=== PATIENT | female | born 1950 | race Caucasian/White ===

== ENCOUNTER 2019-03-28 19:09 | Inpatient (IN) | payer MEDICAID, OTHER ==
[~2019-03-28] VITALS: Ht 160 cm; Wt 51.0 kg
[2019-03-28 19:10] VITALS: BP 99/58
[2019-03-28] MEDS ORDERED: TRAZODONE HCL100 MG ORAL (19:11)
[2019-03-28] MEDS ORDERED: CLONAZEPAM2 MG PO (19:11)
[2019-03-28] MEDS ORDERED: INVEGA TRI IM (19:11)
--- NOTE | 2019-03-28 19:18 | Emergency Room Report ---
History of Present Illness General Chief Complaint: Multiple Trauma/Fall Source: Patient Present Illness HPI Patient transported by S after a slip and fall in her bathtub. A neighbor called them because she was not acting like her normal self. Patient denies any symptoms at this time. She has a history of schizophrenia. She denies pain. They noted that she is slurring her words. As this was BLS no Accu-Chek or line was started in the field. They also alleged that her MLAPPS test is negative. Patient denies taking any pain medication or other her medication. She denies all pain questions. She denies nausea vomiting diarrhea or dysuria. Allergies: Coded Allergies: No Known Allergies (Unverified , 03/28/19) Patient History Past Medical History: see triage record, psych hx - schizophrenia Past Surgical History: pacemaker Social History: Denies: smoking, alcohol use Social History Narrative lives by herself in her apartment Reviewed Nursing Documentation: PMH: Agreed; PSxH: Agreed Nursing Documentation-PMH Past Medical History: No History, Except For Hx COPD: Yes History Of Psychiatric Problem: Yes - SCHIZOPHRENIA Review of Systems All Other Systems: negative except mentioned in HPI - Patient denying all symptoms Physical Exam Vital Signs Date Time Temp Pulse Resp B/P (MAP) Pulse Ox O2 Delivery O2 Flow Rate FiO2 03/28/19 19:04 98.6 78 18 95/61 (72) 98 Room Air Sp02 EP Interpretation: reviewed, normal General Appearance: no apparent distress, lethargic - Eyes open, tardive movements of her mouth, answering questions with slurred speech, remembers falling, thin Eyes: bilateral eye PERRL, bilateral eye EOMI, bilateral eye Scleral Injection ENT: dry mucus membranes Neck: full range of motion, supple, no bony tend Respiratory: chest non-tender, lungs clear, normal breath sounds, other - Pacemaker left Cardiovascular #1: regular rate, rhythm, no edema Cardiovascular #2: 2+ radial (L) Gastrointestinal: non tender, soft, decreased bowel sounds, scaphoid Genitourinary: no CVA tenderness Musculoskeletal: back normal, normal range of motion, no calf tenderness, pelvis stable Neurologic: alert, motor strength/tone normal, DTRs symmetric, sensory intact, other - Tardive movements of mouth slurred speech and slow to respond, oriented - X2 Psychiatric: no suicidal/homicidal ideation, depressed affect Skin: no rash Medical Decision Making Diagnostic Impression: Primary Impression: Lethargy Additional Impressions: Head trauma Qualified Codes: S09.90XA - Unspecified injury of head, initial encounter Schizophrenia Qualified Codes: F20.9 - Schizophrenia, unspecified Benzodiazepine abuse Pyuria ER Course Patient presents post head trauma with decreased mentation. Differential includes head bleed, head contusion, concussion, electrolyte imbalance, drug ingestion amongst others. Evaluation will be with EKG, chest x-ray, CT the head and labs. The patient will be treated with IV hydration and repeat evaluations. Patient is placed on a quality assurance monitor. EKG with normal sinus rhythm rate 66 left atrial enlargement and nonspecific ST- T wave changes. CT head no bleed. Chest x-ray unremarkable. Labs with minimal increase in white blood cell count. Glucose minimally elevated. Troponin negative. Normal TSH. Minimal pyuria with squamous cells present. Tox screen positive for benzodiazepines. Due to squamous cells in urine antibiotics not started. Some improvement in mentation. Unable to ambulate. Unsteady on feet. Needs observation. She claims she only takes clonazepam 1 mg at night. Because of her inability to ambulate patient needs observation and repeat evaluations. In addition she needs health and social care teacher to evaluate safety at home. Patient admitted observation Dr. Hardy citrix consultant for Dr. Bedoya. Fall risk noted. Laboratory Tests Test 03/28/19 19:25 03/28/19 19:50 White Blood Count 11.0 K/UL (4.8-10.8) H Red Blood Count 4.32 M/UL (4.20-5.40) Hemoglobin 14.5 G/DL (12.0-16.0) Hematocrit 42.3 % (37.0-47.0) Mean Corpuscular Volume 98 FL (80-99) Mean Corpuscular Hemoglobin 33.5 PG (27.0-31.0) H Mean Corpuscular Hemoglobin Concent 34.2 G/DL (32.0-36.0) Red Cell Distribution Width 11.6 % (11.6-14.8) Platelet Count 251 K/UL (150-450) Mean Platelet Volume 6.6 FL (6.5-10.1) Neutrophils (%) (Auto) 75.1 % (45.0-75.0) H Lymphocytes (%) (Auto) 15.6 % (20.0-45.0) L Monocytes (%) (Auto) 7.8 % (1.0-10.0) Eosinophils (%) (Auto) 0.8 % (0.0-3.0) Basophils (%) (Auto) 0.6 % (0.0-2.0) Sodium Level 137 MMOL/L (136-145) Potassium Level 4.0 MMOL/L (3.5-5.1) Chloride Level 103 MMOL/L (98-107) Carbon Dioxide Level 25 MMOL/L (21-32) Anion Gap 9 mmol/L (5-15) Blood Urea Nitrogen 11 mg/dL (7-18) Creatinine 1.0 MG/DL (0.55-1.30) Estimate Glomerular Filtration Rate 55.1 mL/min (>60) Glucose Level 125 MG/DL (74-106) H Calcium Level 9.8 MG/DL (8.5-10.1) Total Bilirubin 0.3 MG/DL (0.2-1.0) Aspartate Amino Transferase (AST) 7 U/L (15-37) L Alanine Aminotransferase (ALT) 13 U/L (12-78) Alkaline Phosphatase 54 U/L (46-116) Total Creatine Kinase 151 U/L (26-308) Troponin I 0.003 ng/mL (0.000-0.056) Total Protein 6.7 G/DL (6.4-8.2) Albumin 3.6 G/DL (3.4-5.0) Globulin 3.1 g/dL Albumin/Globulin Ratio 1.2 (1.0-2.7) Thyroid Stimulating Hormone (TSH) 2.568 uiU/mL (0.358-3.740) Salicylates Level 9.7 ug/mL (2.8-20) Acetaminophen Level < 2 MCG/ML (10-30) L Serum Alcohol < 3 mg/dL Urine Color Pale yellow Urine Appearance Clear Urine pH 6.5 (4.5-8.0) Urine Specific [place] 1.005 (1.005-1.035) Urine Protein Negative (NEGATIVE) Urine Glucose (UA) Negative (NEGATIVE) Urine Ketones 1+ (NEGATIVE) H Urine Blood 2+ (NEGATIVE) H Urine Nitrite Negative (NEGATIVE) Urine Bilirubin Negative (NEGATIVE) Urine Urobilinogen Normal MG/DL (0.0-1.0) Urine Leukocyte Esterase 3+ (NEGATIVE) H Urine RBC 0-2 /HPF (0 - 2) Urine WBC 5-10 /HPF (0 - 2) H Urine Squamous Epithelial Cells Occasional /LPF Urine Bacteria Few /HPF (NONE) Urine Opiates Screen Negative (NEGATIVE) Urine Barbiturates Screen Negative (NEGATIVE) Phencyclidine (PCP) Screen Negative (NEGATIVE) Urine Amphetamines Screen Negative (NEGATIVE) Urine Benzodiazepines Screen Positive (NEGATIVE) H Urine Cocaine Screen Negative (NEGATIVE) Urine Marijuana (THC) Screen Negative (NEGATIVE) EKG Diagnostic Results Rate: normal Rhythm: NSR ST Segments: no acute changes - Left atrial enlargement and nonspecific ST-T wave changes Rhythm Strip Diag. Results EP Interpretation: yes Rhythm: NSR, no PVC's, no ectopy Chest X-Ray Diagnostic Results Chest X-Ray Diagnostic Results : Chest X-Ray Ordered: Yes # of Views/Limited/Complete: 1 View Indication: Other EP Interpretation: Yes Interpretation: no consolidation, no effusion, no pneumothorax, other - pacer L Impression: Other Electronically Signed by: Electronically signed by Francisco Rodriguez MD CT/MRI/US Diagnostic Results CT/MRI/US Diagnostic Results : Imaging Test Ordered: head Impression No bleed or contusions no fracture. Last Vital Signs Date Time Temp Pulse Resp B/P (MAP) Pulse Ox O2 Delivery O2 Flow Rate FiO2 03/29/19 01:58 Room Air 03/29/19 01:05 97.6 59 15 134/72 (92) 94 Status: improved Disposition: PLACE IN OBSERVATION Condition: Serious Francisco Rodriguez MD Mar 28, 2019 19:18
[2019-03-28 19:40] LABS: BASOPHILS % (AUTO) 0.6 % (0.0-2.0); EOSINOPHILS % (AUTO) 0.8 % (0.0-3.0); HEMATOCRIT 42.3 % (37.0-47.0); HEMOGLOBIN 14.5 G/DL (12.0-16.0); LYMPHOCYTES % (AUTO) 15.6 % (20.0-45.0); MEAN CORPUSCULAR VOLUME 98 FL (80-99); MONOCYTES % (AUTO) 7.8 % (1.0-10.0); NEUTROPHILS % (AUTO) 75.1 % (45.0-75.0); PLATELET COUNT 251 K/UL (150-450); RED BLOOD COUNT 4.32 M/UL (4.20-5.40); RED CELL DISTRIBUTION WIDTH 11.6 % (11.6-14.8)
[2019-03-28 19:55] LABS: ANION GAP 9 mmol/L (5-15); BLOOD UREA NITROGEN 11 mg/dL (7-18); CALCIUM 9.8 MG/DL (8.5-10.1); CARBON DIOXIDE 25 MMOL/L (21-32); CHLORIDE 103 MMOL/L (98-107); SODIUM 137 MMOL/L (136-145)
[2019-03-28 20:07] LABS: ALANINE AMINOTRANSFERASE 13 U/L (12-78); ALBUMIN 3.6 G/DL (3.4-5.0); ALBUMIN/GLOBULIN RATIO 1.2 (1.0-2.7); ALKALINE PHOSPHATASE 54 U/L (46-116); ASPARTATE AMINO TRANSFERASE 7 U/L (15-37); BILIRUBIN,TOTAL 0.3 MG/DL (0.2-1.0); CREATINE KINASE 151 U/L (26-308)
[2019-03-28 20:13] LABS: APPEARANCE,URINE CLEAR; BILIRUBIN, URINE NEGATIVE (NEGATIVE); COLOR,URINE PALE YELLOW; GLUCOSE, URINE (UA) NEGATIVE (NEGATIVE); KETONES,URINE 1+ (NEGATIVE); LEUKOCYTE ESTERASE ,URINE 3+ (NEGATIVE); NITRITE,URINE NEGATIVE (NEGATIVE); PH,URINE 6.5 (4.5-8.0); PROTEIN,URINE NEGATIVE (NEGATIVE); UROBILINOGEN,URINE NORMAL MG/DL (0.0-1.0)
[2019-03-28 21:10] VITALS: BP 95/48
[2019-03-28 23:17] VITALS: BP 122/61
[2019-03-29 01:05] VITALS: BP 134/72
[2019-03-29] MEDS: D5 1/2NS 1,000 ML IV SCH ×2 (02:15→17:04)
[2019-03-29 04:00] VITALS: BP 128/67
[2019-03-29 06:04] LABS: BASOPHILS % (AUTO) 1.1 % (0.0-2.0); EOSINOPHILS % (AUTO) 1.3 % (0.0-3.0); HEMATOCRIT 40.2 % (37.0-47.0); HEMOGLOBIN 13.8 G/DL (12.0-16.0); LYMPHOCYTES % (AUTO) 15.5 % (20.0-45.0); MEAN CORPUSCULAR VOLUME 98 FL (80-99); MONOCYTES % (AUTO) 8.3 % (1.0-10.0); NEUTROPHILS % (AUTO) 73.8 % (45.0-75.0); PLATELET COUNT 229 K/UL (150-450); RED CELL DISTRIBUTION WIDTH 11.7 % (11.6-14.8)
[2019-03-29 06:16] LABS: ANION GAP 9 mmol/L (5-15); BLOOD UREA NITROGEN 8 mg/dL (7-18); CALCIUM 9.1 MG/DL (8.5-10.1); CARBON DIOXIDE 24 MMOL/L (21-32); CHLORIDE 108 MMOL/L (98-107); CREATININE 0.8 MG/DL (0.55-1.30); POTASSIUM 3.9 MMOL/L (3.5-5.1); SODIUM 141 MMOL/L (136-145)
[2019-03-29 08:00] VITALS: BP 117/60
--- NOTE | 2019-03-29 11:55 | History and Physical ---
History of Present Illness General Date patient seen: Mar 29, 2019 Time patient seen: 08:45 Reason for Hospitalization: Multiple Trauma/Fall Present Illness HPI 69 year old female with hx of schizophrenia, presenting after a fall in her bathtub. Denies any symptoms prior to fall, just "slipped," and hit her head and right side of body. Afterwards, patient was reportedly acting not like herself, so her neighbors called EMS and was taken here. Reportedly slurring her words as well. She denies any chest pain, lightheadedness, syncope, SOB, fever, chills, recent illness. ROS+ however for diarrhea x 3 days, (about 2-3 times daily), but no abdominal pain, blood in stool. Also + for lack of PO intake in last 2~3 days. When asked why she did not eat, she was unable to provide an answer. Denies any recent use of abx. She lives with a roommate; has no immediate family in the area. (History obtained from medical chart and patient. Patient is a unreliable historian, flat affect) Social history: as above Allergies: Coded Allergies: No Known Allergies (Unverified , 03/28/19) Medication History Scheduled Clonazepam (Clonazepam), 2 MG PO QHS, (Reported) Paliperidone Palmitate (Invega Trinza), 410 MG IM EVERY 3 MONTHS, (Reported) Trazodone Hcl* (Desyrel*), 100 MG ORAL BEDTIME, (Reported) Patient History Limited by: other - flat affect History Provided By: Patient, Medical Record Healthcare decision maker yes Resuscitation status Full Code Advanced Directive on File Past Medical/Surgical History Past Medical/Surgical History: (1) Head trauma (2) Diarrhea (3) Schizophrenia (4) Lethargy (5) Physical deconditioning Family History Family History: Patient reports no known family medical history. Review of Systems Constitutional: Reports: weakness - general weakness ; Denies: no symptoms, see HPI, chills, sweats, fever, malaise, other Eye: Denies: no symptoms, see HPI, eye pain, blurred vision, tearing, double vision, nose pain, nose congestion, acuity changes, discharge, other ENT: Denies: no symptoms, see HPI, ear pain, ear discharge, nose pain, nose congestion, throat pain, throat swelling, mouth pain, hearing loss, nasal discharge, other Respiratory: Denies: no symptoms, see HPI, cough, orthopnea, shortness of breath, stridor, wheezing, [place], sputum, other Cardiovascular: Denies: no symptoms, see HPI, chest pain, edema, palpitations, syncope, PND, other Gastrointestinal: Reports: diarrhea; Denies: no symptoms, see HPI, abdominal pain, constipation, nausea, vomiting, melena, hematemesis, other Genitourinary: Denies: no symptoms, see HPI, discharge, dysuria, frequency, hematuria, pain, retention, incontinence, urgency, vag bleed/dc, other Musculoskeletal: Denies: no symptoms, see HPI, back pain, gout, joint pain, joint swelling, muscle pain, muscle stiffness, other Skin: Denies: no symptoms, see HPI, rash, change in color, change in hair/nails , dryness, lesions, other Psychiatric: Denies: no symptoms, see HPI, prior hx, anxiety, depressed feelings, emotional problems, SI, HI, hallucinations, other Neurological: Denies: no symptoms, see HPI, headache, numbness, paresthesia, seizure, tingling, tremors, focal weakness, syncope, dizziness, other Endocrine: Denies: no symptoms, see HPI, excessive sweating, flushing, intolerance to temperature, increased thirst, increased urine, unexplained weight loss, other Hematologic/Lymphatic: Denies: no symptoms, see HPI, anemia, blood clots, easy bleeding, easy bruising, swollen glands, diathesis, other Physical Exam General Appearance: WD/WN, no apparent distress, cachetic, thin, other - withdrawn, flat affect Lines, tubes and drains: peripheral HEENT: normocephalic, atraumatic, anicteric Neck: supple Respiratory/Chest: lungs clear, normal breath sounds, no respiratory distress Cardiovascular/Chest: normal rate, regular rhythm, regularly irregular, no gallop/murmur Abdomen: normal bowel sounds, non tender, soft, hyperactive bowel sounds Extremities: non-tender Neurologic: alert, other - oriented x2. Thinks it's 1900. Last 24 Hour Vital Signs Date Time Temp Pulse Resp B/P (MAP) Pulse Ox O2 Delivery O2 Flow Rate FiO2 03/29/19 09:00 Room Air 03/29/19 08:00 98.2 78 18 117/60 (79) 93 03/29/19 04:00 98.4 61 18 128/67 (87) 96 03/29/19 01:58 Room Air 03/29/19 01:05 97.6 59 15 134/72 (92) 94 03/29/19 00:59 98.4 63 22 115/67 95 Room Air 03/28/19 23:17 98.7 68 19 122/61 96 Room Air 03/28/19 21:10 98.5 60 22 95/48 95 Room Air 03/28/19 19:10 98.6 66 21 99/58 98 Room Air 03/28/19 19:10 66 21 Room Air 03/28/19 19:04 98.6 78 18 95/61 (72) 98 Room Air Intake and Output 03/28/19 03/29/19 18:59 06:59 Intake Total 2320 ml Balance 2320 ml Intake Oral 120 ml IV Total 2200 ml # Voids 1 # Bowel Movements 1 Laboratory Tests Test 03/28/19 19:25 03/28/19 19:50 03/29/19 05:20 White Blood Count 11.0 K/UL (4.8-10.8) H 9.0 K/UL (4.8-10.8) Red Blood Count 4.32 M/UL (4.20-5.40) 4.10 M/UL (4.20-5.40) L Hemoglobin 14.5 G/DL (12.0-16.0) 13.8 G/DL (12.0-16.0) Hematocrit 42.3 % (37.0-47.0) 40.2 % (37.0-47.0) Mean Corpuscular Volume 98 FL (80-99) 98 FL (80-99) Mean Corpuscular Hemoglobin 33.5 PG (27.0-31.0) H 33.6 PG (27.0-31.0) H Mean Corpuscular Hemoglobin Concent 34.2 G/DL (32.0-36.0) 34.2 G/DL (32.0-36.0) Red Cell Distribution Width 11.6 % (11.6-14.8) 11.7 % (11.6-14.8) Platelet Count 251 K/UL (150-450) 229 K/UL (150-450) Mean Platelet Volume 6.6 FL (6.5-10.1) 6.8 FL (6.5-10.1) Neutrophils (%) (Auto) 75.1 % (45.0-75.0) H 73.8 % (45.0-75.0) Lymphocytes (%) (Auto) 15.6 % (20.0-45.0) L 15.5 % (20.0-45.0) L Monocytes (%) (Auto) 7.8 % (1.0-10.0) 8.3 % (1.0-10.0) Eosinophils (%) (Auto) 0.8 % (0.0-3.0) 1.3 % (0.0-3.0) Basophils (%) (Auto) 0.6 % (0.0-2.0) 1.1 % (0.0-2.0) Sodium Level 137 MMOL/L (136-145) 141 MMOL/L (136-145) Potassium Level 4.0 MMOL/L (3.5-5.1) 3.9 MMOL/L (3.5-5.1) Chloride Level 103 MMOL/L (98-107) 108 MMOL/L (98-107) H Carbon Dioxide Level 25 MMOL/L (21-32) 24 MMOL/L (21-32) Anion Gap 9 mmol/L (5-15) 9 mmol/L (5-15) Blood Urea Nitrogen 11 mg/dL (7-18) 8 mg/dL (7-18) Creatinine 1.0 MG/DL (0.55-1.30) 0.8 MG/DL (0.55-1.30) Estimat Glomerular Filtration Rate 55.1 mL/min (>60) > 60 mL/min (>60) Glucose Level 125 MG/DL (74-106) H 120 MG/DL (74-106) H Calcium Level 9.8 MG/DL (8.5-10.1) 9.1 MG/DL (8.5-10.1) Total Bilirubin 0.3 MG/DL (0.2-1.0) Aspartate Amino Transf (AST/SGOT) 7 U/L (15-37) L Alanine Aminotransferase (ALT/SGPT) 13 U/L (12-78) Alkaline Phosphatase 54 U/L (46-116) Total Creatine Kinase 151 U/L (26-308) Troponin I 0.003 ng/mL (0.000-0.056) Total Protein 6.7 G/DL (6.4-8.2) Albumin 3.6 G/DL (3.4-5.0) Globulin 3.1 g/dL Albumin/Globulin Ratio 1.2 (1.0-2.7) Thyroid Stimulating Hormone (TSH) 2.568 uiU/mL (0.358-3.740) Salicylates Level 9.7 ug/mL (2.8-20) Acetaminophen Level < 2 MCG/ML (10-30) L Serum Alcohol < 3 mg/dL Urine Color Pale yellow Urine Appearance Clear Urine pH 6.5 (4.5-8.0) Urine Specific [place] 1.005 (1.005-1.035) Urine Protein Negative (NEGATIVE) Urine Glucose (UA) Negative (NEGATIVE) Urine Ketones 1+ (NEGATIVE) H Urine Blood 2+ (NEGATIVE) H Urine Nitrite Negative (NEGATIVE) Urine Bilirubin Negative (NEGATIVE) Urine Urobilinogen Normal MG/DL (0.0-1.0) Urine Leukocyte Esterase 3+ (NEGATIVE) H Urine RBC 0-2 /HPF (0 - 2) Urine WBC 5-10 /HPF (0 - 2) H Urine Squamous Epithelial Cells Occasional /LPF Urine Bacteria Few /HPF (NONE) Urine Opiates Screen Negative (NEGATIVE) Urine Barbiturates Screen Negative (NEGATIVE) Phencyclidine (PCP) Screen Negative (NEGATIVE) Urine Amphetamines Screen Negative (NEGATIVE) Urine Benzodiazepines Screen Positive (NEGATIVE) H Urine Cocaine Screen Negative (NEGATIVE) Urine Marijuana (THC) Screen Negative (NEGATIVE) Microbiology Date/Time Source Procedure Growth Status 03/29/19 05:20 Rectum Received Height (Feet): 5 Height (Inches): 3.00 Weight (Pounds): 120 Medications Current Medications Medications (Trade) Dose Ordered Sig/Lindsey Route PRN Reason Start Time Stop Time Status Last Admin Dose Admin Acetaminophen (Tylenol) 650 mg Q6H PRN ORAL Mild Pain/Temp > 100.5 03/29/19 01:45 04/28/19 01:44 Dextrose/Sodium Chloride 1,000 ml @ 75 mls/hr [id number] IV 03/29/19 01:45 03/30/19 01:45 03/29/19 02:15 Ondansetron HCl (Zofran) 4 mg Q6H PRN IVP Nausea & Vomiting 03/29/19 01:45 04/28/19 01:44 Objective Narrative Chest X-Ray Diagnostic Results Chest X-Ray Diagnostic Results : Chest X-Ray Ordered: Yes # of Views/Limited/Complete: 1 View Indication: Other EP Interpretation: Yes Interpretation: no consolidation, no effusion, no pneumothorax, other - pacer L Impression: Other Electronically Signed by: Electronically signed by Francisco Rodriguez MD CT/MRI/US Diagnostic Results CT/MRI/US Diagnostic Results : Imaging Test Ordered: head Impression No bleed or contusions no fracture. Assessment/Plan Problem List: (1) Lethargy ICD Codes: R53.83 - Other fatigue SNOMED: 186576175 (2) Head trauma ICD Codes: S09.90XA - Unspecified injury of head, initial encounter SNOMED: 52125190 Qualifiers: Qualified Codes: S09.90XA - Unspecified injury of head, initial encounter (3) Schizophrenia ICD Codes: F20.9 - Schizophrenia, unspecified SNOMED: 02316146 Qualifiers: Qualified Codes: F20.9 - Schizophrenia, unspecified (4) Physical deconditioning ICD Codes: R53.81 - Other malaise SNOMED: 46098192185600 (5) Diarrhea ICD Codes: R19.7 - Diarrhea, unspecified SNOMED: 37180614 Status: stable Assessment/Plan: Ms. Pedroza is a 69 year old female with schizophrenia presenting after a fall at home. #S/P FALL #HEAD TRAUMA slipped at home bathtub. CT head negative for any acute pathology. Currently denies any headache or pain elsewhere. Lives with roommate. Unclear home safety. -Admitted to med/surg. -Pain medications. -Continue to monitor. #DIARRHEA 3 days of watery stool, 2-3 times daily. Unclear etiology. No recent abx use to suggest C. diff infection. Abdomen exam benign, no other GI symptoms. No leukocytosis or TAYLOR. -IVF. -Immodium prn. -Continue to monitor. #PHYSICAL DECONDITIONING #CACHEXIA Appears cachectic, malnourished. However, albumin 3.6. -PT consult placed. -SW consult placed. #SCHIZOPHRENIA Flat affect. Minimally communicative. -Continue home Clonazepam. -Continue home Trazodone. -Outpatient psych follow up, with SW assistance. #LETHARGY -Likely related to dehydration from diarrhea. Likely also from malnutrition. -IVF. -Encourage PO intake. Dispo: home vs SNF pending PT eval. Time spent on encounter: 70 minutes, >50% of which was spent on counselling and coordination of care. Xander Thomas M.D. Mar 29, 2019 11:55
[2019-03-29 12:00] VITALS: BP_SYST 110; BP_SYST 114; BP_DIAS 56; BP_DIAS 68
[2019-03-29] MEDS ORDERED: LORazepam 0.5mg tab ORAL SCH ×2 (15:45→16:15)
[2019-03-29 16:00] VITALS: BP 110/57
[2019-03-29 20:00] VITALS: BP 114/61
[2019-03-29] MEDS: TraZODone 100mg tab ORAL SCH (22:07)
[2019-03-30] VITALS: BP 102/51
[2019-03-30] MEDS: Loperamide 2mg cap ORAL PRN (00:41)
[2019-03-30 04:00] VITALS: BP 98/48
[2019-03-30 08:00] VITALS: BP 103/46
--- NOTE | 2019-03-30 09:01 | General Progress Note ---
Assessment/Plan Problem List: (1) Acute encephalopathy ICD Codes: G93.40 - Encephalopathy, unspecified SNOMED: 78138415, 763762870 (2) Diarrhea ICD Codes: R19.7 - Diarrhea, unspecified SNOMED: 14785064 (3) Schizophrenia ICD Codes: F20.9 - Schizophrenia, unspecified SNOMED: 01353466 Qualifiers: Qualified Codes: F20.9 - Schizophrenia, unspecified (4) Lethargy ICD Codes: R53.83 - Other fatigue SNOMED: 826267790 (5) Head trauma ICD Codes: S09.90XA - Unspecified injury of head, initial encounter SNOMED: 98398070 Qualifiers: Qualified Codes: S09.90XA - Unspecified injury of head, initial encounter (6) Physical deconditioning ICD Codes: R53.81 - Other malaise SNOMED: 19685638565805 Status: stable, not improved Assessment/Plan: 69 year old female with schizophrenia presenting after a fall at home. 1. S/P FALL and HEAD TRAUMA slipped at home bathtub. CT head negative for any acute pathology. Currently denies any headache or pain elsewhere. Lives with roommate. Unclear home safety. -Admitted to med/surg. -Pain medications. -Continue to monitor. -PT #DIARRHEA 3 days of watery stool on admission and on going , 3 times daily. Unclear etiology. No recent abx use to suggest C. diff infection. Abdomen exam benign, no other GI symptoms. No leukocytosis or TAYLOR. Given persistent nature, if continues will check for stool wbc, oocyte, culture and c diff toxin. -IVF. -Immodium prn. -Continue to monitor. #PHYSICAL DECONDITIONING #CACHEXIA Appears cachectic, malnourished. However, albumin 3.6. -PT consult placed. -SW consult placed. #SCHIZOPHRENIA Flat affect. Minimally communicative. -Continue home Clonazepam. -Continue home Trazodone. -psychiatry consult. Dr. Pradeep Langley prn #LETHARGY -Likely related to dehydration from diarrhea. Likely also from malnutrition. -IVF. -Encourage PO intake. Dispo: home vs SNF pending PT eval. I spent 40 minutes on this encounter. 50% spent on counselling and care coordination. Subjective Date patient seen: Mar 30, 2019 ROS Limited/Unobtainable: No Constitutional: Denies: no symptoms, chills, diaphoresis, fever, malaise, weakness, other Cardiovascular: Denies: no symptoms, chest pain, edema, irregular heart rate, lightheadedness, palpitations, syncope, other Respiratory: Denies: no symptoms, cough, orthopnea, shortness of breath, SOB with excertion, SOB at rest, sputum, stridor, wheezing, other Gastrointestinal/Abdominal: Reports: diarrhea; Denies: no symptoms, abdomen distended, abdominal pain, black stools, tarry stools, blood in stool, constipated, difficulty swallowing, nausea, poor appetite, poor fluid intake, rectal bleeding, vomiting, other Genitourinary: Denies: no symptoms, burning, discharge, frequency, flank pain, hematuria, incontinence, pain, urgency, other Neurologic/Psychiatric: Denies: no symptoms, anxiety, depressed, emotional problems, headache, numbness, paresthesia, pre-existing deficit, seizure, tingling, tremors, weakness, other Endocrine: Denies: no symptoms, excessive sweating, flushing, intolerance to cold, intolerance to heat, increased hunger, increased thirst, increased urine, unexplained weight gain, unexplained weight loss, other Hematologic/Lymphatic: Denies: no symptoms, anemia, easy bleeding, easy bruising, other Allergies: Coded Allergies: No Known Allergies (Unverified , 03/28/19) Subjective seen and examined lying in bed very flat affect continues to have diarrhea 4 times a day, loose denies abdominal pain remember shaving falled in the tub denies pain asking to go home Objective Last 24 Hour Vital Signs Date Time Temp Pulse Resp B/P (MAP) Pulse Ox O2 Delivery O2 Flow Rate FiO2 03/30/19 08:00 98.2 62 18 103/46 (65) 97 03/30/19 04:00 97.9 62 16 98/48 (65) 94 03/30/19 00:00 99.0 61 18 102/51 (68) 94 03/29/19 21:00 Room Air 03/29/19 20:00 99.7 65 17 114/61 (78) 96 03/29/19 16:00 98.2 61 19 110/57 (74) 95 03/29/19 12:00 97.1 69 20 110/68 (82) 98 Intake and Output 03/29/19 03/30/19 19:00 07:00 Intake Total 1470 ml 810 ml Balance 1470 ml 810 ml Intake Oral 720 ml 360 ml IV Total 750 ml 450 ml # Voids 4 # Bowel Movements 2 Height (Feet): 5 Height (Inches): 3.00 Weight (Pounds): 120 Objective General Appearance: no apparent distress, speaks full sentences Eyes: bilateral eye PERRL, bilateral eye EOMI, bilateral eye Scleral Injection HEENT: PERRL , neck supple Respiratory: chest non-tender, lungs clear, normal breath sounds, other - Pacemaker left Cardiovascular: regular rate, rhythm, no m/r/g, no edema Gastrointestinal: non tender, soft, decreased bowel sounds Genitourinary: no CVA tenderness Musculoskeletal: back normal, normal range of motion, no calf tenderness Neurologic: slow to respond, oriented - X2, grossly normal Psychiatric: no suicidal/homicidal ideation, depressed affect Skin: no rash, no ulcers Doug Powell M.D. Mar 30, 2019 09:00
[2019-03-30] MEDS ORDERED: Haloperidol 5mg/ml Inj IM SCH (10:58)
[2019-03-30] MEDS ORDERED: Haloperidol Lactate 5 MG in D5W 55 ML IVPB ONE ×4 (11:00)
--- NOTE | 2019-03-30 11:15 | Cardiology Report ---
APPROVED REPORT EKG Measurement Heart [id number] CT [id number] Normal sinus rhythm Possible Left atrial enlargement Anterior infarct, age undetermined Abnormal ECG
--- NOTE | 2019-03-30 11:35 | Diagnostic Imaging Report ---
Indication: Dyspnea Comparison: None A single view chest radiograph was obtained. Findings: Cardiomediastinal appearance is within normal limits for age. There is a pacemaker on the left. The lungs are clear. Pulmonary vascularity is appropriate. The diaphragmatic contour is smooth and costophrenic angles are sharp. No pleural effusions are identified. The bones are unremarkable. Impression: No acute findings
[2019-03-30 12:00] VITALS: BP 101/50
[2019-03-30 16:00] VITALS: BP 102/53
[2019-03-30 20:00] VITALS: BP 107/61
[2019-03-30] MEDS: TraZODone 100mg tab ORAL SCH (22:08)
[2019-03-31] VITALS: BP 105/57
[2019-03-31 04:00] VITALS: BP 103/60
[2019-03-31 05:36] LABS: HEMATOCRIT 38.4 % (37.0-47.0); HEMOGLOBIN 13.2 G/DL (12.0-16.0); LYMPHOCYTES % (AUTO) 23.9 % (20.0-45.0); MEAN CORPUSCULAR VOLUME 100 FL (80-99); MONOCYTES % (AUTO) 12.7 % (1.0-10.0); NEUTROPHILS % (AUTO) 60.4 % (45.0-75.0); PLATELET COUNT 226 K/UL (150-450); RED BLOOD COUNT 3.86 M/UL (4.20-5.40); RED CELL DISTRIBUTION WIDTH 11.1 % (11.6-14.8); WHITE BLOOD COUNT 5.5 K/UL (4.8-10.8)
[2019-03-31 05:58] LABS: ALANINE AMINOTRANSFERASE 14 U/L (12-78); ALBUMIN/GLOBULIN RATIO 0.9 (1.0-2.7); ALKALINE PHOSPHATASE 48 U/L (46-116); ANION GAP 8 mmol/L (5-15); ASPARTATE AMINO TRANSFERASE 17 U/L (15-37); BILIRUBIN,TOTAL 0.3 MG/DL (0.2-1.0); BLOOD UREA NITROGEN 6 mg/dL (7-18); CALCIUM 9.6 MG/DL (8.5-10.1); CARBON DIOXIDE 26 MMOL/L (21-32); CHLORIDE 106 MMOL/L (98-107); CREATININE 0.9 MG/DL (0.55-1.30); POTASSIUM 4.1 MMOL/L (3.5-5.1); SODIUM 140 MMOL/L (136-145)
[2019-03-31 08:25] VITALS: BP 96/60
--- NOTE | 2019-03-31 09:24 | General Progress Note ---
Assessment/Plan Problem List: (1) Acute encephalopathy ICD Codes: G93.40 - Encephalopathy, unspecified SNOMED: 66376946, 357371504 (2) Diarrhea ICD Codes: R19.7 - Diarrhea, unspecified SNOMED: 37244618 (3) Schizophrenia ICD Codes: F20.9 - Schizophrenia, unspecified SNOMED: 98107968 Qualifiers: Qualified Codes: F20.9 - Schizophrenia, unspecified (4) Lethargy ICD Codes: R53.83 - Other fatigue SNOMED: 389093240 (5) Head trauma ICD Codes: S09.90XA - Unspecified injury of head, initial encounter SNOMED: 55828410 Qualifiers: Qualified Codes: S09.90XA - Unspecified injury of head, initial encounter (6) Physical deconditioning ICD Codes: R53.81 - Other malaise SNOMED: 71978393319320 Status: stable, not improved Assessment/Plan: 69 year old female with schizophrenia presenting after a fall at home. 1. S/P FALL and HEAD TRAUMA slipped at home bathtub. CT head negative for any acute pathology. Currently denies any headache or pain elsewhere. Lives with roommate. Unclear home safety. -Pain medications. -Continue to monitor. -PT #DIARRHEA 3 days of watery stool on admission and on going , 3 times daily. Unclear etiology. No recent abx use to suggest C. diff infection. Abdomen exam benign, no other GI symptoms. No leukocytosis or TAYLOR. Given persistent nature, if continues will check for stool wbc, oocyte, culture and c diff toxin, however diarrhea stopped. -IVF. -Imodium prn. -Continue to monitor. #PHYSICAL DECONDITIONING #CACHEXIA Appears cachectic, malnourished. However, albumin 3.6. -PT consult placed. -SW consult placed. #SCHIZOPHRENIA Flat affect. Minimally communicative. -Continue home Clonazepam. -Continue home Trazodone. -psychiatry consult. Dr. Fernández - still pending -Haldol prn #LETHARGY -Likely related to dehydration from diarrhea. Likely also from malnutrition. -IVF. -Encourage PO intake. Dispo: SNF pending PT eval. I spent 40 minutes on this encounter. 50% spent on counselling and care coordination. Subjective Date patient seen: Mar 31, 2019 ROS Limited/Unobtainable: No Constitutional: Denies: no symptoms, chills, diaphoresis, fever, malaise, weakness, other HEENT: Denies: no symptoms, eye pain, blurred vision, tearing, double vision, ear pain, ear discharge, nose pain, nose congestion, throat pain, throat swelling, mouth pain, mouth swelling, other Cardiovascular: Denies: no symptoms, chest pain, edema, irregular heart rate, lightheadedness, palpitations, syncope, other Respiratory: Denies: no symptoms, cough, orthopnea, shortness of breath, SOB with excertion, SOB at rest, sputum, stridor, wheezing, other Gastrointestinal/Abdominal: Denies: no symptoms, abdomen distended, abdominal pain, black stools, tarry stools, blood in stool, constipated, diarrhea, difficulty swallowing, nausea, poor appetite, poor fluid intake, rectal bleeding , vomiting, other Genitourinary: Denies: no symptoms, burning, discharge, frequency, flank pain, hematuria, incontinence, pain, urgency, other Neurologic/Psychiatric: Denies: no symptoms, anxiety, depressed, emotional problems, headache, numbness, paresthesia, pre-existing deficit, seizure, tingling, tremors, weakness, other Endocrine: Denies: no symptoms, excessive sweating, flushing, intolerance to cold, intolerance to heat, increased hunger, increased thirst, increased urine, unexplained weight gain, unexplained weight loss, other Hematologic/Lymphatic: Denies: no symptoms, anemia, easy bleeding, easy bruising, other Allergies: Coded Allergies: No Known Allergies (Unverified , 03/28/19) Subjective seen and examined, sitting at bedside Affect flat wants to go home RN brought walker and patient is ambulating using the walker diarrhea stopped. Objective Last 24 Hour Vital Signs Date Time Temp Pulse Resp B/P (MAP) Pulse Ox O2 Delivery O2 Flow Rate FiO2 03/31/19 08:27 Room Air 03/31/19 08:25 98.2 66 16 96/60 (72) 95 03/31/19 04:00 98.6 57 16 103/60 (74) 93 62 03/31/19 00:00 98.4 61 17 105/57 (73) 94 03/30/19 21:00 Room Air 03/30/19 20:00 98.6 61 16 107/61 (76) 94 03/30/19 16:00 98.0 64 17 102/53 (69) 98 03/30/19 12:00 98.4 63 18 101/50 (67) 98 Intake and Output 03/30/19 03/31/19 19:00 07:00 Intake Total 900 ml 240 ml Output Total 500 ml Balance 900 ml -260 ml Intake Oral 900 ml 240 ml Output Urine Total 500 ml # Voids 4 1 # Bowel Movements 1 Laboratory Tests 03/31/19 05:10: White Blood Count 5.5, Red Blood Count 3.86L, Hemoglobin 13.2, Hematocrit 38.4, Mean Corpuscular Volume 100H, Mean Corpuscular Hemoglobin 34.1H, Mean Corpuscular Hemoglobin Concent 34.3, Red Cell Distribution Width 11.1L, Platelet Count 226, Mean Platelet Volume 6.6, Neutrophils (%) (Auto) 60.4, Lymphocytes (%) (Auto) 23.9, Monocytes (%) (Auto) 12.7H, Eosinophils (%) (Auto) 2.0, Basophils (%) (Auto) 1.0, Sodium Level 140, Potassium Level 4.1, Chloride Level 106, Carbon Dioxide Level 26, Anion Gap 8, Blood Urea Nitrogen 6L, Creatinine 0.9, Estimat Glomerular Filtration Rate > 60, Glucose Level 100, Calcium Level 9.6, Total Bilirubin 0.3, Aspartate Amino Transf (AST/SGOT) 17, Alanine Aminotransferase (ALT/SGPT) 14, Alkaline Phosphatase 48, Total Protein 6.2L, Albumin 3.0L, Globulin 3.2, Albumin/Globulin Ratio 0.9L Height (Feet): 5 Height (Inches): 3.00 Weight (Pounds): 120 Objective General Appearance: no apparent distress, speaks full sentences Eyes: bilateral eye PERRL, bilateral eye EOMI, bilateral eye Scleral Injection HEENT: PERRL , neck supple Respiratory: chest non-tender, lungs clear, normal breath sounds, other - Pacemaker left Cardiovascular: regular rate, rhythm, no m/r/g, no edema Gastrointestinal: non tender, soft, decreased bowel sounds Genitourinary: no CVA tenderness Musculoskeletal: back normal, normal range of motion, no calf tenderness Neurologic: slow to respond, oriented - X2, grossly normal Psychiatric: no suicidal/homicidal ideation, depressed affect Skin: no rash, no ulcers Doug Powell M.D. 17, 2019 09:24
[2019-03-31 11:39] VITALS: BP 103/53
[2019-03-31] MEDS: LORazepam 1mg tab ORAL PRN (15:19)
[2019-03-31 16:00] VITALS: BP 133/71
--- NOTE | 2019-03-31 16:00 | Consultation ---
DATE OF CONSULTATION: 03/31/2019 CONSULTING PHYSICIAN: Lima Fernández M.D. HISTORY OF PRESENT ILLNESS: This is a 69-year-old female with a history of multiple medical comorbidities who has been admitted to the hospital after she fell in her bathtub. The patient has a history of schizophrenia. Apparently, the patient slipped and hit her head. The patient is presenting with anxiety, agitation, poor insight, poor memory. Not able to be engaged during the evaluation. The patient was more agitated and weak yesterday. Today, she has difficulty remembering past events and unable to answer the questions. She is responding to internal stimuli. PAST PSYCHIATRIC HISTORY: Schizophrenia, several psychiatric hospitalizations. The patient has been treated with trazodone and Klonopin. PAST MEDICAL HISTORY: Significant for ataxia, head trauma, UTIs. ALLERGIES: No known drug allergies. SUBSTANCE ABUSE HISTORY: No known history of illicit drug use or alcohol. MENTAL STATUS EXAMINATION: The patient is alert, oriented times self, place. She knows this is 2019, disoriented to date. Mood is agitated. Affect is flat. Thought process is concrete. Thought content, no suicidal or homicidal ideations. Delusional. Has auditory hallucinations. Insight and judgment is improved. ASSESSMENT: [place] I Schizophrenia. Acute encephalopathy. [place] II Deferred. [place] III As above. [place] IV Low. [place] V 20. PLAN: 1. Discontinue the trazodone. 2. Start the patient on risperidone 2 mg at bedtime. 3. Decrease the Klonopin to 1.5 mg at bedtime. 4. Provide the patient with reality orientation and supportive therapy. Lima Fernández M.D. DR: PURNIMA JOB#: [id number] CC: YORDY
[2019-03-31 20:00] VITALS: BP 121/72
[2019-03-31] MEDS: clonazePAM 0.5mg tab ORAL SCH (20:54)
[2019-04-01] VITALS: BP 109/68
[2019-04-01 04:30] VITALS: BP 99/54
[2019-04-01 08:00] VITALS: BP 100/54
--- NOTE | 2019-04-01 08:39 | General Progress Note ---
Assessment/Plan Problem List: (1) Acute encephalopathy ICD Codes: G93.40 - Encephalopathy, unspecified SNOMED: 11311155, 747327236 (2) Diarrhea ICD Codes: R19.7 - Diarrhea, unspecified SNOMED: 64309916 (3) Schizophrenia ICD Codes: F20.9 - Schizophrenia, unspecified SNOMED: 56218879 Qualifiers: Qualified Codes: F20.9 - Schizophrenia, unspecified (4) Lethargy ICD Codes: R53.83 - Other fatigue SNOMED: 454518070 (5) Head trauma ICD Codes: S09.90XA - Unspecified injury of head, initial encounter SNOMED: 60216541 Qualifiers: Qualified Codes: S09.90XA - Unspecified injury of head, initial encounter (6) Physical deconditioning ICD Codes: R53.81 - Other malaise SNOMED: 06520131587579 Status: stable, progressing, not improved Assessment/Plan: 69 year old female with schizophrenia presenting after a fall at home. 1. S/P FALL and HEAD TRAUMA slipped at home bathtub. CT head negative for any acute pathology. Currently denies any headache or pain elsewhere. Lives with roommate. Unclear home safety. -Pain medications. -Continue to monitor. -PT #DIARRHEA 3 days of watery stool on admission and on going , 3 times daily. Unclear etiology. No recent abx use to suggest C. diff infection. Abdomen exam benign, no other GI symptoms. No leukocytosis or TAYLOR. Given persistent nature, if continues will check for stool wbc, oocyte, culture and c diff toxin, however diarrhea stopped. no more diarrhea -IVF. -Imodium prn. -Continue to monitor. #PHYSICAL DECONDITIONING #CACHEXIA Appears cachectic, malnourished. However, albumin 3.6. -PT consult placed. -SW consult placed. #SCHIZOPHRENIA Flat affect. Minimally communicative. -Continue home Clonazepam. Dose decreased by psychiatrist to 1.5 mg QHS -discontinue home Trazodone. -Start Risperidone 2mg QHS per psychiatry recommendations -psychiatry consult. Dr. Fernández, appreciated -Ativan PRN #LETHARGY- improved -Likely related to dehydration from diarrhea. Likely also from malnutrition. -IVF. -Encourage PO intake. Dispo: SNF I spent 40 minutes on this encounter. 50% spent on counselling and care coordination. Subjective Date patient seen: Apr 01, 2019 ROS Limited/Unobtainable: No Constitutional: Denies: no symptoms, chills, diaphoresis, fever, malaise, weakness, other HEENT: Denies: no symptoms, eye pain, blurred vision, tearing, double vision, ear pain, ear discharge, nose pain, nose congestion, throat pain, throat swelling, mouth pain, mouth swelling, other Cardiovascular: Denies: no symptoms, chest pain, edema, irregular heart rate, lightheadedness, palpitations, syncope, other Respiratory: Denies: no symptoms, cough, orthopnea, shortness of breath, SOB with excertion, SOB at rest, sputum, stridor, wheezing, other Gastrointestinal/Abdominal: Denies: no symptoms, abdomen distended, abdominal pain, black stools, tarry stools, blood in stool, constipated, diarrhea, difficulty swallowing, nausea, poor appetite, poor fluid intake, rectal bleeding , vomiting, other Genitourinary: Denies: no symptoms, burning, discharge, frequency, flank pain, hematuria, incontinence, pain, urgency, other Neurologic/Psychiatric: Denies: no symptoms, anxiety, depressed, emotional problems, headache, numbness, paresthesia, pre-existing deficit, seizure, tingling, tremors, weakness, other Endocrine: Denies: no symptoms, excessive sweating, flushing, intolerance to cold, intolerance to heat, increased hunger, increased thirst, increased urine, unexplained weight gain, unexplained weight loss, other Hematologic/Lymphatic: Denies: no symptoms, anemia, easy bleeding, easy bruising, other Allergies: Coded Allergies: No Known Allergies (Unverified , 03/28/19) Subjective seen and examined, sitting at bedside Affect flat no acute events overnight Objective Last 24 Hour Vital Signs Date Time Temp Pulse Resp B/P (MAP) Pulse Ox O2 Delivery O2 Flow Rate FiO2 04/01/19 04:30 98.0 60 17 99/54 (69) 94 04/01/19 00:00 98.0 64 18 109/68 (82) 93 03/31/19 23:31 Room Air 03/31/19 20:00 97.8 60 18 121/72 (88) 94 61 03/31/19 16:00 98.0 61 18 133/71 (91) 97 03/31/19 11:39 98.1 62 18 103/53 (70 97 Intake and Output 03/31/19 04/01/19 19:00 07:00 Intake Total 720 ml 480 ml Output Total 300 ml Balance 420 ml 480 ml Intake Oral 720 ml 480 ml Output Urine Total 300 ml # Voids 7 6 Height (Feet): 5 Height (Inches): 3.00 Weight (Pounds): 117 Objective General Appearance: no apparent distress, speaks full sentences Eyes: bilateral eye PERRL, bilateral eye EOMI, bilateral eye Scleral Injection HEENT: PERRL , neck supple Respiratory: chest non-tender, lungs clear, normal breath sounds, other - Pacemaker left Cardiovascular: regular rate, rhythm, no m/r/g, no edema Gastrointestinal: non tender, soft, decreased bowel sounds Genitourinary: no CVA tenderness Musculoskeletal: back normal, normal range of motion, no calf tenderness Neurologic: slow to respond, oriented - X2, grossly normal Psychiatric: no suicidal/homicidal ideation, depressed affect Skin: no rash, no ulcers Doug Powell M.D. Apr 01, 2019 08:39
[2019-04-01 12:00] VITALS: BP 98/61
[2019-04-01 16:00] VITALS: BP 95/56
[2019-04-01 20:00] VITALS: BP 103/55
[2019-04-01] MEDS: clonazePAM 0.5mg tab ORAL SCH (20:46)
[2019-04-02 04:00] VITALS: BP 109/65
--- NOTE | 2019-04-02 04:15 | Progress Note ---
DATE: 04/01/2019 SUBJECTIVE: The patient is in bed, no acute distress. Continues to be responding to internal stimuli. Continues to be confused. Less agitated than previous encounter. MENTAL STATUS EXAMINATION: The patient is alert and oriented x2. Mood is anxious. Affect is flat. Thought process is concrete. Thought content, no suicidal or homicidal ideation. Cognition is impaired. Insight and judgment are impaired. ASSESSMENT: 1. Schizophrenia. 2. Anxiety disorder. PLAN: 1. We will continue risperidone 2 mg at bedtime. 2. Decrease the Klonopin to 1 mg at bedtime. 3. We will continue to follow and readjust the medications. Lima Fernández M.D. DR: ERNESTO JOB#: [id number] CC:
[2019-04-02 08:00] VITALS: BP 109/70
--- NOTE | 2019-04-02 09:28 | General Progress Note ---
Assessment/Plan Problem List: (1) Acute encephalopathy ICD Codes: G93.40 - Encephalopathy, unspecified SNOMED: 06378806, 906918882 (2) Diarrhea ICD Codes: R19.7 - Diarrhea, unspecified SNOMED: 78273227 (3) Schizophrenia ICD Codes: F20.9 - Schizophrenia, unspecified SNOMED: 96504706 Qualifiers: Qualified Codes: F20.9 - Schizophrenia, unspecified (4) Lethargy ICD Codes: R53.83 - Other fatigue SNOMED: 298061668 (5) Head trauma ICD Codes: S09.90XA - Unspecified injury of head, initial encounter SNOMED: 42527046 Qualifiers: Qualified Codes: S09.90XA - Unspecified injury of head, initial encounter (6) Physical deconditioning ICD Codes: R53.81 - Other malaise SNOMED: 73320889918225 Status: stable, progressing, not improved Assessment/Plan: 69 year old female with schizophrenia presenting after a fall at home. 1. S/P FALL and HEAD TRAUMA slipped at home bathtub. CT head negative for any acute pathology. Currently denies any headache or pain elsewhere. Lives with roommate. Unclear home safety. -Pain medications. -Continue to monitor. -PT #DIARRHEA 3 days of watery stool on admission and on going , 3 times daily. Unclear etiology. No recent abx use to suggest C. diff infection. Abdomen exam benign, no other GI symptoms. No leukocytosis or TAYLOR. Given persistent nature, if continues will check for stool wbc, oocyte, culture and c diff toxin, however diarrhea stopped. no more diarrhea -IVF. -Imodium prn. -Continue to monitor. #PHYSICAL DECONDITIONING #CACHEXIA Appears cachectic, malnourished. However, albumin 3.6. -PT consult placed. -SW consult placed. #SCHIZOPHRENIA Flat affect. Minimally communicative. -Continue home Clonazepam. Dose decreased by psychiatrist to 1.5 mg QHS -discontinue home Trazodone. -Start Risperidone 2mg QHS per psychiatry recommendations -psychiatry consult. Dr. Fernández, appreciated -Ativan PRN #LETHARGY- improved -Likely related to dehydration from diarrhea. Likely also from malnutrition. -IVF. -Encourage PO intake. Dispo: SNF medically stable for discharge I spent 40 minutes on this encounter. 50% spent on counselling and care coordination. Subjective Date patient seen: Apr 02, 2019 ROS Limited/Unobtainable: No Constitutional: Denies: no symptoms, chills, diaphoresis, fever, malaise, weakness, other HEENT: Denies: no symptoms, eye pain, blurred vision, tearing, double vision, ear pain, ear discharge, nose pain, nose congestion, throat pain, throat swelling, mouth pain, mouth swelling, other Cardiovascular: Denies: no symptoms, chest pain, edema, irregular heart rate, lightheadedness, palpitations, syncope, other Respiratory: Denies: no symptoms, cough, orthopnea, shortness of breath, SOB with excertion, SOB at rest, sputum, stridor, wheezing, other Gastrointestinal/Abdominal: Denies: no symptoms, abdomen distended, abdominal pain, black stools, tarry stools, blood in stool, constipated, diarrhea, difficulty swallowing, nausea, poor appetite, poor fluid intake, rectal bleeding , vomiting, other Genitourinary: Denies: no symptoms, burning, discharge, frequency, flank pain, hematuria, incontinence, pain, urgency, other Neurologic/Psychiatric: Denies: no symptoms, anxiety, depressed, emotional problems, headache, numbness, paresthesia, pre-existing deficit, seizure, tingling, tremors, weakness, other Endocrine: Denies: no symptoms, excessive sweating, flushing, intolerance to cold, intolerance to heat, increased hunger, increased thirst, increased urine, unexplained weight gain, unexplained weight loss, other Hematologic/Lymphatic: Denies: no symptoms, anemia, easy bleeding, easy bruising, other Allergies: Coded Allergies: No Known Allergies (Unverified , 03/28/19) Subjective seen and examined, sitting at bedside Affect flat no acute events overnight Objective Last 24 Hour Vital Signs Date Time Temp Pulse Resp B/P (MAP) Pulse Ox O2 Delivery O2 Flow Rate FiO2 04/02/19 08:00 98.1 60 18 109/70 (83) 96 04/02/19 04:00 98.0 63 18 109/65 (80) 96 04/01/19 21:01 Room Air 04/01/19 20:00 98.4 61 18 103/55 (71) 95 04/01/19 16:00 98.1 57 18 95/56 (69) 97 04/01/19 12:00 98.5 65 18 98/61 (73) 97 Intake and Output 04/01/19 04/02/19 19:00 07:00 Intake Total 360 ml 120 ml Balance 360 ml 120 ml Intake Oral 360 ml 120 ml # Voids 8 3 Height (Feet): 5 Height (Inches): 3.00 Weight (Pounds): 117 Objective General Appearance: no apparent distress, speaks full sentences Eyes: bilateral eye PERRL, bilateral eye EOMI, bilateral eye Scleral Injection HEENT: PERRL , neck supple Respiratory: chest non-tender, lungs clear, normal breath sounds, other - Pacemaker left Cardiovascular: regular rate, rhythm, no m/r/g, no edema Gastrointestinal: non tender, soft, decreased bowel sounds Genitourinary: no CVA tenderness Musculoskeletal: back normal, normal range of motion, no calf tenderness Neurologic: slow to respond, oriented - X2, grossly normal Psychiatric: no suicidal/homicidal ideation, depressed affect Skin: no rash, no ulcers Doug Powell M.D. Apr 02, 2019 09:28
[2019-04-02 12:00] VITALS: BP 111/64
[2019-04-02] MEDS: LORazepam 1mg tab ORAL PRN (13:51)
[2019-04-02 16:00] VITALS: BP 113/76
[2019-04-02 20:00] VITALS: BP 120/66
[2019-04-03 04:00] VITALS: BP 97/56
[2019-04-03 08:00] VITALS: BP 123/77
[2019-04-03 12:00] VITALS: BP 123/83
[2019-04-03] MEDS ORDERED: CLONAZEPAM1 M2 ORAL (14:15)
[2019-04-03] MEDS ORDERED: ACETAMINOPHEN325 M1 ORAL (14:15)
[2019-04-03] MEDS ORDERED: RISPERDAL2 MG ORAL (14:15)
--- NOTE | 2019-04-03 14:19 | General Progress Note ---
Assessment/Plan Problem List: (1) Acute encephalopathy ICD Codes: G93.40 - Encephalopathy, unspecified SNOMED: 38362535, 644353861 (2) Diarrhea ICD Codes: R19.7 - Diarrhea, unspecified SNOMED: 86062457 (3) Schizophrenia ICD Codes: F20.9 - Schizophrenia, unspecified SNOMED: 33515327 Qualifiers: Qualified Codes: F20.9 - Schizophrenia, unspecified (4) Lethargy ICD Codes: R53.83 - Other fatigue SNOMED: 635894411 (5) Head trauma ICD Codes: S09.90XA - Unspecified injury of head, initial encounter SNOMED: 48614713 Qualifiers: Qualified Codes: S09.90XA - Unspecified injury of head, initial encounter (6) Physical deconditioning ICD Codes: R53.81 - Other malaise SNOMED: 96605840200399 Status: stable, progressing, not improved Assessment/Plan: 69 year old female with schizophrenia presenting after a fall at home. 1. S/P FALL and HEAD TRAUMA slipped at home bathtub. CT head negative for any acute pathology. Currently denies any headache or pain elsewhere. -Pain medications. -Continue to monitor. -PT--> SNF #DIARRHEA 3 days of watery stool on admission and on going , 3 times daily. Unclear etiology. No recent abx use to suggest C. diff infection. Abdomen exam benign, no other GI symptoms. No leukocytosis or TAYLOR. Given persistent nature, if continues will check for stool wbc, oocyte, culture and c diff toxin, however diarrhea stopped. no more diarrhea -IVF. -Imodium prn. -Continue to monitor. #PHYSICAL DECONDITIONING #CACHEXIA Appears cachectic, malnourished. However, albumin 3.6. -PT consult placed. -SW consult placed. #[place]IZOP[place] Flat affect. Minimally communicative. -Continue home Clonazepam. Dose decreased by psychiatrist to 1 mg QHS -discontinued home Trazodone. -Start Risperidone 2mg QHS per psychiatry recommendations -psychiatry consult. Dr. Fernández, appreciated -Ativan PRN #LETHARGY- improved -Likely related to dehydration from diarrhea. Likely also from malnutrition. -IVF. -Encourage PO intake. Dispo: SNF [facility] approval medically stable for discharge I spent 40 minutes on this encounter. 50% spent on counselling and care coordination. Subjective Date patient seen: Apr 03, 2019 ROS Limited/Unobtainable: No Constitutional: Denies: no symptoms, chills, diaphoresis, fever, malaise, weakness, other HEENT: Denies: no symptoms, eye pain, blurred vision, tearing, double vision, ear pain, ear discharge, nose pain, nose congestion, throat pain, throat swelling, mouth pain, mouth swelling, other Cardiovascular: Denies: no symptoms, chest pain, edema, irregular heart rate, lightheadedness, palpitations, syncope, other Respiratory: Denies: no symptoms, cough, orthopnea, shortness of breath, SOB with excertion, SOB at rest, sputum, stridor, wheezing, other Gastrointestinal/Abdominal: Denies: no symptoms, abdomen distended, abdominal pain, black stools, tarry stools, blood in stool, constipated, diarrhea, difficulty swallowing, nausea, poor appetite, poor fluid intake, rectal bleeding , vomiting, other Genitourinary: Denies: no symptoms, burning, discharge, frequency, flank pain, hematuria, incontinence, pain, urgency, other Neurologic/Psychiatric: Denies: no symptoms, anxiety, depressed, emotional problems, headache, numbness, paresthesia, pre-existing deficit, seizure, tingling, tremors, weakness, other Endocrine: Denies: no symptoms, excessive sweating, flushing, intolerance to cold, intolerance to heat, increased hunger, increased thirst, increased urine, unexplained weight gain, unexplained weight loss, other Hematologic/Lymphatic: Denies: no symptoms, anemia, easy bleeding, easy bruising, other Allergies: Coded Allergies: No Known Allergies (Unverified , 03/28/19) Subjective seen walking around vides using walker no acute events Objective Last 24 Hour Vital Signs Date Time Temp Pulse Resp B/P (MAP) Pulse Ox O2 Delivery O2 Flow Rate FiO2 04/03/19 12:00 97.7 109 19 123/83 (96) 95 04/03/19 08:00 Room Air 04/03/19 08:00 97.7 102 17 123/77 (92) 95 04/03/19 04:00 97.7 60 18 97/56 (70) 95 04/02/19 21:06 Room Air 04/02/19 20:00 97.6 64 18 120/66 (84) 97 04/02/19 16:00 97.4 88 18 113/76 (88) 97 Intake and Output 04/02/19 04/03/19 19:00 07:00 Intake Total 300 ml 120 ml Balance 300 ml 120 ml Intake Oral 300 ml 120 ml # Voids 3 3 Height (Feet): 5 Height (Inches): 3.00 Weight (Pounds): 117 Objective General Appearance: no apparent distress, speaks full sentences Eyes: bilateral eye PERRL, bilateral eye EOMI, bilateral eye Scleral Injection HEENT: PERRL , neck supple Respiratory: chest non-tender, lungs clear, normal breath sounds, other - Pacemaker left Cardiovascular: regular rate, rhythm, no m/r/g, no edema Gastrointestinal: non tender, soft, decreased bowel sounds Genitourinary: no CVA tenderness Musculoskeletal: back normal, normal range of motion, no calf tenderness Neurologic: slow to respond, oriented - X2, grossly normal Psychiatric: no suicidal/homicidal ideation, depressed affect Skin: no rash, no ulcers Doug Powell M.D. Apr 03, 2019 14:19
[2019-04-03 15:56] VITALS: BP 106/77
[2019-04-03 20:15] VITALS: BP 119/61
--- NOTE | 2019-04-03 22:30 | Progress Note ---
DATE: 04/03/2019 SUBJECTIVE: The patient is in bed, no acute distress. He is calmer, more redirectable. No behavior issues. MENTAL STATUS EXAMINATION: Alert, oriented x2. Mood is neutral to anxious. Affect is flat. Thought process, there is a paucity of thought content. Thought content, no suicidal or homicidal ideation. ASSESSMENT: Schizophrenia. PLAN: 1. Increase the risperidone to 3 mg p.o. at bedtime. 2. Continue the Ativan p.r.n. 3. Provide the patient reality orientation and supportive therapy. Lima Fernández M.D. DR: PURNIMA JOB#: [id number] CC:
[2019-04-04 04:00] VITALS: BP 100/47
[2019-04-04 08:00] VITALS: BP 103/48
[2019-04-04 12:00] VITALS: BP 116/77
[2019-04-04] MEDS ORDERED: Miralax 17gm pkt ORAL PRN (13:15)
[2019-04-04 16:08] VITALS: BP 125/80
[2019-04-04] MEDS: Loperamide 2mg cap ORAL PRN (18:16)
[2019-04-04 20:00] VITALS: BP 109/67
--- NOTE | 2019-04-04 23:42 | General Progress Note ---
Assessment/Plan Problem List: (1) Acute encephalopathy ICD Codes: G93.40 - Encephalopathy, unspecified SNOMED: 67117577, 065812168 (2) Ataxia ICD Codes: R27.0 - Ataxia, unspecified SNOMED: 53365712 (3) Pyuria ICD Codes: N39.0 - Urinary tract infection, site not specified SNOMED: 1563915, 656576107 (4) Lethargy ICD Codes: R53.83 - Other fatigue SNOMED: 304876833 (5) Head trauma ICD Codes: S09.90XA - Unspecified injury of head, initial encounter SNOMED: 77713342 Qualifiers: Qualified Codes: S09.90XA - Unspecified injury of head, initial encounter (6) Benzodiazepine abuse ICD Codes: F13.10 - Sedative, hypnotic or anxiolytic abuse, uncomplicated SNOMED: 112666294, 390640460 (7) Schizophrenia ICD Codes: F20.9 - Schizophrenia, unspecified SNOMED: 50199184 Qualifiers: Qualified Codes: F20.9 - Schizophrenia, unspecified (8) Physical deconditioning ICD Codes: R53.81 - Other malaise SNOMED: 74553232261872 Status: stable, progressing, not improved Assessment/Plan: 69 year old female with schizophrenia presenting after a fall at home. 1. S/P FALL and HEAD TRAUMA slipped at home bathtub. CT head negative for any acute pathology. Currently denies any headache or pain elsewhere. -Pain medications. -Continue to monitor. -PT--> SNF [facility]- [facility]OL[facility] 3 days of watery stool on admission and on going , 3 times daily. Now resolved. -IVF. -Imodium prn. -Continue to monitor. #PHYSICAL DECONDITIONING #CACHEXIA Appears cachectic, malnourished. However, albumin 3.6. -PT consult placed. -SW consult placed. #SCHIZOPHRENIA Flat affect. Minimally communicative. -Continue home Clonazepam. Dose decreased by psychiatrist to 1 mg QHS -discontinued home Trazodone. -Continue Risperidone 3mg QHS per psychiatry recommendations -psychiatry consult. Dr. Fernández, appreciated -Ativan PRN -informed patient to discuss with psych regarding restarting trazadone -offered melatonin but patient refused #LETHARGY- improved -Likely related to dehydration from diarrhea. Likely also from malnutrition. -IVF. -Encourage PO intake. Dispo: SNF ,accepted to [facility]. pending insurance approval medically stable for discharge I spent 27 minutes on this encounter. 50% spent on counselling and care coordination. I spent an additional 37 minutes on review of medical records including prior outside hospital records, consult notes, progress notes, procedures, imaging, labs, hemodynamics, and other clinical documentation. Time of encounter does not correlate with time patient was seen. Subjective Constitutional: Denies: chills, diaphoresis, fever, malaise, weakness, other HEENT: Denies: eye pain, blurred vision, tearing, double vision, ear pain, ear discharge, nose pain, nose congestion, throat pain, throat swelling, mouth pain , mouth swelling, other Cardiovascular: Denies: chest pain, edema, irregular heart rate, lightheadedness, palpitations, syncope, other Respiratory: Denies: cough, orthopnea, shortness of breath, SOB with excertion , SOB at rest, sputum, stridor, wheezing, other Gastrointestinal/Abdominal: Denies: abdomen distended, abdominal pain, black stools, tarry stools, blood in stool, constipated, diarrhea, difficulty swallowing, nausea, poor appetite, poor fluid intake, rectal bleeding, vomiting , other Genitourinary: Denies: burning, discharge, frequency, flank pain, hematuria, incontinence, pain, urgency, other Neurologic/Psychiatric: Reports: no symptoms; Denies: anxiety, depressed, emotional problems, headache, numbness, paresthesia, pre-existing deficit, seizure, tingling, tremors, weakness, other Endocrine: Denies: excessive sweating, flushing, intolerance to cold, intolerance to heat, increased hunger, increased thirst, increased urine, unexplained weight gain, unexplained weight loss, other Hematologic/Lymphatic: Denies: anemia, easy bleeding, easy bruising, other Allergies: Coded Allergies: No Known Allergies (Unverified , 03/28/19) Subjective No acute events overnight. Patient having difficulty sleeping. Difficulty staying asleep. This is very bothersome for her. Used to be on trazadone which helped. Having nightmares with risperidone. Objective Last 24 Hour Vital Signs Date Time Temp Pulse Resp B/P (MAP) Pulse Ox O2 Delivery O2 Flow Rate FiO2 04/04/19 21:00 Room Air 04/04/19 20:00 97.6 75 18 109/67 (81) 97 04/04/19 16:08 98.2 103 16 125/80 (95) 95 04/04/19 12:00 97.6 93 16 116/77 (90) 99 04/04/19 09:00 Room Air 04/04/19 08:00 98.2 60 18 103/48 (66) 98 04/04/19 04:00 97.9 62 16 100/47 (64) 96 Intake and Output 04/03/19 04/04/19 19:00 07:00 Intake Total 1180 ml 100 ml Balance 1180 ml 100 ml Intake Oral 1180 ml 100 ml # Voids 3 2 Height (Feet): 5 Height (Inches): 3.00 Weight (Pounds): 117 General Appearance: WD/WN, no apparent distress, alert EENT: PERRL/EOMI Neck: non-tender, normal alignment, supple Cardiovascular: normal peripheral pulses, normal rate, regular rhythm, no JVD Respiratory/Chest: chest wall non-tender, lungs clear, normal breath sounds, no respiratory distress Abdomen: normal bowel sounds, non tender, soft, no organomegaly Extremities: other - no LE swelling bilaterally 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 Apr 04, 2019 23:42
[2019-04-05] MEDS: Loperamide 2mg cap ORAL PRN ×3 (01:10→17:37)
[2019-04-05 05:22] VITALS: BP 113/66
[2019-04-05 08:00] VITALS: BP 113/60
[2019-04-05 12:00] VITALS: BP 110/72
[2019-04-05 16:00] VITALS: BP 118/76
[2019-04-05 20:00] VITALS: BP 121/78
--- NOTE | 2019-04-05 21:13 | General Progress Note ---
Assessment/Plan Problem List: (1) Acute encephalopathy ICD Codes: G93.40 - Encephalopathy, unspecified SNOMED: 38662643, 139593262 (2) Ataxia ICD Codes: R27.0 - Ataxia, unspecified SNOMED: 45816608 (3) Pyuria ICD Codes: N39.0 - Urinary tract infection, site not specified SNOMED: 7370509, 410550346 (4) Lethargy ICD Codes: R53.83 - Other fatigue SNOMED: 096084279 (5) Head trauma ICD Codes: S09.90XA - Unspecified injury of head, initial encounter SNOMED: 39280979 Qualifiers: Qualified Codes: S09.90XA - Unspecified injury of head, initial encounter (6) Benzodiazepine abuse ICD Codes: F13.10 - Sedative, hypnotic or anxiolytic abuse, uncomplicated SNOMED: 272122274, 270987159 (7) Schizophrenia ICD Codes: F20.9 - Schizophrenia, unspecified SNOMED: 69759258 Qualifiers: Qualified Codes: F20.9 - Schizophrenia, unspecified (8) Physical deconditioning ICD Codes: R53.81 - Other malaise SNOMED: 66782441701956 Status: stable, progressing, not improved Assessment/Plan: 69 year old female with schizophrenia presenting after a fall at home. 1. S/P FALL and HEAD TRAUMA slipped at home bathtub. CT head negative for any acute pathology. Currently denies any headache. Some pain at left hip. Chronic. -Pain medications. -Continue to monitor. -PT--> SNF [facility]- [facility]OL[facility] 3 days of watery stool on admission and on going , 3 times daily. Now resolved. -IVF. -Imodium prn. -Continue to monitor. #PHYSICAL DECONDITIONING #CACHEXIA Appears cachectic, malnourished. However, albumin 3.6. -PT consult placed. -SW consult placed. #SCHIZOPHRENIA Flat affect. Minimally communicative. -Continue home Clonazepam. Dose decreased by psychiatrist to 1 mg QHS -discontinued home Trazodone. INformed patient to discuss with psychiatrist regarding restarting -Continue Risperidone 3mg QHS per psychiatry recommendations -psychiatry consult. Dr. Fernández, appreciated -Ativan PRN -informed patient to discuss with psych regarding restarting trazadone -offered melatonin but patient refused #LETHARGY- improved -Likely related to dehydration from diarrhea. Likely also from malnutrition. -IVF PRN -Encourage PO intake. Dispo: SNF ,accepted to [facility]. pending insurance approval medically stable for discharge I spent 27 minutes on this encounter. 50% spent on counselling and care coordination. Time of encounter does not correlate with time patient was seen. Subjective Date patient seen: Apr 05, 2019 Constitutional: Denies: chills, diaphoresis, fever, malaise, weakness, other HEENT: Denies: eye pain, blurred vision, tearing, double vision, ear pain, ear discharge, nose pain, nose congestion, throat pain, throat swelling, mouth pain , mouth swelling, other Cardiovascular: Denies: chest pain, edema, irregular heart rate, lightheadedness, palpitations, syncope, other Respiratory: Denies: cough, orthopnea, shortness of breath, SOB with excertion , SOB at rest, sputum, stridor, wheezing, other Gastrointestinal/Abdominal: Denies: abdomen distended, abdominal pain, black stools, tarry stools, blood in stool, constipated, diarrhea, difficulty swallowing, nausea, poor appetite, poor fluid intake, rectal bleeding, vomiting , other Genitourinary: Reports: no symptoms; Denies: burning, discharge, frequency, flank pain, hematuria, incontinence, pain, urgency, other Neurologic/Psychiatric: Denies: anxiety, depressed, emotional problems, headache, numbness, paresthesia, pre-existing deficit, seizure, tingling, tremors, weakness, other Endocrine: Denies: excessive sweating, flushing, intolerance to cold, intolerance to heat, increased hunger, increased thirst, increased urine, unexplained weight gain, unexplained weight loss, other Hematologic/Lymphatic: Denies: anemia, easy bleeding, easy bruising, other Allergies: Coded Allergies: No Known Allergies (Unverified , 03/28/19) Subjective No acute events overnight. Patient continues to have nightmares. Would like to take trazadone. Awaiting psychiatry input. No other acute events No other complaints at this time. Continues to complain of left hip pain, controlled with pain meds. Objective Last 24 Hour Vital Signs Date Time Temp Pulse Resp B/P (MAP) Pulse Ox O2 Delivery O2 Flow Rate FiO2 04/05/19 20:00 98.7 71 17 121/78 (92) 96 04/05/19 16:00 98.5 80 18 118/76 (90) 97 04/05/19 12:00 98.4 84 20 110/72 (85) 97 04/05/19 09:00 Room Air 04/05/19 08:00 98.0 71 18 113/60 (77) 93 04/05/19 05:22 98.1 62 17 113/66 (82) 94 Intake and Output 04/04/19 04/05/19 19:00 07:00 Intake Total 840 ml 100 ml Balance 840 ml 100 ml Intake Oral 840 ml 100 ml # Voids 7 2 # Bowel Movements 1 1 Height (Feet): 5 Height (Inches): 3.00 Weight (Pounds): 117 General Appearance: WD/WN, no apparent distress, alert EENT: PERRL/EOMI Neck: non-tender, normal alignment, supple Cardiovascular: normal peripheral pulses, normal rate, regular rhythm, no JVD Respiratory/Chest: chest wall non-tender, lungs clear, normal breath sounds, no respiratory distress, no accessory muscle use Abdomen: normal bowel sounds, non tender, soft, no organomegaly Edema: other - no LE edema 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 Apr 05, 2019 21:13
[2019-04-06 04:00] VITALS: BP 94/52
[2019-04-06 08:00] VITALS: BP 117/72
[2019-04-06 12:00] VITALS: BP 112/77
[2019-04-06 16:00] VITALS: BP 111/77
--- NOTE | 2019-04-06 18:27 | General Progress Note ---
Assessment/Plan Problem List: (1) Acute encephalopathy ICD Codes: G93.40 - Encephalopathy, unspecified SNOMED: 29588299, 791455010 (2) Diarrhea ICD Codes: R19.7 - Diarrhea, unspecified SNOMED: 13445799 (3) Schizophrenia ICD Codes: F20.9 - Schizophrenia, unspecified SNOMED: 73108290 Qualifiers: Qualified Codes: F20.9 - Schizophrenia, unspecified (4) Lethargy ICD Codes: R53.83 - Other fatigue SNOMED: 975394236 (5) Head trauma ICD Codes: S09.90XA - Unspecified injury of head, initial encounter SNOMED: 75835398 Qualifiers: Qualified Codes: S09.90XA - Unspecified injury of head, initial encounter (6) Physical deconditioning ICD Codes: R53.81 - Other malaise SNOMED: 43015339837650 Status: stable, progressing, not improved Assessment/Plan: 69 year old female with schizophrenia presenting after a fall at home. 1. S/P FALL and HEAD TRAUMA slipped at home bathtub. CT head negative for any acute pathology. Currently denies any headache or pain elsewhere. -Pain medications. -Continue to monitor. -PT--> SNF, waiting to hear acceptance from [facility] 3 days of watery stool on admission and on going , 3 times daily. Unclear etiology. No recent abx use to suggest C. diff infection. Abdomen exam benign, no other GI symptoms. No leukocytosis or TAYLOR. Given persistent nature, if continues will check for stool wbc, oocyte, culture and c diff toxin, however diarrhea stopped. no more diarrhea -IVF. -Imodium prn. -Continue to monitor. #PHYSICAL DECONDITIONING #CACHEXIA Appears cachectic, malnourished. However, albumin 3.6. -PT consult placed. -SW consult placed. #SCHIZOPHRENIA Flat affect. Minimally communicative. -Continue home Clonazepam. Dose decreased by psychiatrist to 1 mg QHS -discontinued home Trazodone. -Start Risperidone 2mg QHS per psychiatry recommendations -psychiatry consult. Dr. Fernández, appreciated -Ativan PRN #LETHARGY- improved -Likely related to dehydration from diarrhea. Likely also from malnutrition. -IVF. -Encourage PO intake. Dispo: SNF ,accepted to [facility]. pending insurance approval medically stable for discharge I spent 25 minutes on this encounter. 50% spent on counselling and care coordination. Subjective Date patient seen: Apr 06, 2019 ROS Limited/Unobtainable: No Constitutional: Denies: no symptoms, chills, diaphoresis, fever, malaise, weakness, other HEENT: Denies: no symptoms, eye pain, blurred vision, tearing, double vision, ear pain, ear discharge, nose pain, nose congestion, throat pain, throat swelling, mouth pain, mouth swelling, other Cardiovascular: Denies: no symptoms, chest pain, edema, irregular heart rate, lightheadedness, palpitations, syncope, other Respiratory: Denies: no symptoms, cough, orthopnea, shortness of breath, SOB with excertion, SOB at rest, sputum, stridor, wheezing, other Gastrointestinal/Abdominal: Denies: no symptoms, abdomen distended, abdominal pain, black stools, tarry stools, blood in stool, constipated, diarrhea, difficulty swallowing, nausea, poor appetite, poor fluid intake, rectal bleeding , vomiting, other Genitourinary: Denies: no symptoms, burning, discharge, frequency, flank pain, hematuria, incontinence, pain, urgency, other Neurologic/Psychiatric: Denies: no symptoms, anxiety, depressed, emotional problems, headache, numbness, paresthesia, pre-existing deficit, seizure, tingling, tremors, weakness, other Endocrine: Denies: no symptoms, excessive sweating, flushing, intolerance to cold, intolerance to heat, increased hunger, increased thirst, increased urine, unexplained weight gain, unexplained weight loss, other Hematologic/Lymphatic: Denies: no symptoms, anemia, easy bleeding, easy bruising, other Allergies: Coded Allergies: No Known Allergies (Unverified , 03/28/19) Subjective seen walking around vides using walker no acute events mental status stable, no agitation. remains calm Objective Last 24 Hour Vital Signs Date Time Temp Pulse Resp B/P (MAP) Pulse Ox O2 Delivery O2 Flow Rate FiO2 04/06/19 16:00 98.8 98 21 111/77 (88) 99 04/06/19 12:00 98.6 71 19 112/77 (89) 98 04/06/19 09:00 Room Air 04/06/19 08:00 98.3 79 21 117/72 (87) 97 04/06/19 04:00 98.3 62 17 94/52 (66) 96 04/05/19 21:00 Room Air 04/05/19 20:00 98.7 71 17 121/78 (92) 96 Intake and Output 04/05/19 04/06/19 19:00 07:00 Intake Total 300 ml 100 ml Balance 300 ml 100 ml Intake Oral 300 ml 100 ml # Voids 2 2 # Bowel Movements 1 Height (Feet): 5 Height (Inches): 3.00 Weight (Pounds): 117 Objective General Appearance: no apparent distress, speaks full sentences Eyes: bilateral eye PERRL, bilateral eye EOMI, bilateral eye Scleral Injection HEENT: PERRL , neck supple Respiratory: chest non-tender, lungs clear, normal breath sounds, other - Pacemaker left Cardiovascular: regular rate, rhythm, no m/r/g, no edema Gastrointestinal: non tender, soft, decreased bowel sounds Genitourinary: no CVA tenderness Musculoskeletal: back normal, normal range of motion, no calf tenderness Neurologic: slow to respond, oriented - X2, grossly normal Psychiatric: no suicidal/homicidal ideation, depressed affect Skin: no rash, no ulcers Doug Powell M.D. Apr 06, 2019 18:27
[2019-04-06 20:00] VITALS: BP 105/68
[2019-04-06] MEDS: Loperamide 2mg cap ORAL PRN (21:56)
--- NOTE | 2019-04-07 00:15 | Progress Note ---
DATE: 04/06/2019 SUBJECTIVE: The patient was asleep, arousable, no behavior issues noted, much calmer, still has some episodes of anxiety. MENTAL STATUS EXAMINATION: The patient is alert, oriented times self and place. Mood is neutral. Affect is flat. Thought process, there is a paucity of thought content. Thought content, no suicidal or homicidal ideation. The patient has paranoia. Cognition is impaired. Insight and judgment is impaired. ASSESSMENT: Stable. PLAN: 1. Continue risperidone. 2. Provide the patient with reality orientation and supportive therapy. Lima Fernández M.D. DR: Jocelyn JOB#: [id number] CC:
[2019-04-07 04:00] VITALS: BP 99/63
[2019-04-07 12:00] VITALS: BP 129/85
--- NOTE | 2019-04-07 15:17 | General Progress Note ---
Assessment/Plan Problem List: (1) Acute encephalopathy ICD Codes: G93.40 - Encephalopathy, unspecified SNOMED: 43198267, 671896756 (2) Diarrhea ICD Codes: R19.7 - Diarrhea, unspecified SNOMED: 13441136 (3) Schizophrenia ICD Codes: F20.9 - Schizophrenia, unspecified SNOMED: 62904587 Qualifiers: Qualified Codes: F20.9 - Schizophrenia, unspecified (4) Lethargy ICD Codes: R53.83 - Other fatigue SNOMED: 863164331 (5) Head trauma ICD Codes: S09.90XA - Unspecified injury of head, initial encounter SNOMED: 90633697 Qualifiers: Qualified Codes: S09.90XA - Unspecified injury of head, initial encounter (6) Physical deconditioning ICD Codes: R53.81 - Other malaise SNOMED: 24171750724105 Status: stable, progressing, not improved Assessment/Plan: 69 year old female with schizophrenia presenting after a fall at home. 1. S/P FALL and HEAD TRAUMA slipped at home bathtub. CT head negative for any acute pathology. Currently denies any headache or pain elsewhere. -Pain medications. -Continue to monitor. -PT--> SNF, waiting to hear acceptance from [facility] 3 days of watery stool on admission and on going , 3 times daily. Unclear etiology. No recent abx use to suggest C. diff infection. Abdomen exam benign, no other GI symptoms. No leukocytosis or TAYLOR. Given persistent nature, if continues will check for stool wbc, oocyte, culture and c diff toxin, however diarrhea stopped. no more diarrhea -IVF. -Imodium prn. -Continue to monitor. #PHYSICAL DECONDITIONING #CACHEXIA Appears cachectic, malnourished. However, albumin 3.6. -PT consult placed. -SW consult placed. #SCHIZOPHRENIA Flat affect. Minimally communicative. -Continue home Clonazepam. Dose decreased by psychiatrist to 1 mg QHS -discontinued home Trazodone. -Risperidone 3mg QHS per psychiatry recommendations -psychiatry consult. Dr. Fernández, appreciated -Ativan PRN #LETHARGY- improved -Likely related to dehydration from diarrhea. Likely also from malnutrition. -IVF. -Encourage PO intake. Dispo: SNF ,accepted to [facility]. pending insurance approval medically stable for discharge I spent 25 minutes on this encounter. 50% spent on counselling and care coordination. Subjective Date patient seen: Apr 07, 2019 ROS Limited/Unobtainable: No Constitutional: Denies: no symptoms, chills, diaphoresis, fever, malaise, weakness, other HEENT: Denies: no symptoms, eye pain, blurred vision, tearing, double vision, ear pain, ear discharge, nose pain, nose congestion, throat pain, throat swelling, mouth pain, mouth swelling, other Respiratory: Denies: no symptoms, cough, orthopnea, shortness of breath, SOB with excertion, SOB at rest, sputum, stridor, wheezing, other Gastrointestinal/Abdominal: Denies: no symptoms, abdomen distended, abdominal pain, black stools, tarry stools, blood in stool, constipated, diarrhea, difficulty swallowing, nausea, poor appetite, poor fluid intake, rectal bleeding , vomiting, other Genitourinary: Denies: no symptoms, burning, discharge, frequency, flank pain, hematuria, incontinence, pain, urgency, other Neurologic/Psychiatric: Denies: no symptoms, anxiety, depressed, emotional problems, headache, numbness, paresthesia, pre-existing deficit, seizure, tingling, tremors, weakness, other Endocrine: Denies: no symptoms, excessive sweating, flushing, intolerance to cold, intolerance to heat, increased hunger, increased thirst, increased urine, unexplained weight gain, unexplained weight loss, other Hematologic/Lymphatic: Denies: no symptoms, anemia, easy bleeding, easy bruising, other Allergies: Coded Allergies: No Known Allergies (Unverified , 03/28/19) Subjective seen walking around vides using walker no acute events mental status stable, no agitation. remains calm says she has an ulcer under her foot asking for meds to help her sleep at night Objective Last 24 Hour Vital Signs Date Time Temp Pulse Resp B/P (MAP) Pulse Ox O2 Delivery O2 Flow Rate FiO2 04/07/19 12:00 98.1 104 21 129/85 (100) 97 04/07/19 09:00 Room Air 04/07/19 04:00 98.2 82 18 99/63 (75) 97 04/06/19 21:00 Room Air 04/06/19 20:00 98.4 89 19 105/68 (80) 95 04/06/19 16:00 98.8 98 21 111/77 (88) 99 Intake and Output 04/06/19 04/07/19 18:59 06:59 Intake Total 720 ml 150 ml Balance 720 ml 150 ml Intake Oral 720 ml 150 ml # Voids 6 Height (Feet): 5 Height (Inches): 3.00 Weight (Pounds): 117 Objective General Appearance: no apparent distress, speaks full sentences Eyes: bilateral eye PERRL, bilateral eye EOMI, bilateral eye Scleral Injection HEENT: PERRL , neck supple Respiratory: chest non-tender, lungs clear, normal breath sounds, other - Pacemaker left Cardiovascular: regular rate, rhythm, no m/r/g, no edema Gastrointestinal: non tender, soft, decreased bowel sounds Genitourinary: no CVA tenderness Musculoskeletal: back normal, normal range of motion, no calf tenderness Neurologic: slow to respond, oriented - X2, grossly normal Psychiatric: no suicidal/homicidal ideation, depressed affect Skin: no rash, no ulcers, bilateral feet, callus Doug Powell M.D. Apr 07, 2019 15:16
[2019-04-07 16:00] VITALS: BP 122/79
[2019-04-07 20:00] VITALS: BP 127/73
--- NOTE | 2019-04-07 23:00 | Progress Note ---
DATE: 04/07/2019 SUBJECTIVE: The patient is calmer, more cooperative, and redirectable. More compliant with medication and care. MENTAL STATUS EXAMINATION: The patient is alert, oriented times self and place. Mood is neutral, anxious. Affect is flat. Thought process is concrete. Thought content, no suicidal or homicidal ideations. Insight and judgment is fair. ASSESSMENT: Schizophrenia. PLAN: 1. We will continue current medications. 2. Provide the patient with reality orientation and supportive therapy. Lima Fernández M.D. DR: PURNIMA JOB#: [id number] CC:
[2019-04-08 04:00] VITALS: BP 122/77
[2019-04-08] MEDS: Loperamide 2mg cap ORAL PRN ×3 (07:24→17:52)
[2019-04-08 08:00] VITALS: BP 101/67
--- NOTE | 2019-04-08 11:34 | General Progress Note ---
Assessment/Plan Problem List: (1) Acute encephalopathy ICD Codes: G93.40 - Encephalopathy, unspecified SNOMED: 73561296, 009618082 (2) Diarrhea ICD Codes: R19.7 - Diarrhea, unspecified SNOMED: 37036020 (3) Schizophrenia ICD Codes: F20.9 - Schizophrenia, unspecified SNOMED: 26371074 Qualifiers: Qualified Codes: F20.9 - Schizophrenia, unspecified (4) Lethargy ICD Codes: R53.83 - Other fatigue SNOMED: 639489544 (5) Head trauma ICD Codes: S09.90XA - Unspecified injury of head, initial encounter SNOMED: 82361079 Qualifiers: Qualified Codes: S09.90XA - Unspecified injury of head, initial encounter (6) Physical deconditioning ICD Codes: R53.81 - Other malaise SNOMED: 99630230416904 Status: stable, progressing, not improved Assessment/Plan: 69 year old female with schizophrenia presenting after a fall at home. 1. S/P FALL and HEAD TRAUMA slipped at home bathtub. CT head negative for any acute pathology. Currently denies any headache or pain elsewhere. -Pain medications. -Continue to monitor. -PT--> SNF, waiting to hear acceptance from [facility] #FEVER 102.6 on 04/08 check cbc, bmp, cxr and UA. D/w RN #DIARRHEA 3 days of watery stool on admission and on going , 3 times daily. Unclear etiology. No recent abx use to suggest C. diff infection. Abdomen exam benign, no other GI symptoms. No leukocytosis or TAYLOR. Given persistent nature, if continues will check for stool wbc, oocyte, culture and c diff toxin, however diarrhea stopped. no more diarrhea -IVF. -Imodium prn. -Continue to monitor. #PHYSICAL DECONDITIONING #CACHEXIA Appears cachectic, malnourished. However, albumin 3.6. -PT consult placed. -SW consult placed. #SCHIZOPHRENIA Flat affect. Minimally communicative. -Continue home Clonazepam. Dose decreased by psychiatrist to 1 mg QHS -discontinued home Trazodone. -Risperidone 3mg QHS per psychiatry recommendations -psychiatry consult. Dr. Fernández, appreciated -Ativan PRN #LETHARGY- improved -Likely related to dehydration from diarrhea. Likely also from malnutrition. -IVF. -Encourage PO intake. Dispo: SNF ,accepted to [facility]. pending insurance approval medically stable for discharge I spent 25 minutes on this encounter. 50% spent on counselling and care coordination. Subjective Date patient seen: Apr 08, 2019 ROS Limited/Unobtainable: No Constitutional: Denies: no symptoms, chills, diaphoresis, fever, malaise, weakness, other HEENT: Denies: no symptoms, eye pain, blurred vision, tearing, double vision, ear pain, ear discharge, nose pain, nose congestion, throat pain, throat swelling, mouth pain, mouth swelling, other Cardiovascular: Denies: no symptoms, chest pain, edema, irregular heart rate, lightheadedness, palpitations, syncope, other Respiratory: Denies: no symptoms, cough, orthopnea, shortness of breath, SOB with excertion, SOB at rest, sputum, stridor, wheezing, other Gastrointestinal/Abdominal: Denies: no symptoms, abdomen distended, abdominal pain, black stools, tarry stools, blood in stool, constipated, diarrhea, difficulty swallowing, nausea, poor appetite, poor fluid intake, rectal bleeding , vomiting, other Genitourinary: Denies: no symptoms, burning, discharge, frequency, flank pain, hematuria, incontinence, pain, urgency, other Neurologic/Psychiatric: Denies: no symptoms, anxiety, depressed, emotional problems, headache, numbness, paresthesia, pre-existing deficit, seizure, tingling, tremors, weakness, other Endocrine: Denies: no symptoms, excessive sweating, flushing, intolerance to cold, intolerance to heat, increased hunger, increased thirst, increased urine, unexplained weight gain, unexplained weight loss, other Hematologic/Lymphatic: Denies: no symptoms, anemia, easy bleeding, easy bruising, other Allergies: Coded Allergies: No Known Allergies (Unverified , 03/28/19) Subjective fever 102.6 denies cough or urinary symptoms Objective Last 24 Hour Vital Signs Date Time Temp Pulse Resp B/P (MAP) Pulse Ox O2 Delivery O2 Flow Rate FiO2 04/08/19 08:00 97.5 89 18 101/67 (78) 96 04/08/19 07:24 100.5 04/08/19 07:00 100.5 04/08/19 04:00 102.6 76 18 122/77 (92) 97 04/07/19 21:00 Room Air 04/07/19 20:00 98.8 89 18 127/73 (91) 95 04/07/19 16:00 98.3 115 19 122/79 (93) 98 04/07/19 12:00 98.1 104 21 129/85 (100) 97 Intake and Output 04/07/19 04/08/19 19:00 07:00 Intake Total 900 ml 750 ml Balance 900 ml 750 ml Intake Oral 900 ml 750 ml # Voids 3 3 # Bowel Movements 1 Height (Feet): 5 Height (Inches): 3.00 Weight (Pounds): 116 Objective General Appearance: no apparent distress, speaks full sentences Eyes: bilateral eye PERRL, bilateral eye EOMI, bilateral eye Scleral Injection HEENT: PERRL , neck supple Respiratory: chest non-tender, lungs clear, normal breath sounds, other - Pacemaker left Cardiovascular: regular rate, rhythm, no m/r/g, no edema Gastrointestinal: non tender, soft, decreased bowel sounds Genitourinary: no CVA tenderness Musculoskeletal: back normal, normal range of motion, no calf tenderness Neurologic: slow to respond, oriented - X2, grossly normal Psychiatric: no suicidal/homicidal ideation, depressed affect Skin: no rash, no ulcers, bilateral feet, callus Doug Powell M.D. Apr 08, 2019 11:34
--- NOTE | 2019-04-08 11:57 | Diagnostic Imaging Report ---
Indication: Cough Technique: 2 views of the chest Comparison: none Findings: Lungs are hyperinflated. There is a left chest pacemaker. The lungs and pleural spaces are clear. The heart size is normal. Impression: No acute process Hyperinflation, suggestive of COPD changes
[2019-04-08 12:00] VITALS: BP 110/72
[2019-04-08 12:38] LABS: BASOPHILS % (AUTO) 0.4 % (0.0-2.0); HEMATOCRIT 42.9 % (37.0-47.0); LYMPHOCYTES % (AUTO) 4.9 % (20.0-45.0); MEAN CORPUSCULAR VOLUME 96 FL (80-99); MONOCYTES % (AUTO) 10.7 % (1.0-10.0); NEUTROPHILS % (AUTO) 83.9 % (45.0-75.0); PLATELET COUNT 241 K/UL (150-450); RED BLOOD COUNT 4.46 M/UL (4.20-5.40); RED CELL DISTRIBUTION WIDTH 11.5 % (11.6-14.8); WHITE BLOOD COUNT 15.9 K/UL (4.8-10.8)
[2019-04-08 12:44] LABS: ANION GAP 15 mmol/L (5-15); BLOOD UREA NITROGEN 13 mg/dL (7-18); CALCIUM 10.2 MG/DL (8.5-10.1); CARBON DIOXIDE 19 MMOL/L (21-32); CHLORIDE 95 MMOL/L (98-107); POTASSIUM 3.9 MMOL/L (3.5-5.1); SODIUM 129 MMOL/L (136-145)
[2019-04-08 16:00] VITALS: BP 97/65
[2019-04-08] MEDS ORDERED: Omnipaque-300 100ml vial INJ PRN (17:00)
[2019-04-08 20:00] VITALS: BP 103/55
--- NOTE | 2019-04-08 20:15 | Progress Note ---
DATE: 04/08/2019 SUBJECTIVE: The patient is in bed, ambulating, no behavior issues noted. She is taking her psychotropic medication and tolerating it. She had a temperature this morning. Her psychotic symptoms are manageable and improved. MENTAL STATUS EXAMINATION: Alert and oriented times self and place. Mood is neutral to anxious. Affect is flat. Thought process, there is a paucity of thought content. Thought content, no suicidal or homicidal ideation. ASSESSMENT: Stable. PLAN: We will continue current medications. Provide the patient with reality orientation and supportive therapy. Lima Fernández M.D. DR: Jocelyn JOB#: [id number] CC:
[2019-04-08] MEDS: Miralax 17gm pkt ORAL SCH (21:00)
[2019-04-09] VITALS: BP 109/59
[2019-04-09 04:00] VITALS: BP 95/51
[2019-04-09 06:39] LABS: BASOPHILS % (AUTO) 0.7 % (0.0-2.0); EOSINOPHILS % (AUTO) 0.1 % (0.0-3.0); HEMATOCRIT 38.9 % (37.0-47.0); HEMOGLOBIN 13.2 G/DL (12.0-16.0); LYMPHOCYTES % (AUTO) 8.6 % (20.0-45.0); MEAN CORPUSCULAR VOLUME 98 FL (80-99); MONOCYTES % (AUTO) 9.4 % (1.0-10.0); NEUTROPHILS % (AUTO) 81.1 % (45.0-75.0); PLATELET COUNT 178 K/UL (150-450); RED BLOOD COUNT 3.96 M/UL (4.20-5.40); RED CELL DISTRIBUTION WIDTH 11.6 % (11.6-14.8); WHITE BLOOD COUNT 14.4 K/UL (4.8-10.8)
[2019-04-09 07:19] LABS: ANION GAP 10 mmol/L (5-15); BLOOD UREA NITROGEN 11 mg/dL (7-18); CALCIUM 9.5 MG/DL (8.5-10.1); CARBON DIOXIDE 23 MMOL/L (21-32); CHLORIDE 102 MMOL/L (98-107); CREATININE 0.9 MG/DL (0.55-1.30); POTASSIUM 3.4 MMOL/L (3.5-5.1); SODIUM 134 MMOL/L (136-145)
[2019-04-09 08:00] VITALS: BP 118/58
--- NOTE | 2019-04-09 11:33 | General Progress Note ---
Assessment/Plan Problem List: (1) Sepsis ICD Codes: A41.9 - Sepsis, unspecified organism SNOMED: 84269422 (2) C. difficile colitis ICD Codes: A04.72 - Enterocolitis due to Clostridium difficile, not specified as recurrent SNOMED: 680373315 (3) Schizophrenia ICD Codes: F20.9 - Schizophrenia, unspecified SNOMED: 17156223 Qualifiers: Qualified Codes: F20.9 - Schizophrenia, unspecified (4) Acute encephalopathy ICD Codes: G93.40 - Encephalopathy, unspecified SNOMED: 46815210, 349218127 (5) Diarrhea ICD Codes: R19.7 - Diarrhea, unspecified SNOMED: 50623365 (6) Lethargy ICD Codes: R53.83 - Other fatigue SNOMED: 352972836 (7) Head trauma ICD Codes: S09.90XA - Unspecified injury of head, initial encounter SNOMED: 10007057 Qualifiers: Qualified Codes: S09.90XA - Unspecified injury of head, initial encounter (8) Physical deconditioning ICD Codes: R53.81 - Other malaise SNOMED: 15495343511689 Status: not improved, fever Assessment/Plan: 69 year old female with schizophrenia presenting after a fall at home and diarrhea. CT head negative for any acute pathology. Seen by PT and advised SNF. Her diarrhea resolved shortly after admission. She had no leukocytosis or TAYLOR. Imodium prn helped. Patient remained int hospital waiting for placement. on , she developed fever, leukocytosis, change in mental status, and bloody diarrhea. Stool sent for c diff and POSITIVE. 1. Sepsis secondary to C. Diff colitis. non severe (wbc < 15, serum cr < 1.5) -Start oral vancomycin, IV NS @ 125 ml/hr -ID consult with Dr. Adler -CT abdomen pelvis -GO consult. 2. Schizophrenia Flat affect. Minimally communicative. -Continue home Clonazepam. Dose decreased by psychiatrist to 1 mg QHS -discontinued home Trazodone. -Risperidone 3mg QHS per psychiatry recommendations -psychiatry consult. Dr. Fernández, appreciated -Ativan PRN 3. Physical deconditioning and cachexia. Monitor oral intake 4. Hyponatremia. Resolving with NS 5. Hypokalemia. Replace as needed. Dispo: SNF ,accepted to [facility]. pending insurance approval, but now has developed c diff colitis I spent 40 minutes on this encounter. 50% spent on counselling and care coordination. Subjective Date patient seen: Apr 09, 2019 ROS Limited/Unobtainable: No Constitutional: Reports: no symptoms, chills, diaphoresis, fever, malaise, weakness, other HEENT: Denies: no symptoms, eye pain, blurred vision, tearing, double vision, ear pain, ear discharge, nose pain, nose congestion, throat pain, throat swelling, mouth pain, mouth swelling, other Cardiovascular: Denies: no symptoms, chest pain, edema, irregular heart rate, lightheadedness, palpitations, syncope, other Respiratory: Denies: no symptoms, cough, orthopnea, shortness of breath, SOB with excertion, SOB at rest, sputum, stridor, wheezing, other Gastrointestinal/Abdominal: Reports: no symptoms, abdomen distended, abdominal pain, black stools, tarry stools, blood in stool, constipated, diarrhea, difficulty swallowing, nausea, poor appetite, poor fluid intake, rectal bleeding , vomiting, other Genitourinary: Denies: no symptoms, burning, discharge, frequency, flank pain, hematuria, incontinence, pain, urgency, other Neurologic/Psychiatric: Denies: no symptoms, anxiety, depressed, emotional problems, headache, numbness, paresthesia, pre-existing deficit, seizure, tingling, tremors, weakness, other Hematologic/Lymphatic: Denies: no symptoms, anemia, easy bleeding, easy bruising, other Allergies: Coded Allergies: No Known Allergies (Unverified , 03/28/19) Subjective bloody diarrhea + c diff t max 101 contact isolation Objective Last 24 Hour Vital Signs Date Time Temp Pulse Resp B/P (MAP) Pulse Ox O2 Delivery O2 Flow Rate FiO2 04/09/19 09:00 Room Air 04/09/19 08:00 100.0 76 20 118/58 (78) 98 04/09/19 04:00 98.5 72 17 95/51 (66) 96 04/09/19 00:00 100.8 76 17 109/59 (76) 95 04/08/19 21:48 101.0 04/08/19 21:00 Room Air 04/08/19 20:00 100.2 78 18 103/55 (71) 94 04/08/19 16:00 97.6 107 18 97/65 (76) 100 04/08/19 12:00 97.5 104 20 110/72 (85) 95 Intake and Output 04/08/19 04/09/19 19:00 07:00 Intake Total 1375 ml Balance 1375 ml IV Total 1375 ml # Voids 2 # Bowel Movements 4 1 Laboratory Tests 04/08/19 12:20: White Blood Count 15.9H, Red Blood Count 4.46, Hemoglobin 15.0, Hematocrit 42.9 , Mean Corpuscular Volume 96, Mean Corpuscular Hemoglobin 33.5H, Mean Corpuscular Hemoglobin Concent 34.8, Red Cell Distribution Width 11.5L, Platelet Count 241, Mean Platelet Volume 6.1L, Neutrophils (%) (Auto) 83.9H, Lymphocytes (%) (Auto) 4.9L, Monocytes (%) (Auto) 10.7H, Eosinophils (%) (Auto) 0.0, Basophils (%) (Auto) 0.4, Sodium Level 129L, Potassium Level 3.9, Chloride Level 95L, Carbon Dioxide Level 19L, Anion Gap 15, Blood Urea Nitrogen 13, Creatinine 1.0, Estimat Glomerular Filtration Rate 55.1, Glucose Level 123H, Calcium Level 10.2H 04/09/19 04:50: White Blood Count 14.4H, Red Blood Count 3.96L, Hemoglobin 13.2, Hematocrit 38.9 , Mean Corpuscular Volume 98, Mean Corpuscular Hemoglobin 33.3H, Mean Corpuscular Hemoglobin Concent 33.9, Red Cell Distribution Width 11.6, Platelet Count 178, Mean Platelet Volume 5.8L, Neutrophils (%) (Auto) 81.1H, Lymphocytes (%) (Auto) 8.6L, Monocytes (%) (Auto) 9.4, Eosinophils (%) (Auto) 0.1, Basophils (%) (Auto) 0.7, Sodium Level 134L, Potassium Level 3.4L, Chloride Level 102, Carbon Dioxide Level 23, Anion Gap 10, Blood Urea Nitrogen 11, Creatinine 0.9, Estimat Glomerular Filtration Rate > 60, Glucose Level 90, Calcium Level 9.5 Height (Feet): 5 Height (Inches): 3.00 Weight (Pounds): 116 Objective General Appearance: no apparent distress, speaks full sentences, toxic appearance Eyes: bilateral eye PERRL, bilateral eye EOMI, bilateral eye Scleral Injection HEENT: PERRL , neck supple Respiratory: chest non-tender, lungs clear, normal breath sounds, other - Pacemaker left Cardiovascular: regular rate, rhythm, no m/r/g, no edema Gastrointestinal: diffuse tender, soft, non distended +bs Genitourinary: no CVA tenderness Musculoskeletal: back normal, normal range of motion, no calf tenderness Neurologic: slow to respond, oriented - X2, grossly normal Psychiatric: no suicidal/homicidal ideation, depressed affect Skin: no rash, no ulcers, bilateral feet, callus Doug Powell M.D. Apr 09, 2019 11:33
[2019-04-09 12:00] VITALS: BP 135/60
--- NOTE | 2019-04-09 12:30 | GI Initial Consult Note ---
History of Present Illness General Date patient seen: Apr 09, 2019 Time patient seen: 12:19 Reason for Hospitalization: Multiple Trauma/Fall Referring physician: ALLYSSA CONNER Reason for Consultation: RECTAL BLEED Present Illness HPI Patient transported by BLS after a slip and fall in her bathtub. A neighbor called them because she was not acting like her normal self. Patient denies any symptoms at this time. She has a history of schizophrenia. She denies pain. They noted that she is slurring her words. As this was BLS no Accu-Chek or line was started in the field. They also alleged that her MLAPPS test is negative. GI consulted for reported LGIB. Pt seen, awake alert NAD. ROS limited, patient has history of schizo and not providing any history at this time. Patient had BM this morning, noted there was no recurrent blood noted in her stool. Patient now tested positive for C Diff. Presents today with leukocytosis, no anemia, no transaminitis. Unknown history of endoscopy or colonoscopy. Home Meds Reported Medications Paliperidone Palmitate (Invega Trinza) 410 Mg/1.315 Ml Syringe, 410 MG IM EVERY 3 MONTHS 03/28/19 Clonazepam (CLONAZEPAM) 2 Mg Tablet, 2 MG PO QHS, TAB 03/28/19 Trazodone Hcl* (DESYREL*) 100 Mg Tablet, 100 MG ORAL BEDTIME, TAB 03/28/19 Med list reviewed/reconciled: Yes Allergies: Coded Allergies: No Known Allergies (Unverified , 03/28/19) Patient History Limited by: medical condition History Provided By: Medical Record PMH Narrative Past Medical History: see triage record, psych hx - schizophrenia Past Surgical History: pacemaker Social History: Denies: smoking, alcohol use Social History Narrative lives by herself in her apartment Reviewed Nursing Documentation: PMH: Agreed; PSxH: Agreed Nursing Documentation-PM Past Medical History: No History, Except For Hx COPD: Yes History Of Psychiatric Problem: Yes - SCHIZOPHRENIA Review of Systems All Other Systems: limited Physical Exam Vital Signs Date Time Temp Pulse Resp B/P (MAP) Pulse Ox O2 Delivery O2 Flow Rate FiO2 04/05/19 08:00 98.0 71 18 113/60 (77) 93 04/05/19 09:00 Room Air Sp02 EP Interpretation: reviewed, normal Labs Laboratory Tests Test 04/08/19 12:20 04/09/19 04:50 White Blood Count 15.9 K/UL (4.8-10.8) H 14.4 K/UL (4.8-10.8) H Red Blood Count 4.46 M/UL (4.20-5.40) 3.96 M/UL (4.20-5.40) L Hemoglobin 15.0 G/DL (12.0-16.0) 13.2 G/DL (12.0-16.0) Hematocrit 42.9 % (37.0-47.0) 38.9 % (37.0-47.0) Mean Corpuscular Volume 96 FL (80-99) 98 FL (80-99) Mean Corpuscular Hemoglobin 33.5 PG (27.0-31.0) H 33.3 PG (27.0-31.0) H Mean Corpuscular Hemoglobin Concent 34.8 G/DL (32.0-36.0) 33.9 G/DL (32.0-36.0) Red Cell Distribution Width 11.5 % (11.6-14.8) L 11.6 % (11.6-14.8) Platelet Count 241 K/UL (150-450) 178 K/UL (150-450) Mean Platelet Volume 6.1 FL (6.5-10.1) L 5.8 FL (6.5-10.1) L Neutrophils (%) (Auto) 83.9 % (45.0-75.0) H 81.1 % (45.0-75.0) H Lymphocytes (%) (Auto) 4.9 % (20.0-45.0) L 8.6 % (20.0-45.0) L Monocytes (%) (Auto) 10.7 % (1.0-10.0) H 9.4 % (1.0-10.0) Eosinophils (%) (Auto) 0.0 % (0.0-3.0) 0.1 % (0.0-3.0) Basophils (%) (Auto) 0.4 % (0.0-2.0) 0.7 % (0.0-2.0) Sodium Level 129 MMOL/L (136-145) L 134 MMOL/L (136-145) L Potassium Level 3.9 MMOL/L (3.5-5.1) 3.4 MMOL/L (3.5-5.1) L Chloride Level 95 MMOL/L (98-107) L 102 MMOL/L (98-107) Carbon Dioxide Level 19 MMOL/L (21-32) L 23 MMOL/L (21-32) Anion Gap 15 mmol/L (5-15) 10 mmol/L (5-15) Blood Urea Nitrogen 13 mg/dL (7-18) 11 mg/dL (7-18) Creatinine 1.0 MG/DL (0.55-1.30) 0.9 MG/DL (0.55-1.30) Estimat Glomerular Filtration Rate 55.1 mL/min (>60) > 60 mL/min (>60) Glucose Level 123 MG/DL (74-106) H 90 MG/DL (74-106) Calcium Level 10.2 MG/DL (8.5-10.1) H 9.5 MG/DL (8.5-10.1) General Appearance: well appearing, no apparent distress, alert, thin Head: normocephalic EENT: PERRL/EOMI, normal ENT inspection Neck: supple Respiratory: normal breath sounds, no respiratory distress Cardiovascular: normal rate Gastrointestinal: normal inspection, non tender, soft, normal bowel sounds, non -distended Rectal: deferred Genitourinary: no CVA tenderness Musculoskeletal: normal inspection, back normal Neurologic: alert, responsive Skin: normal inspection, normal color, no rash, warm/dry, palpation normal, well hydrated Lymphatic: normal inspection, no adenopathy Current Medications Current Medications Medications (Trade) Dose Ordered Sig/Lindsey Route PRN Reason Start Time Stop Time Status Last Admin Dose Admin Acetaminophen (Tylenol) 650 mg Q6H PRN ORAL Mild Pain/Temp > 100.5 03/29/19 01:45 04/28/19 01:44 04/08/19 21:18 Barium Sulfate (Readi-Cat 2) 450 ml NOW PRN ORAL Radiology Procedure 04/09/19 09:45 04/11/19 09:35 Clonazepam (KlonoPIN) 1 mg QHS ORAL 04/02/19 21:00 04/09/19 20:59 04/08/19 21:15 Diphenhydramine HCl (Benadryl) 25 mg HSPRN PRN ORAL Insomnia 04/07/19 15:16 05/07/19 15:15 Iohexol (OMNIPAQUE-300 100ml) 100 ml NOW PRN INJ Radiology Procedure 04/08/19 17:00 04/10/19 16:55 Loperamide HCl (Imodium) 2 mg Q4H PRN ORAL Diarrhea 03/29/19 12:00 04/28/19 11:59 04/08/19 17:52 Ondansetron HCl (Zofran) 4 mg Q6H PRN IVP Nausea & Vomiting 03/29/19 01:45 04/28/19 01:44 Polyethylene Glycol (Miralax) 17 gm BEDTIME ORAL 04/08/19 21:00 05/08/19 20:59 Polyethylene Glycol (Miralax) 17 gm DAILYPRN PRN ORAL Constipation 04/04/19 13:15 05/04/19 13:14 Risperidone (RisperDAL) 3 mg BEDTIME ORAL 04/04/19 21:00 05/04/19 20:59 04/08/19 21:16 Sodium Chloride 1,000 ml @ 125 mls/hr Q8H IV 04/08/19 17:30 05/08/19 17:29 04/09/19 09:30 Vancomycin HCl (Firvanq) 125 mg FOUR TIMES A DAY ORAL 04/09/19 13:00 04/16/19 12:59 GI: Plan Problems: (1) LGI bleed (2) Lethargy (3) C. difficile colitis (4) Diarrhea (5) Schizophrenia Plan 69 year old female patient with reported episode of lower GI bleed x1 yesterday most likely due to infectious colitis. At time of evaluation, no reported recurrent LGIB. cdiff positive stable H&H defer colonoscopy at this time, can be done as outpatient start patient on Vanco obtain CT scan r/o diverticulitis advance diet as tolerated zofran prn dc ppi, start H2B follow labs Discussed with Dr. Anderson. Thank you for this patient referral, we will follow. The patient was seen and examined at bedside and all new and available data was reviewed in the patients chart. I agree with the above findings, impression and plan. (Patient seen earlier today. Signature stamp does not reflect patient encounter time.). - MD [facility] Apr 09, 2019 12:30
[2019-04-09] MEDS: Vancomycin oral 125mg/2.5ml ORAL SCH ×3 (14:23→20:52)
[2019-04-09 16:00] VITALS: BP 127/58
--- NOTE | 2019-04-09 16:27 | Diagnostic Imaging Report ---
Indication: Abdominal pain Technique: Continuous helical transaxial imaging of the abdomen and pelvis was obtained from the lung bases to the pubic symphysis. No intravenous contrast was administered. Coronal 2-D reformats were also obtained. Automatic Exposure Control was utilized. Total Dose length Product (DLP): [address] Dose Index Volume (CTDIvol): 26.6 mGy Comparison: none Findings: There is a mild left basilar atelectasis demonstrated. Noncontrast solid organ evaluation shows no obvious abnormalities except for the pancreas with multiple punctate calcifications consistent with chronic calcific pancreatitis. Gallbladder is unremarkable. There is no nephrolithiasis or hydronephrosis. Suggestion of a parapelvic cyst in the central part of the left kidney. Scoliosis. There is narrowing of intervertebral discs and accompanying endplate osteophyte formation. Hypertrophied facet joints also demonstrated.. There is thickening of the wall the rectum as well as multiple loops of colon. This is likely associated with retention of feces which is a moderate to severe. The appendix is not definitely seen. There is a trace amount of free fluid in the pelvis. Atrophic uterus noted. The urinary bladder is noted. Aortoiliac calcifications are present. IMPRESSION: Moderately severe fecal retention in the colon and rectum with evidence of a proctocolitis. Chronic calcific pancreatitis Atherosclerotic vascular disease Degenerative changes of the spine. Mild scoliosis. Mild left posterior basal atelectasis. Limited evaluation due to the nonadministration of intravenous contrast The CT scanner at [facility] is accredited by the [employer] and the scans are performed using dose optimization techniques as appropriate to a performed exam including Automatic Exposure control.
--- NOTE | 2019-04-09 18:47 | Infectious Diseases Prog Note ---
Assessment/Plan Assessment/Plan Full consult dictated: A) 1) c.diff. colitis with diarrhea 2) gram neg uti/? pyelonephritis 3) sepsis, fevers, leukocytosis 4) pmh noted 5) allergies - nkda P) 1) po vancomycin, ceftriaxone 2) f/u on cultures and labs 3) thank you Subjective Allergies: Coded Allergies: No Known Allergies (Unverified , 03/28/19) Objective Vital Signs Last 24 Hour Vital Signs Date Time Temp Pulse Resp B/P (MAP) Pulse Ox O2 Delivery O2 Flow Rate FiO2 04/09/19 16:00 100.2 88 20 127/58 (81) 93 04/09/19 12:00 100.4 93 20 135/60 (85) 92 04/09/19 09:00 Room Air 04/09/19 08:00 100.0 76 20 118/58 (78) 98 04/09/19 04:00 98.5 72 17 95/51 (66) 96 04/09/19 00:00 100.8 76 17 109/59 (76) 95 04/08/19 21:48 101.0 04/08/19 21:00 Room Air 04/08/19 20:00 100.2 78 18 103/55 (71) 94 Height (Feet): 5 Height (Inches): 3.00 Weight (Pounds): 116 Microbiology Date/Time Source Procedure Growth Status 04/09/19 02:00 Stool Clostridium difficile Toxin Assay - Final Complete 04/08/19 11:00 Urine,Clean Catch Urine Culture - Preliminary Gram Negative Олег Resulted Laboratory Tests Test 04/09/19 04:50 White Blood Count 14.4 K/UL (4.8-10.8) H Red Blood Count 3.96 M/UL (4.20-5.40) L Hemoglobin 13.2 G/DL (12.0-16.0) Hematocrit 38.9 % (37.0-47.0) Mean Corpuscular Volume 98 FL (80-99) Mean Corpuscular Hemoglobin 33.3 PG (27.0-31.0) H Mean Corpuscular Hemoglobin Concent 33.9 G/DL (32.0-36.0) Red Cell Distribution Width 11.6 % (11.6-14.8) Platelet Count 178 K/UL (150-450) Mean Platelet Volume 5.8 FL (6.5-10.1) L Neutrophils (%) (Auto) 81.1 % (45.0-75.0) H Lymphocytes (%) (Auto) 8.6 % (20.0-45.0) L Monocytes (%) (Auto) 9.4 % (1.0-10.0) Eosinophils (%) (Auto) 0.1 % (0.0-3.0) Basophils (%) (Auto) 0.7 % (0.0-2.0) Sodium Level 134 MMOL/L (136-145) L Potassium Level 3.4 MMOL/L (3.5-5.1) L Chloride Level 102 MMOL/L (98-107) Carbon Dioxide Level 23 MMOL/L (21-32) Anion Gap 10 mmol/L (5-15) Blood Urea Nitrogen 11 mg/dL (7-18) Creatinine 0.9 MG/DL (0.55-1.30) Estimat Glomerular Filtration Rate > 60 mL/min (>60) Glucose Level 90 MG/DL (74-106) Calcium Level 9.5 MG/DL (8.5-10.1) Current Medications Medications (Trade) Dose Ordered Sig/Lindsey Route PRN Reason Start Time Stop Time Status Last Admin Dose Admin Acetaminophen (Tylenol) 650 mg Q6H PRN ORAL Mild Pain/Temp > 100.5 03/29/19 01:45 04/28/19 01:44 04/08/19 21:18 Barium Sulfate (Readi-Cat 2) 450 ml NOW PRN ORAL Radiology Procedure 04/09/19 09:45 04/11/19 09:35 Clonazepam (KlonoPIN) 1 mg QHS ORAL 04/02/19 21:00 04/09/19 20:59 04/08/19 21:15 Diphenhydramine HCl (Benadryl) 25 mg HSPRN PRN ORAL Insomnia 04/07/19 15:16 05/07/19 15:15 Famotidine (Pepcid) 20 mg DAILY ORAL 04/10/19 09:00 05/10/19 08:59 Iohexol (OMNIPAQUE-300 100ml) 100 ml NOW PRN INJ Radiology Procedure 04/08/19 17:00 04/10/19 16:55 Loperamide HCl (Imodium) 2 mg Q4H PRN ORAL Diarrhea 03/29/19 12:00 04/28/19 11:59 04/08/19 17:52 Ondansetron HCl (Zofran) 4 mg Q6H PRN IVP Nausea & Vomiting 03/29/19 01:45 04/28/19 01:44 Polyethylene Glycol (Miralax) 17 gm BEDTIME ORAL 04/08/19 21:00 05/08/19 20:59 Polyethylene Glycol (Miralax) 17 gm DAILYPRN PRN ORAL Constipation 04/04/19 13:15 05/04/19 13:14 Risperidone (RisperDAL) 3 mg BEDTIME ORAL 04/04/19 21:00 05/04/19 20:59 04/08/19 21:16 Sodium Chloride 1,000 ml @ 125 mls/hr Q8H IV 04/08/19 17:30 05/08/19 17:29 04/09/19 16:38 Vancomycin HCl (Firvanq) 125 mg FOUR TIMES A DAY ORAL 04/09/19 13:00 04/16/19 12:59 04/09/19 17:14 Angel Martinze MD Apr 09, 2019 18:47
[2019-04-09 20:00] VITALS: BP 113/68
[2019-04-09] MEDS: Miralax 17gm pkt ORAL SCH (20:55)
[2019-04-09] MEDS: cefTRIAXone 1 GM in D5W 50 ML IVPB SCH (20:58)
--- NOTE | 2019-04-09 23:45 | Progress Note ---
DATE: 04/09/2019 SUBJECTIVE: The patient now is in 4th floor. She is somewhat disorganized and tangential, much calmer. The patient is less agitated and more redirectable, delusions. MENTAL STATUS EXAMINATION: The patient is alert and oriented times self. She knows she is in the hospital. Poor historian. Mood is neutral. Affect is flat. Thought process is disorganized. Thought content, no suicidal or homicidal ideation. ASSESSMENT: 1. Schizophrenia. 2. Anxiety disorder. PLAN: 1. Increase the risperidone to 4 mg at bedtime. 2. Klonopin 1 mg at bedtime. 3. Continue to readjust the medications. 4. Provide the patient with reality orientation and supportive therapy. Lima Fernández M.D. DR: Jocelyn JOB#: [id number] CC:
[2019-04-10] VITALS: BP 90/49
--- NOTE | 2019-04-10 00:15 | Consultation ---
DATE OF CONSULTATION: 04/09/2019 INFECTIOUS DISEASE CONSULTATION CONSULTING PHYSICIAN: Angel Martinez M.D. ATTENDING PHYSICIAN: Benson Bedoay M.D. REFERRING PHYSICIAN: Doug Powell M.D. REASON FOR CONSULTATION: Sepsis, gram-negative UTI, possible pyelonephritis, C. difficile colitis, fevers, and leukocytosis. CHIEF COMPLAINT: The patient's chief complaint coming to the hospital was ataxia. HISTORY OF PRESENT ILLNESS: This is a 69-year-old female, who comes in to [facility] with a fall. The patient slipped and thus I guess, she has possible ataxia. She had slurring of words per the records. The patient is being worked up. She also has had diarrhea prior to admission, but it is unclear if she had antibiotics prior to admission. She is not a very good historian. The patient now has positive UA and white cells on the urinalysis and positive leukocyte esterase and has a gram-negative urinary tract infection and possible pyelonephritis. She also has possible sepsis with SIRS criteria including fevers as high as 102.6. She also has diarrhea and a C. diff was checked today, which is positive for C. diff. Because of the fevers, leukocytosis, and possible sepsis and UTI and also C. diff, Infectious Disease consultation is requested. The patient had a CT scan, which was reviewed. Urine culture with gram-negative rods. We will continue p.o. vancomycin that the patient is on. Also, start Rocephin for the gram-negative UTI. MAR was noted. Orders were noted. Notes and records were reviewed. REVIEW OF SYSTEMS: CONSTITUTIONAL: The patient has generalized fatigue. No focal weakness. She came in with fall and possible ataxia. She is responsive, but not a very good historian, but is responsive. HEAD AND NECK: No head pain or neck pain. CARDIAC: No chest pain. GASTROINTESTINAL: She has diarrhea. No nausea, vomiting, or abdominal pain. She has diarrhea. GENITOURINARY: No CVA tenderness. No Gutierrez. PULMONARY: No congestion or shortness of breath. SKIN: No rash. EXTREMITY: No extremity pain. NEUROLOGIC: No seizures. PAST MEDICAL HISTORY: The patient's past medical history includes the following. The patient has a past medical history of head trauma. She has history of schizophrenia, lethargy, and physical deconditioning. No history of diabetes or hypertension. ALLERGIES: No known drug allergies. SOCIAL HISTORY: Currently, I believe negative for smoking, alcohol, or drug use. FAMILY HISTORY: Noncontributory. MEDICATIONS: Outside medications were noted and reconciliated. Medications here upon reviewing the MAR, he is on famotidine and p.o. vancomycin. I have added Rocephin. Flagyl discontinued. Cipro was discontinued. She is on barium. She is on risperidone, diphenhydramine, Klonopin, Risperdal, Ativan, and haloperidol. PHYSICAL EXAMINATION: VITAL SIGNS: T-max 102.6, currently temp is 100.2, pulse rate 88, respiratory rate 20, blood pressure 127/58, and saturation 93%. GENERAL: Mostly nonverbal, but is responsive. HEAD AND NECK: Oral exam, no thrush. Eye exam, no icterus. Normocephalic. Neck is supple. No JVD. HEART: Regular. No gallop or murmur. ABDOMEN: Soft. Positive bowel sounds. Nontender. LUNGS: Clear bilaterally. No rhonchi or rales. SKIN: No rash. MUSCULOSKELETAL: No effusion. Legs are without cellulitis. PERIPHERAL VASCULAR: No cyanosis. GENITOURINARY: No Gutierrez. No CVA tenderness. LINE SITES: Without phlebitis. NEUROLOGIC: Intact and nonfocal. LABORATORY AND DIAGNOSTIC DATA: Laboratory data is as follows. UA had 3+ leukocyte esterase and 5 to 10 white blood cells. Creatinine is 0.9. I have ordered lactic acid. White count 14.4 and hemoglobin 13.2. White count yesterday was 15.9. CULTURES: Urine culture is growing greater than 100,000 gram-negative rods. C. difficile toxin is positive. Blood cultures have been ordered. Lactic acid has been ordered. IMAGING: Chest x-ray showed no acute cardiopulmonary disease. CT scan of the abdomen and pelvis showed severe fecal retention with evidence of proctocolitis and chronic pancreatitis also. No abscess seen. ASSESSMENT AND PLAN: 1. The patient has sepsis, fevers, leukocytosis, and has a gram-negative UTI and possible pyelonephritis. The patient has C. difficile colitis with diarrhea. At this time, we will continue treatment for sepsis, C. difficile colitis, and gram-negative UTI and pyelonephritis. Continue p.o. vancomycin for C. diff colitis and continue Rocephin for gram negative UTI and pyelonephritis. Check blood cultures and final urine culture results. The patient has diarrhea. Currently is in isolation for C. diff. Continue Rocephin and p.o. vancomycin for sepsis, UTI, and C diff. Monitor the patient's laboratories. 2. The patient came in with fall. Question ataxia. 3. The patient has sepsis criteria including cirrhosis, fevers, and heart rate as high as 115. Thus has SIRS criteria. 4. The patient has history of schizophrenia. 5. History of head trauma. 6. Lethargy. 7. Physical deconditioning. 8. She also has history of pacemaker. 9. Continue treatment per primary consultants. 10. No known allergies. 11. Social history is negative. 12. Family history is noncontributory. 13. MAR is noted. 14. Case was discussed with RN. 15. Notes and records were noted. Orders were entered. Angel Martienz M.D. DR: ADELAIDA JOB#: [id number] CC:
[2019-04-10 04:00] VITALS: BP_SYST 110; BP_SYST 96; BP_DIAS 49; BP_DIAS 54
[2019-04-10 06:41] LABS: HEMATOCRIT 36.3 % (37.0-47.0); HEMOGLOBIN 12.4 G/DL (12.0-16.0); MEAN CORPUSCULAR VOLUME 96 FL (80-99); PLATELET COUNT 179 K/UL (150-450); RED BLOOD COUNT 3.76 M/UL (4.20-5.40); RED CELL DISTRIBUTION WIDTH 11.6 % (11.6-14.8); WHITE BLOOD COUNT 16.9 K/UL (4.8-10.8)
[2019-04-10 07:26] LABS: ALANINE AMINOTRANSFERASE 26 U/L (12-78); ALBUMIN 2.3 G/DL (3.4-5.0); ALBUMIN/GLOBULIN RATIO 0.8 (1.0-2.7); ALKALINE PHOSPHATASE 67 U/L (46-116); ANION GAP 11 mmol/L (5-15); ASPARTATE AMINO TRANSFERASE 43 U/L (15-37); BILIRUBIN,TOTAL 0.5 MG/DL (0.2-1.0); BLOOD UREA NITROGEN 8 mg/dL (7-18); CALCIUM 8.8 MG/DL (8.5-10.1); CARBON DIOXIDE 20 MMOL/L (21-32); CHLORIDE 101 MMOL/L (98-107); CREATININE 0.8 MG/DL (0.55-1.30); SODIUM 132 MMOL/L (136-145)
[2019-04-10 08:00] VITALS: BP 99/68
[2019-04-10] MEDS ORDERED: Tubing IV Secondary IV ONE (09:20)
[2019-04-10] MEDS: Vancomycin oral 125mg/2.5ml ORAL SCH ×4 (09:37→20:48)
--- NOTE | 2019-04-10 11:01 | GI Progress Note ---
Assessment/Plan Problems: (1) Fecal retention ICD Codes: K59.00 - Constipation, unspecified SNOMED: 06282082 (2) C. difficile colitis ICD Codes: A04.72 - Enterocolitis due to Clostridium difficile, not specified as recurrent SNOMED: 871821261 (3) Diarrhea ICD Codes: R19.7 - Diarrhea, unspecified SNOMED: 32587262 (4) LGI bleed ICD Codes: K92.2 - Gastrointestinal hemorrhage, unspecified SNOMED: 71937332 (5) Schizophrenia ICD Codes: F20.9 - Schizophrenia, unspecified SNOMED: 18045195 Qualifiers: Qualified Codes: F20.9 - Schizophrenia, unspecified Status: unchanged Status Narrative Discussed with Dr. Anderson. Assessment/Plan 69 year old female patient with reported episode of lower GI bleed x1 yesterday most likely due to infectious colitis. At time of evaluation, no reported recurrent LGIB, H&H stable. cdiff positive AP CT reviewed noted with moderately severe fecal retention in the colon and rectum with evidence of a proctocolitis. No plans for colonoscopy at this time, can be done as outpatient. abx advance diet as tolerated monitor H&H or recurrent LGIB, prn transfusions zofran prn H2B follow labs The patient was seen and examined at bedside and all new and available data was reviewed in the patients chart. I agree with the above findings, impression and plan. (Patient seen earlier today. Signature stamp does not reflect patient encounter time.). - Michelet Anderson MD Subjective Subjective limited Objective Last 24 Hour Vital Signs Date Time Temp Pulse Resp B/P (MAP) Pulse Ox O2 Delivery O2 Flow Rate FiO2 04/10/19 08:00 98.3 90 17 99/68 (78) 97 04/10/19 05:06 100.1 04/10/19 04:00 100.9 98 20 110/54 (72) 94 04/10/19 00:00 100.4 90 20 90/49 (63) 94 04/09/19 21:00 Room Air 04/09/19 20:00 101.5 78 20 113/68 (83) 98 04/09/19 16:00 100.2 88 20 127/58 (81) 93 04/09/19 12:00 100.4 93 20 135/60 (85) 92 Intake and Output 04/09/19 04/10/19 18:59 06:59 Intake Total 1975 ml 1515 ml Balance 1975 ml 1515 ml Intake Oral 600 ml IV Total 1375 ml 1515 ml # Voids 3 2 # Bowel Movements 3 2 Laboratory Tests Test 04/09/19 20:27 04/09/19 22:50 04/10/19 05:35 Lactic Acid Level 2.90 mmol/L (0.4-2.0) H 2.90 mmol/L (0.66-2.22) H White Blood Count 16.9 K/UL (4.8-10.8) H Red Blood Count 3.76 M/UL (4.20-5.40) L Hemoglobin 12.4 G/DL (12.0-16.0) Hematocrit 36.3 % (37.0-47.0) L Mean Corpuscular Volume 96 FL (80-99) Mean Corpuscular Hemoglobin 33.1 PG (27.0-31.0) H Mean Corpuscular Hemoglobin Concent 34.3 G/DL (32.0-36.0) Red Cell Distribution Width 11.6 % (11.6-14.8) Platelet Count 179 K/UL (150-450) Mean Platelet Volume 6.2 FL (6.5-10.1) L Neutrophils (%) (Auto) % (45.0-75.0) Lymphocytes (%) (Auto) % (20.0-45.0) Monocytes (%) (Auto) % (1.0-10.0) Eosinophils (%) (Auto) % (0.0-3.0) Basophils (%) (Auto) % (0.0-2.0) Differential Total Cells Counted 100 Neutrophils % (Manual) 88 % (45-75) H Lymphocytes % (Manual) 5 % (20-45) L Monocytes % (Manual) 1 % (1-10) Eosinophils % (Manual) 0 % (0-3) Basophils % (Manual) 0 % (0-2) Band Neutrophils 6 % (0-8) Platelet Estimate Adequate Platelet Morphology Normal Red Blood Cell Morphology Normal Sodium Level 132 MMOL/L (136-145) L Potassium Level 3.0 MMOL/L (3.5-5.1) L Chloride Level 101 MMOL/L (98-107) Carbon Dioxide Level 20 MMOL/L (21-32) L Anion Gap 11 mmol/L (5-15) Blood Urea Nitrogen 8 mg/dL (7-18) Creatinine 0.8 MG/DL (0.55-1.30) Estimat Glomerular Filtration Rate > 60 mL/min (>60) Glucose Level 103 MG/DL (74-106) Calcium Level 8.8 MG/DL (8.5-10.1) Total Bilirubin 0.5 MG/DL (0.2-1.0) Aspartate Amino Transf (AST/SGOT) 43 U/L (15-37) H Alanine Aminotransferase (ALT/SGPT) 26 U/L (12-78) Alkaline Phosphatase 67 U/L (46-116) Total Protein 5.3 G/DL (6.4-8.2) L Albumin 2.3 G/DL (3.4-5.0) L Globulin 3.0 g/dL Albumin/Globulin Ratio 0.8 (1.0-2.7) L Height (Feet): 5 Height (Inches): 3.00 Weight (Pounds): 116 General Appearance: WD/WN, no apparent distress, alert, thin Cardiovascular: normal rate Respiratory/Chest: normal breath sounds, no respiratory distress Abdominal Exam: normal bowel sounds, non tender, soft Extremities: normal range of motion, non-tender Mckay Medina NP Apr 10, 2019 11:01
[2019-04-10 12:00] VITALS: BP 102/58
--- NOTE | 2019-04-10 12:07 | General Progress Note ---
Assessment/Plan Problem List: (1) Sepsis ICD Codes: A41.9 - Sepsis, unspecified organism SNOMED: 89870458 (2) C. difficile colitis ICD Codes: A04.72 - Enterocolitis due to Clostridium difficile, not specified as recurrent SNOMED: 802530921 (3) Schizophrenia ICD Codes: F20.9 - Schizophrenia, unspecified SNOMED: 06237345 Qualifiers: Qualified Codes: F20.9 - Schizophrenia, unspecified (4) Acute encephalopathy ICD Codes: G93.40 - Encephalopathy, unspecified SNOMED: 51882708, 673630146 (5) Diarrhea ICD Codes: R19.7 - Diarrhea, unspecified SNOMED: 19767723 (6) Lethargy ICD Codes: R53.83 - Other fatigue SNOMED: 633346469 (7) Head trauma ICD Codes: S09.90XA - Unspecified injury of head, initial encounter SNOMED: 53523272 Qualifiers: Qualified Codes: S09.90XA - Unspecified injury of head, initial encounter (8) Physical deconditioning ICD Codes: R53.81 - Other malaise SNOMED: 63556075579860 (9) UTI (urinary tract infection) ICD Codes: N39.0 - Urinary tract infection, site not specified SNOMED: 62729671 (10) Ataxia ICD Codes: R27.0 - Ataxia, unspecified SNOMED: 94486103 (11) Pyuria ICD Codes: N39.0 - Urinary tract infection, site not specified SNOMED: 3774192, 624785465 Status: unchanged Assessment/Plan: 69 year old female with schizophrenia presenting after a fall at home and diarrhea. CT head negative for any acute pathology. Seen by PT and advised SNF. Her diarrhea resolved shortly after admission. She had no leukocytosis or TAYLOR. Imodium prn helped. Patient remained int hospital waiting for placement. on , she developed fever, leukocytosis, change in mental status, and bloody diarrhea. Stool sent for c diff and POSITIVE. Urine culture growing E.Coli. 1. Sepsis secondary to C. Diff colitis, and UTI -Start oral vancomycin, IV NS @ 125 ml/hr -IV ceftriaxone and Flagyl for UTI per ID -Follow up cultures. -Follow up white count and serum creatinine -ID consult with Dr. Adler -CT abdomen pelvis: Moderately severe fecal retention in the colon and rectum with evidence of proctocolitis. -GI consult. 2. Hypokalemia. Replace. 3. Schizophrenia Flat affect. Minimally communicative. -Continue home Clonazepam. Dose decreased by psychiatrist to 1 mg QHS -discontinued home Trazodone. -Risperidone 3mg QHS per psychiatry recommendations -psychiatry consult. Dr. Fernández, appreciated -Ativan PRN 4. Physical deconditioning and cachexia. Monitor oral intake 5. Hyponatremia. Resolving with NS Dispo: SNF ,accepted to [facility]. pending insurance approval, but now has developed c diff colitis, sepsis and UTI I spent 40 minutes on this encounter. 50% spent on counselling and care coordination. Subjective Date patient seen: Apr 10, 2019 ROS Limited/Unobtainable: No Constitutional: Reports: no symptoms, chills, diaphoresis, fever, malaise, weakness, other HEENT: Denies: no symptoms, eye pain, blurred vision, tearing, double vision, ear pain, ear discharge, nose pain, nose congestion, throat pain, throat swelling, mouth pain, mouth swelling, other Cardiovascular: Denies: no symptoms, chest pain, edema, irregular heart rate, lightheadedness, palpitations, syncope, other Respiratory: Denies: no symptoms, cough, orthopnea, shortness of breath, SOB with excertion, SOB at rest, sputum, stridor, wheezing, other Gastrointestinal/Abdominal: Reports: no symptoms, abdomen distended, abdominal pain, black stools, tarry stools, blood in stool, constipated, diarrhea, difficulty swallowing, nausea, poor appetite, poor fluid intake, rectal bleeding , vomiting, other Genitourinary: Denies: no symptoms, burning, discharge, frequency, flank pain, hematuria, incontinence, pain, urgency, other Neurologic/Psychiatric: Denies: no symptoms, anxiety, depressed, emotional problems, headache, numbness, paresthesia, pre-existing deficit, seizure, tingling, tremors, weakness, other Endocrine: Denies: no symptoms, excessive sweating, flushing, intolerance to cold, intolerance to heat, increased hunger, increased thirst, increased urine, unexplained weight gain, unexplained weight loss, other Hematologic/Lymphatic: Denies: no symptoms, anemia, easy bleeding, easy bruising, other Allergies: Coded Allergies: No Known Allergies (Unverified , 03/28/19) Subjective bloody diarrhea + c diff febrile Urine cx + contact isolation Objective Last 24 Hour Vital Signs Date Time Temp Pulse Resp B/P (MAP) Pulse Ox O2 Delivery O2 Flow Rate FiO2 04/10/19 09:00 Room Air 04/10/19 08:00 98.3 90 17 99/68 (78) 97 04/10/19 05:06 100.1 04/10/19 04:00 100.9 98 20 110/54 (72) 94 04/10/19 00:00 100.4 90 20 90/49 (63) 94 04/09/19 21:00 Room Air 04/09/19 20:00 101.5 78 20 113/68 (83) 98 04/09/19 16:00 100.2 88 20 127/58 (81) 93 Intake and Output 04/09/19 04/10/19 18:59 06:59 Intake Total 1975 ml 1515 ml Balance 1975 ml 1515 ml Intake Oral 600 ml IV Total 1375 ml 1515 ml # Voids 3 2 # Bowel Movements 3 2 Laboratory Tests 04/09/19 20:27: Lactic Acid Level 2.90H 04/09/19 22:50: Lactic Acid Level 2.90H 04/10/19 05:35: White Blood Count 16.9H, Red Blood Count 3.76L, Hemoglobin 12.4, Hematocrit 36.3L, Mean Corpuscular Volume 96, Mean Corpuscular Hemoglobin 33.1H, Mean Corpuscular Hemoglobin Concent 34.3, Red Cell Distribution Width 11.6, Platelet Count 179, Mean Platelet Volume 6.2L, Neutrophils (%) (Auto) , Lymphocytes (%) ( Auto) , Monocytes (%) (Auto) , Eosinophils (%) (Auto) , Basophils (%) (Auto) , Differential Total Cells Counted 100, Neutrophils % (Manual) 88H, Lymphocytes % (Manual) 5L, Monocytes % (Manual) 1, Eosinophils % (Manual) 0, Basophils % ( Manual) 0, Band Neutrophils 6, Platelet Estimate Adequate, Platelet Morphology Normal, Red Blood Cell Morphology Normal, Sodium Level 132L, Potassium Level 3.0L, Chloride Level 101, Carbon Dioxide Level 20L, Anion Gap 11, Blood Urea Nitrogen 8, Creatinine 0.8, Estimat Glomerular Filtration Rate > 60, Glucose Level 103, Calcium Level 8.8, Total Bilirubin 0.5, Aspartate Amino Transf (AST/ SGOT) 43H, Alanine Aminotransferase (ALT/SGPT) 26, Alkaline Phosphatase 67, Total Protein 5.3L, Albumin 2.3L, Globulin 3.0, Albumin/Globulin Ratio 0.8L Height (Feet): 5 Height (Inches): 3.00 Weight (Pounds): 116 Objective General Appearance: no apparent distress, speaks full sentences, toxic appearance Eyes: bilateral eye PERRL, bilateral eye EOMI, bilateral eye Scleral Injection HEENT: PERRL , neck supple Respiratory: chest non-tender, lungs clear, normal breath sounds, other - Pacemaker left Cardiovascular: regular rate, rhythm, no m/r/g, no edema Gastrointestinal: diffuse tender, soft, non distended +bs Genitourinary: no CVA tenderness Musculoskeletal: back normal, normal range of motion, no calf tenderness Neurologic: slow to respond, oriented - X2, grossly normal, ataxic Psychiatric: no suicidal/homicidal ideation, depressed affect Skin: no rash, no ulcers, bilateral feet, callus Doug Powell M.D. Apr 10, 2019 12:07
[2019-04-10 16:00] VITALS: BP 135/70
[2019-04-10] MEDS: Loperamide 2mg cap ORAL PRN ×2 (16:44→21:32)
[2019-04-10 20:00] VITALS: BP 103/52
[2019-04-10] MEDS: Miralax 17gm pkt ORAL SCH (20:47)
[2019-04-10] MEDS: cefTRIAXone 1 GM in D5W 50 ML IVPB SCH (21:34)
--- NOTE | 2019-04-10 23:45 | Progress Note ---
DATE: 04/10/2019 SUBJECTIVE: The patient is in bed, calm, able to answer the questions. Decrease in agitation, more redirectable. MENTAL STATUS EXAMINATION: Alert and oriented x2. Mood is neutral. Affect is flat. Thought process, there is a paucity of thought content. Thought content, no suicidal or homicidal ideation. Has delusions. Insight and judgment is poor. ASSESSMENT: 1. Schizophrenia. 2. Cognitive impairment. PLAN: 1. We will continue the risperidone. Continue the Klonopin. 2. Provide the patient with reality orientation. 3. Discussed with the staff. Lima Fernández M.D. DR: ALICIA JOB#: [id number] CC: YORDY
[2019-04-11] VITALS: BP 109/55
[2019-04-11 04:00] VITALS: BP 111/59
[2019-04-11 05:59] LABS: HEMATOCRIT 35.4 % (37.0-47.0); HEMOGLOBIN 12.5 G/DL (12.0-16.0); MEAN CORPUSCULAR VOLUME 95 FL (80-99); PLATELET COUNT 185 K/UL (150-450); RED BLOOD COUNT 3.74 M/UL (4.20-5.40); RED CELL DISTRIBUTION WIDTH 11.3 % (11.6-14.8)
[2019-04-11 06:02] LABS: ANION GAP 11 mmol/L (5-15); BLOOD UREA NITROGEN 8 mg/dL (7-18); CALCIUM 8.5 MG/DL (8.5-10.1); CARBON DIOXIDE 22 MMOL/L (21-32); CHLORIDE 100 MMOL/L (98-107); CREATININE 0.7 MG/DL (0.55-1.30); POTASSIUM 3.6 MMOL/L (3.5-5.1); SODIUM 132 MMOL/L (136-145)
[2019-04-11 08:00] VITALS: BP 101/61
[2019-04-11] MEDS: Vancomycin oral 125mg/2.5ml ORAL SCH ×4 (09:37→20:51)
[2019-04-11 12:00] VITALS: BP 112/68
--- NOTE | 2019-04-11 13:34 | General Progress Note ---
Assessment/Plan Status: unchanged Assessment/Plan: (1) Fecal retention ICD Codes: K59.00 - Constipation, unspecified SNOMED: 66916204 (2) C. difficile colitis ICD Codes: A04.72 - Enterocolitis due to Clostridium difficile, not specified as recurrent SNOMED: 319376046 (3) Diarrhea ICD Codes: R19.7 - Diarrhea, unspecified SNOMED: 91500563 (4) LGI bleed ICD Codes: K92.2 - Gastrointestinal hemorrhage, unspecified SNOMED: 54246094 (5) Schizophrenia ICD Codes: F20.9 - Schizophrenia, unspecified SNOMED: 53657042 Qualifiers: Qualified Codes: F20.9 - Schizophrenia, unspecified Status: unchanged Assessment/Plan 69 year old female patient with reported episode of lower GI bleed x1 yesterday most likely due to infectious colitis. At time of evaluation, no reported recurrent LGIB, H&H stable. cdiff positive AP CT reviewed noted with moderately severe fecal retention in the colon and rectum with evidence of a proctocolitis. No plans for colonoscopy at this time, can be done as outpatient. abx advance diet as tolerated monitor H&H or recurrent LGIB, prn transfusions zofran prn H2B follow labs dc imodium and miralax continue po vanco and IV flagyl Subjective ROS Limited/Unobtainable: Yes Allergies: Coded Allergies: No Known Allergies (Unverified , 03/28/19) Objective Last 24 Hour Vital Signs Date Time Temp Pulse Resp B/P (MAP) Pulse Ox O2 Delivery O2 Flow Rate FiO2 04/11/19 12:00 98.5 103 18 112/68 (83) 100 04/11/19 09:00 Room Air 04/11/19 08:00 98.3 62 19 101/61 (74) 99 04/11/19 04:00 98.1 90 18 111/59 (76) 94 04/11/19 00:00 98.1 81 20 109/55 (73) 94 04/10/19 21:00 Room Air 04/10/19 20:00 98.6 74 18 103/52 (69) 94 04/10/19 16:00 98.8 94 17 135/70 (91) 98 Intake and Output 04/10/19 04/11/19 18:59 06:59 Intake Total 2225 ml Balance 2225 ml Intake Oral 1000 ml IV Total 1225 ml # Voids 4 # Bowel Movements 6 4 Laboratory Tests 04/11/19 05:00: White Blood Count 20.0H, Red Blood Count 3.74L, Hemoglobin 12.5, Hematocrit 35.4L, Mean Corpuscular Volume 95, Mean Corpuscular Hemoglobin 33.4H, Mean Corpuscular Hemoglobin Concent 35.2, Red Cell Distribution Width 11.3L, Platelet Count 185, Mean Platelet Volume 5.7L, Neutrophils (%) (Auto) , Lymphocytes (%) (Auto) , Monocytes (%) (Auto) , Eosinophils (%) (Auto) , Basophils (%) (Auto) , Differential Total Cells Counted 100, Neutrophils % ( Manual) 81H, Lymphocytes % (Manual) 3L, Monocytes % (Manual) 12H, Eosinophils % (Manual) 0, Basophils % (Manual) 0, Band Neutrophils 4, Platelet Estimate Adequate, Platelet Morphology Normal, Red Blood Cell Morphology Normal, Sodium Level 132L, Potassium Level 3.6, Chloride Level 100, Carbon Dioxide Level 22, Anion Gap 11, Blood Urea Nitrogen 8, Creatinine 0.7, Estimat Glomerular Filtration Rate > 60, Glucose Level 111H, Calcium Level 8.5 Height (Feet): 5 Height (Inches): 3.00 Weight (Pounds): 116 General Appearance: alert EENT: normal ENT inspection Neck: supple Cardiovascular: normal rate Respiratory/Chest: decreased breath sounds Abdomen: soft, hypoactive bowel sounds, tender Extremities: non-tender Michelet Anderson MD Apr 11, 2019 13:34
[2019-04-11] MEDS ORDERED: D5 1/2NS 1000ml IV ONE (14:45)
[2019-04-11 16:00] VITALS: BP 108/70
--- NOTE | 2019-04-11 16:26 | Infectious Diseases Prog Note ---
Assessment/Plan Assessment/Plan ASSESSMENT AND PLAN: 1. c.diff. colitis, e.coli uti/pyelonephritis, sepsis, leukocytosis, fevers - po vancomycin, iv flagyl, ceftriaxone - monitor wbc/labs - monitor clinically 2. The patient came in with fall. Question ataxia. 3. The patient has sepsis criteria including cirrhosis, fevers, and heart rate as high as 115. Thus has SIRS criteria. 4. The patient has history of schizophrenia. 5. History of head trauma. 6. Lethargy. 7. Physical deconditioning. 8. She also has history of pacemaker. 9. Continue treatment per primary consultants. 10. No known allergies. 11. Social history is negative. 12. Family history is noncontributory. 13. MAR is noted. 14. Case was discussed with RN. 15. Notes and records were noted. Orders were entered. Subjective Constitutional: Denies: fever HEENT: Denies: congestion Respiratory: Denies: shortness of breath Cardiovascular: Denies: chest pain Gastrointestinal/Abdominal: Reports: diarrhea; Denies: nausea, vomiting Genitourinary: Reports: other - no palacios Neurologic: Denies: headache Psychiatric: Denies: depression Skin: Denies: rash Hematologic: Denies: bleeding Musculoskeletal: Denies: pain Allergies: Coded Allergies: No Known Allergies (Unverified , 03/28/19) Objective Vital Signs Last 24 Hour Vital Signs Date Time Temp Pulse Resp B/P (MAP) Pulse Ox O2 Delivery O2 Flow Rate FiO2 04/11/19 16:00 98.4 80 19 108/70 (83) 100 04/11/19 12:00 98.5 103 18 112/68 (83) 100 04/11/19 09:00 Room Air 04/11/19 08:00 98.3 62 19 101/61 (74) 99 04/11/19 04:00 98.1 90 18 111/59 (76) 94 04/11/19 00:00 98.1 81 20 109/55 (73) 94 04/10/19 21:00 Room Air 04/10/19 20:00 98.6 74 18 103/52 (69) 94 Height (Feet): 5 Height (Inches): 3.00 Weight (Pounds): 116 General Appearance: no acute distress HEENT: normocephalic, atraumatic, anicteric, mucous membranes moist Respiratory/Chest: lungs clear, normal breath sounds, no respiratory distress, no accessory muscle use Cardiovascular: normal rate, regular rhythm, no gallop/murmur, no JVD Abdomen: normal bowel sounds, soft, non tender, no organomegaly, non distended Genitourinary: other - no palacios, no cva pain Extremities: no cyanosis Skin: no rash Neurologic/Psychiatric: diamond sawer II-XII 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 Chronic calcific pancreatitis Atherosclerotic vascular disease Degenerative changes of the spine. Mild scoliosis. Mild left posterior basal atelectasis. Limited evaluation due to the nonadministration of intravenous contrast Chest x-ray - nad Microbiology Date/Time Source Procedure Growth Status 03/29/19 05:20 Nasal Nares Left MRSA Culture - Final NO METHICILLIN RESISTANT STAPH AUREUS... Complete 04/09/19 02:00 Stool Clostridium difficile Toxin Assay - Final Complete 04/08/19 11:00 Urine,Clean Catch Urine Culture - Final Escherichia Coli Complete 03/29/19 05:20 Rectum - Final NO CARBAPENEM-RESISTANT ENTEROBACTERI... Complete Microbiology Date/Time Source Procedure Growth Status 04/09/19 02:00 Stool Clostridium difficile Toxin Assay - Final Complete Laboratory Tests Test 04/11/19 05:00 White Blood Count 20.0 K/UL (4.8-10.8) H Red Blood Count 3.74 M/UL (4.20-5.40) L Hemoglobin 12.5 G/DL (12.0-16.0) Hematocrit 35.4 % (37.0-47.0) L Mean Corpuscular Volume 95 FL (80-99) Mean Corpuscular Hemoglobin 33.4 PG (27.0-31.0) H Mean Corpuscular Hemoglobin Concent 35.2 G/DL (32.0-36.0) Red Cell Distribution Width 11.3 % (11.6-14.8) L Platelet Count 185 K/UL (150-450) Mean Platelet Volume 5.7 FL (6.5-10.1) L Neutrophils (%) (Auto) % (45.0-75.0) Lymphocytes (%) (Auto) % (20.0-45.0) Monocytes (%) (Auto) % (1.0-10.0) Eosinophils (%) (Auto) % (0.0-3.0) Basophils (%) (Auto) % (0.0-2.0) Differential Total Cells Counted 100 Neutrophils % (Manual) 81 % (45-75) H Lymphocytes % (Manual) 3 % (20-45) L Monocytes % (Manual) 12 % (1-10) H Eosinophils % (Manual) 0 % (0-3) Basophils % (Manual) 0 % (0-2) Band Neutrophils 4 % (0-8) Platelet Estimate Adequate Platelet Morphology Normal Red Blood Cell Morphology Normal Sodium Level 132 MMOL/L (136-145) L Potassium Level 3.6 MMOL/L (3.5-5.1) Chloride Level 100 MMOL/L (98-107) Carbon Dioxide Level 22 MMOL/L (21-32) Anion Gap 11 mmol/L (5-15) Blood Urea Nitrogen 8 mg/dL (7-18) Creatinine 0.7 MG/DL (0.55-1.30) Estimat Glomerular Filtration Rate > 60 mL/min (>60) Glucose Level 111 MG/DL (74-106) H Calcium Level 8.5 MG/DL (8.5-10.1) Current Medications Medications (Trade) Dose Ordered Sig/Lindsey Route PRN Reason Start Time Stop Time Status Last Admin Dose Admin Acetaminophen (Tylenol) 650 mg Q6H PRN ORAL Mild Pain/Temp > 100.5 03/29/19 01:45 04/28/19 01:44 04/10/19 16:16 Ceftriaxone Sodium 1 gm/ Dextrose 50 ml @ 100 mls/hr Q24H IVPB 04/09/19 21:00 04/16/19 20:59 04/10/19 21:34 Diphenhydramine HCl (Benadryl) 25 mg HSPRN PRN ORAL Insomnia 04/07/19 15:16 05/07/19 15:15 04/10/19 22:51 Famotidine (Pepcid) 20 mg DAILY ORAL 04/10/19 09:00 05/10/19 08:59 04/11/19 09:37 Metronidazole 100 ml @ 100 mls/hr Q8HR IVPB 04/10/19 14:00 04/17/19 13:59 04/11/19 13:50 Ondansetron HCl (Zofran) 4 mg Q6H PRN IVP Nausea & Vomiting 03/29/19 01:45 04/28/19 01:44 Risperidone (RisperDAL) 4 mg BEDTIME ORAL 04/10/19 21:00 05/10/19 20:59 04/10/19 20:46 Sodium Chloride 1,000 ml @ 150 mls/hr Q6H40M IV 04/10/19 13:30 05/08/19 13:29 04/11/19 09:37 Vancomycin HCl (Firvanq) 125 mg FOUR TIMES A DAY ORAL 04/09/19 13:00 04/16/19 12:59 04/11/19 13:50 Angel Martinez MD Apr 11, 2019 16:25
--- NOTE | 2019-04-11 18:04 | General Progress Note ---
Assessment/Plan Status: unchanged Assessment/Plan: 69 year old female with schizophrenia presenting after a fall at home and diarrhea. CT head negative for any acute pathology. Seen by PT and advised SNF. Her diarrhea resolved shortly after admission. She had no leukocytosis or TAYLOR. Imodium prn helped. Patient remained int hospital waiting for placement. on , she developed fever, leukocytosis, change in mental status, and bloody diarrhea. Stool sent for c diff and POSITIVE. Urine culture growing E.Coli. 1. Sepsis secondary to C. Diff colitis, and UTI -Started oral vancomycin, IV flagyl, IV NS @ 150 ml/hr, continue as patient with poor PO intake -IV ceftriaxone for UTI per ID -Follow up cultures. -WBC uptrending although patient remains afebrile and benign abdominal exam, continue to monitor -ID consult with Dr. Adler, recs appreciated -CT abdomen pelvis: Moderately severe fecal retention in the colon and rectum with evidence of proctocolitis. -GI consult, recs appreciated 2. Hypokalemia. Repleted 3. Schizophrenia Flat affect. Minimally communicative. -Continue home Clonazepam. Dose decreased by psychiatrist to 1 mg QHS -discontinued home Trazodone. -Risperidone 4mg QHS per psychiatry recommendations -psychiatry consult. Dr. Fernández, appreciated -Ativan PRN 4. Physical deconditioning and cachexia. Monitor oral intake 5. Hyponatremia. Resolving with NS I spent 35 minutes on this encounter with >50% spent on counselling and care coordination. I spent additional 31 minutes on review of patient's case including customer service consultant notes, prior progress notes, labs, imaging, order review, etc as patient is new to me. Subjective Date patient seen: Apr 11, 2019 Allergies: Coded Allergies: No Known Allergies (Unverified , 03/28/19) Subjective Patient seen and examined. Flat affect, only answering yes/no questions, not very verbal. Per RN, appears to be baseline, has hx schizophrenia. Denies abd pain, nausea, vomiting. +diarrhea, per RN 5 loose bowel movements overnight, none in morning at time of assessment around noon. Objective Last 24 Hour Vital Signs Date Time Temp Pulse Resp B/P (MAP) Pulse Ox O2 Delivery O2 Flow Rate FiO2 04/11/19 16:00 98.4 80 19 108/70 (83) 100 04/11/19 12:00 98.5 103 18 112/68 (83) 100 04/11/19 09:00 Room Air 04/11/19 08:00 98.3 62 19 101/61 (74) 99 04/11/19 04:00 98.1 90 18 111/59 (76) 94 04/11/19 00:00 98.1 81 20 109/55 (73) 94 04/10/19 21:00 Room Air 04/10/19 20:00 98.6 74 18 103/52 (69) 94 Intake and Output 04/10/19 04/11/19 19:00 07:00 Intake Total 2225 ml Balance 2225 ml Intake Oral 1000 ml IV Total 1225 ml # Voids 4 # Bowel Movements 6 4 Laboratory Tests 04/11/19 05:00: White Blood Count 20.0H, Red Blood Count 3.74L, Hemoglobin 12.5, Hematocrit 35.4L, Mean Corpuscular Volume 95, Mean Corpuscular Hemoglobin 33.4H, Mean Corpuscular Hemoglobin Concent 35.2, Red Cell Distribution Width 11.3L, Platelet Count 185, Mean Platelet Volume 5.7L, Neutrophils (%) (Auto) , Lymphocytes (%) (Auto) , Monocytes (%) (Auto) , Eosinophils (%) (Auto) , Basophils (%) (Auto) , Differential Total Cells Counted 100, Neutrophils % ( Manual) 81H, Lymphocytes % (Manual) 3L, Monocytes % (Manual) 12H, Eosinophils % (Manual) 0, Basophils % (Manual) 0, Band Neutrophils 4, Platelet Estimate Adequate, Platelet Morphology Normal, Red Blood Cell Morphology Normal, Sodium Level 132L, Potassium Level 3.6, Chloride Level 100, Carbon Dioxide Level 22, Anion Gap 11, Blood Urea Nitrogen 8, Creatinine 0.7, Estimat Glomerular Filtration Rate > 60, Glucose Level 111H, Calcium Level 8.5 Height (Feet): 5 Height (Inches): 3.00 Weight (Pounds): 116 General Appearance: no apparent distress, alert, other - flat affect, only yes/ no answers Neck: supple Cardiovascular: normal rate, regular rhythm Respiratory/Chest: lungs clear, normal breath sounds, no respiratory distress Abdomen: non tender, soft, hyperactive bowel sounds Extremities: non-tender Edema: no edema noted Arm (L), no edema noted Arm (R), no edema noted Leg (L), no edema noted Leg (R), no edema noted Pedal (L), no edema noted Pedal (R), no edema noted Generalized Neurologic: other - flat affect Latoya Juan M.D. Apr 11, 2019 18:04
[2019-04-11 20:00] VITALS: BP 128/62
[2019-04-11] MEDS: cefTRIAXone 1 GM in D5W 50 ML IVPB SCH (20:52)
[2019-04-12] VITALS: BP 117/60
[2019-04-12 04:00] VITALS: BP 119/73
[2019-04-12 07:11] LABS: HEMATOCRIT 36.9 % (37.0-47.0); HEMOGLOBIN 12.9 G/DL (12.0-16.0); MEAN CORPUSCULAR VOLUME 96 FL (80-99); PLATELET COUNT 223 K/UL (150-450); RED BLOOD COUNT 3.84 M/UL (4.20-5.40); WHITE BLOOD COUNT 19.1 K/UL (4.8-10.8)
[2019-04-12 07:18] LABS: ANION GAP 13 mmol/L (5-15); BLOOD UREA NITROGEN 5 mg/dL (7-18); CALCIUM 8.7 MG/DL (8.5-10.1); CARBON DIOXIDE 20 MMOL/L (21-32); CHLORIDE 100 MMOL/L (98-107); CREATININE 0.6 MG/DL (0.55-1.30); POTASSIUM 3.4 MMOL/L (3.5-5.1); SODIUM 132 MMOL/L (136-145)
--- NOTE | 2019-04-12 07:27 | General Progress Note ---
Assessment/Plan Status: unchanged Assessment/Plan: (1) Fecal retention ICD Codes: K59.00 - Constipation, unspecified SNOMED: 85756284 (2) C. difficile colitis ICD Codes: A04.72 - Enterocolitis due to Clostridium difficile, not specified as recurrent SNOMED: 863745049 (3) Diarrhea ICD Codes: R19.7 - Diarrhea, unspecified SNOMED: 82504649 (4) LGI bleed ICD Codes: K92.2 - Gastrointestinal hemorrhage, unspecified SNOMED: 57599514 (5) Schizophrenia ICD Codes: F20.9 - Schizophrenia, unspecified SNOMED: 70815326 Qualifiers: Qualified Codes: F20.9 - Schizophrenia, unspecified Status: unchanged Assessment/Plan 69 year old female patient with reported episode of lower GI bleed x1 yesterday most likely due to infectious colitis. At time of evaluation, no reported recurrent LGIB, H&H stable. cdiff positive AP CT reviewed noted with moderately severe fecal retention in the colon and rectum with evidence of a proctocolitis. No plans for colonoscopy at this time, can be done as outpatient. abx monitor H&H or recurrent LGIB, prn transfusions zofran prn H2B follow labs off imodium and miralax continue po vanco and IV flagyl Subjective ROS Limited/Unobtainable: Yes Allergies: Coded Allergies: No Known Allergies (Unverified , 03/28/19) Objective Last 24 Hour Vital Signs Date Time Temp Pulse Resp B/P (MAP) Pulse Ox O2 Delivery O2 Flow Rate FiO2 04/12/19 04:00 98.2 86 16 119/73 (88) 94 04/12/19 00:00 98.5 73 20 117/60 (79) 95 04/11/19 21:00 Room Air 04/11/19 20:00 98.1 77 20 128/62 (84) 96 04/11/19 16:00 98.4 80 19 108/70 (83) 100 04/11/19 12:00 98.5 103 18 112/68 (83) 100 04/11/19 09:00 Room Air 04/11/19 08:00 98.3 62 19 101/61 (74) 99 Intake and Output 04/11/19 04/12/19 19:00 07:00 Intake Total 1950 ml 1500 ml Balance 1950 ml 1500 ml Intake Oral 800 ml 400 ml IV Total 1150 ml 1100 ml # Voids 2 5 # Bowel Movements 3 5 Laboratory Tests 04/12/19 06:16: White Blood Count 19.1H, Red Blood Count 3.84L, Hemoglobin 12.9, Hematocrit 36.9L, Mean Corpuscular Volume 96, Mean Corpuscular Hemoglobin 33.7H, Mean Corpuscular Hemoglobin Concent 35.0, Red Cell Distribution Width 12.0, Platelet Count 223, Mean Platelet Volume 6.1L, Neutrophils (%) (Auto) , Lymphocytes (%) ( Auto) , Monocytes (%) (Auto) , Eosinophils (%) (Auto) , Basophils (%) (Auto) , Neutrophils % (Manual) [Pending], Lymphocytes % (Manual) [Pending], Platelet Estimate [Pending], Platelet Morphology [Pending], Sodium Level 132L, Potassium Level 3.4L, Chloride Level 100, Carbon Dioxide Level 20L, Anion Gap 13, Blood Urea Nitrogen 5L, Creatinine 0.6, Estimat Glomerular Filtration Rate > 60, Glucose Level 94, Calcium Level 8.7 Height (Feet): 5 Height (Inches): 3.00 Weight (Pounds): 116 General Appearance: alert EENT: normal ENT inspection Neck: supple Cardiovascular: normal rate Respiratory/Chest: decreased breath sounds Abdomen: normal bowel sounds, non tender, soft Extremities: non-tender Michelet Anderson MD Apr 12, 2019 07:27
[2019-04-12] MEDS: Vancomycin oral 125mg/2.5ml ORAL SCH ×4 (08:04→20:47)
[2019-04-12 09:00] VITALS: BP 149/86
[2019-04-12 12:00] VITALS: BP 124/67
--- NOTE | 2019-04-12 14:30 | General Progress Note ---
Assessment/Plan Status: unchanged Assessment/Plan: 69 year old female with schizophrenia presenting after a fall at home and diarrhea. CT head negative for any acute pathology. Seen by PT and advised SNF. Her diarrhea resolved shortly after admission. She had no leukocytosis or TAYLOR. Imodium prn helped. Patient remained int he hospital waiting for placement. on , she developed fever, leukocytosis, change in mental status, and bloody diarrhea. Stool sent for c diff and POSITIVE. Urine culture growing E.Coli. 1. Sepsis secondary to C. Diff colitis, and UTI -Started oral vancomycin, IV flagyl - Decrease IVF NS to 75cc/hr as patient tolerating PO fluids and now with trace LE ankle edema -IV ceftriaxone for UTI per ID -Repeat BCX negative x48hrs -WBC minimally improved today to 19.1 from 20, continue to monitor -ID consult with Dr. Adler, recs appreciated -CT abdomen pelvis: Moderately severe fecal retention in the colon and rectum with evidence of proctocolitis. -GI consult, recs appreciated 2. Hypokalemia. Repleted 3. Schizophrenia Flat affect. Minimally communicative. -Continue home Clonazepam. Dose decreased by psychiatrist to 1 mg QHS -discontinued home Trazodone. -Risperidone 4mg QHS per psychiatry recommendations -psychiatry consult. Dr. Fernández, appreciated -Ativan PRN 4. Physical deconditioning and cachexia. Monitor oral intake 5. Hyponatremia. Stable for past couple days on IV NS. I spent 30 minutes on this encounter with >50% spent on counselling and care coordination. Subjective Date patient seen: Apr 12, 2019 Constitutional: Reports: no symptoms HEENT: Reports: no symptoms Cardiovascular: Reports: no symptoms Respiratory: Reports: no symptoms Gastrointestinal/Abdominal: Reports: abdominal pain, diarrhea, poor appetite Genitourinary: Reports: urgency Neurologic/Psychiatric: Reports: pre-existing deficit, other - hx schizophrenia Endocrine: Reports: no symptoms Hematologic/Lymphatic: Reports: no symptoms Allergies: Coded Allergies: No Known Allergies (Unverified , 03/28/19) Subjective Patient seen and examined. Flat affect but more verbal today, answers in short sentences. Endorses intermittent mild abdominal pain. Continues with multiple loose BM daily. Denies nausea or vomiting but appetite remains poor. Is tolerating PO fluids but not as much food. Objective Last 24 Hour Vital Signs Date Time Temp Pulse Resp B/P (MAP) Pulse Ox O2 Delivery O2 Flow Rate FiO2 04/12/19 12:00 98.3 74 16 124/67 (86) 93 04/12/19 09:00 Room Air 04/12/19 09:00 98.6 71 18 149/86 (107) 93 04/12/19 04:00 98.2 86 16 119/73 (88) 94 04/12/19 00:00 98.5 73 20 117/60 (79) 95 04/11/19 21:00 Room Air 04/11/19 20:00 98.1 77 20 128/62 (84) 96 04/11/19 16:00 98.4 80 19 108/70 (83) 100 Intake and Output 04/11/19 04/12/19 19:00 07:00 Intake Total 1950 ml 1500 ml Balance 1950 ml 1500 ml Intake Oral 800 ml 400 ml IV Total 1150 ml 1100 ml # Voids 2 5 # Bowel Movements 3 5 Laboratory Tests 04/12/19 06:16: White Blood Count 19.1H, Red Blood Count 3.84L, Hemoglobin 12.9, Hematocrit 36.9L, Mean Corpuscular Volume 96, Mean Corpuscular Hemoglobin 33.7H, Mean Corpuscular Hemoglobin Concent 35.0, Red Cell Distribution Width 12.0, Platelet Count 223, Mean Platelet Volume 6.1L, Neutrophils (%) (Auto) , Lymphocytes (%) ( Auto) , Monocytes (%) (Auto) , Eosinophils (%) (Auto) , Basophils (%) (Auto) , Differential Total Cells Counted 100, Neutrophils % (Manual) 90H, Lymphocytes % (Manual) 2L, Monocytes % (Manual) 6, Eosinophils % (Manual) 0, Basophils % ( Manual) 0, Band Neutrophils 2, Platelet Estimate Adequate, Platelet Morphology Normal, Red Blood Cell Morphology Normal, Sodium Level 132L, Potassium Level 3.4L, Chloride Level 100, Carbon Dioxide Level 20L, Anion Gap 13, Blood Urea Nitrogen 5L, Creatinine 0.6, Estimat Glomerular Filtration Rate > 60, Glucose Level 94, Calcium Level 8.7 Height (Feet): 5 Height (Inches): 3.00 Weight (Pounds): 116 General Appearance: no apparent distress, alert Neck: supple Cardiovascular: normal peripheral pulses, normal rate, regular rhythm Respiratory/Chest: lungs clear, normal breath sounds, no respiratory distress Abdomen: non tender, soft, hyperactive bowel sounds Extremities: non-tender Edema: trace edema Neurologic: alert, responsive, other - flat affect Skin: warm/dry Latoya Juan M.D. Apr 12, 2019 14:30
[2019-04-12] MEDS ORDERED: Tubing IV Secondary IV ONE (15:37)
[2019-04-12 16:00] VITALS: BP 138/70
[2019-04-12 20:00] VITALS: BP 142/76
[2019-04-12] MEDS: cefTRIAXone 1 GM in D5W 50 ML IVPB SCH (20:54)
[2019-04-13] VITALS: BP 121/65
[2019-04-13 04:00] VITALS: BP 144/89
[2019-04-13 07:00] LABS: HEMATOCRIT 37.1 % (37.0-47.0); HEMOGLOBIN 12.8 G/DL (12.0-16.0); MEAN CORPUSCULAR VOLUME 98 FL (80-99); PLATELET COUNT 220 K/UL (150-450); RED CELL DISTRIBUTION WIDTH 12.1 % (11.6-14.8); WHITE BLOOD COUNT 14.8 K/UL (4.8-10.8)
[2019-04-13 07:14] LABS: ANION GAP 12 mmol/L (5-15); BLOOD UREA NITROGEN 3 mg/dL (7-18); CALCIUM 8.6 MG/DL (8.5-10.1); CARBON DIOXIDE 20 MMOL/L (21-32); CHLORIDE 103 MMOL/L (98-107); CREATININE 0.6 MG/DL (0.55-1.30); POTASSIUM 3.6 MMOL/L (3.5-5.1); SODIUM 134 MMOL/L (136-145)
[2019-04-13 08:00] VITALS: BP 106/64
--- NOTE | 2019-04-13 09:55 | General Progress Note ---
Assessment/Plan Problem List: (1) Sepsis ICD Codes: A41.9 - Sepsis, unspecified organism SNOMED: 70734863 (2) C. difficile colitis ICD Codes: A04.72 - Enterocolitis due to Clostridium difficile, not specified as recurrent SNOMED: 702498716 (3) Schizophrenia ICD Codes: F20.9 - Schizophrenia, unspecified SNOMED: 43009181 Qualifiers: Qualified Codes: F20.9 - Schizophrenia, unspecified (4) Acute encephalopathy ICD Codes: G93.40 - Encephalopathy, unspecified SNOMED: 62729435, 076729787 (5) Diarrhea ICD Codes: R19.7 - Diarrhea, unspecified SNOMED: 18968692 (6) Lethargy ICD Codes: R53.83 - Other fatigue SNOMED: 257552031 (7) Head trauma ICD Codes: S09.90XA - Unspecified injury of head, initial encounter SNOMED: 87454846 Qualifiers: Qualified Codes: S09.90XA - Unspecified injury of head, initial encounter (8) Physical deconditioning ICD Codes: R53.81 - Other malaise SNOMED: 25641741854551 (9) UTI (urinary tract infection) ICD Codes: N39.0 - Urinary tract infection, site not specified SNOMED: 15854378 (10) Ataxia ICD Codes: R27.0 - Ataxia, unspecified SNOMED: 35661758 (11) Pyuria ICD Codes: N39.0 - Urinary tract infection, site not specified SNOMED: 6750453, 055376012 Status: unchanged Assessment/Plan: 69 year old female with schizophrenia presenting after a fall at home and diarrhea. CT head negative for any acute pathology. Seen by PT and advised SNF. Her diarrhea resolved shortly after admission. She had no leukocytosis or TAYLOR. Imodium prn helped. Patient remained int hospital waiting for placement. on , she developed fever, leukocytosis, change in mental status, and bloody diarrhea. Stool sent for c diff and POSITIVE. Urine culture growing E.Coli. 1. Sepsis secondary to C. Diff colitis, and UTI -Started oral vancomycin, IV flagyl - Decrease IVF NS to 75cc/hr as patient tolerating PO fluids and now with trace LE ankle edema -IV ceftriaxone for UTI per ID -Repeat BCX negative x48hrs -WBC minimally improved today to 19.1 from 20, continue to monitor -ID consult with Dr. Adler, recs appreciated -CT abdomen pelvis: Moderately severe fecal retention in the colon and rectum with evidence of proctocolitis. -GI consult, recs appreciated 2. Hypokalemia. Repleted 3. Schizophrenia Flat affect. Agitated today -Continue home Clonazepam. Dose decreased by psychiatrist to 1 mg QHS -discontinued home Trazodone. -Risperidone 4mg QHS per psychiatry recommendations -psychiatry consult. Dr. Fernández, appreciated. Reconsult again due change in behavior -Ativan PRN, haldol once 4. Physical deconditioning and cachexia. Monitor oral intake 5. Hyponatremia. Stable for past couple days on IV NS. I spent 35 minutes on this encounter with >50% spent on counselling and care coordination. Subjective Date patient seen: Apr 13, 2019 ROS Limited/Unobtainable: Yes Allergies: Coded Allergies: No Known Allergies (Unverified , 03/28/19) Subjective confused and agitated + c diff febrile Urine cx + contact isolation Objective Last 24 Hour Vital Signs Date Time Temp Pulse Resp B/P (MAP) Pulse Ox O2 Delivery O2 Flow Rate FiO2 04/13/19 09:00 Room Air 04/13/19 08:00 98.5 92 17 106/64 (78) 100 04/13/19 04:00 97.3 91 19 144/89 (107) 96 04/13/19 00:00 97.9 73 19 121/65 (83) 95 04/12/19 23:12 98.0 04/12/19 21:00 Room Air 04/12/19 20:00 98.9 74 18 142/76 (98) 95 04/12/19 16:00 98.0 63 16 138/70 (92) 96 04/12/19 12:00 98.3 74 16 124/67 (86) 93 Intake and Output 04/12/19 04/13/19 19:00 07:00 Intake Total 975 ml 1620 ml Balance 975 ml 1620 ml Intake Oral 1020 ml IV Total 975 ml 600 ml # Voids 2 5 # Bowel Movements 5 1 Laboratory Tests 04/13/19 05:10: White Blood Count 14.8H, Red Blood Count 3.80L, Hemoglobin 12.8, Hematocrit 37.1 , Mean Corpuscular Volume 98, Mean Corpuscular Hemoglobin 33.6H, Mean Corpuscular Hemoglobin Concent 34.4, Red Cell Distribution Width 12.1, Platelet Count 220, Mean Platelet Volume 5.7L, Neutrophils (%) (Auto) , Lymphocytes (%) ( Auto) , Monocytes (%) (Auto) , Eosinophils (%) (Auto) , Basophils (%) (Auto) , Differential Total Cells Counted 100, Neutrophils % (Manual) 93H, Lymphocytes % (Manual) 3L, Monocytes % (Manual) 3, Eosinophils % (Manual) 0, Basophils % ( Manual) 0, Band Neutrophils 1, Platelet Estimate Adequate, Platelet Morphology Normal, Sodium Level 134L, Potassium Level 3.6, Chloride Level 103, Carbon Dioxide Level 20L, Anion Gap 12, Blood Urea Nitrogen 3L, Creatinine 0.6, Estimat Glomerular Filtration Rate > 60, Glucose Level 111H, Calcium Level 8.6, Magnesium Level 1.7 Height (Feet): 5 Height (Inches): 3.00 Weight (Pounds): 116 Objective General Appearance: no apparent distress, alert Neck: supple Cardiovascular: normal peripheral pulses, normal rate, regular rhythm Respiratory/Chest: lungs clear, normal breath sounds, no respiratory distress Abdomen: non tender, soft, hyperactive bowel sounds Extremities: non-tender Edema: trace edema Neurologic: alert, responsive, other - flat affect Skin: warm/dry Psych: agitated Doug Powell M.D. Apr 13, 2019 09:55
[2019-04-13] MEDS: Vancomycin oral 125mg/2.5ml ORAL SCH ×4 (10:20→21:31)
--- NOTE | 2019-04-13 11:53 | GI Progress Note ---
Assessment/Plan Problems: (1) Fecal retention ICD Codes: K59.00 - Constipation, unspecified SNOMED: 72513935 (2) C. difficile colitis ICD Codes: A04.72 - Enterocolitis due to Clostridium difficile, not specified as recurrent SNOMED: 140295413 (3) Diarrhea ICD Codes: R19.7 - Diarrhea, unspecified SNOMED: 78022134 (4) LGI bleed ICD Codes: K92.2 - Gastrointestinal hemorrhage, unspecified SNOMED: 24808396 (5) Schizophrenia ICD Codes: F20.9 - Schizophrenia, unspecified SNOMED: 50883385 Qualifiers: Qualified Codes: F20.9 - Schizophrenia, unspecified Status: unchanged Status Narrative Discussed with Dr. Anderson. Assessment/Plan 69 year old female patient with reported episode of lower GI bleed x1 yesterday most likely due to infectious colitis. At time of evaluation, no reported recurrent LGIB, H&H stable. cdiff positive AP CT reviewed noted with moderately severe fecal retention in the colon and rectum with evidence of a proctocolitis. No plans for colonoscopy at this time, can be done as outpatient. abx monitor H&H or recurrent LGIB, prn transfusions zofran prn H2B follow labs off imodium and miralax continue po vanco and IV flagyl The patient was seen and examined at bedside and all new and available data was reviewed in the patients chart. I agree with the above findings, impression and plan. (Patient seen earlier today. Signature stamp does not reflect patient encounter time.). - Michelet Anderson MD Subjective Subjective limited Objective Last 24 Hour Vital Signs Date Time Temp Pulse Resp B/P (MAP) Pulse Ox O2 Delivery O2 Flow Rate FiO2 04/13/19 09:00 Room Air 04/13/19 08:00 98.5 92 17 106/64 (78) 100 04/13/19 04:00 97.3 91 19 144/89 (107) 96 04/13/19 00:00 97.9 73 19 121/65 (83) 95 04/12/19 23:12 98.0 04/12/19 21:00 Room Air 04/12/19 20:00 98.9 74 18 142/76 (98) 95 04/12/19 16:00 98.0 63 16 138/70 (92) 96 04/12/19 12:00 98.3 74 16 124/67 (86) 93 Intake and Output 04/12/19 04/13/19 19:00 07:00 Intake Total 975 ml 1620 ml Balance 975 ml 1620 ml Intake Oral 1020 ml IV Total 975 ml 600 ml # Voids 2 5 # Bowel Movements 5 1 Laboratory Tests Test 04/13/19 05:10 White Blood Count 14.8 K/UL (4.8-10.8) H Red Blood Count 3.80 M/UL (4.20-5.40) L Hemoglobin 12.8 G/DL (12.0-16.0) Hematocrit 37.1 % (37.0-47.0) Mean Corpuscular Volume 98 FL (80-99) Mean Corpuscular Hemoglobin 33.6 PG (27.0-31.0) H Mean Corpuscular Hemoglobin Concent 34.4 G/DL (32.0-36.0) Red Cell Distribution Width 12.1 % (11.6-14.8) Platelet Count 220 K/UL (150-450) Mean Platelet Volume 5.7 FL (6.5-10.1) L Neutrophils (%) (Auto) % (45.0-75.0) Lymphocytes (%) (Auto) % (20.0-45.0) Monocytes (%) (Auto) % (1.0-10.0) Eosinophils (%) (Auto) % (0.0-3.0) Basophils (%) (Auto) % (0.0-2.0) Differential Total Cells Counted 100 Neutrophils % (Manual) 93 % (45-75) H Lymphocytes % (Manual) 3 % (20-45) L Monocytes % (Manual) 3 % (1-10) Eosinophils % (Manual) 0 % (0-3) Basophils % (Manual) 0 % (0-2) Band Neutrophils 1 % (0-8) Platelet Estimate Adequate Platelet Morphology Normal Sodium Level 134 MMOL/L (136-145) L Potassium Level 3.6 MMOL/L (3.5-5.1) Chloride Level 103 MMOL/L (98-107) Carbon Dioxide Level 20 MMOL/L (21-32) L Anion Gap 12 mmol/L (5-15) Blood Urea Nitrogen 3 mg/dL (7-18) L Creatinine 0.6 MG/DL (0.55-1.30) Estimat Glomerular Filtration Rate > 60 mL/min (>60) Glucose Level 111 MG/DL (74-106) H Calcium Level 8.6 MG/DL (8.5-10.1) Magnesium Level 1.7 MG/DL (1.5-2.4) Height (Feet): 5 Height (Inches): 3.00 Weight (Pounds): 116 Mckay Medina DERRICK BUILDER Apr 13, 2019 11:53
[2019-04-13 12:00] VITALS: BP 138/69
[2019-04-13] MEDS ORDERED: LORazepam Inj 2mg/ml 1ml IV PRN (15:45)
[2019-04-13] MEDS ORDERED: LORazepam 1mg tab ORAL PRN (15:45)
[2019-04-13] MEDS ORDERED: Haloperidol 5mg/ml Inj IM SCH (17:15)
--- NOTE | 2019-04-13 18:17 | Infectious Diseases Prog Note ---
Assessment/Plan Assessment/Plan ASSESSMENT AND PLAN: 1. c.diff. colitis, e.coli uti/pyelonephritis, sepsis, leukocytosis, fevers - po vancomycin, iv flagyl, ceftriaxone - recheck ua/uc - if negative then discontinue ceftriaxone - monitor wbc/labs - monitor clinically, monitor diarrhea 2. The patient came in with fall. Question ataxia. 3. The patient has sepsis criteria including cirrhosis, fevers, and heart rate as high as 115. Thus has SIRS criteria. 4. The patient has history of schizophrenia. 5. History of head trauma. 6. Lethargy. 7. Physical deconditioning. 8. She also has history of pacemaker. 9. Continue treatment per primary consultants. 10. No known allergies. 11. Social history is negative. 12. Family history is noncontributory. 13. MAR is noted. 14. Case was discussed with RN. 15. Notes and records were noted. Orders were entered. Subjective Constitutional: Denies: fever HEENT: Denies: congestion Respiratory: Denies: shortness of breath Cardiovascular: Denies: chest pain Gastrointestinal/Abdominal: Reports: diarrhea; Denies: nausea, vomiting Genitourinary: Reports: other - no palacios; Denies: dysuria, hematuria, frequency Neurologic: Denies: headache Psychiatric: Denies: depression Skin: Denies: rash Hematologic: Denies: bleeding Musculoskeletal: Denies: pain Allergies: Coded Allergies: No Known Allergies (Unverified , 03/28/19) Objective Vital Signs Last 24 Hour Vital Signs Date Time Temp Pulse Resp B/P (MAP) Pulse Ox O2 Delivery O2 Flow Rate FiO2 04/13/19 12:00 98.6 70 17 138/69 (92) 98 04/13/19 09:00 Room Air 04/13/19 08:00 98.5 92 17 106/64 (78) 100 04/13/19 04:00 97.3 91 19 144/89 (107) 96 04/13/19 00:00 97.9 73 19 121/65 (83) 95 04/12/19 23:12 98.0 04/12/19 21:00 Room Air 04/12/19 20:00 98.9 74 18 142/76 (98) 95 Height (Feet): 5 Height (Inches): 3.00 Weight (Pounds): 116 General Appearance: no acute distress HEENT: normocephalic, atraumatic, anicteric, mucous membranes moist Respiratory/Chest: lungs clear, normal breath sounds, no respiratory distress, no accessory muscle use Cardiovascular: normal rate, regular rhythm, no gallop/murmur, no JVD Abdomen: normal bowel sounds, soft, non tender, no organomegaly, non distended Genitourinary: other - no palacios, no cva pain Extremities: no cyanosis Skin: no rash Neurologic/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 Chronic calcific pancreatitis Atherosclerotic vascular disease Degenerative changes of the spine. Mild scoliosis. Mild left posterior basal atelectasis. Limited evaluation due to the nonadministration of intravenous contrast Chest x-ray - nad Microbiology Date/Time Source Procedure Growth Status 04/09/19 20:27 Blood Blood Culture - Preliminary NO GROWTH AFTER 72 HOURS Resulted 03/29/19 05:20 Nasal Nares Left MRSA Culture - Final NO METHICILLIN RESISTANT STAPH AUREUS... Complete 04/09/19 02:00 Stool Clostridium difficile Toxin Assay - Final Complete 04/08/19 11:00 Urine,Clean Catch Urine Culture - Final Escherichia Coli Complete 03/29/19 05:20 Rectum - Final NO CARBAPENEM-RESISTANT ENTEROBACTERI... Complete Laboratory Tests Test 04/13/19 05:10 White Blood Count 14.8 K/UL (4.8-10.8) H Red Blood Count 3.80 M/UL (4.20-5.40) L Hemoglobin 12.8 G/DL (12.0-16.0) Hematocrit 37.1 % (37.0-47.0) Mean Corpuscular Volume 98 FL (80-99) Mean Corpuscular Hemoglobin 33.6 PG (27.0-31.0) H Mean Corpuscular Hemoglobin Concent 34.4 G/DL (32.0-36.0) Red Cell Distribution Width 12.1 % (11.6-14.8) Platelet Count 220 K/UL (150-450) Mean Platelet Volume 5.7 FL (6.5-10.1) L Neutrophils (%) (Auto) % (45.0-75.0) Lymphocytes (%) (Auto) % (20.0-45.0) Monocytes (%) (Auto) % (1.0-10.0) Eosinophils (%) (Auto) % (0.0-3.0) Basophils (%) (Auto) % (0.0-2.0) Differential Total Cells Counted 100 Neutrophils % (Manual) 93 % (45-75) H Lymphocytes % (Manual) 3 % (20-45) L Monocytes % (Manual) 3 % (1-10) Eosinophils % (Manual) 0 % (0-3) Basophils % (Manual) 0 % (0-2) Band Neutrophils 1 % (0-8) Platelet Estimate Adequate Platelet Morphology Normal Sodium Level 134 MMOL/L (136-145) L Potassium Level 3.6 MMOL/L (3.5-5.1) Chloride Level 103 MMOL/L (98-107) Carbon Dioxide Level 20 MMOL/L (21-32) L Anion Gap 12 mmol/L (5-15) Blood Urea Nitrogen 3 mg/dL (7-18) L Creatinine 0.6 MG/DL (0.55-1.30) Estimat Glomerular Filtration Rate > 60 mL/min (>60) Glucose Level 111 MG/DL (74-106) H Calcium Level 8.6 MG/DL (8.5-10.1) Magnesium Level 1.7 MG/DL (1.5-2.4) Current Medications Medications (Trade) Dose Ordered Sig/Lindsey Route PRN Reason Start Time Stop Time Status Last Admin Dose Admin Acetaminophen (Tylenol) 650 mg Q6H PRN ORAL Mild Pain/Temp > 100.5 03/29/19 01:45 04/28/19 01:44 04/12/19 20:34 Ceftriaxone Sodium 1 gm/ Dextrose 50 ml @ 100 mls/hr Q24H IVPB 04/09/19 21:00 04/16/19 20:59 04/12/19 20:54 Diphenhydramine HCl (Benadryl) 25 mg HSPRN PRN ORAL Insomnia 04/07/19 15:16 05/07/19 15:15 04/10/19 22:51 Famotidine (Pepcid) 20 mg DAILY ORAL 04/10/19 09:00 05/10/19 08:59 04/13/19 09:24 Haloperidol Lactate (Haldol) 5 mg ONCE IM 04/13/19 17:15 04/13/19 18:30 04/13/19 17:16 Lorazepam (Ativan) 2 mg Q6H PRN ORAL For Anxiety 04/13/19 16:45 04/20/19 16:44 Metronidazole 100 ml @ 100 mls/hr Q8HR IVPB 04/10/19 14:00 04/17/19 13:59 04/13/19 13:21 Ondansetron HCl (Zofran) 4 mg Q6H PRN IVP Nausea & Vomiting 03/29/19 01:45 04/28/19 01:44 Risperidone (RisperDAL) 4 mg BEDTIME ORAL 04/10/19 21:00 05/10/19 20:59 04/12/19 20:33 Sodium Chloride 1,000 ml @ 75 mls/hr [id number] IV 04/12/19 15:00 05/12/19 14:59 04/13/19 13:26 Vancomycin HCl (Firvanq) 125 mg FOUR TIMES A DAY ORAL 04/09/19 13:00 04/16/19 12:59 04/13/19 17:16 Angel Martinez MD Apr 13, 2019 18:17
[2019-04-13 19:09] LABS: APPEARANCE,URINE CLEAR; BILIRUBIN, URINE NEGATIVE (NEGATIVE); COLOR,URINE PALE YELLOW; GLUCOSE, URINE (UA) NEGATIVE (NEGATIVE); KETONES,URINE 2+ (NEGATIVE); LEUKOCYTE ESTERASE ,URINE 1+ (NEGATIVE); NITRITE,URINE NEGATIVE (NEGATIVE); PH,URINE 7 (4.5-8.0); PROTEIN,URINE NEGATIVE (NEGATIVE); UROBILINOGEN,URINE NORMAL MG/DL (0.0-1.0)
[2019-04-13 19:57] VITALS: BP 130/65
[2019-04-13] MEDS: cefTRIAXone 1 GM in D5W 50 ML IVPB SCH (21:31)
--- NOTE | 2019-04-13 23:45 | Progress Note ---
DATE: 04/13/2019 SUBJECTIVE: The patient is now on fourth floor, more agitated, walking around the room defecating in the room, not following the direction, more confused and was not able to answer any questions. MENTAL STATUS EXAMINATION: The patient is alert, confused. Mood is agitated. Affect is flat. Thought process, disorganized. Thought content, delusional. No suicidal or homicidal ideation. Cognition is impaired. ASSESSMENT: 1. Acute toxic encephalopathy due to UTI. 2. Schizophrenia. PLAN: 1. We will continue risperidone 4 mg at bedtime. 2. Change Ativan to 2 mg q.6 h. p.r.n. Lima Fernández M.D. DR: ALICIA JOB#: [id number] CC:
[2019-04-14] VITALS: BP 123/56
[2019-04-14 04:00] VITALS: BP 137/66
[2019-04-14 06:31] LABS: HEMATOCRIT 31.8 % (37.0-47.0); HEMOGLOBIN 11.1 G/DL (12.0-16.0); MEAN CORPUSCULAR VOLUME 96 FL (80-99); PLATELET COUNT 290 K/UL (150-450); RED BLOOD COUNT 3.32 M/UL (4.20-5.40); RED CELL DISTRIBUTION WIDTH 12.2 % (11.6-14.8); WHITE BLOOD COUNT 12.8 K/UL (4.8-10.8)
[2019-04-14 06:56] LABS: ANION GAP 8 mmol/L (5-15); BLOOD UREA NITROGEN 3 mg/dL (7-18); CALCIUM 8.1 MG/DL (8.5-10.1); CARBON DIOXIDE 25 MMOL/L (21-32); CHLORIDE 106 MMOL/L (98-107); CREATININE 0.7 MG/DL (0.55-1.30); POTASSIUM 3.2 MMOL/L (3.5-5.1); SODIUM 139 MMOL/L (136-145)
--- NOTE | 2019-04-14 07:26 | General Progress Note ---
Assessment/Plan Status: unchanged Assessment/Plan: (1) Fecal retention ICD Codes: K59.00 - Constipation, unspecified SNOMED: 89697232 (2) C. difficile colitis ICD Codes: A04.72 - Enterocolitis due to Clostridium difficile, not specified as recurrent SNOMED: 456527260 (3) Diarrhea ICD Codes: R19.7 - Diarrhea, unspecified SNOMED: 96333378 (4) LGI bleed ICD Codes: K92.2 - Gastrointestinal hemorrhage, unspecified SNOMED: 74450560 (5) Schizophrenia ICD Codes: F20.9 - Schizophrenia, unspecified SNOMED: 50400917 Assessment/Plan 69 year old female patient with reported episode of lower GI bleed x1 yesterday most likely due to infectious colitis. At time of evaluation, no reported recurrent LGIB, H&H stable. cdiff positive AP CT reviewed noted with moderately severe fecal retention in the colon and rectum with evidence of a proctocolitis. No plans for colonoscopy at this time, can be done as outpatient. abx monitor H&H or recurrent LGIB, prn transfusions zofran prn H2B follow labs off imodium and miralax continue po vanco and IV flagyl Subjective ROS Limited/Unobtainable: Yes Allergies: Coded Allergies: No Known Allergies (Unverified , 03/28/19) Objective Last 24 Hour Vital Signs Date Time Temp Pulse Resp B/P (MAP) Pulse Ox O2 Delivery O2 Flow Rate FiO2 04/14/19 04:00 98.3 75 18 137/66 (89) 96 04/14/19 00:00 98.7 67 18 123/56 (78) 96 04/13/19 20:18 Room Air 04/13/19 19:57 98.2 82 18 130/65 (86) 96 04/13/19 12:00 98.6 70 17 138/69 (92) 98 04/13/19 09:00 Room Air 04/13/19 08:00 98.5 92 17 106/64 (78) 100 Intake and Output 04/13/19 04/14/19 18:59 06:59 Intake Total 600 ml 150 ml Balance 600 ml 150 ml Intake Oral 600 ml IV Total 150 ml # Voids 3 1 # Bowel Movements 4 Laboratory Tests 04/13/19 18:50: Urine Color Pale yellow, Urine Appearance Clear, Urine pH 7, Urine Specific [place] 1.005, Urine Protein Negative, Urine Glucose (UA) Negative, Urine Ketones 2+H, Urine Blood 1+H, Urine Nitrite Negative, Urine Bilirubin Negative, Urine Urobilinogen Normal, Urine Leukocyte Esterase 1+H, Urine RBC 2-4H, Urine WBC 0-2, Urine Squamous Epithelial Cells Few, Urine Bacteria Few 04/14/19 05:45: White Blood Count 12.8H, Red Blood Count 3.32L, Hemoglobin 11.1L, Hematocrit 31.8L, Mean Corpuscular Volume 96, Mean Corpuscular Hemoglobin 33.5H, Mean Corpuscular Hemoglobin Concent 35.0, Red Cell Distribution Width 12.2, Platelet Count 290, Mean Platelet Volume 5.8L, Neutrophils (%) (Auto) , Lymphocytes (%) ( Auto) , Monocytes (%) (Auto) , Eosinophils (%) (Auto) , Basophils (%) (Auto) , Sodium Level 139, Potassium Level 3.2L, Chloride Level 106, Carbon Dioxide Level 25, Anion Gap 8, Blood Urea Nitrogen 3L, Creatinine 0.7, Estimat Glomerular Filtration Rate > 60, Glucose Level 94, Calcium Level 8.1L Height (Feet): 5 Height (Inches): 3.00 Weight (Pounds): 116 General Appearance: alert EENT: PERRL/EOMI Neck: supple Cardiovascular: normal rate Respiratory/Chest: decreased breath sounds Abdomen: normal bowel sounds, non tender, soft Extremities: non-tender Michelet Anderson MD Apr 14, 2019 07:26
[2019-04-14 08:00] VITALS: BP 122/57
[2019-04-14] MEDS: Vancomycin oral 125mg/2.5ml ORAL SCH ×4 (09:05→20:39)
[2019-04-14 12:00] VITALS: BP 125/63
[2019-04-14 16:00] VITALS: BP 120/69
--- NOTE | 2019-04-14 16:45 | Progress Note ---
DATE: 04/14/2019 SUBJECTIVE: The patient is in bed. No behavior issues. Calmer today. In bilateral soft restraints. Watching TV. Continues to have some episodes of agitation. MENTAL STATUS EXAMINATION: The patient is alert and disoriented. Mood is neutral. Affect is flat. Thought process, there is a paucity of thought content. Thought content, no suicidal or homicidal ideations. Cognition is impaired. Insight and judgment is impaired. ASSESSMENT: 1. Schizophrenia. 2. Acute toxic encephalopathy. PLAN: 1. We will continue the risperidone. 2. Continue bilateral restrains. 3. Continue Ativan p.r.n. Lima Fernández M.D. DR: ANTONI JOB#: [id number] CC:
[2019-04-14 20:00] VITALS: BP 135/66
[2019-04-14] MEDS: cefTRIAXone 1 GM in D5W 50 ML IVPB SCH (20:39)
--- NOTE | 2019-04-14 22:42 | General Progress Note ---
Assessment/Plan Problem List: (1) Acute encephalopathy ICD Codes: G93.40 - Encephalopathy, unspecified SNOMED: 93656827, 910687010 (2) Ataxia ICD Codes: R27.0 - Ataxia, unspecified SNOMED: 44181010 (3) Pyuria ICD Codes: N39.0 - Urinary tract infection, site not specified SNOMED: 0843408, 007478166 (4) Lethargy ICD Codes: R53.83 - Other fatigue SNOMED: 880747998 (5) Head trauma ICD Codes: S09.90XA - Unspecified injury of head, initial encounter SNOMED: 70522751 Qualifiers: Qualified Codes: S09.90XA - Unspecified injury of head, initial encounter (6) Benzodiazepine abuse ICD Codes: F13.10 - Sedative, hypnotic or anxiolytic abuse, uncomplicated SNOMED: 909128071, 482372507 (7) Schizophrenia ICD Codes: F20.9 - Schizophrenia, unspecified SNOMED: 07686597 Qualifiers: Qualified Codes: F20.9 - Schizophrenia, unspecified (8) Physical deconditioning ICD Codes: R53.81 - Other malaise SNOMED: 33766875623470 Status: unchanged Assessment/Plan: 69 year old female with schizophrenia presenting after a fall at home and diarrhea. CT head negative for any acute pathology. Seen by PT and advised SNF. Her diarrhea resolved shortly after admission. She had no leukocytosis or TAYLOR. Imodium prn helped. Patient remained int hospital waiting for placement. on , she developed fever, leukocytosis, change in mental status, and bloody diarrhea. Stool sent for c diff and POSITIVE. Urine culture growing E.Coli. 1. Sepsis secondary to C. Diff colitis, and UTI - Resolving -Continue oral vancomycin, IV flagyl -IV ceftriaxone for UTI per ID -Repeat BCX negative - WBC improving -ID consult with israel Etienne appreciated -CT abdomen pelvis: Moderately severe fecal retention in the colon and rectum with evidence of proctocolitis. -GI consult, recs appreciated- Continue PO Vanc and IV flagyl, outpatient colonoscopy 2. Hypokalemia. Repleted 3. Schizophrenia Flat affect. Agitated today -Continue home Clonazepam. Dose decreased by psychiatrist to 1 mg QHS -discontinued home Trazodone. -Risperidone 4mg QHS per psychiatry recommendations -psychiatry consult. Dr. Fernández, appreciated. Reconsult again due change in behavior -Ativan 2mg Q6h PRN 4. Physical deconditioning and cachexia. Monitor oral intake 5. Hyponatremia. Stable for past couple days on IV NS. I spent 28 minutes on this encounter with >50% spent on counselling and care coordination. Discussed with patient and RN Subjective Date patient seen: Apr 14, 2019 Constitutional: Denies: chills, diaphoresis, fever, malaise, weakness, other HEENT: Denies: eye pain, blurred vision, tearing, double vision, ear pain, ear discharge, nose pain, nose congestion, throat pain, throat swelling, mouth pain , mouth swelling, other Cardiovascular: Denies: chest pain, edema, irregular heart rate, lightheadedness, palpitations, syncope, other Respiratory: Denies: cough, orthopnea, shortness of breath, SOB with excertion , SOB at rest, sputum, stridor, wheezing, other Gastrointestinal/Abdominal: Reports: no symptoms; Denies: abdomen distended, abdominal pain, black stools, tarry stools, blood in stool, constipated, diarrhea, difficulty swallowing, nausea, poor appetite, poor fluid intake, rectal bleeding, vomiting, other Genitourinary: Denies: burning, discharge, frequency, flank pain, hematuria, incontinence, pain, urgency, other Neurologic/Psychiatric: Denies: anxiety, depressed, emotional problems, headache, numbness, paresthesia, pre-existing deficit, seizure, tingling, tremors, weakness, other Endocrine: Denies: excessive sweating, flushing, intolerance to cold, intolerance to heat, increased hunger, increased thirst, increased urine, unexplained weight gain, unexplained weight loss, other Hematologic/Lymphatic: Denies: anemia, easy bleeding, easy bruising, other Allergies: Coded Allergies: No Known Allergies (Unverified , 03/28/19) Subjective No acute events overnight. Agitation: walking around, agitated last night. Could not be redirected. No violence. Patient does not remeber. Was placed temporarily in restraints. Psychiatry aware. Denies SI/HI. Cdiff colitis: 4Bm in past 24 hours. Improving. No abdominal pain nausea or vomiting. Tolerating meds. No hematochezia, fevers or chills. Objective Last 24 Hour Vital Signs Date Time Temp Pulse Resp B/P (MAP) Pulse Ox O2 Delivery O2 Flow Rate FiO2 04/14/19 20:28 Room Air 04/14/19 20:00 98.1 67 20 135/66 (89) 94 04/14/19 16:00 97.9 89 19 120/69 (86) 97 04/14/19 12:00 98.9 75 20 125/63 (83) 98 04/14/19 10:31 Room Air 04/14/19 08:00 98.8 71 20 122/57 (78) 97 04/14/19 04:00 98.3 75 18 137/66 (89) 96 04/14/19 00:00 98.7 67 18 123/56 (78) 96 Intake and Output 04/13/19 04/14/19 19:00 07:00 Intake Total 600 ml 150 ml Balance 600 ml 150 ml Intake Oral 600 ml IV Total 150 ml # Voids 3 1 # Bowel Movements 4 Laboratory Tests 04/14/19 05:45: White Blood Count 12.8H, Red Blood Count 3.32L, Hemoglobin 11.1L, Hematocrit 31.8L, Mean Corpuscular Volume 96, Mean Corpuscular Hemoglobin 33.5H, Mean Corpuscular Hemoglobin Concent 35.0, Red Cell Distribution Width 12.2, Platelet Count 290, Mean Platelet Volume 5.8L, Neutrophils (%) (Auto) , Lymphocytes (%) ( Auto) , Monocytes (%) (Auto) , Eosinophils (%) (Auto) , Basophils (%) (Auto) , Sodium Level 139, Potassium Level 3.2L, Chloride Level 106, Carbon Dioxide Level 25, Anion Gap 8, Blood Urea Nitrogen 3L, Creatinine 0.7, Estimat Glomerular Filtration Rate > 60, Glucose Level 94, Calcium Level 8.1L Height (Feet): 5 Height (Inches): 3.00 Weight (Pounds): 116 General Appearance: WD/WN, no apparent distress, alert EENT: PERRL/EOMI Neck: non-tender, normal alignment, supple Cardiovascular: normal peripheral pulses, normal rate, regular rhythm, no JVD Respiratory/Chest: chest wall non-tender, lungs clear, normal breath sounds Abdomen: normal bowel sounds, non tender, soft - no guarding or rebound Extremities: other - no LE edema bilaterally 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 Apr 14, 2019 22:42
[2019-04-15] VITALS: BP 131/61
[2019-04-15 04:00] VITALS: BP 141/71
[2019-04-15 06:32] LABS: BASOPHILS % (AUTO) 1.3 % (0.0-2.0); HEMATOCRIT 32.6 % (37.0-47.0); HEMOGLOBIN 11.4 G/DL (12.0-16.0); LYMPHOCYTES % (AUTO) 6.2 % (20.0-45.0); MEAN CORPUSCULAR VOLUME 97 FL (80-99); NEUTROPHILS % (AUTO) 83.4 % (45.0-75.0); PLATELET COUNT 328 K/UL (150-450); RED BLOOD COUNT 3.37 M/UL (4.20-5.40)
[2019-04-15 06:43] LABS: ANION GAP 9 mmol/L (5-15); BLOOD UREA NITROGEN 1 mg/dL (7-18); CALCIUM 8.7 MG/DL (8.5-10.1); CARBON DIOXIDE 26 MMOL/L (21-32); CHLORIDE 106 MMOL/L (98-107); CREATININE 0.6 MG/DL (0.55-1.30); POTASSIUM 3.1 MMOL/L (3.5-5.1); SODIUM 140 MMOL/L (136-145)
[2019-04-15 08:00] VITALS: BP 137/68
[2019-04-15] MEDS: Vancomycin oral 125mg/2.5ml ORAL SCH ×4 (09:47→21:12)
--- NOTE | 2019-04-15 09:56 | General Progress Note ---
Assessment/Plan Status: unchanged Assessment/Plan: (1) Fecal retention ICD Codes: K59.00 - Constipation, unspecified SNOMED: 93684499 (2) C. difficile colitis ICD Codes: A04.72 - Enterocolitis due to Clostridium difficile, not specified as recurrent SNOMED: 950825200 (3) Diarrhea ICD Codes: R19.7 - Diarrhea, unspecified SNOMED: 09081487 (4) LGI bleed ICD Codes: K92.2 - Gastrointestinal hemorrhage, unspecified SNOMED: 67748984 (5) Schizophrenia ICD Codes: F20.9 - Schizophrenia, unspecified SNOMED: 09712283 Assessment/Plan 69 year old female patient with reported episode of lower GI bleed x1 yesterday most likely due to infectious colitis. At time of evaluation, no reported recurrent LGIB, H&H stable. cdiff positive AP CT reviewed noted with moderately severe fecal retention in the colon and rectum with evidence of a proctocolitis. No plans for colonoscopy at this time, can be done as outpatient. abx monitor H&H or recurrent LGIB, prn transfusions zofran prn H2B follow labs off imodium and miralax continue po vanco and IV flagyl Subjective ROS Limited/Unobtainable: No Allergies: Coded Allergies: No Known Allergies (Unverified , 03/28/19) Objective Last 24 Hour Vital Signs Date Time Temp Pulse Resp B/P (MAP) Pulse Ox O2 Delivery O2 Flow Rate FiO2 04/15/19 04:00 98.1 100 20 141/71 (94) 94 04/15/19 00:00 98.0 70 20 131/61 (84) 95 04/14/19 20:28 Room Air 04/14/19 20:00 98.1 67 20 135/66 (89) 94 04/14/19 16:00 97.9 89 19 120/69 (86) 97 04/14/19 12:00 98.9 75 20 125/63 (83) 98 04/14/19 10:31 Room Air Intake and Output 04/14/19 04/15/19 18:59 06:59 Intake Total 1600 ml 250 ml Balance 1600 ml 250 ml Intake Oral 1600 ml IV Total 250 ml # Voids 6 4 # Bowel Movements 4 4 Laboratory Tests 04/15/19 05:50: White Blood Count 11.0H, Red Blood Count 3.37L, Hemoglobin 11.4L, Hematocrit 32.6L, Mean Corpuscular Volume 97, Mean Corpuscular Hemoglobin 33.7H, Mean Corpuscular Hemoglobin Concent 34.9, Red Cell Distribution Width 12.0, Platelet Count 328, Mean Platelet Volume 5.3L, Neutrophils (%) (Auto) 83.4H, Lymphocytes (%) (Auto) 6.2L, Monocytes (%) (Auto) 8.0, Eosinophils (%) (Auto) 1.0, Basophils (%) (Auto) 1.3, Sodium Level 140, Potassium Level 3.1L, Chloride Level 106, Carbon Dioxide Level 26, Anion Gap 9, Blood Urea Nitrogen 1L, Creatinine 0.6, Estimat Glomerular Filtration Rate > 60, Glucose Level 100, Calcium Level 8.7, Phosphorus Level 2.0L, Magnesium Level 1.8 Height (Feet): 5 Height (Inches): 3.00 Weight (Pounds): 128 General Appearance: no apparent distress EENT: normal ENT inspection Neck: supple Cardiovascular: normal rate Respiratory/Chest: decreased breath sounds Abdomen: normal bowel sounds, non tender, soft Extremities: non-tender Michelet Anderson MD Apr 15, 2019 09:56
[2019-04-15 12:00] VITALS: BP 146/76
[2019-04-15] MEDS ORDERED: Sodium Phosphate 30 MM in NS 275 ML IVPB ONE (12:00)
[2019-04-15 16:00] VITALS: BP 140/80
--- NOTE | 2019-04-15 16:45 | General Progress Note ---
Assessment/Plan Problem List: (1) Acute encephalopathy ICD Codes: G93.40 - Encephalopathy, unspecified SNOMED: 91433990, 317977426 (2) Ataxia ICD Codes: R27.0 - Ataxia, unspecified SNOMED: 81897855 (3) Pyuria ICD Codes: N39.0 - Urinary tract infection, site not specified SNOMED: 9026254, 942147457 (4) Lethargy ICD Codes: R53.83 - Other fatigue SNOMED: 264284851 (5) Head trauma ICD Codes: S09.90XA - Unspecified injury of head, initial encounter SNOMED: 85494848 Qualifiers: Qualified Codes: S09.90XA - Unspecified injury of head, initial encounter (6) Benzodiazepine abuse ICD Codes: F13.10 - Sedative, hypnotic or anxiolytic abuse, uncomplicated SNOMED: 735559241, 669502893 (7) Schizophrenia ICD Codes: F20.9 - Schizophrenia, unspecified SNOMED: 32225070 Qualifiers: Qualified Codes: F20.9 - Schizophrenia, unspecified (8) Physical deconditioning ICD Codes: R53.81 - Other malaise SNOMED: 07300974550773 Status: unchanged Assessment/Plan: 69 year old female with schizophrenia presenting after a fall at home and diarrhea. CT head negative for any acute pathology. Seen by PT and advised SNF. Her diarrhea resolved shortly after admission. She had no leukocytosis or TAYLOR. Imodium prn helped. Patient remained int hospital waiting for placement. on , she developed fever, leukocytosis, change in mental status, and bloody diarrhea. Stool sent for c diff and POSITIVE. Urine culture growing E.Coli. 1. Sepsis secondary to C. Diff colitis, and UTI - Resolving -Continue oral vancomycin, IV flagyl -IV ceftriaxone for UTI per ID -Repeat BCX negative - WBC improving -ID consult with israel Etienne appreciated -CT abdomen pelvis: Moderately severe fecal retention in the colon and rectum with evidence of proctocolitis. -GI consult, recs appreciated- Continue PO Vanc and IV flagyl, outpatient colonoscopy 2. Hypokalemia. Repleted 3. Schizophrenia Flat affect. Agitated today -Continue home Clonazepam. Dose decreased by psychiatrist to 1 mg QHS -discontinued home Trazodone. -Risperidone 4mg QHS per psychiatry recommendations -psychiatry consult. Dr. Fernández, appreciated. Reconsult again due change in behavior -Ativan 2mg Q6h PRN 4. Physical deconditioning and cachexia. Monitor oral intake 5. Hyponatremia. Stable for past couple days on IV NS. 6. Hypokalemia- 2/2 diarrhea. repleted today. Continue to monitor I spent 27 minutes on this encounter with >50% spent on counselling and care coordination. Discussed with patient and RN Subjective Date patient seen: Apr 15, 2019 Constitutional: Denies: no symptoms, chills, diaphoresis, fever, malaise, weakness, other HEENT: Denies: no symptoms, eye pain, blurred vision, tearing, double vision, ear pain, ear discharge, nose pain, nose congestion, throat pain, throat swelling, mouth pain, mouth swelling, other Cardiovascular: Denies: no symptoms, chest pain, edema, irregular heart rate, lightheadedness, palpitations, syncope, other Respiratory: Denies: no symptoms, cough, orthopnea, shortness of breath, SOB with excertion, SOB at rest, sputum, stridor, wheezing, other Gastrointestinal/Abdominal: Denies: no symptoms, abdomen distended, abdominal pain, black stools, tarry stools, blood in stool, constipated, diarrhea, difficulty swallowing, nausea, poor appetite, poor fluid intake, rectal bleeding , vomiting, other Genitourinary: Denies: no symptoms, burning, discharge, frequency, flank pain, hematuria, incontinence, pain, urgency, other Neurologic/Psychiatric: Denies: no symptoms, anxiety, depressed, emotional problems, headache, numbness, paresthesia, pre-existing deficit, seizure, tingling, tremors, weakness, other Endocrine: Denies: no symptoms, excessive sweating, flushing, intolerance to cold, intolerance to heat, increased hunger, increased thirst, increased urine, unexplained weight gain, unexplained weight loss, other Hematologic/Lymphatic: Denies: no symptoms, anemia, easy bleeding, easy bruising, other Allergies: Coded Allergies: No Known Allergies (Unverified , 03/28/19) Subjective No acute events overnight. Agitation: improved. not on restraints. cooperative. easily redirected. Denies SI/HI. Cdiff colitis: improved today. 8BM yesterday. No abdominal pain nausea or vomiting. Tolerating meds. No hematochezia, fevers or chills. Objective Last 24 Hour Vital Signs Date Time Temp Pulse Resp B/P (MAP) Pulse Ox O2 Delivery O2 Flow Rate FiO2 04/15/19 12:00 97.7 64 20 146/76 (99) 96 04/15/19 09:00 Room Air 04/15/19 08:00 97.9 84 20 137/68 (91) 95 04/15/19 04:00 98.1 100 20 141/71 (94) 94 04/15/19 00:00 98.0 70 20 131/61 (84) 95 04/14/19 20:28 Room Air 04/14/19 20:00 98.1 67 20 135/66 (89) 94 Intake and Output 04/14/19 04/15/19 19:00 07:00 Intake Total 1600 ml 250 ml Balance 1600 ml 250 ml Intake Oral 1600 ml IV Total 250 ml # Voids 6 4 # Bowel Movements 4 4 Laboratory Tests 04/15/19 05:50: White Blood Count 11.0H, Red Blood Count 3.37L, Hemoglobin 11.4L, Hematocrit 32.6L, Mean Corpuscular Volume 97, Mean Corpuscular Hemoglobin 33.7H, Mean Corpuscular Hemoglobin Concent 34.9, Red Cell Distribution Width 12.0, Platelet Count 328, Mean Platelet Volume 5.3L, Neutrophils (%) (Auto) 83.4H, Lymphocytes (%) (Auto) 6.2L, Monocytes (%) (Auto) 8.0, Eosinophils (%) (Auto) 1.0, Basophils (%) (Auto) 1.3, Sodium Level 140, Potassium Level 3.1L, Chloride Level 106, Carbon Dioxide Level 26, Anion Gap 9, Blood Urea Nitrogen 1L, Creatinine 0.6, Estimat Glomerular Filtration Rate > 60, Glucose Level 100, Calcium Level 8.7, Phosphorus Level 2.0L, Magnesium Level 1.8 Height (Feet): 5 Height (Inches): 3.00 Weight (Pounds): 128 General Appearance: WD/WN, no apparent distress, alert EENT: PERRL/EOMI Neck: non-tender, normal alignment Cardiovascular: normal peripheral pulses, normal rate, regular rhythm Respiratory/Chest: chest wall non-tender, lungs clear, normal breath sounds Abdomen: normal bowel sounds, non tender, soft Extremities: other - no LE edema bilaterally 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 Apr 15, 2019 16:45
--- NOTE | 2019-04-15 19:38 | Infectious Diseases Prog Note ---
Assessment/Plan Assessment/Plan ASSESSMENT AND PLAN: 1. c.diff. colitis, e.coli uti/pyelonephritis, sepsis, leukocytosis, fevers - po vancomycin - day # 6, discontinue concomitant antibiotics - ua better, urine culture with yeast which is likely colonizer - discontinue ceftriaxone - monitor wbc/labs - monitor clinically, monitor diarrhea - still with some diarrhea 2. The patient came in with fall. Question ataxia. 3. The patient has sepsis criteria including cirrhosis, fevers, and heart rate as high as 115. Thus has SIRS criteria. 4. The patient has history of schizophrenia. 5. History of head trauma. 6. Lethargy. 7. Physical deconditioning. 8. She also has history of pacemaker. 9. Continue treatment per primary consultants. 10. No known allergies. 11. Social history is negative. 12. Family history is noncontributory. 13. MAR is noted. 14. Case was discussed with RN. 15. Notes and records were noted. Orders were entered. Subjective Constitutional: Reports: fatigue; Denies: fever HEENT: Denies: congestion Respiratory: Denies: shortness of breath Cardiovascular: Denies: chest pain Gastrointestinal/Abdominal: Reports: diarrhea; Denies: nausea, vomiting Neurologic: Denies: headache Psychiatric: Denies: depression Skin: Denies: rash Hematologic: Denies: bleeding Musculoskeletal: Denies: pain Allergies: Coded Allergies: No Known Allergies (Unverified , 03/28/19) Objective Vital Signs Last 24 Hour Vital Signs Date Time Temp Pulse Resp B/P (MAP) Pulse Ox O2 Delivery O2 Flow Rate FiO2 04/15/19 16:00 96.7 97 18 140/80 (100) 97 04/15/19 12:00 97.7 64 20 146/76 (99) 96 04/15/19 09:00 Room Air 04/15/19 08:00 97.9 84 20 137/68 (91) 95 04/15/19 04:00 98.1 100 20 141/71 (94) 94 04/15/19 00:00 98.0 70 20 131/61 (84) 95 04/14/19 20:28 Room Air 04/14/19 20:00 98.1 67 20 135/66 (89) 94 Height (Feet): 5 Height (Inches): 3.00 Weight (Pounds): 128 General Appearance: no acute distress HEENT: normocephalic, atraumatic, anicteric, mucous membranes moist Respiratory/Chest: lungs clear, normal breath sounds, no respiratory distress, no accessory muscle use Cardiovascular: normal rate, regular rhythm, no gallop/murmur, no JVD Abdomen: normal bowel sounds, soft, non tender, no organomegaly Genitourinary: other - + palacios Extremities: no cyanosis Skin: no rash 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 Chronic calcific pancreatitis Atherosclerotic vascular disease Degenerative changes of the spine. Mild scoliosis. Mild left posterior basal atelectasis. Limited evaluation due to the nonadministration of intravenous contrast Chest x-ray - nad Microbiology Date/Time Source Procedure Growth Status 04/09/19 20:27 Blood Blood Culture - Final NO GROWTH AFTER 5 DAYS Complete 03/29/19 05:20 Nasal Nares Left MRSA Culture - Final NO METHICILLIN RESISTANT STAPH AUREUS... Complete 04/09/19 02:00 Stool Clostridium difficile Toxin Assay - Final Complete 04/13/19 18:50 Urine,Clean Catch Urine Culture - Preliminary Yeast Species Resulted 03/29/19 05:20 Rectum - Final NO CARBAPENEM-RESISTANT ENTEROBACTERI... Complete Microbiology Date/Time Source Procedure Growth Status 04/13/19 18:50 Urine,Clean Catch Urine Culture - Preliminary Yeast Species Resulted Laboratory Tests Test 04/15/19 05:50 White Blood Count 11.0 K/UL (4.8-10.8) H Red Blood Count 3.37 M/UL (4.20-5.40) L Hemoglobin 11.4 G/DL (12.0-16.0) L Hematocrit 32.6 % (37.0-47.0) L Mean Corpuscular Volume 97 FL (80-99) Mean Corpuscular Hemoglobin 33.7 PG (27.0-31.0) H Mean Corpuscular Hemoglobin Concent 34.9 G/DL (32.0-36.0) Red Cell Distribution Width 12.0 % (11.6-14.8) Platelet Count 328 K/UL (150-450) Mean Platelet Volume 5.3 FL (6.5-10.1) L Neutrophils (%) (Auto) 83.4 % (45.0-75.0) H Lymphocytes (%) (Auto) 6.2 % (20.0-45.0) L Monocytes (%) (Auto) 8.0 % (1.0-10.0) Eosinophils (%) (Auto) 1.0 % (0.0-3.0) Basophils (%) (Auto) 1.3 % (0.0-2.0) Sodium Level 140 MMOL/L (136-145) Potassium Level 3.1 MMOL/L (3.5-5.1) L Chloride Level 106 MMOL/L (98-107) Carbon Dioxide Level 26 MMOL/L (21-32) Anion Gap 9 mmol/L (5-15) Blood Urea Nitrogen 1 mg/dL (7-18) L Creatinine 0.6 MG/DL (0.55-1.30) Estimat Glomerular Filtration Rate > 60 mL/min (>60) Glucose Level 100 MG/DL (74-106) Calcium Level 8.7 MG/DL (8.5-10.1) Phosphorus Level 2.0 MG/DL (2.5-4.9) L Magnesium Level 1.8 MG/DL (1.8-2.4) Current Medications Medications (Trade) Dose Ordered Sig/Lindsey Route PRN Reason Start Time Stop Time Status Last Admin Dose Admin Acetaminophen (Tylenol) 650 mg Q6H PRN ORAL Mild Pain/Temp > 100.5 03/29/19 01:45 04/28/19 01:44 04/14/19 20:41 Diphenhydramine HCl (Benadryl) 25 mg HSPRN PRN ORAL Insomnia 04/07/19 15:16 05/07/19 15:15 04/10/19 22:51 Famotidine (Pepcid) 20 mg DAILY ORAL 04/10/19 09:00 05/10/19 08:59 04/15/19 09:48 Lactobacillus Acidophilus (Culturelle) 1 tab TWICE A DAY ORAL 04/16/19 09:00 05/16/19 08:59 UNV Lorazepam (Ativan) 2 mg Q6H PRN ORAL For Anxiety 04/13/19 16:45 10/7/19 16:44 Ondansetron HCl (Zofran) 4 mg Q6H PRN IVP Nausea & Vomiting 03/29/19 01:45 04/28/19 01:44 Risperidone (RisperDAL) 4 mg BEDTIME ORAL 04/10/19 21:00 05/10/19 20:59 04/14/19 20:39 Vancomycin HCl (Firvanq) 125 mg FOUR TIMES A DAY ORAL 04/15/19 21:00 04/22/19 20:59 Angel Riojas MD Apr 15, 2019 19:38
[2019-04-15 20:00] VITALS: BP 142/73
[2019-04-16] VITALS: BP_SYST 125; BP_SYST 150; BP_DIAS 62; BP_DIAS 78
--- NOTE | 2019-04-16 03:45 | Progress Note ---
DATE: 04/15/2019 SUBJECTIVE: The patient in bed. Calmer, more manageable. Agitation is improved. MENTAL STATUS EXAMINATION: The patient is alert, oriented times self and place. Disoriented to date and situation. Mood is anxious. Affect is flat. Thought process is disorganized. Thought content, no suicidal or homicidal ideations. ASSESSMENT: 1. Schizophrenia. 2. Acute toxic encephalopathy, improved. PLAN: 1. We will continue risperidone. 2. Continue Ativan p.r.n. 3. Provide the patient with reality orientation. Lima Fernández M.D. DR: CRIS JOB#: [id number] CC:
[2019-04-16 04:00] VITALS: BP 135/68
[2019-04-16 06:08] LABS: BASOPHILS % (AUTO) 0.7 % (0.0-2.0); EOSINOPHILS % (AUTO) 1.3 % (0.0-3.0); HEMATOCRIT 33.4 % (37.0-47.0); HEMOGLOBIN 11.5 G/DL (12.0-16.0); LYMPHOCYTES % (AUTO) 7.1 % (20.0-45.0); MEAN CORPUSCULAR VOLUME 96 FL (80-99); MONOCYTES % (AUTO) 9.3 % (1.0-10.0); NEUTROPHILS % (AUTO) 81.5 % (45.0-75.0); PLATELET COUNT 391 K/UL (150-450); RED BLOOD COUNT 3.47 M/UL (4.20-5.40); RED CELL DISTRIBUTION WIDTH 12.1 % (11.6-14.8); WHITE BLOOD COUNT 10.6 K/UL (4.8-10.8)
[2019-04-16 06:26] LABS: ANION GAP 11 mmol/L (5-15); BLOOD UREA NITROGEN 2 mg/dL (7-18); CALCIUM 8.4 MG/DL (8.5-10.1); CARBON DIOXIDE 24 MMOL/L (21-32); CHLORIDE 105 MMOL/L (98-107); CREATININE 0.6 MG/DL (0.55-1.30); POTASSIUM 3.7 MMOL/L (3.5-5.1); SODIUM 140 MMOL/L (136-145)
[2019-04-16 08:00] VITALS: BP 127/77
[2019-04-16] MEDS: Vancomycin oral 125mg/2.5ml ORAL SCH ×4 (08:46→20:24)
[2019-04-16] MEDS: Lactobacillus-GG tablet ORAL SCH ×2 (08:46→17:07)
[2019-04-16 12:00] VITALS: BP 127/72
[2019-04-16 16:11] VITALS: BP 140/66
--- NOTE | 2019-04-16 16:50 | General Progress Note ---
Assessment/Plan Problem List: (1) Acute encephalopathy ICD Codes: G93.40 - Encephalopathy, unspecified SNOMED: 09511832, 854745615 (2) Ataxia ICD Codes: R27.0 - Ataxia, unspecified SNOMED: 32662502 (3) Pyuria ICD Codes: N39.0 - Urinary tract infection, site not specified SNOMED: 6194439, 633145115 (4) Lethargy ICD Codes: R53.83 - Other fatigue SNOMED: 797812513 (5) Head trauma ICD Codes: S09.90XA - Unspecified injury of head, initial encounter SNOMED: 67612368 Qualifiers: Qualified Codes: S09.90XA - Unspecified injury of head, initial encounter (6) Benzodiazepine abuse ICD Codes: F13.10 - Sedative, hypnotic or anxiolytic abuse, uncomplicated SNOMED: 862784246, 860968722 (7) Schizophrenia ICD Codes: F20.9 - Schizophrenia, unspecified SNOMED: 36023847 Qualifiers: Qualified Codes: F20.9 - Schizophrenia, unspecified (8) Physical deconditioning ICD Codes: R53.81 - Other malaise SNOMED: 89801604635907 Status: unchanged Assessment/Plan: 69 year old female with schizophrenia presenting after a fall at home and diarrhea. CT head negative for any acute pathology. Seen by PT and advised SNF. Her diarrhea resolved shortly after admission. She had no leukocytosis or TAYLOR. Imodium prn helped. Patient remained int hospital waiting for placement. on , she developed fever, leukocytosis, change in mental status, and bloody diarrhea. Stool sent for c diff and POSITIVE. Urine culture growing E.Coli. 1. Sepsis secondary to C. Diff colitis, and UTI - REsolving -Continue oral vancomycin, IV flagyl -discontinue IV ceftriaxone for UTI per ID -Repeat BCX negative - WBC improving -ID consult with israel Etienne appreciated -CT abdomen pelvis: Moderately severe fecal retention in the colon and rectum with evidence of proctocolitis. -GI consult, recs appreciated- Continue PO Vanc and IV flagyl, outpatient colonoscopy 2. Hypokalemia. Repleted 3. Schizophrenia Flat affect. Agitated today -Continue home Clonazepam. Dose decreased by psychiatrist to 1 mg QHS -discontinued home Trazodone. -Risperidone 4mg QHS per psychiatry recommendations -psychiatry consult. Dr. Fernández, appreciated. Reconsult again due change in behavior -Ativan 2mg Q6h PRN 4. Physical deconditioning and cachexia. Monitor oral intake 5. Hyponatremia. Stable for past couple days on IV NS. 6. Hypokalemia- 2/2 diarrhea. repleted today. Continue to monitor Dispo: pending placement at [facility] spent 27 minutes on this encounter with >50% spent on counselling and care coordination. Discussed with patient and RN Time of note may not reflect time patient was seen. Subjective Date patient seen: Apr 16, 2019 Constitutional: Denies: chills, diaphoresis, fever, malaise, weakness, other HEENT: Denies: eye pain, blurred vision, tearing, double vision, ear pain, ear discharge, nose pain, nose congestion, throat pain, throat swelling, mouth pain , mouth swelling, other Cardiovascular: Denies: chest pain, edema, irregular heart rate, lightheadedness, palpitations, syncope, other Respiratory: Denies: cough, orthopnea, shortness of breath, SOB with excertion , SOB at rest, sputum, stridor, wheezing, other Gastrointestinal/Abdominal: Denies: abdomen distended, abdominal pain, black stools, tarry stools, blood in stool, constipated, diarrhea, difficulty swallowing, nausea, poor appetite, poor fluid intake, rectal bleeding, vomiting , other Genitourinary: Denies: burning, discharge, frequency, flank pain, hematuria, incontinence, pain, urgency, other Neurologic/Psychiatric: Denies: anxiety, depressed, emotional problems, headache, numbness, paresthesia, pre-existing deficit, seizure, tingling, tremors, weakness, other Endocrine: Denies: excessive sweating, flushing, intolerance to cold, intolerance to heat, increased hunger, increased thirst, increased urine, unexplained weight gain, unexplained weight loss, other Hematologic/Lymphatic: Denies: anemia, easy bleeding, easy bruising, other Allergies: Coded Allergies: No Known Allergies (Unverified , 03/28/19) Subjective No acute events overnight per nursing. Diarrhea has much improved. Agitation: improved. not on restraints. cooperative. easily redirected. Denies SI/HI. Cdiff colitis: improved today. 4BM yesterday. No abdominal pain nausea or vomiting. Tolerating meds. No hematochezia, fevers or chills. Objective Last 24 Hour Vital Signs Date Time Temp Pulse Resp B/P (MAP) Pulse Ox O2 Delivery O2 Flow Rate FiO2 04/16/19 16:11 98.2 69 19 140/66 (90) 97 04/16/19 12:00 98.6 66 19 127/72 (90) 97 04/16/19 08:10 Room Air 04/16/19 08:00 97.9 89 19 127/77 (94) 98 04/16/19 04:00 97.9 68 19 135/68 (90) 98 04/16/19 00:00 98.5 72 19 125/62 (83) 95 04/15/19 21:00 Room Air 04/15/19 20:00 98.0 61 18 142/73 (96) 95 Intake and Output 04/15/19 04/16/19 19:00 07:00 Intake Total 120 ml 240 ml Output Total 300 ml Balance 120 ml -60 ml Intake Oral 120 ml 240 ml Output Urine Total 300 ml # Voids 6 # Bowel Movements 4 Laboratory Tests 04/16/19 05:04: White Blood Count 10.6, Red Blood Count 3.47L, Hemoglobin 11.5L, Hematocrit 33.4L, Mean Corpuscular Volume 96, Mean Corpuscular Hemoglobin 33.1H, Mean Corpuscular Hemoglobin Concent 34.3, Red Cell Distribution Width 12.1, Platelet Count 391, Mean Platelet Volume 4.6L, Neutrophils (%) (Auto) 81.5H, Lymphocytes (%) (Auto) 7.1L, Monocytes (%) (Auto) 9.3, Eosinophils (%) (Auto) 1.3, Basophils (%) (Auto) 0.7, Sodium Level 140, Potassium Level 3.7, Chloride Level 105, Carbon Dioxide Level 24, Anion Gap 11, Blood Urea Nitrogen 2L, Creatinine 0.6, Estimat Glomerular Filtration Rate > 60, Glucose Level 95, Calcium Level 8.4L Height (Feet): 5 Height (Inches): 3.00 Weight (Pounds): 128 General Appearance: WD/WN, no apparent distress, alert EENT: PERRL/EOMI, normal ENT inspection Neck: non-tender, normal alignment, supple Cardiovascular: normal peripheral pulses, normal rate, regular rhythm, no JVD Respiratory/Chest: chest wall non-tender, lungs clear, normal breath sounds Abdomen: normal bowel sounds, non tender, soft Extremities: normal range of motion, non-tender, normal inspection 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 Apr 16, 2019 16:50
[2019-04-16 20:00] VITALS: BP 155/77
[2019-04-17] VITALS: BP 145/76
[2019-04-17 04:00] VITALS: BP 137/73
[2019-04-17 06:59] LABS: ANION GAP 6 mmol/L (5-15); BLOOD UREA NITROGEN 2 mg/dL (7-18); CALCIUM 8.9 MG/DL (8.5-10.1); CARBON DIOXIDE 29 MMOL/L (21-32); CHLORIDE 105 MMOL/L (98-107); CREATININE 0.6 MG/DL (0.55-1.30); EOSINOPHILS % (AUTO) 1.1 % (0.0-3.0); HEMATOCRIT 34.1 % (37.0-47.0); HEMOGLOBIN 11.9 G/DL (12.0-16.0); LYMPHOCYTES % (AUTO) 9.7 % (20.0-45.0); MEAN CORPUSCULAR VOLUME 96 FL (80-99); MONOCYTES % (AUTO) 9.3 % (1.0-10.0); NEUTROPHILS % (AUTO) 78.9 % (45.0-75.0); PLATELET COUNT 464 K/UL (150-450); POTASSIUM 3.8 MMOL/L (3.5-5.1); RED BLOOD COUNT 3.55 M/UL (4.20-5.40); RED CELL DISTRIBUTION WIDTH 12.3 % (11.6-14.8); SODIUM 140 MMOL/L (136-145); WHITE BLOOD COUNT 11.1 K/UL (4.8-10.8)
[2019-04-17 08:00] VITALS: BP 135/79
[2019-04-17] MEDS: Vancomycin oral 125mg/2.5ml ORAL SCH ×4 (09:19→21:17)
[2019-04-17] MEDS: LORazepam 1mg tab ORAL PRN (09:20)
[2019-04-17] MEDS: Lactobacillus-GG tablet ORAL SCH ×2 (09:20→17:31)
[2019-04-17 12:00] VITALS: BP 140/74
--- NOTE | 2019-04-17 13:01 | GI Progress Note ---
Assessment/Plan Problems: (1) Fecal retention ICD Codes: K59.00 - Constipation, unspecified SNOMED: 01199826 (2) C. difficile colitis ICD Codes: A04.72 - Enterocolitis due to Clostridium difficile, not specified as recurrent SNOMED: 931901317 (3) Diarrhea ICD Codes: R19.7 - Diarrhea, unspecified SNOMED: 37367705 (4) LGI bleed ICD Codes: K92.2 - Gastrointestinal hemorrhage, unspecified SNOMED: 36338225 (5) Schizophrenia ICD Codes: F20.9 - Schizophrenia, unspecified SNOMED: 67907982 Qualifiers: Qualified Codes: F20.9 - Schizophrenia, unspecified Status: unchanged Status Narrative Discussed with Dr. Anderson. Assessment/Plan 69 year old female patient with reported episode of lower GI bleed x1 yesterday most likely due to infectious colitis. At time of evaluation, no reported recurrent LGIB, H&H stable. cdiff positive AP CT reviewed noted with moderately severe fecal retention in the colon and rectum with evidence of a proctocolitis. No plans for colonoscopy at this time, can be done as outpatient. abx monitor H&H or recurrent LGIB, prn transfusions zofran prn H2B follow labs off imodium and miralax continue po vanco and IV flagyl The patient was seen and examined at bedside and all new and available data was reviewed in the patients chart. I agree with the above findings, impression and plan. (Patient seen earlier today. Signature stamp does not reflect patient encounter time.). - Michelet Anderson MD Subjective Subjective limited Objective Last 24 Hour Vital Signs Date Time Temp Pulse Resp B/P (MAP) Pulse Ox O2 Delivery O2 Flow Rate FiO2 04/17/19 12:00 98.2 60 16 140/74 (96) 98 04/17/19 09:00 Room Air 04/17/19 08:00 99.0 70 15 135/79 (97) 100 04/17/19 04:00 98.4 55 16 137/73 (94) 96 04/17/19 00:00 98.2 60 16 145/76 (99) 95 04/16/19 23:02 98.2 04/16/19 21:00 Room Air 04/16/19 20:00 98.2 95 16 155/77 (103) 95 04/16/19 16:11 98.2 69 19 140/66 (90) 97 Intake and Output 04/16/19 04/17/19 18:59 06:59 Intake Total 960 ml 720 ml Balance 960 ml 720 ml Intake Oral 960 ml 720 ml # Voids 6 4 # Bowel Movements 3 2 Laboratory Tests Test 04/17/19 05:14 White Blood Count 11.1 K/UL (4.8-10.8) H Red Blood Count 3.55 M/UL (4.20-5.40) L Hemoglobin 11.9 G/DL (12.0-16.0) L Hematocrit 34.1 % (37.0-47.0) L Mean Corpuscular Volume 96 FL (80-99) Mean Corpuscular Hemoglobin 33.4 PG (27.0-31.0) H Mean Corpuscular Hemoglobin Concent 34.8 G/DL (32.0-36.0) Red Cell Distribution Width 12.3 % (11.6-14.8) Platelet Count 464 K/UL (150-450) H Mean Platelet Volume 4.5 FL (6.5-10.1) L Neutrophils (%) (Auto) 78.9 % (45.0-75.0) H Lymphocytes (%) (Auto) 9.7 % (20.0-45.0) L Monocytes (%) (Auto) 9.3 % (1.0-10.0) Eosinophils (%) (Auto) 1.1 % (0.0-3.0) Basophils (%) (Auto) 1.0 % (0.0-2.0) Sodium Level 140 MMOL/L (136-145) Potassium Level 3.8 MMOL/L (3.5-5.1) Chloride Level 105 MMOL/L (98-107) Carbon Dioxide Level 29 MMOL/L (21-32) Anion Gap 6 mmol/L (5-15) Blood Urea Nitrogen 2 mg/dL (7-18) L Creatinine 0.6 MG/DL (0.55-1.30) Estimat Glomerular Filtration Rate > 60 mL/min (>60) Glucose Level 101 MG/DL (74-106) Calcium Level 8.9 MG/DL (8.5-10.1) Height (Feet): 5 Height (Inches): 3.00 Weight (Pounds): 128 General Appearance: WD/WN, no apparent distress, alert Cardiovascular: normal rate Respiratory/Chest: normal breath sounds, no respiratory distress Abdominal Exam: normal bowel sounds, non tender, soft Extremities: non-tender Mckay Medina NP Apr 17, 2019 13:01
[2019-04-17 16:00] VITALS: BP 127/69
--- NOTE | 2019-04-17 17:58 | General Progress Note ---
Assessment/Plan Problem List: (1) Acute encephalopathy ICD Codes: G93.40 - Encephalopathy, unspecified SNOMED: 69851873, 985227987 (2) Ataxia ICD Codes: R27.0 - Ataxia, unspecified SNOMED: 12772015 (3) Pyuria ICD Codes: N39.0 - Urinary tract infection, site not specified SNOMED: 7251027, 511281520 (4) Lethargy ICD Codes: R53.83 - Other fatigue SNOMED: 535051857 (5) Head trauma ICD Codes: S09.90XA - Unspecified injury of head, initial encounter SNOMED: 41535946 Qualifiers: Qualified Codes: S09.90XA - Unspecified injury of head, initial encounter (6) Benzodiazepine abuse ICD Codes: F13.10 - Sedative, hypnotic or anxiolytic abuse, uncomplicated SNOMED: 168500573, 379114781 (7) Schizophrenia ICD Codes: F20.9 - Schizophrenia, unspecified SNOMED: 79649984 Qualifiers: Qualified Codes: F20.9 - Schizophrenia, unspecified (8) Physical deconditioning ICD Codes: R53.81 - Other malaise SNOMED: 05050060462971 Status: unchanged Assessment/Plan: 69 year old female with schizophrenia presenting after a fall at home and diarrhea. CT head negative for any acute pathology. Seen by PT and advised SNF. Her diarrhea resolved shortly after admission. She had no leukocytosis or TAYLOR. Imodium prn helped. Patient remained int hospital waiting for placement. on , she developed fever, leukocytosis, change in mental status, and bloody diarrhea. Stool sent for c diff and POSITIVE. Urine culture growing E.Coli. 1. Sepsis secondary to C. Diff colitis, and UTI - REsolving -Continue oral vancomycin, IV flagyl. - s/p IV ceftriaxone for UTI per ID -Repeat BCX negative - WBC improving -ID consult with [place] Etienne appreciated -CT abdomen pelvis: Moderately severe fecal retention in the colon and rectum with evidence of proctocolitis. -GI consult, recs appreciated- Continue PO Vanc and IV flagyl, outpatient colonoscopy 2. Hypokalemia. Repleted 3. Schizophrenia Flat affect. Agitated today -Continue home Clonazepam. Dose decreased by psychiatrist to 1 mg QHS -discontinued home Trazodone. -Risperidone 4mg QHS per psychiatry recommendations -psychiatry consult. Dr. Fernández, appreciated. Reconsult again due change in behavior -Ativan 2mg Q6h PRN 4. Physical deconditioning and cachexia. Monitor oral intake 5. Hyponatremia. Stable for past couple days on IV NS. 6. Hypokalemia- 2/2 diarrhea. repleted today. Continue to monitor Dispo: pending placement at [facility] spent 27 minutes on this encounter with >50% spent on counselling and care coordination. Discussed with patient and RN Time of note may not reflect time patient was seen. Subjective Date patient seen: Apr 17, 2019 Constitutional: Denies: chills, diaphoresis, fever, malaise, weakness, other HEENT: Denies: eye pain, blurred vision, tearing, double vision, ear pain, ear discharge, nose pain, nose congestion, throat pain, throat swelling, mouth pain , mouth swelling, other Cardiovascular: Denies: chest pain, edema, irregular heart rate, lightheadedness, palpitations, syncope, other Respiratory: Denies: cough, orthopnea, shortness of breath, SOB with excertion , SOB at rest, sputum, stridor, wheezing, other Gastrointestinal/Abdominal: Denies: abdomen distended, abdominal pain, black stools, tarry stools, blood in stool, constipated, diarrhea, difficulty swallowing, nausea, poor appetite, poor fluid intake, rectal bleeding, vomiting , other Genitourinary: Denies: burning, discharge, frequency, flank pain, hematuria, incontinence, pain, urgency, other Neurologic/Psychiatric: Denies: anxiety, depressed, emotional problems, headache, numbness, paresthesia, pre-existing deficit, seizure, tingling, tremors, weakness, other Endocrine: Denies: excessive sweating, flushing, intolerance to cold, intolerance to heat, increased hunger, increased thirst, increased urine, unexplained weight gain, unexplained weight loss, other Hematologic/Lymphatic: Denies: anemia, easy bleeding, easy bruising, other Allergies: Coded Allergies: No Known Allergies (Unverified , 03/28/19) Subjective No acute events overnight per nursing. Diarrhea has much improved. Patient feels well to be discharged Agitation: improved. not on restraints. cooperative. easily redirected. Denies SI/HI. Cdiff colitis: Continues to improve. 5 BM overnight. No abdominal pain nausea or vomiting. Tolerating meds. No hematochezia, fevers or chills. Objective Last 24 Hour Vital Signs Date Time Temp Pulse Resp B/P (MAP) Pulse Ox O2 Delivery O2 Flow Rate FiO2 04/17/19 16:00 98.9 92 16 127/69 (88) 95 04/17/19 12:00 98.2 60 16 140/74 (96) 98 04/17/19 09:00 Room Air 04/17/19 08:00 99.0 70 15 135/79 (97) 100 04/17/19 04:00 98.4 55 16 137/73 (94) 96 04/17/19 00:00 98.2 60 16 145/76 (99) 95 04/16/19 23:02 98.2 04/16/19 21:00 Room Air 04/16/19 20:00 98.2 95 16 155/77 (103) 95 Intake and Output 04/16/19 04/17/19 18:59 06:59 Intake Total 960 ml 720 ml Balance 960 ml 720 ml Intake Oral 960 ml 720 ml # Voids 6 4 # Bowel Movements 3 2 Laboratory Tests 04/17/19 05:14: White Blood Count 11.1H, Red Blood Count 3.55L, Hemoglobin 11.9L, Hematocrit 34.1L, Mean Corpuscular Volume 96, Mean Corpuscular Hemoglobin 33.4H, Mean Corpuscular Hemoglobin Concent 34.8, Red Cell Distribution Width 12.3, Platelet Count 464H, Mean Platelet Volume 4.5L, Neutrophils (%) (Auto) 78.9H, Lymphocytes (%) (Auto) 9.7L, Monocytes (%) (Auto) 9.3, Eosinophils (%) (Auto) 1.1, Basophils (%) (Auto) 1.0, Sodium Level 140, Potassium Level 3.8, Chloride Level 105, Carbon Dioxide Level 29, Anion Gap 6, Blood Urea Nitrogen 2L, Creatinine 0.6, Estimat Glomerular Filtration Rate > 60, Glucose Level 101, Calcium Level 8.9 Height (Feet): 5 Height (Inches): 3.00 Weight (Pounds): 128 General Appearance: WD/WN, no apparent distress, alert EENT: PERRL/EOMI, normal ENT inspection Neck: non-tender, normal alignment, supple Cardiovascular: normal peripheral pulses, normal rate, regular rhythm, no JVD Respiratory/Chest: chest wall non-tender, lungs clear, normal breath sounds Abdomen: normal bowel sounds, non tender, soft Extremities: normal range of motion, non-tender Skin: normal pigmentation, warm/dry Jonny Colon D.O. Apr 17, 2019 17:58
[2019-04-17 20:00] VITALS: BP 121/64
--- NOTE | 2019-04-17 20:10 | Infectious Diseases Prog Note ---
Assessment/Plan Assessment/Plan ASSESSMENT AND PLAN: 1. c.diff. colitis, e.coli uti/pyelonephritis, sepsis, leukocytosis, fevers - po vancomycin x 7 days for 14 day tx course - ua better, urine culture with yeast which is likely colonizer - discontinue ceftriaxone - monitor wbc/labs - monitor clinically, monitor diarrhea - still with some diarrhea 2. The patient came in with fall. Question ataxia. 3. The patient has sepsis criteria including cirrhosis, fevers, and heart rate as high as 115. Thus has SIRS criteria. 4. The patient has history of schizophrenia. 5. History of head trauma. 6. Lethargy. 7. Physical deconditioning. 8. She also has history of pacemaker. 9. Continue treatment per primary consultants. 10. No known allergies. 11. Social history is negative. 12. Family history is noncontributory. 13. MAR is noted. 14. Case was discussed with RN. 15. Notes and records were noted. Orders were entered. Subjective Constitutional: Denies: fever HEENT: Denies: congestion Respiratory: Denies: shortness of breath Cardiovascular: Denies: chest pain Gastrointestinal/Abdominal: Reports: diarrhea - less, stool more formed ; Denies: nausea, vomiting Neurologic: Denies: headache Psychiatric: Denies: depression Skin: Denies: rash Hematologic: Denies: bleeding Musculoskeletal: Denies: pain Allergies: Coded Allergies: No Known Allergies (Unverified , 03/28/19) Objective Vital Signs Last 24 Hour Vital Signs Date Time Temp Pulse Resp B/P (MAP) Pulse Ox O2 Delivery O2 Flow Rate FiO2 04/17/19 16:00 98.9 92 16 127/69 (88) 95 04/17/19 12:00 98.2 60 16 140/74 (96) 98 04/17/19 09:00 Room Air 04/17/19 08:00 99.0 70 15 135/79 (97) 100 04/17/19 04:00 98.4 55 16 137/73 (94) 96 04/17/19 00:00 98.2 60 16 145/76 (99) 95 04/16/19 23:02 98.2 04/16/19 21:00 Room Air Height (Feet): 5 Height (Inches): 3.00 Weight (Pounds): 128 General Appearance: no acute distress HEENT: normocephalic, atraumatic, anicteric, mucous membranes moist Respiratory/Chest: lungs clear, normal breath sounds, no respiratory distress, no accessory muscle use Cardiovascular: normal rate, regular rhythm, no gallop/murmur, no JVD Abdomen: normal bowel sounds, soft, non tender, no organomegaly, non distended Genitourinary: other - no palacios Extremities: no cyanosis Skin: no rash 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 Chronic calcific pancreatitis Atherosclerotic vascular disease Degenerative changes of the spine. Mild scoliosis. Mild left posterior basal atelectasis. Limited evaluation due to the nonadministration of intravenous contrast Chest x-ray - nad Microbiology Date/Time Source Procedure Growth Status 04/09/19 20:27 Blood Blood Culture - Final NO GROWTH AFTER 5 DAYS Complete 03/29/19 05:20 Nasal Nares Left MRSA Culture - Final NO METHICILLIN RESISTANT STAPH AUREUS... Complete 04/09/19 02:00 Stool Clostridium difficile Toxin Assay - Final Complete 04/13/19 18:50 Urine,Clean Catch Urine Culture - Final Sunita Albicans Complete 03/29/19 05:20 Rectum - Final NO CARBAPENEM-RESISTANT ENTEROBACTERI... Complete Laboratory Tests Test 04/17/19 05:14 White Blood Count 11.1 K/UL (4.8-10.8) H Red Blood Count 3.55 M/UL (4.20-5.40) L Hemoglobin 11.9 G/DL (12.0-16.0) L Hematocrit 34.1 % (37.0-47.0) L Mean Corpuscular Volume 96 FL (80-99) Mean Corpuscular Hemoglobin 33.4 PG (27.0-31.0) H Mean Corpuscular Hemoglobin Concent 34.8 G/DL (32.0-36.0) Red Cell Distribution Width 12.3 % (11.6-14.8) Platelet Count 464 K/UL (150-450) H Mean Platelet Volume 4.5 FL (6.5-10.1) L Neutrophils (%) (Auto) 78.9 % (45.0-75.0) H Lymphocytes (%) (Auto) 9.7 % (20.0-45.0) L Monocytes (%) (Auto) 9.3 % (1.0-10.0) Eosinophils (%) (Auto) 1.1 % (0.0-3.0) Basophils (%) (Auto) 1.0 % (0.0-2.0) Sodium Level 140 MMOL/L (136-145) Potassium Level 3.8 MMOL/L (3.5-5.1) Chloride Level 105 MMOL/L (98-107) Carbon Dioxide Level 29 MMOL/L (21-32) Anion Gap 6 mmol/L (5-15) Blood Urea Nitrogen 2 mg/dL (7-18) L Creatinine 0.6 MG/DL (0.55-1.30) Estimat Glomerular Filtration Rate > 60 mL/min (>60) Glucose Level 101 MG/DL (74-106) Calcium Level 8.9 MG/DL (8.5-10.1) Current Medications Medications (Trade) Dose Ordered Sig/Lindsey Route PRN Reason Start Time Stop Time Status Last Admin Dose Admin Acetaminophen (Tylenol) 650 mg Q6H PRN ORAL Mild Pain/Temp > 100.5 03/29/19 01:45 04/28/19 01:44 04/16/19 22:32 Diphenhydramine HCl (Benadryl) 25 mg HSPRN PRN ORAL Insomnia 04/07/19 15:16 05/07/19 15:15 04/15/19 21:19 Famotidine (Pepcid) 20 mg DAILY ORAL 04/10/19 09:00 05/10/19 08:59 04/17/19 09:20 Lactobacillus Acidophilus (Culturelle) 1 tab TWICE A DAY ORAL 04/16/19 09:00 05/16/19 08:59 04/17/19 17:31 Lorazepam (Ativan) 2 mg Q6H PRN ORAL For Anxiety 04/13/19 16:45 04/20/19 16:44 04/17/19 09:20 Ondansetron HCl (Zofran) 4 mg Q6H PRN IVP Nausea & Vomiting 03/29/19 01:45 04/28/19 01:44 Risperidone (RisperDAL) 4 mg BEDTIME ORAL 04/10/19 21:00 05/10/19 20:59 04/16/19 20:28 Vancomycin HCl (Firvanq) 125 mg FOUR TIMES A DAY ORAL 04/15/19 21:00 04/22/19 20:59 04/17/19 17:31 Angel Martinez MD Apr 17, 2019 20:10
[2019-04-18] VITALS: BP 126/67
[2019-04-18 04:00] VITALS: BP 122/64
[2019-04-18 07:42] LABS: BASOPHILS % (AUTO) 0.9 % (0.0-2.0); HEMATOCRIT 36.3 % (37.0-47.0); HEMOGLOBIN 12.4 G/DL (12.0-16.0); LYMPHOCYTES % (AUTO) 9.3 % (20.0-45.0); MEAN CORPUSCULAR VOLUME 96 FL (80-99); MONOCYTES % (AUTO) 9.1 % (1.0-10.0); NEUTROPHILS % (AUTO) 79.7 % (45.0-75.0); PLATELET COUNT 452 K/UL (150-450); RED BLOOD COUNT 3.76 M/UL (4.20-5.40); RED CELL DISTRIBUTION WIDTH 12.3 % (11.6-14.8); WHITE BLOOD COUNT 11.8 K/UL (4.8-10.8)
[2019-04-18 07:52] LABS: ANION GAP 5 mmol/L (5-15); BLOOD UREA NITROGEN 3 mg/dL (7-18); CALCIUM 9.1 MG/DL (8.5-10.1); CARBON DIOXIDE 29 MMOL/L (21-32); CHLORIDE 105 MMOL/L (98-107); CREATININE 0.7 MG/DL (0.55-1.30); PHOSPHORUS 3.4 MG/DL (2.5-4.9); POTASSIUM 4.1 MMOL/L (3.5-5.1); SODIUM 139 MMOL/L (136-145)
[2019-04-18 08:00] VITALS: BP 134/73
[2019-04-18] MEDS: Lactobacillus-GG tablet ORAL SCH ×2 (08:17→17:25)
[2019-04-18] MEDS: Vancomycin oral 125mg/2.5ml ORAL SCH ×4 (08:17→20:58)
[2019-04-18 12:00] VITALS: BP 127/68
--- NOTE | 2019-04-18 13:48 | General Progress Note ---
Assessment/Plan Problem List: (1) Acute encephalopathy ICD Codes: G93.40 - Encephalopathy, unspecified SNOMED: 19466940, 705617793 (2) Ataxia ICD Codes: R27.0 - Ataxia, unspecified SNOMED: 85714161 (3) Pyuria ICD Codes: N39.0 - Urinary tract infection, site not specified SNOMED: 0809707, 798488722 (4) Lethargy ICD Codes: R53.83 - Other fatigue SNOMED: 531544486 (5) Head trauma ICD Codes: S09.90XA - Unspecified injury of head, initial encounter SNOMED: 13622039 Qualifiers: Qualified Codes: S09.90XA - Unspecified injury of head, initial encounter (6) Benzodiazepine abuse ICD Codes: F13.10 - Sedative, hypnotic or anxiolytic abuse, uncomplicated SNOMED: 983264695, 131579736 (7) Schizophrenia ICD Codes: F20.9 - Schizophrenia, unspecified SNOMED: 98133668 Qualifiers: Qualified Codes: F20.9 - Schizophrenia, unspecified (8) Physical deconditioning ICD Codes: R53.81 - Other malaise SNOMED: 96756924554714 Status: unchanged Assessment/Plan: 69 year old female with schizophrenia presenting after a fall at home and diarrhea. CT head negative for any acute pathology. Seen by PT and advised SNF. Her diarrhea resolved shortly after admission. She had no leukocytosis or TAYLOR. Imodium prn helped. Patient remained int hospital waiting for placement. on , she developed fever, leukocytosis, change in mental status, and bloody diarrhea. Stool sent for c diff and POSITIVE. Urine culture growing E.Coli. 1. Sepsis secondary to C. Diff colitis, and UTI - REsolving -Continue oral vancomycin, IV flagyl. Will need 14 days total of PO vancomycin - s/p IV ceftriaxone for UTI per ID -Repeat BCX negative - WBC improving -ID consult with israel Etienne appreciated -CT abdomen pelvis: Moderately severe fecal retention in the colon and rectum with evidence of proctocolitis. -GI consult, recs appreciated- Continue PO Vanc and IV flagyl, outpatient colonoscopy - SNF not accepting until patient no longer has diarrhea. Patient continues to have diarrhea 2. Hypokalemia. Repleted 3. Schizophrenia Flat affect. Agitated today -Continue home Clonazepam. Dose decreased by psychiatrist to 1 mg QHS -discontinued home Trazodone. -Risperidone 4mg QHS per psychiatry recommendations -psychiatry consult. Dr. Fernández, appreciated. Reconsult again due change in behavior -Ativan 2mg Q6h PRN 4. Physical deconditioning and cachexia. Monitor oral intake 5. Hyponatremia. Stable for past couple days on IV NS. 6. Hypokalemia- 2/2 diarrhea. repleted today. Continue to monitor 7. Suspect cold sore- topical acycloivir Dispo: pending placement at [facility] once diarrhea resolves I spent 26 minutes on this encounter with >50% spent on counselling and care coordination. Discussed with patient and RN Time of note may not reflect time patient was seen. Subjective Date patient seen: Apr 18, 2019 Constitutional: Denies: chills, diaphoresis, fever, malaise, weakness, other HEENT: Denies: eye pain, blurred vision, tearing, double vision, ear pain, ear discharge, nose pain, nose congestion, throat pain, throat swelling, mouth pain , mouth swelling, other Cardiovascular: Denies: chest pain, edema, irregular heart rate, lightheadedness, palpitations, syncope, other Respiratory: Denies: cough, orthopnea, shortness of breath, SOB with excertion , SOB at rest, sputum, stridor, wheezing, other Gastrointestinal/Abdominal: Denies: abdomen distended, abdominal pain, black stools, tarry stools, blood in stool, constipated, diarrhea, difficulty swallowing, nausea, poor appetite, poor fluid intake, rectal bleeding, vomiting , other Genitourinary: Denies: burning, discharge, frequency, flank pain, hematuria, incontinence, pain, urgency, other Neurologic/Psychiatric: Denies: anxiety, depressed, emotional problems, headache, numbness, paresthesia, pre-existing deficit, seizure, tingling, tremors, weakness, other Endocrine: Denies: excessive sweating, flushing, intolerance to cold, intolerance to heat, increased hunger, increased thirst, increased urine, unexplained weight gain, unexplained weight loss, other Hematologic/Lymphatic: Denies: anemia, easy bleeding, easy bruising, other Allergies: Coded Allergies: No Known Allergies (Unverified , 03/28/19) Subjective No acute events overnight per nursing. Diarrhea still there but has improved. Patient feels well to be discharged Agitation: improved. not on restraints. cooperative. easily redirected. Denies SI/HI. Cdiff colitis: No abdominal pain nausea or vomiting. Tolerating meds. No hematochezia, fevers or chills. Inferior lip lesion: x 2 days. Painful. Has h/o cold sore. No drainage or fever Objective Last 24 Hour Vital Signs Date Time Temp Pulse Resp B/P (MAP) Pulse Ox O2 Delivery O2 Flow Rate FiO2 04/18/19 12:00 98.0 87 21 127/68 (87) 96 04/18/19 08:00 98.3 92 20 134/73 (93) 96 04/18/19 04:00 98.0 69 16 122/64 (83) 96 04/18/19 00:00 98.0 74 16 126/67 (86) 94 04/17/19 21:00 Room Air 04/17/19 20:00 97.9 71 16 121/64 (83) 94 04/17/19 16:00 98.9 92 16 127/69 (88) 95 Intake and Output 04/17/19 04/18/19 19:00 07:00 Intake Total 900 ml Balance 900 ml Intake Oral 900 ml # Voids 5 # Bowel Movements 5 1 Laboratory Tests 04/18/19 07:05: White Blood Count 11.8H, Red Blood Count 3.76L, Hemoglobin 12.4, Hematocrit 36.3L, Mean Corpuscular Volume 96, Mean Corpuscular Hemoglobin 33.1H, Mean Corpuscular Hemoglobin Concent 34.3, Red Cell Distribution Width 12.3, Platelet Count 452H, Mean Platelet Volume 4.3L, Neutrophils (%) (Auto) 79.7H, Lymphocytes (%) (Auto) 9.3L, Monocytes (%) (Auto) 9.1, Eosinophils (%) (Auto) 1.0, Basophils (%) (Auto) 0.9, Sodium Level 139, Potassium Level 4.1, Chloride Level 105, Carbon Dioxide Level 29, Anion Gap 5, Blood Urea Nitrogen 3L, Creatinine 0.7, Estimat Glomerular Filtration Rate > 60, Glucose Level 115H, Calcium Level 9.1, Phosphorus Level 3.4, Magnesium Level 2.0 Height (Feet): 5 Height (Inches): 3.00 Weight (Pounds): 128 General Appearance: WD/WN, no apparent distress, alert EENT: PERRL/EOMI, normal ENT inspection, other - 1cm raised, nonbleeding lesion on lower lip Neck: non-tender, normal alignment Cardiovascular: normal peripheral pulses, normal rate, regular rhythm Respiratory/Chest: chest wall non-tender, lungs clear, normal breath sounds Abdomen: normal bowel sounds, non tender, soft Extremities: normal range of motion, non-tender, normal inspection 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 Apr 18, 2019 13:48
[2019-04-18 16:00] VITALS: BP 123/75
[2019-04-18] MEDS: LORazepam 1mg tab ORAL PRN (17:28)
[2019-04-18 20:00] VITALS: BP 115/62
[2019-04-19] VITALS: BP 113/59
[2019-04-19 04:00] VITALS: BP 130/67
[2019-04-19 07:24] LABS: ANION GAP 5 mmol/L (5-15); BLOOD UREA NITROGEN 4 mg/dL (7-18); CALCIUM 9.4 MG/DL (8.5-10.1); CARBON DIOXIDE 28 MMOL/L (21-32); CHLORIDE 103 MMOL/L (98-107); CREATININE 0.7 MG/DL (0.55-1.30); POTASSIUM 4.3 MMOL/L (3.5-5.1); SODIUM 136 MMOL/L (136-145)
[2019-04-19 07:33] LABS: BASOPHILS % (AUTO) 0.7 % (0.0-2.0); EOSINOPHILS % (AUTO) 1.2 % (0.0-3.0); HEMATOCRIT 37.2 % (37.0-47.0); HEMOGLOBIN 12.9 G/DL (12.0-16.0); LYMPHOCYTES % (AUTO) 10.5 % (20.0-45.0); MEAN CORPUSCULAR VOLUME 96 FL (80-99); MONOCYTES % (AUTO) 8.5 % (1.0-10.0); NEUTROPHILS % (AUTO) 79.2 % (45.0-75.0); PLATELET COUNT 489 K/UL (150-450); RED BLOOD COUNT 3.89 M/UL (4.20-5.40); RED CELL DISTRIBUTION WIDTH 12.4 % (11.6-14.8); WHITE BLOOD COUNT 12.5 K/UL (4.8-10.8)
[2019-04-19 08:00] VITALS: BP 115/68
[2019-04-19] MEDS: Vancomycin oral 125mg/2.5ml ORAL SCH ×4 (08:51→20:08)
[2019-04-19] MEDS: Lactobacillus-GG tablet ORAL SCH ×2 (08:51→17:10)
[2019-04-19] MEDS ORDERED: LORazepam 1mg tab ORAL PRN (10:45)
[2019-04-19 12:00] VITALS: BP 122/66
--- NOTE | 2019-04-19 12:14 | General Progress Note ---
Assessment/Plan Problem List: (1) Acute encephalopathy ICD Codes: G93.40 - Encephalopathy, unspecified SNOMED: 56564768, 355613190 (2) Ataxia ICD Codes: R27.0 - Ataxia, unspecified SNOMED: 46736984 (3) Pyuria ICD Codes: N39.0 - Urinary tract infection, site not specified SNOMED: 6151307, 805744922 (4) Lethargy ICD Codes: R53.83 - Other fatigue SNOMED: 601672426 (5) Head trauma ICD Codes: S09.90XA - Unspecified injury of head, initial encounter SNOMED: 54990414 Qualifiers: Qualified Codes: S09.90XA - Unspecified injury of head, initial encounter (6) Benzodiazepine abuse ICD Codes: F13.10 - Sedative, hypnotic or anxiolytic abuse, uncomplicated SNOMED: 889213962, 272203772 (7) Schizophrenia ICD Codes: F20.9 - Schizophrenia, unspecified SNOMED: 80758535 Qualifiers: Qualified Codes: F20.9 - Schizophrenia, unspecified (8) Physical deconditioning ICD Codes: R53.81 - Other malaise SNOMED: 21102196678341 Status: unchanged Assessment/Plan: 69 year old female with schizophrenia presenting after a fall at home and diarrhea. CT head negative for any acute pathology. Seen by PT and advised SNF. Her diarrhea resolved shortly after admission. She had no leukocytosis or TAYLOR. Imodium prn helped. Patient remained int hospital waiting for placement. on , she developed fever, leukocytosis, change in mental status, and bloody diarrhea. Stool sent for c diff and POSITIVE. Urine culture growing E.Coli. 1. Sepsis secondary to C. Diff colitis, and UTI - REsolving -Continue oral vancomycin, IV flagyl. Will need 14 days total of PO vancomycin ( until 04/29/19) - s/p IV ceftriaxone for UTI per ID -Repeat BCX negative -ID consult with israel Etienne appreciated -CT abdomen pelvis: Moderately severe fecal retention in the colon and rectum with evidence of proctocolitis. -GI consult, recs appreciated- Continue PO Vanc and IV flagyl, outpatient colonoscopy - SNF not accepting until patient no longer has diarrhea. Patient continues to have diarrhea. improving 2. Hypokalemia. Repleted 3. Schizophrenia Flat affect. Agitated today -Continue home Clonazepam. Dose decreased by psychiatrist to 1 mg QHS -discontinued home Trazodone. -Risperidone 4mg QHS per psychiatry recommendations -psychiatry consult. Dr. Fernández, appreciated. Reconsult again due change in behavior -Ativan 2mg Q6h PRN 4. Physical deconditioning and cachexia. Monitor oral intake 5. Hyponatremia. Stable for past couple days on IV NS. 6. Hypokalemia- 2/2 diarrhea. repleted today. Continue to monitor 7. Suspect cold sore- topical acycloivir Dispo: pending placement at [facility] once diarrhea resolves I spent 26 minutes on this encounter with >50% spent on counselling and care coordination. Discussed with patient and RN Time of note may not reflect time patient was seen. Subjective Date patient seen: Apr 19, 2019 Constitutional: Denies: chills, diaphoresis, fever, malaise, weakness, other HEENT: Denies: eye pain, blurred vision, tearing, double vision, ear pain, ear discharge, nose pain, nose congestion, throat pain, throat swelling, mouth pain , mouth swelling, other Cardiovascular: Denies: chest pain, edema, irregular heart rate, lightheadedness, palpitations, syncope, other Respiratory: Denies: cough, orthopnea, shortness of breath, SOB with excertion , SOB at rest, sputum, stridor, wheezing, other Gastrointestinal/Abdominal: Denies: abdomen distended, abdominal pain, black stools, tarry stools, blood in stool, constipated, diarrhea, difficulty swallowing, nausea, poor appetite, poor fluid intake, rectal bleeding, vomiting , other Genitourinary: Denies: burning, discharge, frequency, flank pain, hematuria, incontinence, pain, urgency, other Neurologic/Psychiatric: Denies: anxiety, depressed, emotional problems, headache, numbness, paresthesia, pre-existing deficit, seizure, tingling, tremors, weakness, other Endocrine: Denies: excessive sweating, flushing, intolerance to cold, intolerance to heat, increased hunger, increased thirst, increased urine, unexplained weight gain, unexplained weight loss, other Hematologic/Lymphatic: Denies: anemia, easy bleeding, easy bruising, other Allergies: Coded Allergies: No Known Allergies (Unverified , 03/28/19) Subjective No acute events overnight per nursing. Diarrhea is resolving. More formed stools. Patient feels well to be discharged Agitation: improved. not on restraints. cooperative. easily redirected. Denies SI/HI. Cdiff colitis: No abdominal pain nausea or vomiting. Tolerating meds. No hematochezia, fevers or chills. Inferior lip lesion: improving Objective Last 24 Hour Vital Signs Date Time Temp Pulse Resp B/P (MAP) Pulse Ox O2 Delivery O2 Flow Rate FiO2 04/19/19 12:00 98.1 68 20 122/66 (84) 96 04/19/19 09:00 Room Air 04/19/19 08:00 98.1 96 20 115/68 (84) 94 04/19/19 04:00 98.6 73 20 130/67 (88) 94 04/19/19 00:00 98.1 75 20 113/59 (77) 96 04/18/19 21:00 Room Air 04/18/19 20:00 98.4 76 20 115/62 (79) 94 04/18/19 16:00 98.4 95 20 123/75 (91) 96 Intake and Output 04/18/19 04/19/19 19:00 07:00 Intake Total 900 ml 240 ml Balance 900 ml 240 ml Intake Oral 900 ml 240 ml # Voids 3 # Bowel Movements 3 2 Laboratory Tests 04/19/19 06:21: White Blood Count 12.5H, Red Blood Count 3.89L, Hemoglobin 12.9, Hematocrit 37.2 , Mean Corpuscular Volume 96, Mean Corpuscular Hemoglobin 33.0H, Mean Corpuscular Hemoglobin Concent 34.5, Red Cell Distribution Width 12.4, Platelet Count 489H, Mean Platelet Volume 4.9L, Neutrophils (%) (Auto) 79.2H, Lymphocytes (%) (Auto) 10.5L, Monocytes (%) (Auto) 8.5, Eosinophils (%) (Auto) 1.2, Basophils (%) (Auto) 0.7, Sodium Level 136, Potassium Level 4.3, Chloride Level 103, Carbon Dioxide Level 28, Anion Gap 5, Blood Urea Nitrogen 4L, Creatinine 0.7, Estimat Glomerular Filtration Rate > 60, Glucose Level 102, Calcium Level 9.4 Height (Feet): 5 Height (Inches): 3.00 Weight (Pounds): 128 General Appearance: WD/WN, no apparent distress, alert EENT: PERRL/EOMI, normal ENT inspection, other - lower lip raised lesion, stable from yesterday. 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 Apr 19, 2019 12:14
[2019-04-19 16:00] VITALS: BP 122/76
--- NOTE | 2019-04-19 16:40 | Infectious Diseases Prog Note ---
Assessment/Plan Assessment/Plan ASSESSMENT AND PLAN: 1. c.diff. colitis, e.coli uti/pyelonephritis, sepsis, leukocytosis, fevers - po vancomycin x 5 days for 14 day tx course, if patient still has loose stools may go for additional week of oral vancomycin - ua better, urine culture with yeast which is likely colonizer - discontinue ceftriaxone - monitor wbc/labs - monitor clinically, monitor diarrhea - still with some diarrhea 2. The patient came in with fall. Question ataxia. 3. The patient has sepsis criteria including cirrhosis, fevers, and heart rate as high as 115. Thus has SIRS criteria. 4. The patient has history of schizophrenia. 5. History of head trauma. 6. Lethargy. 7. Physical deconditioning. 8. She also has history of pacemaker. 9. Continue treatment per primary consultants. 10. No known allergies. 11. Social history is negative. 12. Family history is noncontributory. 13. MAR is noted. 14. Case was discussed with RN. 15. Notes and records were noted. Orders were entered. Subjective Constitutional: Denies: fever HEENT: Denies: congestion Respiratory: Denies: shortness of breath Cardiovascular: Denies: chest pain Gastrointestinal/Abdominal: Reports: diarrhea - stool more formed, loose but not diarrhea, d/w RN and patient ; Denies: nausea, vomiting Neurologic: Denies: headache Psychiatric: Denies: depression Skin: Denies: rash Hematologic: Denies: bleeding Musculoskeletal: Denies: pain Allergies: Coded Allergies: No Known Allergies (Unverified , 03/28/19) Objective Vital Signs Last 24 Hour Vital Signs Date Time Temp Pulse Resp B/P (MAP) Pulse Ox O2 Delivery O2 Flow Rate FiO2 04/19/19 16:00 97.5 91 20 122/76 (91) 95 04/19/19 12:00 98.1 68 20 122/66 (84) 96 04/19/19 09:00 Room Air 04/19/19 08:00 98.1 96 20 115/68 (84) 94 04/19/19 04:00 98.6 73 20 130/67 (88) 94 04/19/19 00:00 98.1 75 20 113/59 (77) 96 04/18/19 21:00 Room Air 04/18/19 20:00 98.4 76 20 115/62 (79) 94 Height (Feet): 5 Height (Inches): 3.00 Weight (Pounds): 128 General Appearance: no acute distress HEENT: normocephalic, atraumatic, anicteric, mucous membranes moist Respiratory/Chest: lungs clear, normal breath sounds, no respiratory distress, no accessory muscle use Cardiovascular: normal rate, regular rhythm, regularly irregular, no gallop/ murmur, no JVD Abdomen: normal bowel sounds, soft, non tender, no organomegaly Genitourinary: other - no palacios Extremities: no cyanosis Skin: no rash Neurologic/Psychiatric: environmental consultant II-XII grossly normal, alert, oriented x 3, responsive Lymphatic: no neck adenopathy Musculoskeletal: no effusion Objective CT abdomen and pelvis: IMPRESSION: Moderately severe fecal retention in the colon and rectum with evidence of a proctocolitis. Chronic calcific pancreatitis Atherosclerotic vascular disease Degenerative changes of the spine. Mild scoliosis. Mild left posterior basal atelectasis. Limited evaluation due to the nonadministration of intravenous contrast Chest x-ray - nad Microbiology Date/Time Source Procedure Growth Status 04/09/19 20:27 Blood Blood Culture - Final NO GROWTH AFTER 5 DAYS Complete 03/29/19 05:20 Nasal Nares Left MRSA Culture - Final NO METHICILLIN RESISTANT STAPH AUREUS... Complete 04/09/19 02:00 Stool Clostridium difficile Toxin Assay - Final Complete 04/13/19 18:50 Urine,Clean Catch Urine Culture - Final Sunita Albicans Complete 03/29/19 05:20 Rectum - Final NO CARBAPENEM-RESISTANT ENTEROBACTERI... Complete Laboratory Tests Test 04/19/19 06:21 White Blood Count 12.5 K/UL (4.8-10.8) H Red Blood Count 3.89 M/UL (4.20-5.40) L Hemoglobin 12.9 G/DL (12.0-16.0) Hematocrit 37.2 % (37.0-47.0) Mean Corpuscular Volume 96 FL (80-99) Mean Corpuscular Hemoglobin 33.0 PG (27.0-31.0) H Mean Corpuscular Hemoglobin Concent 34.5 G/DL (32.0-36.0) Red Cell Distribution Width 12.4 % (11.6-14.8) Platelet Count 489 K/UL (150-450) H Mean Platelet Volume 4.9 FL (6.5-10.1) L Neutrophils (%) (Auto) 79.2 % (45.0-75.0) H Lymphocytes (%) (Auto) 10.5 % (20.0-45.0) L Monocytes (%) (Auto) 8.5 % (1.0-10.0) Eosinophils (%) (Auto) 1.2 % (0.0-3.0) Basophils (%) (Auto) 0.7 % (0.0-2.0) Sodium Level 136 MMOL/L (136-145) Potassium Level 4.3 MMOL/L (3.5-5.1) Chloride Level 103 MMOL/L (98-107) Carbon Dioxide Level 28 MMOL/L (21-32) Anion Gap 5 mmol/L (5-15) Blood Urea Nitrogen 4 mg/dL (7-18) L Creatinine 0.7 MG/DL (0.55-1.30) Estimat Glomerular Filtration Rate > 60 mL/min (>60) Glucose Level 102 MG/DL (74-106) Calcium Level 9.4 MG/DL (8.5-10.1) Current Medications Medications (Trade) Dose Ordered Sig/Lindsey Route PRN Reason Start Time Stop Time Status Last Admin Dose Admin Acetaminophen (Tylenol) 650 mg Q6H PRN ORAL Mild Pain/Temp > 100.5 03/29/19 01:45 04/28/19 01:44 04/19/19 15:21 Diphenhydramine HCl (Benadryl) 25 mg HSPRN PRN ORAL Insomnia 04/07/19 15:16 05/07/19 15:15 04/15/19 21:19 Famotidine (Pepcid) 20 mg DAILY ORAL 04/10/19 09:00 05/10/19 08:59 04/19/19 08:51 Lactobacillus Acidophilus (Culturelle) 1 tab TWICE A DAY ORAL 04/16/19 09:00 05/16/19 08:59 04/19/19 08:51 Lorazepam (Ativan) 2 mg Q6H PRN ORAL For Anxiety 04/19/19 10:45 04/26/19 10:44 Ondansetron HCl (Zofran) 4 mg Q6H PRN IVP Nausea & Vomiting 03/29/19 01:45 04/28/19 01:44 Risperidone (RisperDAL) 4 mg BEDTIME ORAL 04/10/19 21:00 05/10/19 20:59 04/16/19 20:28 Vancomycin HCl (Firvanq) 125 mg FOUR TIMES A DAY ORAL 04/15/19 21:00 04/22/19 20:59 04/19/19 12:29 Angel Martinez MD Apr 19, 2019 16:40
[2019-04-19 20:00] VITALS: BP 136/71
[2019-04-20] VITALS: BP 135/63
[2019-04-20 04:00] VITALS: BP 130/62
[2019-04-20 07:13] LABS: BASOPHILS % (AUTO) 0.5 % (0.0-2.0); EOSINOPHILS % (AUTO) 1.9 % (0.0-3.0); HEMATOCRIT 39.2 % (37.0-47.0); HEMOGLOBIN 13.4 G/DL (12.0-16.0); LYMPHOCYTES % (AUTO) 10.8 % (20.0-45.0); MEAN CORPUSCULAR VOLUME 96 FL (80-99); MONOCYTES % (AUTO) 8.2 % (1.0-10.0); NEUTROPHILS % (AUTO) 78.7 % (45.0-75.0); PLATELET COUNT 481 K/UL (150-450); RED CELL DISTRIBUTION WIDTH 12.7 % (11.6-14.8); WHITE BLOOD COUNT 8.9 K/UL (4.8-10.8)
[2019-04-20 07:34] LABS: ANION GAP 7 mmol/L (5-15); BLOOD UREA NITROGEN 5 mg/dL (7-18); CALCIUM 9.8 MG/DL (8.5-10.1); CARBON DIOXIDE 28 MMOL/L (21-32); CHLORIDE 104 MMOL/L (98-107); CREATININE 0.8 MG/DL (0.55-1.30); PHOSPHORUS 3.6 MG/DL (2.5-4.9); POTASSIUM 4.4 MMOL/L (3.5-5.1); SODIUM 139 MMOL/L (136-145)
[2019-04-20 07:39] VITALS: BP 125/89
[2019-04-20] MEDS: Vancomycin oral 125mg/2.5ml ORAL SCH ×6 (08:18→20:48)
[2019-04-20] MEDS: Lactobacillus-GG tablet ORAL SCH ×2 (08:18→17:23)
--- NOTE | 2019-04-20 11:20 | GI Progress Note ---
Assessment/Plan Problems: (1) Fecal retention ICD Codes: K59.00 - Constipation, unspecified SNOMED: 32181124 (2) C. difficile colitis ICD Codes: A04.72 - Enterocolitis due to Clostridium difficile, not specified as recurrent SNOMED: 083313054 (3) Diarrhea ICD Codes: R19.7 - Diarrhea, unspecified SNOMED: 24135402 (4) LGI bleed ICD Codes: K92.2 - Gastrointestinal hemorrhage, unspecified SNOMED: 43537105 (5) Schizophrenia ICD Codes: F20.9 - Schizophrenia, unspecified SNOMED: 29513709 Qualifiers: Qualified Codes: F20.9 - Schizophrenia, unspecified Status: unchanged Status Narrative Discussed with Dr. Anderson. Assessment/Plan 69 year old female patient with reported episode of lower GI bleed x1 yesterday most likely due to infectious colitis. At time of evaluation, no reported recurrent LGIB, H&H stable. cdiff positive AP CT reviewed noted with moderately severe fecal retention in the colon and rectum with evidence of a proctocolitis. patient still with continuous diarrhea No plans for colonoscopy at this time, recommend as outpatient. abx monitor H&H or recurrent LGIB, prn transfusions zofran prn dc any PPI, H2B follow labs probiotics do not give anti-diarrheal continue po vanco and IV flagyl The patient was seen and examined at bedside and all new and available data was reviewed in the patients chart. I agree with the above findings, impression and plan. (Patient seen earlier today. Signature stamp does not reflect patient encounter time.). - Michelet Anderson MD Subjective Gastrointestinal/Abdominal: Reports: no symptoms Subjective limited Objective Last 24 Hour Vital Signs Date Time Temp Pulse Resp B/P (MAP) Pulse Ox O2 Delivery O2 Flow Rate FiO2 04/20/19 08:41 Room Air 04/20/19 07:39 98.1 73 20 125/89 (101) 95 04/20/19 04:00 96.9 74 19 130/62 (84) 97 04/20/19 00:00 98.5 70 19 135/63 (87) 95 04/19/19 21:00 Room Air 04/19/19 20:00 98.2 60 19 136/71 (92) 96 04/19/19 16:00 97.5 91 20 122/76 (91) 95 04/19/19 12:00 98.1 68 20 122/66 (84) 96 Intake and Output 04/19/19 04/20/19 18:59 06:59 Intake Total 1440 ml 480 ml Balance 1440 ml 480 ml Intake Oral 1440 ml 480 ml # Voids 5 # Bowel Movements 8 3 Laboratory Tests Test 04/20/19 06:50 White Blood Count 8.9 K/UL (4.8-10.8) Red Blood Count 4.10 M/UL (4.20-5.40) L Hemoglobin 13.4 G/DL (12.0-16.0) Hematocrit 39.2 % (37.0-47.0) Mean Corpuscular Volume 96 FL (80-99) Mean Corpuscular Hemoglobin 32.7 PG (27.0-31.0) H Mean Corpuscular Hemoglobin Concent 34.1 G/DL (32.0-36.0) Red Cell Distribution Width 12.7 % (11.6-14.8) Platelet Count 481 K/UL (150-450) H Mean Platelet Volume 4.4 FL (6.5-10.1) L Neutrophils (%) (Auto) 78.7 % (45.0-75.0) H Lymphocytes (%) (Auto) 10.8 % (20.0-45.0) L Monocytes (%) (Auto) 8.2 % (1.0-10.0) Eosinophils (%) (Auto) 1.9 % (0.0-3.0) Basophils (%) (Auto) 0.5 % (0.0-2.0) Sodium Level 139 MMOL/L (136-145) Potassium Level 4.4 MMOL/L (3.5-5.1) Chloride Level 104 MMOL/L (98-107) Carbon Dioxide Level 28 MMOL/L (21-32) Anion Gap 7 mmol/L (5-15) Blood Urea Nitrogen 5 mg/dL (7-18) L Creatinine 0.8 MG/DL (0.55-1.30) Estimat Glomerular Filtration Rate > 60 mL/min (>60) Glucose Level 116 MG/DL (74-106) H Calcium Level 9.8 MG/DL (8.5-10.1) Phosphorus Level 3.6 MG/DL (2.5-4.9) Magnesium Level 2.2 MG/DL (1.8-2.4) Height (Feet): 5 Height (Inches): 3.00 Weight (Pounds): 128 General Appearance: WD/WN, no apparent distress, alert Cardiovascular: normal rate Respiratory/Chest: normal breath sounds, no respiratory distress Abdominal Exam: normal bowel sounds, non tender, soft Extremities: normal range of motion, non-tender Mckay Medina NP Apr 20, 2019 11:20
[2019-04-20 11:47] VITALS: BP 118/62
[2019-04-20 16:00] VITALS: BP 125/70
--- NOTE | 2019-04-20 19:27 | General Progress Note ---
Assessment/Plan Problem List: (1) Acute encephalopathy ICD Codes: G93.40 - Encephalopathy, unspecified SNOMED: 86848320, 216143585 (2) Ataxia ICD Codes: R27.0 - Ataxia, unspecified SNOMED: 94884315 (3) Pyuria ICD Codes: N39.0 - Urinary tract infection, site not specified SNOMED: 7095487, 828814231 (4) Lethargy ICD Codes: R53.83 - Other fatigue SNOMED: 108769721 (5) Head trauma ICD Codes: S09.90XA - Unspecified injury of head, initial encounter SNOMED: 95589313 Qualifiers: Qualified Codes: S09.90XA - Unspecified injury of head, initial encounter (6) Benzodiazepine abuse ICD Codes: F13.10 - Sedative, hypnotic or anxiolytic abuse, uncomplicated SNOMED: 792580135, 252934702 (7) Schizophrenia ICD Codes: F20.9 - Schizophrenia, unspecified SNOMED: 49681125 Qualifiers: Qualified Codes: F20.9 - Schizophrenia, unspecified (8) Physical deconditioning ICD Codes: R53.81 - Other malaise SNOMED: 25061348501326 Status: unchanged Assessment/Plan: 69 year old female with schizophrenia presenting after a fall at home and diarrhea. CT head negative for any acute pathology. Seen by PT and advised SNF. Her diarrhea resolved shortly after admission. She had no leukocytosis or TAYLOR. Imodium prn helped. Patient remained int hospital waiting for placement. on , she developed fever, leukocytosis, change in mental status, and bloody diarrhea. Stool sent for c diff and POSITIVE. Urine culture growing E.Coli. 1. Sepsis secondary to C. Diff colitis, and UTI - Resolved -Continue oral vancomycin, IV flagyl. Will need 14 days total of PO vancomycin ( until 04/29/19) - May extend to 21 days per ID if continues to have diarrhea - s/p IV ceftriaxone for UTI per ID -Repeat BCX negative -ID consult with Dr. Adler, recs appreciated -GI consult: Appreciate recs from Dr. Anderson and ASSISTANT OPERATOR Carol -CT abdomen pelvis: Moderately severe fecal retention in the colon and rectum with evidence of proctocolitis. -GI consult, recs appreciated- Continue PO Vanc and IV flagyl, outpatient colonoscopy - SNF not accepting until patient no longer has diarrhea. Patient continues to have diarrhea. 2. Hypokalemia. Repleted 3. Schizophrenia Flat affect. Agitated today -Continue home Clonazepam. Dose decreased by psychiatrist to 1 mg QHS -discontinued home Trazodone. -Risperidone 4mg QHS per psychiatry recommendations -psychiatry consult. Dr. Fernández, appreciated. Reconsult again due change in behavior -Ativan 2mg Q6h PRN 4. Physical deconditioning and cachexia. Monitor oral intake 5. Hyponatremia. Stable for past couple days on IV NS. 6. Hypokalemia- 2/2 diarrhea. repleted today. Continue to monitor 7. Suspect cold sore- topical acycloivir Dispo: pending placement at [facility] once diarrhea resolves I spent 27 minutes on this encounter with >50% spent on counselling and care coordination. Discussed with patient and RN Time of note may not reflect time patient was seen. Subjective Date patient seen: Apr 20, 2019 Constitutional: Denies: chills, diaphoresis, fever, malaise, weakness, other HEENT: Denies: eye pain, blurred vision, tearing, double vision, ear pain, ear discharge, nose pain, nose congestion, throat pain, throat swelling, mouth pain , mouth swelling, other Cardiovascular: Denies: chest pain, edema, irregular heart rate, lightheadedness, palpitations, syncope, other Respiratory: Denies: cough, orthopnea, shortness of breath, SOB with excertion , SOB at rest, sputum, stridor, wheezing, other Gastrointestinal/Abdominal: Denies: abdomen distended, abdominal pain, black stools, tarry stools, blood in stool, constipated, diarrhea, difficulty swallowing, nausea, poor appetite, poor fluid intake, rectal bleeding, vomiting , other Genitourinary: Denies: burning, discharge, frequency, flank pain, hematuria, incontinence, pain, urgency, other Neurologic/Psychiatric: Denies: anxiety, depressed, emotional problems, headache, numbness, paresthesia, pre-existing deficit, seizure, tingling, tremors, weakness, other Endocrine: Denies: excessive sweating, flushing, intolerance to cold, intolerance to heat, increased hunger, increased thirst, increased urine, unexplained weight gain, unexplained weight loss, other Hematologic/Lymphatic: Denies: anemia, easy bleeding, easy bruising, other Allergies: Coded Allergies: No Known Allergies (Unverified , 03/28/19) Subjective No acute events overnight per nursing. Diarrhea is resolving. More formed stools. Patient feels well to be discharged Agitation: improved. not on restraints. cooperative. easily redirected. Denies SI/HI. Cdiff colitis: No abdominal pain nausea or vomiting. Tolerating meds. No hematochezia, fevers or chills. Continues to have loose stools. Inferior lip lesion: improving Objective Last 24 Hour Vital Signs Date Time Temp Pulse Resp B/P (MAP) Pulse Ox O2 Delivery O2 Flow Rate FiO2 04/20/19 16:00 98.1 62 18 125/70 (88) 98 04/20/19 11:47 97.7 63 18 118/62 (80) 96 04/20/19 08:41 Room Air 04/20/19 07:39 98.1 73 20 125/89 (101) 95 04/20/19 04:00 96.9 74 19 130/62 (84) 97 04/20/19 00:00 98.5 70 19 135/63 (87) 95 04/19/19 21:00 Room Air 04/19/19 20:00 98.2 60 19 136/71 (92) 96 Intake and Output 04/19/19 04/20/19 19:00 07:00 Intake Total 1440 ml 480 ml Balance 1440 ml 480 ml Intake Oral 1440 ml 480 ml # Voids 5 # Bowel Movements 8 3 Laboratory Tests 04/20/19 06:50: White Blood Count 8.9, Red Blood Count 4.10L, Hemoglobin 13.4, Hematocrit 39.2, Mean Corpuscular Volume 96, Mean Corpuscular Hemoglobin 32.7H, Mean Corpuscular Hemoglobin Concent 34.1, Red Cell Distribution Width 12.7, Platelet Count 481H, Mean Platelet Volume 4.4L, Neutrophils (%) (Auto) 78.7H, Lymphocytes (%) (Auto) 10.8L, Monocytes (%) (Auto) 8.2, Eosinophils (%) (Auto) 1.9, Basophils (%) (Auto ) 0.5, Sodium Level 139, Potassium Level 4.4, Chloride Level 104, Carbon Dioxide Level 28, Anion Gap 7, Blood Urea Nitrogen 5L, Creatinine 0.8, Estimat Glomerular Filtration Rate > 60, Glucose Level 116H, Calcium Level 9.8, Phosphorus Level 3.6, Magnesium Level 2.2 Height (Feet): 5 Height (Inches): 3.00 Weight (Pounds): 128 General Appearance: WD/WN, no apparent distress, alert EENT: PERRL/EOMI, normal ENT inspection Neck: non-tender, normal alignment, supple Cardiovascular: normal peripheral pulses, normal rate, regular rhythm Respiratory/Chest: chest wall non-tender, lungs clear, normal breath sounds Abdomen: normal bowel sounds, non tender, soft Extremities: normal range of motion, non-tender Skin: normal pigmentation, warm/dry Jonny Colon D.O. Apr 20, 2019 19:27
[2019-04-20 20:00] VITALS: BP 121/69
[2019-04-21] VITALS: BP 123/70
[2019-04-21 04:00] VITALS: BP 110/72
[2019-04-21 06:13] LABS: BASOPHILS % (AUTO) 0.7 % (0.0-2.0); EOSINOPHILS % (AUTO) 2.1 % (0.0-3.0); HEMATOCRIT 37.9 % (37.0-47.0); HEMOGLOBIN 12.7 G/DL (12.0-16.0); LYMPHOCYTES % (AUTO) 12.9 % (20.0-45.0); MEAN CORPUSCULAR VOLUME 96 FL (80-99); MONOCYTES % (AUTO) 9.7 % (1.0-10.0); NEUTROPHILS % (AUTO) 74.6 % (45.0-75.0); PLATELET COUNT 457 K/UL (150-450); RED BLOOD COUNT 3.94 M/UL (4.20-5.40); RED CELL DISTRIBUTION WIDTH 12.9 % (11.6-14.8); WHITE BLOOD COUNT 7.8 K/UL (4.8-10.8)
[2019-04-21 06:31] LABS: ANION GAP 9 mmol/L (5-15); BLOOD UREA NITROGEN 6 mg/dL (7-18); CALCIUM 9.8 MG/DL (8.5-10.1); CARBON DIOXIDE 25 MMOL/L (21-32); CHLORIDE 100 MMOL/L (98-107); CREATININE 0.7 MG/DL (0.55-1.30); POTASSIUM 4.3 MMOL/L (3.5-5.1); SODIUM 134 MMOL/L (136-145)
--- NOTE | 2019-04-21 06:37 | General Progress Note ---
Assessment/Plan Status: unchanged Assessment/Plan: (1) Fecal retention ICD Codes: K59.00 - Constipation, unspecified SNOMED: 20998455 (2) C. difficile colitis ICD Codes: A04.72 - Enterocolitis due to Clostridium difficile, not specified as recurrent SNOMED: 772893688 (3) Diarrhea ICD Codes: R19.7 - Diarrhea, unspecified SNOMED: 43796794 (4) LGI bleed ICD Codes: K92.2 - Gastrointestinal hemorrhage, unspecified SNOMED: 75699708 (5) Schizophrenia ICD Codes: F20.9 - Schizophrenia, unspecified SNOMED: 85805151 Assessment/Plan 69 year old female patient with reported episode of lower GI bleed x1 yesterday most likely due to infectious colitis. At time of evaluation, no reported recurrent LGIB, H&H stable. cdiff positive AP CT reviewed noted with moderately severe fecal retention in the colon and rectum with evidence of a proctocolitis. No plans for colonoscopy at this time, can be done as outpatient. abx monitor H&H or recurrent LGIB, prn transfusions zofran prn H2B follow labs on another week of vanco po per ID Subjective ROS Limited/Unobtainable: Yes Allergies: Coded Allergies: No Known Allergies (Unverified , 03/28/19) Objective Last 24 Hour Vital Signs Date Time Temp Pulse Resp B/P (MAP) Pulse Ox O2 Delivery O2 Flow Rate FiO2 04/21/19 04:00 97.8 73 18 110/72 (85) 97 04/21/19 00:00 97.8 70 16 123/70 (87) 97 04/20/19 21:56 Room Air 04/20/19 20:00 97.3 70 18 121/69 (86) 97 04/20/19 16:00 98.1 62 18 125/70 (88) 98 04/20/19 11:47 97.7 63 18 118/62 (80) 96 04/20/19 08:41 Room Air 04/20/19 07:39 98.1 73 20 125/89 (101) 95 Intake and Output 04/20/19 04/21/19 19:00 07:00 Intake Total 840 ml Balance 840 ml Intake Oral 840 ml # Voids 1 2 # Bowel Movements 1 Laboratory Tests 04/20/19 06:50: White Blood Count 8.9, Red Blood Count 4.10L, Hemoglobin 13.4, Hematocrit 39.2, Mean Corpuscular Volume 96, Mean Corpuscular Hemoglobin 32.7H, Mean Corpuscular Hemoglobin Concent 34.1, Red Cell Distribution Width 12.7, Platelet Count 481H, Mean Platelet Volume 4.4L, Neutrophils (%) (Auto) 78.7H, Lymphocytes (%) (Auto) 10.8L, Monocytes (%) (Auto) 8.2, Eosinophils (%) (Auto) 1.9, Basophils (%) (Auto ) 0.5, Sodium Level 139, Potassium Level 4.4, Chloride Level 104, Carbon Dioxide Level 28, Anion Gap 7, Blood Urea Nitrogen 5L, Creatinine 0.8, Estimat Glomerular Filtration Rate > 60, Glucose Level 116H, Calcium Level 9.8, Phosphorus Level 3.6, Magnesium Level 2.2 04/21/19 05:20: White Blood Count [Pending], Red Blood Count [Pending], Hemoglobin [Pending], Hematocrit [Pending], Mean Corpuscular Volume [Pending], Mean Corpuscular Hemoglobin [Pending], Mean Corpuscular Hemoglobin Concent [Pending], Red Cell Distribution Width [Pending], Platelet Count [Pending], Mean Platelet Volume [ Pending], Neutrophils (%) (Auto) [Pending], Lymphocytes (%) (Auto) [Pending], Monocytes (%) (Auto) [Pending], Eosinophils (%) (Auto) [Pending], Basophils (%) (Auto) [Pending], Sodium Level 134L, Potassium Level 4.3, Chloride Level 100, Carbon Dioxide Level 25, Anion Gap 9, Blood Urea Nitrogen 6L, Creatinine 0.7, Estimat Glomerular Filtration Rate > 60, Glucose Level 113H, Calcium Level 9.8, Phosphorus Level 3.0, Magnesium Level 2.1 Height (Feet): 5 Height (Inches): 3.00 Weight (Pounds): 128 General Appearance: alert EENT: normal ENT inspection Neck: supple Cardiovascular: normal rate Respiratory/Chest: lungs clear Abdomen: normal bowel sounds, soft Extremities: non-tender Michelet Anderson MD Apr 21, 2019 06:37
[2019-04-21 08:00] VITALS: BP 109/75
[2019-04-21] MEDS: Lactobacillus-GG tablet ORAL SCH ×2 (09:01→17:31)
[2019-04-21] MEDS: Vancomycin oral 125mg/2.5ml ORAL SCH ×4 (09:02→22:00)
[2019-04-21 12:00] VITALS: BP 106/65
--- NOTE | 2019-04-21 12:00 | Progress Note ---
DATE: 04/21/2019 SUBJECTIVE: The patient is in bed watching TV. No acute distress. Calm. No behavior issues. Manageable. MENTAL STATUS EXAMINATION: The patient is alert and oriented times self and place. Affect is flat. Thought process, unclear. Thought content, no suicidal or homicidal ideations. ASSESSMENT: Stable. PLAN: 1. 2. Provide the patient with reality orientation. Lima Fernández M.D. DR: ERNESTO JOB#: [id number] CC: YORDY
--- NOTE | 2019-04-21 14:03 | General Progress Note ---
Assessment/Plan Problem List: (1) Acute encephalopathy ICD Codes: G93.40 - Encephalopathy, unspecified SNOMED: 21129095, 396140655 (2) Ataxia ICD Codes: R27.0 - Ataxia, unspecified SNOMED: 60375976 (3) Pyuria ICD Codes: N39.0 - Urinary tract infection, site not specified SNOMED: 2438311, 472418271 (4) Lethargy ICD Codes: R53.83 - Other fatigue SNOMED: 117654612 (5) Head trauma ICD Codes: S09.90XA - Unspecified injury of head, initial encounter SNOMED: 70825844 Qualifiers: Qualified Codes: S09.90XA - Unspecified injury of head, initial encounter (6) Benzodiazepine abuse ICD Codes: F13.10 - Sedative, hypnotic or anxiolytic abuse, uncomplicated SNOMED: 778403196, 525684162 (7) Schizophrenia ICD Codes: F20.9 - Schizophrenia, unspecified SNOMED: 16408432 Qualifiers: Qualified Codes: F20.9 - Schizophrenia, unspecified (8) Physical deconditioning ICD Codes: R53.81 - Other malaise SNOMED: 16473107563962 Status: unchanged Assessment/Plan: 69 year old female with schizophrenia presenting after a fall at home and diarrhea. CT head negative for any acute pathology. Seen by PT and advised SNF. Her diarrhea resolved shortly after admission. She had no leukocytosis or TAYLOR. Imodium prn helped. Patient remained int hospital waiting for placement. on , she developed fever, leukocytosis, change in mental status, and bloody diarrhea. Stool sent for c diff and POSITIVE. Urine culture growing E.Coli. 1. Sepsis secondary to C. Diff colitis, and UTI - Resolved C diff colitis- Improving -Continue oral vancomycin, IV flagyl. Will need 14 days total of PO vancomycin ( until 04/29/19) - May extend to 21 days per ID if continues to have diarrhea - s/p IV ceftriaxone for UTI per ID -Repeat BCX negative -ID consult with Dr. Adler, recs appreciated -GI consult: Appreciate recs from Dr. Anderson and STRUCTURAL METAL WORKER Carol. may add cholestyramine for continued diarrhea -CT abdomen pelvis: Moderately severe fecal retention in the colon and rectum with evidence of proctocolitis. -GI consult, recs appreciated- Continue PO Vanc and IV flagyl, outpatient colonoscopy - SNF not accepting until patient no longer has diarrhea. Patient continues to have diarrhea. 2. Hypokalemia. Repleted 3. Schizophrenia Flat affect. Agitated today -Continue home Clonazepam. Dose decreased by psychiatrist to 1 mg QHS -discontinued home Trazodone. -Risperidone 4mg QHS per psychiatry recommendations -psychiatry consult. Dr. Fernández, appreciated. Reconsult again due change in behavior -Ativan 2mg Q6h PRN 4. Physical deconditioning and cachexia. Monitor oral intake 5. Hyponatremia. Stable for past couple days on IV NS. 6. Hypokalemia- 2/2 diarrhea. repleted today. Continue to monitor 7. Suspect cold sore- topical acycloivir Dispo: pending placement at [facility] once diarrhea resolves I spent 28 minutes on this encounter with >50% spent on counselling and care coordination. Discussed with patient and RN Time of note may not reflect time patient was seen. Subjective Date patient seen: Apr 21, 2019 Constitutional: Denies: chills, diaphoresis, fever, malaise, weakness, other HEENT: Denies: eye pain, blurred vision, tearing, double vision, ear pain, ear discharge, nose pain, nose congestion, throat pain, throat swelling, mouth pain , mouth swelling, other Cardiovascular: Denies: chest pain, edema, irregular heart rate, lightheadedness, palpitations, syncope, other Respiratory: Denies: cough, orthopnea, shortness of breath, SOB with excertion , SOB at rest, sputum, stridor, wheezing, other Gastrointestinal/Abdominal: Reports: diarrhea; Denies: abdomen distended, abdominal pain, black stools, tarry stools, blood in stool, constipated, difficulty swallowing, nausea, poor appetite, poor fluid intake, rectal bleeding , vomiting, other Genitourinary: Denies: burning, discharge, frequency, flank pain, hematuria, incontinence, pain, urgency, other Neurologic/Psychiatric: Denies: anxiety, depressed, emotional problems, headache, numbness, paresthesia, pre-existing deficit, seizure, tingling, tremors, weakness, other Endocrine: Denies: excessive sweating, flushing, intolerance to cold, intolerance to heat, increased hunger, increased thirst, increased urine, unexplained weight gain, unexplained weight loss, other Hematologic/Lymphatic: Denies: anemia, easy bleeding, easy bruising, other Allergies: Coded Allergies: No Known Allergies (Unverified , 03/28/19) Subjective No acute events overnight per nursing. The patient continues to have diarrhea. She had a total of 5 loose stools overnight. Her energy level continues to improve. She denies any dizziness lightheadedness or generalized weakness. Agitation: improved. not on restraints. cooperative. easily redirected. Denies SI/HI. Objective Last 24 Hour Vital Signs Date Time Temp Pulse Resp B/P (MAP) Pulse Ox O2 Delivery O2 Flow Rate FiO2 04/21/19 12:00 97.7 60 19 106/65 (79) 100 04/21/19 09:00 Room Air 04/21/19 08:00 98.0 97 18 109/75 (86) 96 04/21/19 04:00 97.8 73 18 110/72 (85) 97 04/21/19 00:00 97.8 70 16 123/70 (87) 97 04/20/19 21:56 Room Air 04/20/19 20:00 97.3 70 18 121/69 (86) 97 04/20/19 16:00 98.1 62 18 125/70 (88) 98 Intake and Output 04/20/19 04/21/19 19:00 07:00 Intake Total 840 ml Balance 840 ml Intake Oral 840 ml # Voids 1 2 # Bowel Movements 1 Laboratory Tests 04/21/19 05:20: White Blood Count 7.8, Red Blood Count 3.94L, Hemoglobin 12.7, Hematocrit 37.9, Mean Corpuscular Volume 96, Mean Corpuscular Hemoglobin 32.3H, Mean Corpuscular Hemoglobin Concent 33.5, Red Cell Distribution Width 12.9, Platelet Count 457H, Mean Platelet Volume 4.7L, Neutrophils (%) (Auto) 74.6, Lymphocytes (%) (Auto) 12.9L, Monocytes (%) (Auto) 9.7, Eosinophils (%) (Auto) 2.1, Basophils (%) (Auto ) 0.7, Sodium Level 134L, Potassium Level 4.3, Chloride Level 100, Carbon Dioxide Level 25, Anion Gap 9, Blood Urea Nitrogen 6L, Creatinine 0.7, Estimat Glomerular Filtration Rate > 60, Glucose Level 113H, Calcium Level 9.8, Phosphorus Level 3.0, Magnesium Level 2.1 Height (Feet): 5 Height (Inches): 3.00 Weight (Pounds): 128 General Appearance: WD/WN, no apparent distress, alert EENT: PERRL/EOMI, normal ENT inspection Neck: non-tender, normal alignment, supple, normal inspection Cardiovascular: normal peripheral pulses, normal rate, regular rhythm, no JVD Respiratory/Chest: chest wall non-tender, lungs clear, normal breath sounds Abdomen: normal bowel sounds, non tender, soft Extremities: normal range of motion, non-tender, normal inspection - 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 Apr 21, 2019 14:03
[2019-04-21 16:00] VITALS: BP 25/60
--- NOTE | 2019-04-21 16:51 | Infectious Diseases Prog Note ---
Assessment/Plan Assessment/Plan ASSESSMENT AND PLAN: 1. c.diff. colitis, e.coli uti/pyelonephritis, sepsis, leukocytosis, fevers - po vancomycin - day # 11, plan on at least 14 days treatment and possible longer depending on clinical response - s/p ceftriaxone for e.coli uti, f/u urine culture with yeast which is likely colonizer - still with diarrhea, fevers and leukocytosis resolved - monitor labs and clinically - d/w Dr. Colon 2. The patient came in with fall. Question ataxia. 3. The patient has sepsis criteria including cirrhosis, fevers, and heart rate as high as 115. Thus has SIRS criteria. 4. The patient has history of schizophrenia. 5. History of head trauma. 6. Lethargy. 7. Physical deconditioning. 8. She also has history of pacemaker. 9. Continue treatment per primary consultants. 10. No known allergies. 11. Social history is negative. 12. Family history is noncontributory. 13. MAR is noted. 14. Case was discussed with RN. 15. Notes and records were noted. Orders were entered. Subjective Constitutional: Denies: fever HEENT: Denies: congestion Respiratory: Denies: shortness of breath Cardiovascular: Denies: chest pain Gastrointestinal/Abdominal: Reports: diarrhea; Denies: nausea, vomiting Neurologic: Denies: headache Psychiatric: Denies: anxiety Skin: Denies: rash Hematologic: Denies: bleeding Musculoskeletal: Denies: pain Allergies: Coded Allergies: No Known Allergies (Unverified , 03/28/19) Objective Vital Signs Last 24 Hour Vital Signs Date Time Temp Pulse Resp B/P (MAP) Pulse Ox O2 Delivery O2 Flow Rate FiO2 04/21/19 16:00 97.0 60 18 25/60 (48) 100 04/21/19 12:00 97.7 60 19 106/65 (79) 100 04/21/19 09:00 Room Air 04/21/19 08:00 98.0 97 18 109/75 (86) 96 04/21/19 04:00 97.8 73 18 110/72 (85) 97 04/21/19 00:00 97.8 70 16 123/70 (87) 97 04/20/19 21:56 Room Air 04/20/19 20:00 97.3 70 18 121/69 (86) 97 Height (Feet): 5 Height (Inches): 3.00 Weight (Pounds): 128 General Appearance: no acute distress HEENT: normocephalic, atraumatic, anicteric, mucous membranes moist Respiratory/Chest: lungs clear, normal breath sounds, no respiratory distress, no accessory muscle use Cardiovascular: normal rate, regular rhythm, regularly irregular, no JVD Abdomen: normal bowel sounds, soft, non tender, no organomegaly, non distended Genitourinary: other - no foey Extremities: no cyanosis Skin: no rash Neurologic/Psychiatric: director medical economics II-XII grossly normal, alert, oriented x 3, responsive Lymphatic: no neck adenopathy Musculoskeletal: no effusion Objective CT abdomen and pelvis: IMPRESSION: Moderately severe fecal retention in the colon and rectum with evidence of a proctocolitis. Chronic calcific pancreatitis Atherosclerotic vascular disease Degenerative changes of the spine. Mild scoliosis. Mild left posterior basal atelectasis. Limited evaluation due to the nonadministration of intravenous contrast Chest x-ray - nad Microbiology Date/Time Source Procedure Growth Status 04/09/19 20:27 Blood Blood Culture - Final NO GROWTH AFTER 5 DAYS Complete 03/29/19 05:20 Nasal Nares Left MRSA Culture - Final NO METHICILLIN RESISTANT STAPH AUREUS... Complete 04/09/19 02:00 Stool Clostridium difficile Toxin Assay - Final Complete 04/13/19 18:50 Urine,Clean Catch Urine Culture - Final Sunita Albicans Complete 03/29/19 05:20 Rectum - Final NO CARBAPENEM-RESISTANT ENTEROBACTERI... Complete Laboratory Tests Test 04/21/19 05:20 White Blood Count 7.8 K/UL (4.8-10.8) Red Blood Count 3.94 M/UL (4.20-5.40) L Hemoglobin 12.7 G/DL (12.0-16.0) Hematocrit 37.9 % (37.0-47.0) Mean Corpuscular Volume 96 FL (80-99) Mean Corpuscular Hemoglobin 32.3 PG (27.0-31.0) H Mean Corpuscular Hemoglobin Concent 33.5 G/DL (32.0-36.0) Red Cell Distribution Width 12.9 % (11.6-14.8) Platelet Count 457 K/UL (150-450) H Mean Platelet Volume 4.7 FL (6.5-10.1) L Neutrophils (%) (Auto) 74.6 % (45.0-75.0) Lymphocytes (%) (Auto) 12.9 % (20.0-45.0) L Monocytes (%) (Auto) 9.7 % (1.0-10.0) Eosinophils (%) (Auto) 2.1 % (0.0-3.0) Basophils (%) (Auto) 0.7 % (0.0-2.0) Sodium Level 134 MMOL/L (136-145) L Potassium Level 4.3 MMOL/L (3.5-5.1) Chloride Level 100 MMOL/L (98-107) Carbon Dioxide Level 25 MMOL/L (21-32) Anion Gap 9 mmol/L (5-15) Blood Urea Nitrogen 6 mg/dL (7-18) L Creatinine 0.7 MG/DL (0.55-1.30) Estimat Glomerular Filtration Rate > 60 mL/min (>60) Glucose Level 113 MG/DL (74-106) H Calcium Level 9.8 MG/DL (8.5-10.1) Phosphorus Level 3.0 MG/DL (2.5-4.9) Magnesium Level 2.1 MG/DL (1.8-2.4) Current Medications Medications (Trade) Dose Ordered Sig/Lindsey Route PRN Reason Start Time Stop Time Status Last Admin Dose Admin Acetaminophen (Tylenol) 650 mg Q6H PRN ORAL Mild Pain/Temp > 100.5 03/29/19 01:45 04/28/19 01:44 04/19/19 15:21 Cholestyramine Resin (Questran) 4 gm BID ORAL 04/21/19 18:00 05/21/19 17:59 Diphenhydramine HCl (Benadryl) 25 mg HSPRN PRN ORAL Insomnia 04/07/19 15:16 05/07/19 15:15 04/15/19 21:19 Famotidine (Pepcid) 20 mg DAILY ORAL 04/10/19 09:00 05/10/19 08:59 04/21/19 09:02 Lactobacillus Acidophilus (Culturelle) 1 tab TWICE A DAY ORAL 04/16/19 09:00 05/16/19 08:59 04/21/19 09:01 Lorazepam (Ativan) 2 mg Q6H PRN ORAL For Anxiety 04/19/19 10:45 04/26/19 10:44 Ondansetron HCl (Zofran) 4 mg Q6H PRN IVP Nausea & Vomiting 03/29/19 01:45 04/28/19 01:44 Risperidone (RisperDAL) 4 mg BEDTIME ORAL 04/10/19 21:00 05/10/19 20:59 04/20/19 20:14 Vancomycin HCl (Firvanq) 125 mg FOUR TIMES A DAY ORAL 04/15/19 21:00 04/29/19 22:00 04/21/19 13:05 Angel Martinez MD Apr 21, 2019 16:51
[2019-04-21] MEDS: Cholestyramine 4gm Pkt ORAL SCH (18:29)
[2019-04-21 20:00] VITALS: BP 106/59
[2019-04-22] VITALS: BP 107/58
[2019-04-22 04:00] VITALS: BP 131/69
[2019-04-22 05:52] LABS: BASOPHILS % (AUTO) 0.9 % (0.0-2.0); EOSINOPHILS % (AUTO) 1.7 % (0.0-3.0); HEMATOCRIT 36.4 % (37.0-47.0); HEMOGLOBIN 12.5 G/DL (12.0-16.0); LYMPHOCYTES % (AUTO) 11.8 % (20.0-45.0); MEAN CORPUSCULAR VOLUME 97 FL (80-99); MONOCYTES % (AUTO) 9.3 % (1.0-10.0); NEUTROPHILS % (AUTO) 76.3 % (45.0-75.0); PLATELET COUNT 432 K/UL (150-450); RED BLOOD COUNT 3.76 M/UL (4.20-5.40); RED CELL DISTRIBUTION WIDTH 12.7 % (11.6-14.8); WHITE BLOOD COUNT 8.6 K/UL (4.8-10.8)
[2019-04-22 05:53] LABS: ANION GAP 5 mmol/L (5-15); BLOOD UREA NITROGEN 6 mg/dL (7-18); CALCIUM 9.4 MG/DL (8.5-10.1); CARBON DIOXIDE 27 MMOL/L (21-32); CHLORIDE 98 MMOL/L (98-107); CREATININE 0.7 MG/DL (0.55-1.30); PHOSPHORUS 3.2 MG/DL (2.5-4.9); POTASSIUM 4.1 MMOL/L (3.5-5.1); SODIUM 130 MMOL/L (136-145)
[2019-04-22 08:00] VITALS: BP 137/82
[2019-04-22] MEDS: Vancomycin oral 125mg/2.5ml ORAL SCH ×4 (09:00→20:47)
[2019-04-22] MEDS: Cholestyramine 4gm Pkt ORAL SCH ×2 (09:15→17:15)
[2019-04-22] MEDS: Lactobacillus-GG tablet ORAL SCH ×2 (09:15→17:15)
[2019-04-22 12:00] VITALS: BP 115/66
--- NOTE | 2019-04-22 12:36 | GI Progress Note ---
Assessment/Plan Problems: (1) Fecal retention ICD Codes: K59.00 - Constipation, unspecified SNOMED: 09664019 (2) C. difficile colitis ICD Codes: A04.72 - Enterocolitis due to Clostridium difficile, not specified as recurrent SNOMED: 737681228 (3) Diarrhea ICD Codes: R19.7 - Diarrhea, unspecified SNOMED: 33039834 (4) LGI bleed ICD Codes: K92.2 - Gastrointestinal hemorrhage, unspecified SNOMED: 05314849 (5) Schizophrenia ICD Codes: F20.9 - Schizophrenia, unspecified SNOMED: 10874787 Qualifiers: Qualified Codes: F20.9 - Schizophrenia, unspecified Status: unchanged Status Narrative Discussed with Dr. Anderson. Assessment/Plan 69 year old female patient with reported episode of lower GI bleed x1 yesterday most likely due to infectious colitis. At time of evaluation, no reported recurrent LGIB, H&H stable. cdiff positive AP CT reviewed noted with moderately severe fecal retention in the colon and rectum with evidence of a proctocolitis. patient still with continuous diarrhea, but has improved No plans for colonoscopy at this time, recommend as outpatient. abx monitor H&H or recurrent LGIB, prn transfusions zofran prn dc any PPI, H2B follow labs probiotics do not give anti-diarrheal continue po vanco and IV flagyl The patient was seen and examined at bedside and all new and available data was reviewed in the patients chart. I agree with the above findings, impression and plan. (Patient seen earlier today. Signature stamp does not reflect patient encounter time.). - Michelet Anderson MD Subjective Subjective still has severe diarrhea Objective Last 24 Hour Vital Signs Date Time Temp Pulse Resp B/P (MAP) Pulse Ox O2 Delivery O2 Flow Rate FiO2 04/22/19 09:00 Room Air 04/22/19 08:00 97.7 67 18 137/82 (100) 96 04/22/19 04:00 98.2 67 16 131/69 (89) 100 04/22/19 00:00 97.9 65 18 107/58 (74) 98 04/21/19 21:00 Room Air 04/21/19 20:00 97.5 60 18 106/59 (75) 99 04/21/19 16:00 97.0 60 18 25/60 (48) 100 Intake and Output 04/21/19 04/22/19 19:00 07:00 Intake Total 300 ml 360 ml Balance 300 ml 360 ml Intake Oral 300 ml 360 ml # Voids 3 2 # Bowel Movements 3 Laboratory Tests Test 04/22/19 05:25 White Blood Count 8.6 K/UL (4.8-10.8) Red Blood Count 3.76 M/UL (4.20-5.40) L Hemoglobin 12.5 G/DL (12.0-16.0) Hematocrit 36.4 % (37.0-47.0) L Mean Corpuscular Volume 97 FL (80-99) Mean Corpuscular Hemoglobin 33.2 PG (27.0-31.0) H Mean Corpuscular Hemoglobin Concent 34.3 G/DL (32.0-36.0) Red Cell Distribution Width 12.7 % (11.6-14.8) Platelet Count 432 K/UL (150-450) Mean Platelet Volume 4.8 FL (6.5-10.1) L Neutrophils (%) (Auto) 76.3 % (45.0-75.0) H Lymphocytes (%) (Auto) 11.8 % (20.0-45.0) L Monocytes (%) (Auto) 9.3 % (1.0-10.0) Eosinophils (%) (Auto) 1.7 % (0.0-3.0) Basophils (%) (Auto) 0.9 % (0.0-2.0) Sodium Level 130 MMOL/L (136-145) L Potassium Level 4.1 MMOL/L (3.5-5.1) Chloride Level 98 MMOL/L (98-107) Carbon Dioxide Level 27 MMOL/L (21-32) Anion Gap 5 mmol/L (5-15) Blood Urea Nitrogen 6 mg/dL (7-18) L Creatinine 0.7 MG/DL (0.55-1.30) Estimat Glomerular Filtration Rate > 60 mL/min (>60) Glucose Level 109 MG/DL (74-106) H Calcium Level 9.4 MG/DL (8.5-10.1) Phosphorus Level 3.2 MG/DL (2.5-4.9) Magnesium Level 2.0 MG/DL (1.8-2.4) Height (Feet): 5 Height (Inches): 3.00 Weight (Pounds): 106 General Appearance: WD/WN, no apparent distress, alert Cardiovascular: normal rate Respiratory/Chest: normal breath sounds, no respiratory distress Abdominal Exam: normal bowel sounds, non tender, soft Extremities: non-tender Mckay Medina NP Apr 22, 2019 12:36
--- NOTE | 2019-04-22 14:11 | General Progress Note ---
Assessment/Plan Problem List: (1) Acute encephalopathy ICD Codes: G93.40 - Encephalopathy, unspecified SNOMED: 21866086, 422760957 (2) Ataxia ICD Codes: R27.0 - Ataxia, unspecified SNOMED: 91233582 (3) Pyuria ICD Codes: N39.0 - Urinary tract infection, site not specified SNOMED: 2575668, 014192717 (4) Lethargy ICD Codes: R53.83 - Other fatigue SNOMED: 024685009 (5) Head trauma ICD Codes: S09.90XA - Unspecified injury of head, initial encounter SNOMED: 74672389 Qualifiers: Qualified Codes: S09.90XA - Unspecified injury of head, initial encounter (6) Benzodiazepine abuse ICD Codes: F13.10 - Sedative, hypnotic or anxiolytic abuse, uncomplicated SNOMED: 006600563, 147097263 (7) Schizophrenia ICD Codes: F20.9 - Schizophrenia, unspecified SNOMED: 27587644 Qualifiers: Qualified Codes: F20.9 - Schizophrenia, unspecified (8) Physical deconditioning ICD Codes: R53.81 - Other malaise SNOMED: 37449464041888 Status: unchanged Assessment/Plan: 69 year old female with schizophrenia presenting after a fall at home and diarrhea. CT head negative for any acute pathology. Seen by PT and advised SNF. Her diarrhea resolved shortly after admission. She had no leukocytosis or TAYLOR. Imodium prn helped. Patient remained int hospital waiting for placement. on , she developed fever, leukocytosis, change in mental status, and bloody diarrhea. Stool sent for c diff and POSITIVE. Urine culture growing E.Coli. 1. Sepsis secondary to C. Diff colitis, and UTI - Resolved C diff colitis- Improving -Continue oral vancomycin, IV flagyl. Will need 14 days total of PO vancomycin ( until 04/29/19) - May extend to 21 days per ID if continues to have diarrhea - s/p IV ceftriaxone for UTI per ID -Repeat BCX negative -ID consult with Dr. Adler, recs appreciated -GI consult: Appreciate recs from Dr. Anderson and HEALTH ASSESSMENT AND TREATMENT TEACHER Carol. may add cholestyramine for continued diarrhea -CT abdomen pelvis: Moderately severe fecal retention in the colon and rectum with evidence of proctocolitis. -GI consult, recs appreciated- Continue PO Vanc and IV flagyl, outpatient colonoscopy - SNF not accepting until patient no longer has diarrhea. Patient continues to have diarrhea. - continue cholestyramine 2. Hypokalemia. Repleted 3. Schizophrenia Flat affect. Agitated today -Continue home Clonazepam. Dose decreased by psychiatrist to 1 mg QHS -discontinued home Trazodone. -Risperidone 4mg QHS per psychiatry recommendations -psychiatry consult. Dr. Fernández, appreciated. -Ativan 2mg Q6h PRN 4. Physical deconditioning and cachexia. Monitor oral intake 5. Hyponatremia. Downtrending. Encourage PO intake. Will give 500 cc fluids today 6. Hypokalemia- 2/2 diarrhea. replete PRN. Continue to monitor 7. Lower lip lesion- improving. continue ointment Dispo: pending placement at [facility] once diarrhea resolves I spent 27 minutes on this encounter with >50% spent on counselling and care coordination. Discussed with patient and RN Time of note may not reflect time patient was seen. Subjective Date patient seen: Apr 22, 2019 Constitutional: Denies: chills, diaphoresis, fever, malaise, weakness, other HEENT: Denies: eye pain, blurred vision, tearing, double vision, ear pain, ear discharge, nose pain, nose congestion, throat pain, throat swelling, mouth pain , mouth swelling, other Cardiovascular: Denies: chest pain, edema, irregular heart rate, lightheadedness, palpitations, syncope, other Respiratory: Denies: cough, orthopnea, shortness of breath, SOB with excertion , SOB at rest, sputum, stridor, wheezing, other Gastrointestinal/Abdominal: Denies: abdomen distended, abdominal pain, black stools, tarry stools, blood in stool, constipated, diarrhea, difficulty swallowing, nausea, poor appetite, poor fluid intake, rectal bleeding, vomiting , other Genitourinary: Denies: burning, discharge, frequency, flank pain, hematuria, incontinence, pain, urgency, other Neurologic/Psychiatric: Denies: anxiety, depressed, emotional problems, headache, numbness, paresthesia, pre-existing deficit, seizure, tingling, tremors, weakness, other Endocrine: Denies: excessive sweating, flushing, intolerance to cold, intolerance to heat, increased hunger, increased thirst, increased urine, unexplained weight gain, unexplained weight loss, other Hematologic/Lymphatic: Denies: anemia, easy bleeding, easy bruising, other Allergies: Coded Allergies: No Known Allergies (Unverified , 03/28/19) Subjective No acute events overnight per nursing. The patient continues to have diarrhea however it is improved. Only 3 loose BM in past 24 hours. Had 5 prior to this. She continues to intermittently refuse her risperidone because of nightmares. Has some difficulty sleeping as well althought her Her energy level continues to improve. No issues with agitation. She denies any dizziness lightheadedness or generalized weakness. Agitation: improved. not on restraints. cooperative. easily redirected. Denies SI/HI. Objective Last 24 Hour Vital Signs Date Time Temp Pulse Resp B/P (MAP) Pulse Ox O2 Delivery O2 Flow Rate FiO2 04/22/19 12:00 98.1 60 18 115/66 (82) 96 04/22/19 09:00 Room Air 04/22/19 08:00 97.7 67 18 137/82 (100) 96 04/22/19 04:00 98.2 67 16 131/69 (89) 100 04/22/19 00:00 97.9 65 18 107/58 (74) 98 04/21/19 21:00 Room Air 04/21/19 20:00 97.5 60 18 106/59 (75) 99 04/21/19 16:00 97.0 60 18 25/60 (48) 100 Intake and Output 04/21/19 04/22/19 19:00 07:00 Intake Total 300 ml 360 ml Balance 300 ml 360 ml Intake Oral 300 ml 360 ml # Voids 3 2 # Bowel Movements 3 Laboratory Tests 04/22/19 05:25: White Blood Count 8.6, Red Blood Count 3.76L, Hemoglobin 12.5, Hematocrit 36.4L , Mean Corpuscular Volume 97, Mean Corpuscular Hemoglobin 33.2H, Mean Corpuscular Hemoglobin Concent 34.3, Red Cell Distribution Width 12.7, Platelet Count 432, Mean Platelet Volume 4.8L, Neutrophils (%) (Auto) 76.3H, Lymphocytes (%) (Auto) 11.8L, Monocytes (%) (Auto) 9.3, Eosinophils (%) (Auto) 1.7, Basophils (%) (Auto) 0.9, Sodium Level 130L, Potassium Level 4.1, Chloride Level 98, Carbon Dioxide Level 27, Anion Gap 5, Blood Urea Nitrogen 6L, Creatinine 0.7, Estimat Glomerular Filtration Rate > 60, Glucose Level 109H, Calcium Level 9.4, Phosphorus Level 3.2, Magnesium Level 2.0 Height (Feet): 5 Height (Inches): 3.00 Weight (Pounds): 106 General Appearance: WD/WN, no apparent distress, alert EENT: PERRL/EOMI, normal ENT inspection Neck: non-tender, normal alignment, supple Cardiovascular: normal peripheral pulses, normal rate, regular rhythm, no JVD Respiratory/Chest: chest wall non-tender, lungs clear, normal breath sounds Abdomen: normal bowel sounds, non tender, soft, no organomegaly, no mass Extremities: normal range of motion, non-tender, normal inspection 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 Apr 22, 2019 14:11
[2019-04-22 16:00] VITALS: BP 134/81
--- NOTE | 2019-04-22 19:44 | Infectious Diseases Prog Note ---
Assessment/Plan Assessment/Plan ASSESSMENT AND PLAN: 1. c.diff. colitis, e.coli uti/pyelonephritis, sepsis, leukocytosis, fevers - po vancomycin - day # 12, plan on at least 14 days treatment and possible longer depending on clinical response - s/p ceftriaxone for e.coli uti, f/u urine culture with yeast which is likely colonizer - diarrhea somewhat better, leukocytosis and fevers resolved - monitor labs and clinically - d/w Dr. Colon 2. The patient came in with fall. Question ataxia. 3. The patient has sepsis criteria including cirrhosis, fevers, and heart rate as high as 115. Thus has SIRS criteria. 4. The patient has history of schizophrenia. 5. History of head trauma. 6. Lethargy. 7. Physical deconditioning. 8. She also has history of pacemaker. 9. Continue treatment per primary consultants. 10. No known allergies. 11. Social history is negative. 12. Family history is noncontributory. 13. MAR is noted. 14. Case was discussed with RN. 15. Notes and records were noted. Orders were entered. Subjective Constitutional: Denies: fever HEENT: Denies: congestion Respiratory: Denies: shortness of breath Cardiovascular: Denies: chest pain Gastrointestinal/Abdominal: Reports: diarrhea - less per RN; Denies: nausea, vomiting Neurologic: Denies: headache Psychiatric: Denies: depression Skin: Denies: rash Hematologic: Denies: bleeding Musculoskeletal: Denies: pain Allergies: Coded Allergies: No Known Allergies (Unverified , 03/28/19) Objective Vital Signs Last 24 Hour Vital Signs Date Time Temp Pulse Resp B/P (MAP) Pulse Ox O2 Delivery O2 Flow Rate FiO2 04/22/19 16:00 98.2 65 18 134/81 (98) 94 04/22/19 12:00 98.1 60 18 115/66 (82) 96 04/22/19 09:00 Room Air 04/22/19 08:00 97.7 67 18 137/82 (100) 96 04/22/19 04:00 98.2 67 16 131/69 (89) 100 04/22/19 00:00 97.9 65 18 107/58 (74) 98 04/21/19 21:00 Room Air 04/21/19 20:00 97.5 60 18 106/59 (75) 99 Height (Feet): 5 Height (Inches): 3.00 Weight (Pounds): 106 General Appearance: no acute distress HEENT: normocephalic, atraumatic Respiratory/Chest: lungs clear, normal breath sounds, no respiratory distress, no accessory muscle use Cardiovascular: normal rate, regular rhythm, no gallop/murmur, no JVD Abdomen: normal bowel sounds, soft, non tender, no organomegaly, non distended Genitourinary: other - no palacios Extremities: no cyanosis Skin: no rash Neurologic/Psychiatric: contracts paralegal II-XII grossly normal, alert, oriented x 3, responsive Lymphatic: no neck adenopathy Musculoskeletal: no effusion Objective CT abdomen and pelvis: IMPRESSION: Moderately severe fecal retention in the colon and rectum with evidence of a proctocolitis. Chronic calcific pancreatitis Atherosclerotic vascular disease Degenerative changes of the spine. Mild scoliosis. Mild left posterior basal atelectasis. Limited evaluation due to the nonadministration of intravenous contrast Chest x-ray - nad Microbiology Date/Time Source Procedure Growth Status 04/09/19 20:27 Blood Blood Culture - Final NO GROWTH AFTER 5 DAYS Complete 03/29/19 05:20 Nasal Nares Left MRSA Culture - Final NO METHICILLIN RESISTANT STAPH AUREUS... Complete 04/09/19 02:00 Stool Clostridium difficile Toxin Assay - Final Complete 04/13/19 18:50 Urine,Clean Catch Urine Culture - Final Sunita Albicans Complete 03/29/19 05:20 Rectum - Final NO CARBAPENEM-RESISTANT ENTEROBACTERI... Complete Laboratory Tests Test 04/22/19 05:25 White Blood Count 8.6 K/UL (4.8-10.8) Red Blood Count 3.76 M/UL (4.20-5.40) L Hemoglobin 12.5 G/DL (12.0-16.0) Hematocrit 36.4 % (37.0-47.0) L Mean Corpuscular Volume 97 FL (80-99) Mean Corpuscular Hemoglobin 33.2 PG (27.0-31.0) H Mean Corpuscular Hemoglobin Concent 34.3 G/DL (32.0-36.0) Red Cell Distribution Width 12.7 % (11.6-14.8) Platelet Count 432 K/UL (150-450) Mean Platelet Volume 4.8 FL (6.5-10.1) L Neutrophils (%) (Auto) 76.3 % (45.0-75.0) H Lymphocytes (%) (Auto) 11.8 % (20.0-45.0) L Monocytes (%) (Auto) 9.3 % (1.0-10.0) Eosinophils (%) (Auto) 1.7 % (0.0-3.0) Basophils (%) (Auto) 0.9 % (0.0-2.0) Sodium Level 130 MMOL/L (136-145) L Potassium Level 4.1 MMOL/L (3.5-5.1) Chloride Level 98 MMOL/L (98-107) Carbon Dioxide Level 27 MMOL/L (21-32) Anion Gap 5 mmol/L (5-15) Blood Urea Nitrogen 6 mg/dL (7-18) L Creatinine 0.7 MG/DL (0.55-1.30) Estimat Glomerular Filtration Rate > 60 mL/min (>60) Glucose Level 109 MG/DL (74-106) H Calcium Level 9.4 MG/DL (8.5-10.1) Phosphorus Level 3.2 MG/DL (2.5-4.9) Magnesium Level 2.0 MG/DL (1.8-2.4) Current Medications Medications (Trade) Dose Ordered Sig/Lindsey Route PRN Reason Start Time Stop Time Status Last Admin Dose Admin Acetaminophen (Tylenol) 650 mg Q6H PRN ORAL Mild Pain/Temp > 100.5 03/29/19 01:45 04/28/19 01:44 04/19/19 15:21 Cholestyramine Resin (Questran) 4 gm BID ORAL 04/21/19 18:00 05/21/19 17:59 04/22/19 17:15 Diphenhydramine HCl (Benadryl) 25 mg HSPRN PRN ORAL Insomnia 04/07/19 15:16 05/07/19 15:15 04/15/19 21:19 Famotidine (Pepcid) 20 mg DAILY ORAL 04/10/19 09:00 05/10/19 08:59 04/22/19 09:15 Lactobacillus Acidophilus (Culturelle) 1 tab TWICE A DAY ORAL 04/16/19 09:00 05/16/19 08:59 04/22/19 17:15 Lorazepam (Ativan) 2 mg Q6H PRN ORAL For Anxiety 04/19/19 10:45 04/26/19 10:44 Ondansetron HCl (Zofran) 4 mg Q6H PRN IVP Nausea & Vomiting 03/29/19 01:45 04/28/19 01:44 Risperidone (RisperDAL) 4 mg BEDTIME ORAL 04/10/19 21:00 05/10/19 20:59 04/20/19 20:14 Vancomycin HCl (Firvanq) 125 mg FOUR TIMES A DAY ORAL 04/15/19 21:00 04/29/19 22:00 04/22/19 17:15 Angel Martinez MD Apr 22, 2019 19:44
--- NOTE | 2019-04-22 19:45 | Progress Note ---
DATE: 04/22/2019 SUBJECTIVE: The patient is in bed, restrained, mental condition unchanged since previous encounter, confused disoriented, poor insight. MENTAL STATUS EXAMINATION: The patient is alert and oriented x2. Mood is neutral. Affect is flat. Thought process, there is a paucity of thought content. Thought content, no suicidal or homicidal ideation. ASSESSMENT: 1. Cognitive impairment. 2. Schizophrenia. PLAN: 1. We will continue current medications. 2. Provide the patient with reality orientation and supportive therapy. Lima Fernández M.D. DR: Jocelyn JOB#: [id number] CC:
[2019-04-22 20:00] VITALS: BP 117/70
[2019-04-23] VITALS: BP 123/74
[2019-04-23 04:00] VITALS: BP 123/64
[2019-04-23 07:16] LABS: BASOPHILS % (AUTO) 0.9 % (0.0-2.0); EOSINOPHILS % (AUTO) 2.1 % (0.0-3.0); HEMATOCRIT 38.2 % (37.0-47.0); HEMOGLOBIN 13.1 G/DL (12.0-16.0); LYMPHOCYTES % (AUTO) 14.4 % (20.0-45.0); MEAN CORPUSCULAR VOLUME 96 FL (80-99); MONOCYTES % (AUTO) 9.1 % (1.0-10.0); NEUTROPHILS % (AUTO) 73.5 % (45.0-75.0); PLATELET COUNT 485 K/UL (150-450); RED BLOOD COUNT 3.96 M/UL (4.20-5.40); WHITE BLOOD COUNT 7.7 K/UL (4.8-10.8)
[2019-04-23 07:25] LABS: ANION GAP 5 mmol/L (5-15); BLOOD UREA NITROGEN 6 mg/dL (7-18); CALCIUM 9.9 MG/DL (8.5-10.1); CARBON DIOXIDE 26 MMOL/L (21-32); CHLORIDE 97 MMOL/L (98-107); CREATININE 0.7 MG/DL (0.55-1.30); PHOSPHORUS 3.1 MG/DL (2.5-4.9); POTASSIUM 4.4 MMOL/L (3.5-5.1); SODIUM 128 MMOL/L (136-145)
[2019-04-23 08:00] VITALS: BP 130/66
[2019-04-23] MEDS: Vancomycin oral 125mg/2.5ml ORAL SCH ×4 (08:40→21:18)
[2019-04-23] MEDS: Lactobacillus-GG tablet ORAL SCH ×2 (08:40→18:17)
[2019-04-23] MEDS: Cholestyramine 4gm Pkt ORAL SCH ×2 (08:40→18:18)
--- NOTE | 2019-04-23 11:09 | GI Progress Note ---
Assessment/Plan Problems: (1) Fecal retention ICD Codes: K59.00 - Constipation, unspecified SNOMED: 66964154 (2) C. difficile colitis ICD Codes: A04.72 - Enterocolitis due to Clostridium difficile, not specified as recurrent SNOMED: 583174216 (3) Diarrhea ICD Codes: R19.7 - Diarrhea, unspecified SNOMED: 96040226 (4) LGI bleed ICD Codes: K92.2 - Gastrointestinal hemorrhage, unspecified SNOMED: 03621744 (5) Schizophrenia ICD Codes: F20.9 - Schizophrenia, unspecified SNOMED: 62427710 Qualifiers: Qualified Codes: F20.9 - Schizophrenia, unspecified Status: unchanged Status Narrative Discussed with Dr. Anderson. Assessment/Plan 69 year old female patient with reported episode of lower GI bleed x1 yesterday most likely due to infectious colitis. At time of evaluation, no reported recurrent LGIB, H&H stable. cdiff positive AP CT reviewed noted with moderately severe fecal retention in the colon and rectum with evidence of a proctocolitis. patient still with continuous diarrhea No plans for colonoscopy at this time, recommend as outpatient. abx monitor H&H or recurrent LGIB, prn transfusions zofran prn dc any PPI, H2B follow labs probiotics do not give anti-diarrheal continue po vanco and IV flagyl The patient was seen and examined at bedside and all new and available data was reviewed in the patients chart. I agree with the above findings, impression and plan. (Patient seen earlier today. Signature stamp does not reflect patient encounter time.). - Michelet Anderson MD Subjective Subjective still has severe diarrhea Objective Last 24 Hour Vital Signs Date Time Temp Pulse Resp B/P (MAP) Pulse Ox O2 Delivery O2 Flow Rate FiO2 04/23/19 09:00 Room Air 04/23/19 08:00 97.0 83 19 130/66 (87) 98 04/23/19 04:00 97.6 66 16 123/64 (83) 98 04/23/19 00:00 98.0 70 16 123/74 (90) 98 04/22/19 21:00 Room Air 04/22/19 20:00 97.7 62 16 117/70 (86) 97 04/22/19 16:00 98.2 65 18 134/81 (98) 94 04/22/19 12:00 98.1 60 18 115/66 (82) 96 Intake and Output 04/22/19 04/23/19 19:00 07:00 Intake Total 600 ml Balance 600 ml Intake Oral 600 ml # Voids 4 1 # Bowel Movements 3 2 Laboratory Tests Test 04/23/19 06:15 04/23/19 09:30 White Blood Count 7.7 K/UL (4.8-10.8) Red Blood Count 3.96 M/UL (4.20-5.40) L Hemoglobin 13.1 G/DL (12.0-16.0) Hematocrit 38.2 % (37.0-47.0) Mean Corpuscular Volume 96 FL (80-99) Mean Corpuscular Hemoglobin 33.1 PG (27.0-31.0) H Mean Corpuscular Hemoglobin Concent 34.3 G/DL (32.0-36.0) Red Cell Distribution Width 13.0 % (11.6-14.8) Platelet Count 485 K/UL (150-450) H Mean Platelet Volume 4.8 FL (6.5-10.1) L Neutrophils (%) (Auto) 73.5 % (45.0-75.0) Lymphocytes (%) (Auto) 14.4 % (20.0-45.0) L Monocytes (%) (Auto) 9.1 % (1.0-10.0) Eosinophils (%) (Auto) 2.1 % (0.0-3.0) Basophils (%) (Auto) 0.9 % (0.0-2.0) Sodium Level 128 MMOL/L (136-145) L Potassium Level 4.4 MMOL/L (3.5-5.1) Chloride Level 97 MMOL/L (98-107) L Carbon Dioxide Level 26 MMOL/L (21-32) Anion Gap 5 mmol/L (5-15) Blood Urea Nitrogen 6 mg/dL (7-18) L Creatinine 0.7 MG/DL (0.55-1.30) Estimat Glomerular Filtration Rate > 60 mL/min (>60) Glucose Level 111 MG/DL (74-106) H Calcium Level 9.9 MG/DL (8.5-10.1) Phosphorus Level 3.1 MG/DL (2.5-4.9) Magnesium Level 2.1 MG/DL (1.8-2.4) Urine Osmolality 215 mOsm/kg (429-449) L Urine Random Sodium < 20 mmol/L (20-110) L Urine Creatinine 46.9 MG/DL (30.0-125.0) Height (Feet): 5 Height (Inches): 3.00 Weight (Pounds): 106 General Appearance: no apparent distress Cardiovascular: normal rate Respiratory/Chest: normal breath sounds, no respiratory distress Abdominal Exam: normal bowel sounds, non tender, soft Extremities: normal range of motion, non-tender Mckay Medina NP Apr 23, 2019 11:09
[2019-04-23 12:00] VITALS: BP 131/73
--- NOTE | 2019-04-23 15:31 | General Progress Note ---
Assessment/Plan Problem List: (1) Acute encephalopathy ICD Codes: G93.40 - Encephalopathy, unspecified SNOMED: 20869412, 857082815 (2) Ataxia ICD Codes: R27.0 - Ataxia, unspecified SNOMED: 69014715 (3) Pyuria ICD Codes: N39.0 - Urinary tract infection, site not specified SNOMED: 2286154, 842929997 (4) Lethargy ICD Codes: R53.83 - Other fatigue SNOMED: 328062983 (5) Head trauma ICD Codes: S09.90XA - Unspecified injury of head, initial encounter SNOMED: 18038868 Qualifiers: Qualified Codes: S09.90XA - Unspecified injury of head, initial encounter (6) Benzodiazepine abuse ICD Codes: F13.10 - Sedative, hypnotic or anxiolytic abuse, uncomplicated SNOMED: 969087544, 278967196 (7) Schizophrenia ICD Codes: F20.9 - Schizophrenia, unspecified SNOMED: 52771206 Qualifiers: Qualified Codes: F20.9 - Schizophrenia, unspecified (8) Physical deconditioning ICD Codes: R53.81 - Other malaise SNOMED: 71275562183285 Status: unchanged Assessment/Plan: 69 year old female with schizophrenia presenting after a fall at home and diarrhea. CT head negative for any acute pathology. Seen by PT and advised SNF. Her diarrhea resolved shortly after admission. She had no leukocytosis or TAYLOR. Imodium prn helped. Patient remained int hospital waiting for placement. on , she developed fever, leukocytosis, change in mental status, and bloody diarrhea. Stool sent for c diff and POSITIVE. Urine culture growing E.Coli. 1. Sepsis secondary to C. Diff colitis, and UTI - Resolved C diff colitis- Improving -Continue oral vancomycin, IV flagyl. Will need 14 days total of PO vancomycin ( until 04/29/19) - May extend to 21 days per ID if continues to have diarrhea - s/p IV ceftriaxone for UTI per ID -Repeat BCX negative -ID consult with Dr. Adler, recs appreciated -GI consult: Appreciate recs from Dr. Anderson and [employer] Carol. may add cholestyramine for continued diarrhea -CT abdomen pelvis: Moderately severe fecal retention in the colon and rectum with evidence of proctocolitis. -GI consult, recs appreciated- Continue PO Vanc and IV flagyl, outpatient colonoscopy - SNF not accepting until patient no longer has diarrhea. Patient continues to have diarrhea. - Will re-check C Diff toxin - continue cholestyramine 2. Hypokalemia. Repleted 3. Schizophrenia Flat affect. Agitated today -Continue home Clonazepam. Dose decreased by psychiatrist to 1 mg QHS -discontinued home Trazodone. -Risperidone 4mg QHS per psychiatry recommendations -psychiatry consult. Dr. Fernández, appreciated. -Ativan 2mg Q6h PRN 4. Physical deconditioning and cachexia. Monitor oral intake 5. Hyponatremia. Downtrending. Encourage PO intake. - appears patient Is euvolemic. Will confirm with checking orthostatic blood pressure. -Obtain urine OSM, urine sodium, urine creatinine, -Suspect polydipsia as etiology. Will limit free water intake to 1.5L 6. Hypokalemia- 2/2 diarrhea. replete PRN. Continue to monitor 7. Lower lip lesion- improving. continue ointment Dispo: pending placement at [facility] once diarrhea resolves I spent 27 minutes on this encounter with >50% spent on counselling and care coordination. Discussed with patient and RN Time of note may not reflect time patient was seen. Subjective Date patient seen: Apr 23, 2019 Constitutional: Denies: chills, diaphoresis, fever, malaise, weakness, other HEENT: Denies: eye pain, blurred vision, tearing, double vision, ear pain, ear discharge, nose pain, nose congestion, throat pain, throat swelling, mouth pain , mouth swelling, other Cardiovascular: Denies: chest pain, edema, irregular heart rate, lightheadedness, palpitations, syncope, other Respiratory: Denies: cough, orthopnea, shortness of breath, SOB with excertion , SOB at rest, sputum, stridor, wheezing, other Gastrointestinal/Abdominal: Reports: diarrhea; Denies: abdomen distended, abdominal pain, black stools, tarry stools, blood in stool, constipated, difficulty swallowing, nausea, poor appetite, poor fluid intake, rectal bleeding , vomiting, other Genitourinary: Denies: burning, discharge, frequency, flank pain, hematuria, incontinence, pain, urgency, other Neurologic/Psychiatric: Denies: anxiety, depressed, emotional problems, headache, numbness, paresthesia, pre-existing deficit, seizure, tingling, tremors, weakness, other Endocrine: Denies: excessive sweating, flushing, intolerance to cold, intolerance to heat, increased hunger, increased thirst, increased urine, unexplained weight gain, unexplained weight loss, other Hematologic/Lymphatic: Denies: anemia, easy bleeding, easy bruising, other Allergies: Coded Allergies: No Known Allergies (Unverified , 03/28/19) Subjective No acute events overnight per nursing. Diarrhea: continues to have diarrhea but it has decreased The patient states that is becoming more formed. Hyponatremia: The patient endorses drinking a lot of free water lately despite not being thirsty. She denies any dizziness lightheadedness or signs of orthostatic hypotension. Her diet has been fair. She has been limiting her solute intake because of the diarrhea. Objective Last 24 Hour Vital Signs Date Time Temp Pulse Resp B/P (MAP) Pulse Ox O2 Delivery O2 Flow Rate FiO2 04/23/19 12:00 97.3 78 18 131/73 (92) 96 04/23/19 09:00 Room Air 04/23/19 08:00 97.0 83 19 130/66 (87) 98 04/23/19 04:00 97.6 66 16 123/64 (83) 98 04/23/19 00:00 98.0 70 16 123/74 (90) 98 04/22/19 21:00 Room Air 04/22/19 20:00 97.7 62 16 117/70 (86) 97 04/22/19 16:00 98.2 65 18 134/81 (98) 94 Intake and Output 04/22/19 04/23/19 19:00 07:00 Intake Total 600 ml Balance 600 ml Intake Oral 600 ml # Voids 4 1 # Bowel Movements 3 2 Laboratory Tests 04/23/19 06:15: White Blood Count 7.7, Red Blood Count 3.96L, Hemoglobin 13.1, Hematocrit 38.2, Mean Corpuscular Volume 96, Mean Corpuscular Hemoglobin 33.1H, Mean Corpuscular Hemoglobin Concent 34.3, Red Cell Distribution Width 13.0, Platelet Count 485H, Mean Platelet Volume 4.8L, Neutrophils (%) (Auto) 73.5, Lymphocytes (%) (Auto) 14.4L, Monocytes (%) (Auto) 9.1, Eosinophils (%) (Auto) 2.1, Basophils (%) (Auto ) 0.9, Sodium Level 128L, Potassium Level 4.4, Chloride Level 97L, Carbon Dioxide Level 26, Anion Gap 5, Blood Urea Nitrogen 6L, Creatinine 0.7, Estimat Glomerular Filtration Rate > 60, Glucose Level 111H, Calcium Level 9.9, Phosphorus Level 3.1, Magnesium Level 2.1 04/23/19 09:30: Urine Osmolality 215L, Urine Random Sodium < 20L, Urine Creatinine 46.9 Height (Feet): 5 Height (Inches): 3.00 Weight (Pounds): 106 General Appearance: WD/WN, no apparent distress, alert EENT: PERRL/EOMI, normal ENT inspection Neck: non-tender, normal alignment, supple Cardiovascular: normal peripheral pulses, normal rate, regular rhythm, no JVD Respiratory/Chest: chest wall non-tender, lungs clear, normal breath sounds, no respiratory distress Abdomen: normal bowel sounds, non tender, soft 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 Apr 23, 2019 15:31
[2019-04-23 16:00] VITALS: BP 124/69
[2019-04-23 20:00] VITALS: BP 116/60
[2019-04-23 21:23] LABS: ANION GAP 4 mmol/L (5-15); BLOOD UREA NITROGEN 9 mg/dL (7-18); CALCIUM 9.7 MG/DL (8.5-10.1); CARBON DIOXIDE 29 MMOL/L (21-32); CHLORIDE 101 MMOL/L (98-107); CREATININE 0.7 MG/DL (0.55-1.30); POTASSIUM 4.4 MMOL/L (3.5-5.1); SODIUM 134 MMOL/L (136-145)
[2019-04-24] VITALS: BP 114/62
[2019-04-24 04:33] VITALS: BP 124/70
[2019-04-24 07:23] LABS: BASOPHILS % (AUTO) 1.3 % (0.0-2.0); EOSINOPHILS % (AUTO) 1.8 % (0.0-3.0); HEMATOCRIT 35.4 % (37.0-47.0); HEMOGLOBIN 12.1 G/DL (12.0-16.0); LYMPHOCYTES % (AUTO) 15.5 % (20.0-45.0); MEAN CORPUSCULAR VOLUME 97 FL (80-99); MONOCYTES % (AUTO) 11.1 % (1.0-10.0); NEUTROPHILS % (AUTO) 70.3 % (45.0-75.0); PLATELET COUNT 409 K/UL (150-450); RED BLOOD COUNT 3.65 M/UL (4.20-5.40); RED CELL DISTRIBUTION WIDTH 13.3 % (11.6-14.8)
[2019-04-24 07:38] LABS: ANION GAP 5 mmol/L (5-15); BLOOD UREA NITROGEN 8 mg/dL (7-18); CALCIUM 9.5 MG/DL (8.5-10.1); CARBON DIOXIDE 27 MMOL/L (21-32); CHLORIDE 102 MMOL/L (98-107); CREATININE 0.8 MG/DL (0.55-1.30); PHOSPHORUS 3.1 MG/DL (2.5-4.9); POTASSIUM 4.4 MMOL/L (3.5-5.1); SODIUM 134 MMOL/L (136-145)
[2019-04-24 08:00] VITALS: BP 130/72
[2019-04-24] MEDS: Vancomycin oral 125mg/2.5ml ORAL SCH ×4 (10:24→21:11)
[2019-04-24] MEDS: Lactobacillus-GG tablet ORAL SCH ×2 (10:24→18:41)
[2019-04-24] MEDS: Cholestyramine 4gm Pkt ORAL SCH ×2 (10:31→18:41)
[2019-04-24 12:00] VITALS: BP 142/72
--- NOTE | 2019-04-24 12:41 | GI Progress Note ---
Assessment/Plan Problems: (1) C. difficile colitis ICD Codes: A04.72 - Enterocolitis due to Clostridium difficile, not specified as recurrent SNOMED: 602797100 (2) Diarrhea ICD Codes: R19.7 - Diarrhea, unspecified SNOMED: 77914562 (3) LGI bleed ICD Codes: K92.2 - Gastrointestinal hemorrhage, unspecified SNOMED: 62571359 (4) Schizophrenia ICD Codes: F20.9 - Schizophrenia, unspecified SNOMED: 92341979 Qualifiers: Qualified Codes: F20.9 - Schizophrenia, unspecified Status: not improved, unchanged Status Narrative Discussed with Dr. Anderson. Assessment/Plan 69 year old female patient with reported episode of lower GI bleed x1 yesterday most likely due to infectious colitis. At time of evaluation, no reported recurrent LGIB, H&H stable. cdiff positive AP CT reviewed noted with moderately severe fecal retention in the colon and rectum with evidence of a proctocolitis. patient still with continuous diarrhea No plans for colonoscopy at this time, recommend as outpatient. abx monitor H&H or recurrent LGIB, prn transfusions zofran prn dc any PPI, H2B follow labs probiotics do not give anti-diarrheal continue po vanco and IV flagyl IV hydration + electrolyte correction The patient was seen and examined at bedside and all new and available data was reviewed in the patients chart. I agree with the above findings, impression and plan. (Patient seen earlier today. Signature stamp does not reflect patient encounter time.). - Michelet Anderson MD Subjective Subjective patient still c/o of diarrhea has c/o of vaginal pain Objective Last 24 Hour Vital Signs Date Time Temp Pulse Resp B/P (MAP) Pulse Ox O2 Delivery O2 Flow Rate FiO2 04/24/19 04:33 97.8 76 20 124/70 (88) 98 04/24/19 00:00 97.4 62 19 114/62 (79) 97 04/23/19 21:00 Room Air 04/23/19 20:00 98.7 61 116/60 (78) 04/23/19 16:00 62 67 85 04/23/19 16:00 97.3 62 18 124/69 (87) 96 Intake and Output 04/23/19 04/24/19 18:59 06:59 Intake Total 900 ml Balance 900 ml Intake Oral 900 ml # Voids 10 # Bowel Movements 11 1 Laboratory Tests Test 04/23/19 20:45 04/24/19 06:30 Sodium Level 134 MMOL/L (136-145) L 134 MMOL/L (136-145) L Potassium Level 4.4 MMOL/L (3.5-5.1) 4.4 MMOL/L (3.5-5.1) Chloride Level 101 MMOL/L (98-107) 102 MMOL/L (98-107) Carbon Dioxide Level 29 MMOL/L (21-32) 27 MMOL/L (21-32) Anion Gap 4 mmol/L (5-15) L 5 mmol/L (5-15) Blood Urea Nitrogen 9 mg/dL (7-18) 8 mg/dL (7-18) Creatinine 0.7 MG/DL (0.55-1.30) 0.8 MG/DL (0.55-1.30) Estimat Glomerular Filtration Rate > 60 mL/min (>60) > 60 mL/min (>60) Glucose Level 135 MG/DL (74-106) H 97 MG/DL (74-106) Calcium Level 9.7 MG/DL (8.5-10.1) 9.5 MG/DL (8.5-10.1) White Blood Count 7.0 K/UL (4.8-10.8) Red Blood Count 3.65 M/UL (4.20-5.40) L Hemoglobin 12.1 G/DL (12.0-16.0) Hematocrit 35.4 % (37.0-47.0) L Mean Corpuscular Volume 97 FL (80-99) Mean Corpuscular Hemoglobin 33.1 PG (27.0-31.0) H Mean Corpuscular Hemoglobin Concent 34.1 G/DL (32.0-36.0) Red Cell Distribution Width 13.3 % (11.6-14.8) Platelet Count 409 K/UL (150-450) Mean Platelet Volume 4.9 FL (6.5-10.1) L Neutrophils (%) (Auto) 70.3 % (45.0-75.0) Lymphocytes (%) (Auto) 15.5 % (20.0-45.0) L Monocytes (%) (Auto) 11.1 % (1.0-10.0) H Eosinophils (%) (Auto) 1.8 % (0.0-3.0) Basophils (%) (Auto) 1.3 % (0.0-2.0) Phosphorus Level 3.1 MG/DL (2.5-4.9) Magnesium Level 2.1 MG/DL (1.8-2.4) Height (Feet): 5 Height (Inches): 3.00 Weight (Pounds): 106 General Appearance: WD/WN, no apparent distress, alert Cardiovascular: normal rate Respiratory/Chest: normal breath sounds, no respiratory distress Abdominal Exam: normal bowel sounds, non tender, soft Extremities: normal range of motion, non-tender Mckay Medina NP Apr 24, 2019 12:41
--- NOTE | 2019-04-24 14:16 | General Progress Note ---
Assessment/Plan Problem List: (1) Acute encephalopathy ICD Codes: G93.40 - Encephalopathy, unspecified SNOMED: 91262313, 896141082 (2) Ataxia ICD Codes: R27.0 - Ataxia, unspecified SNOMED: 76614256 (3) Pyuria ICD Codes: N39.0 - Urinary tract infection, site not specified SNOMED: 8461361, 915833764 (4) Lethargy ICD Codes: R53.83 - Other fatigue SNOMED: 968449696 (5) Head trauma ICD Codes: S09.90XA - Unspecified injury of head, initial encounter SNOMED: 59529373 Qualifiers: Qualified Codes: S09.90XA - Unspecified injury of head, initial encounter (6) Benzodiazepine abuse ICD Codes: F13.10 - Sedative, hypnotic or anxiolytic abuse, uncomplicated SNOMED: 634646741, 722679597 (7) Schizophrenia ICD Codes: F20.9 - Schizophrenia, unspecified SNOMED: 68045467 Qualifiers: Qualified Codes: F20.9 - Schizophrenia, unspecified (8) Physical deconditioning ICD Codes: R53.81 - Other malaise SNOMED: 27467931139108 (9) Hyponatremia ICD Codes: E87.1 - Hypo-osmolality and hyponatremia SNOMED: 91836605 (10) Hypovolemia due to dehydration ICD Codes: E86.0 - Dehydration SNOMED: 14470912 (11) Tinea cruris ICD Codes: B35.6 - Tinea cruris SNOMED: 361367573 Status: not improved, unchanged Assessment/Plan: 69 year old female with schizophrenia presenting after a fall at home and diarrhea. CT head negative for any acute pathology. Seen by PT and advised SNF. Her diarrhea resolved shortly after admission. She had no leukocytosis or TAYLOR. Imodium prn helped. Patient remained int hospital waiting for placement. on , she developed fever, leukocytosis, change in mental status, and bloody diarrhea. Stool sent for c diff and POSITIVE. Urine culture growing E.Coli. 1. Sepsis secondary to C. Diff colitis, and UTI - Resolved #C diff colitis- Improving -Continue oral vancomycin, IV flagyl. Will need 14 days total of PO vancomycin ( until 04/29/19) - May extend to 21 days per ID if continues to have diarrhea - s/p IV ceftriaxone for UTI per ID -Repeat BCX negative -ID consult with Dr. Adler, recs appreciated -GI consult: Appreciate recs from Dr. Anderson and [employer] Carol. may add cholestyramine for continued diarrhea -CT abdomen pelvis: Moderately severe fecal retention in the colon and rectum with evidence of proctocolitis. -GI consult, recs appreciated- Continue PO Vanc and IV flagyl, outpatient colonoscopy - SNF not accepting until patient no longer has diarrhea. Patient continues to have diarrhea. - Will re-check C Diff toxin - pending - continue cholestyramine 2. Hypokalemia. Repleted 3. Schizophrenia Flat affect -Continue home Clonazepam. Dose decreased by psychiatrist to 1 mg QHS -discontinued home Trazodone. -Risperidone 4mg QHS per psychiatry recommendations -psychiatry consult. Dr. Fernández, appreciated. -Ativan 2mg Q6h PRN 4. Physical deconditioning and cachexia. Monitor oral intake 5. Hypovolemic hyponatremia. -Improving with IV fluids > Urine osmolality 215, urine sodium less than 20, urine creatinine 46.9. FENA calculated at 0.2% -Continue to encourage p.o. intake and fluids -Continue to monitor sodium daily 6. Hypokalemia- 2/2 diarrhea. replete PRN. Continue to monitor 7. Lower lip lesion- improving. continue ointment 8. Tinea cruris - Start clotrimazole BID x 2 weeks Dispo: pending placement at [facility] once diarrhea resolves I spent 37 minutes on this encounter with >50% spent on counselling and care coordination. Discussed with patient and RN Time of note may not reflect time patient was seen. Subjective Date patient seen: Apr 24, 2019 Constitutional: Denies: chills, diaphoresis, fever, malaise, weakness, other HEENT: Denies: eye pain, blurred vision, tearing, double vision, ear pain, ear discharge, nose pain, nose congestion, throat pain, throat swelling, mouth swelling, other Cardiovascular: Denies: chest pain, edema, irregular heart rate, lightheadedness, palpitations, syncope, other Respiratory: Denies: cough, orthopnea, shortness of breath, SOB with excertion , SOB at rest, sputum, stridor, wheezing, other Gastrointestinal/Abdominal: Reports: diarrhea; Denies: abdomen distended, abdominal pain, black stools, tarry stools, blood in stool, constipated, difficulty swallowing, nausea, poor appetite, poor fluid intake, rectal bleeding , vomiting, other Genitourinary: Reports: other - pruritic rash in groin area; Denies: burning, discharge, frequency, flank pain, hematuria, incontinence, pain, urgency Neurologic/Psychiatric: Denies: anxiety, depressed, emotional problems, headache, numbness, paresthesia, pre-existing deficit, seizure, tingling, tremors, weakness, other Endocrine: Denies: excessive sweating, flushing, intolerance to cold, intolerance to heat, increased hunger, increased thirst, increased urine, unexplained weight gain, unexplained weight loss, other Hematologic/Lymphatic: Denies: anemia, easy bleeding, easy bruising, other Allergies: Coded Allergies: No Known Allergies (Unverified , 03/28/19) Subjective No acute events overnight per nursing. Diarrhea: Continues to have diarrhea. It is a bristol stage type 6. Denies any abdominal pain nausea or vomiting Groin rash: has had for the past few days It is itchy nonbleeding. No rashes anywhere else. It is constant 5 out of 10 in intensity Objective Last 24 Hour Vital Signs Date Time Temp Pulse Resp B/P (MAP) Pulse Ox O2 Delivery O2 Flow Rate FiO2 04/24/19 04:33 97.8 76 20 124/70 (88) 98 04/24/19 00:00 97.4 62 19 114/62 (79) 97 04/23/19 21:00 Room Air 04/23/19 20:00 98.7 61 116/60 (78) 04/23/19 16:00 62 67 85 04/23/19 16:00 97.3 62 18 124/69 (87) 96 Intake and Output 04/23/19 04/24/19 19:00 07:00 Intake Total 900 ml Balance 900 ml Intake Oral 900 ml # Voids 10 # Bowel Movements 11 1 Laboratory Tests 04/23/19 20:45: Sodium Level 134L, Potassium Level 4.4, Chloride Level 101, Carbon Dioxide Level 29, Anion Gap 4L, Blood Urea Nitrogen 9, Creatinine 0.7, Estimat Glomerular Filtration Rate > 60, Glucose Level 135H, Calcium Level 9.7 04/24/19 06:30: Sodium Level 134L, Potassium Level 4.4, Chloride Level 102, Carbon Dioxide Level 27, Anion Gap 5, Blood Urea Nitrogen 8, Creatinine 0.8, Estimat Glomerular Filtration Rate > 60, Glucose Level 97, Calcium Level 9.5, White Blood Count 7.0, Red Blood Count 3.65L, Hemoglobin 12.1, Hematocrit 35.4L, Mean Corpuscular Volume 97, Mean Corpuscular Hemoglobin 33.1H, Mean Corpuscular Hemoglobin Concent 34.1, Red Cell Distribution Width 13.3, Platelet Count 409, Mean Platelet Volume 4.9L, Neutrophils (%) (Auto) 70.3, Lymphocytes (%) (Auto) 15.5L, Monocytes (%) (Auto) 11.1H, Eosinophils (%) (Auto) 1.8, Basophils (%) ( Auto) 1.3, Phosphorus Level 3.1, Magnesium Level 2.1 Height (Feet): 5 Height (Inches): 3.00 Weight (Pounds): 106 General Appearance: WD/WN, no apparent distress, alert EENT: PERRL/EOMI, normal ENT inspection Neck: non-tender, normal alignment, supple Cardiovascular: normal peripheral pulses, normal rate, regular rhythm, no JVD Respiratory/Chest: chest wall non-tender, lungs clear, normal breath sounds, no respiratory distress Abdomen: normal bowel sounds, non tender, soft Genitourinary/Rectal: other - Examined at bedside with nurse present. 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 Apr 24, 2019 14:16
--- NOTE | 2019-04-24 15:49 | Infectious Diseases Prog Note ---
Assessment/Plan Assessment/Plan ASSESSMENT AND PLAN: 1. c.diff. colitis, e.coli uti/pyelonephritis, sepsis, leukocytosis, fevers - po vancomycin - day # 14, f/u c.diff. ordered - s/p ceftriaxone for e.coli uti, f/u urine culture with yeast which is likely colonizer - stool more formed per d/w RN - monitor labs and clinically - leukocytosis and fevers resolved 2. The patient came in with fall. Question ataxia. 3. The patient has sepsis criteria including cirrhosis, fevers, and heart rate as high as 115. Thus has SIRS criteria. 4. The patient has history of schizophrenia. 5. History of head trauma. 6. Lethargy. 7. Physical deconditioning. 8. She also has history of pacemaker. 9. Continue treatment per primary consultants. 10. No known allergies. 11. Social history is negative. 12. Family history is noncontributory. 13. MAR is noted. 14. Case was discussed with RN. 15. Notes and records were noted. Orders were entered. Subjective Constitutional: Reports: fatigue; Denies: fever HEENT: Denies: congestion Respiratory: Denies: shortness of breath Cardiovascular: Denies: chest pain Gastrointestinal/Abdominal: Denies: nausea, vomiting, diarrhea Genitourinary: Reports: other - no palacios Neurologic: Denies: headache Psychiatric: Denies: depression Skin: Denies: rash Hematologic: Denies: bleeding Musculoskeletal: Denies: pain Allergies: Coded Allergies: No Known Allergies (Unverified , 03/28/19) Objective Vital Signs Last 24 Hour Vital Signs Date Time Temp Pulse Resp B/P (MAP) Pulse Ox O2 Delivery O2 Flow Rate FiO2 04/24/19 04:33 97.8 76 20 124/70 (88) 98 04/24/19 00:00 97.4 62 19 114/62 (79) 97 04/23/19 21:00 Room Air 04/23/19 20:00 98.7 61 116/60 (78) 04/23/19 16:00 62 67 85 04/23/19 16:00 97.3 62 18 124/69 (87) 96 Height (Feet): 5 Height (Inches): 3.00 Weight (Pounds): 106 General Appearance: no acute distress HEENT: normocephalic, atraumatic, anicteric, mucous membranes moist Respiratory/Chest: lungs clear, normal breath sounds Cardiovascular: normal rate, regular rhythm, no gallop/murmur, no JVD Abdomen: normal bowel sounds, soft, non tender, no organomegaly, non distended Genitourinary: other Extremities: no cyanosis Skin: no rash 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 Chronic calcific pancreatitis Atherosclerotic vascular disease Degenerative changes of the spine. Mild scoliosis. Mild left posterior basal atelectasis. Limited evaluation due to the nonadministration of intravenous contrast Chest x-ray - nad Laboratory Tests Test 04/23/19 20:45 04/24/19 06:30 Sodium Level 134 MMOL/L (136-145) L 134 MMOL/L (136-145) L Potassium Level 4.4 MMOL/L (3.5-5.1) 4.4 MMOL/L (3.5-5.1) Chloride Level 101 MMOL/L (98-107) 102 MMOL/L (98-107) Carbon Dioxide Level 29 MMOL/L (21-32) 27 MMOL/L (21-32) Anion Gap 4 mmol/L (5-15) L 5 mmol/L (5-15) Blood Urea Nitrogen 9 mg/dL (7-18) 8 mg/dL (7-18) Creatinine 0.7 MG/DL (0.55-1.30) 0.8 MG/DL (0.55-1.30) Estimat Glomerular Filtration Rate > 60 mL/min (>60) > 60 mL/min (>60) Glucose Level 135 MG/DL (74-106) H 97 MG/DL (74-106) Calcium Level 9.7 MG/DL (8.5-10.1) 9.5 MG/DL (8.5-10.1) White Blood Count 7.0 K/UL (4.8-10.8) Red Blood Count 3.65 M/UL (4.20-5.40) L Hemoglobin 12.1 G/DL (12.0-16.0) Hematocrit 35.4 % (37.0-47.0) L Mean Corpuscular Volume 97 FL (80-99) Mean Corpuscular Hemoglobin 33.1 PG (27.0-31.0) H Mean Corpuscular Hemoglobin Concent 34.1 G/DL (32.0-36.0) Red Cell Distribution Width 13.3 % (11.6-14.8) Platelet Count 409 K/UL (150-450) Mean Platelet Volume 4.9 FL (6.5-10.1) L Neutrophils (%) (Auto) 70.3 % (45.0-75.0) Lymphocytes (%) (Auto) 15.5 % (20.0-45.0) L Monocytes (%) (Auto) 11.1 % (1.0-10.0) H Eosinophils (%) (Auto) 1.8 % (0.0-3.0) Basophils (%) (Auto) 1.3 % (0.0-2.0) Phosphorus Level 3.1 MG/DL (2.5-4.9) Magnesium Level 2.1 MG/DL (1.8-2.4) Current Medications Medications (Trade) Dose Ordered Sig/Lindsey Route PRN Reason Start Time Stop Time Status Last Admin Dose Admin Acetaminophen (Tylenol) 650 mg Q6H PRN ORAL Mild Pain/Temp > 100.5 03/29/19 01:45 04/28/19 01:44 04/23/19 22:46 Cholestyramine Resin (Questran) 4 gm BID ORAL 04/21/19 18:00 05/21/19 17:59 04/24/19 10:31 Clotrimazole (Lotrimin) 1 applic BID TOPIC 04/24/19 14:00 05/08/19 13:59 04/24/19 15:28 Diphenhydramine HCl (Benadryl) 25 mg HSPRN PRN ORAL Insomnia 04/07/19 15:16 05/07/19 15:15 04/15/19 21:19 Famotidine (Pepcid) 20 mg DAILY ORAL 04/10/19 09:00 05/10/19 08:59 04/24/19 10:25 Lactobacillus Acidophilus (Culturelle) 1 tab TWICE A DAY ORAL 04/16/19 09:00 05/16/19 08:59 04/24/19 10:24 Lorazepam (Ativan) 2 mg Q6H PRN ORAL For Anxiety 04/19/19 10:45 04/26/19 10:44 Ondansetron HCl (Zofran) 4 mg Q6H PRN IVP Nausea & Vomiting 03/29/19 01:45 04/28/19 01:44 Risperidone (RisperDAL) 4 mg BEDTIME ORAL 04/10/19 21:00 05/10/19 20:59 04/20/19 20:14 Vancomycin HCl (Firvanq) 125 mg FOUR TIMES A DAY ORAL 04/15/19 21:00 04/29/19 22:00 04/24/19 14:20 Angel Martinez MD Apr 24, 2019 15:49
[2019-04-24 16:00] VITALS: BP 136/72
[2019-04-24 20:00] VITALS: BP 137/71
[2019-04-24 23:48] LABS: APPEARANCE,URINE CLEAR; BILIRUBIN, URINE NEGATIVE (NEGATIVE); COLOR,URINE PALE YELLOW; GLUCOSE, URINE (UA) NEGATIVE (NEGATIVE); KETONES,URINE NEGATIVE (NEGATIVE); LEUKOCYTE ESTERASE ,URINE 1+ (NEGATIVE); NITRITE,URINE NEGATIVE (NEGATIVE); PH,URINE 7 (4.5-8.0); PROTEIN,URINE NEGATIVE (NEGATIVE); UROBILINOGEN,URINE NORMAL MG/DL (0.0-1.0)
[2019-04-25] VITALS: BP 146/79
[2019-04-25 04:00] VITALS: BP 123/53
--- NOTE | 2019-04-25 06:20 | General Progress Note ---
Assessment/Plan Status: not improved, unchanged Assessment/Plan: Assessment/Plan 69 year old female patient with reported episode of lower GI bleed x1 yesterday most likely due to infectious colitis. At time of evaluation, no reported recurrent LGIB, H&H stable. cdiff positive AP CT reviewed noted with moderately severe fecal retention in the colon and rectum with evidence of a proctocolitis. No plans for colonoscopy at this time, can be done as outpatient. abx monitor H&H or recurrent LGIB, prn transfusions zofran prn H2B follow labs add prn imodium given neg C.diff now Subjective ROS Limited/Unobtainable: Yes Allergies: Coded Allergies: No Known Allergies (Unverified , 03/28/19) Objective Last 24 Hour Vital Signs Date Time Temp Pulse Resp B/P (MAP) Pulse Ox O2 Delivery O2 Flow Rate FiO2 04/25/19 04:00 98.0 60 19 123/53 (76) 95 04/25/19 00:00 98.1 78 19 146/79 (101) 96 04/24/19 21:00 Room Air 04/24/19 20:00 98.2 60 19 137/71 (93) 97 04/24/19 16:00 97.7 61 18 136/72 (93) 96 04/24/19 12:00 98.1 62 18 142/72 (95) 97 04/24/19 10:00 61 60 65 04/24/19 09:00 Room Air 04/24/19 08:00 97.9 69 18 130/72 (91) 98 Intake and Output 04/24/19 04/25/19 19:00 07:00 Intake Total 600 ml Balance 600 ml Intake Oral 600 ml # Voids 3 # Bowel Movements 1 Laboratory Tests 04/24/19 06:30: White Blood Count 7.0, Red Blood Count 3.65L, Hemoglobin 12.1, Hematocrit 35.4L , Mean Corpuscular Volume 97, Mean Corpuscular Hemoglobin 33.1H, Mean Corpuscular Hemoglobin Concent 34.1, Red Cell Distribution Width 13.3, Platelet Count 409, Mean Platelet Volume 4.9L, Neutrophils (%) (Auto) 70.3, Lymphocytes ( %) (Auto) 15.5L, Monocytes (%) (Auto) 11.1H, Eosinophils (%) (Auto) 1.8, Basophils (%) (Auto) 1.3, Sodium Level 134L, Potassium Level 4.4, Chloride Level 102, Carbon Dioxide Level 27, Anion Gap 5, Blood Urea Nitrogen 8, Creatinine 0.8, Estimat Glomerular Filtration Rate > 60, Glucose Level 97, Calcium Level 9.5, Phosphorus Level 3.1, Magnesium Level 2.1 04/24/19 22:52: Urine Color Pale yellow, Urine Appearance Clear, Urine pH 7, Urine Specific [place] 1.005, Urine Protein Negative, Urine Glucose (UA) Negative, Urine Ketones Negative, Urine Blood Negative, Urine Nitrite Negative, Urine Bilirubin Negative, Urine Urobilinogen Normal, Urine Leukocyte Esterase 1+H, Urine RBC 0-2 , Urine WBC 0-2, Urine Squamous Epithelial Cells Occasional, Urine Bacteria Occasional Height (Feet): 5 Height (Inches): 3.00 Weight (Pounds): 106 General Appearance: alert EENT: normal ENT inspection Neck: supple Cardiovascular: normal rate Respiratory/Chest: lungs clear Abdomen: normal bowel sounds, non tender, soft Extremities: non-tender Michelet Anderson MD Apr 25, 2019 06:20
[2019-04-25] MEDS ORDERED: Loperamide 2mg cap ORAL PRN (06:30)
[2019-04-25 07:50] LABS: BASOPHILS % (AUTO) 1.3 % (0.0-2.0); EOSINOPHILS % (AUTO) 2.3 % (0.0-3.0); HEMATOCRIT 35.2 % (37.0-47.0); LYMPHOCYTES % (AUTO) 14.4 % (20.0-45.0); MEAN CORPUSCULAR VOLUME 96 FL (80-99); MONOCYTES % (AUTO) 11.6 % (1.0-10.0); NEUTROPHILS % (AUTO) 70.5 % (45.0-75.0); PLATELET COUNT 409 K/UL (150-450); RED BLOOD COUNT 3.67 M/UL (4.20-5.40); RED CELL DISTRIBUTION WIDTH 12.9 % (11.6-14.8); WHITE BLOOD COUNT 6.4 K/UL (4.8-10.8)
[2019-04-25 08:00] VITALS: BP 104/66
[2019-04-25 08:49] LABS: ANION GAP 7 mmol/L (5-15); BLOOD UREA NITROGEN 8 mg/dL (7-18); CALCIUM 9.2 MG/DL (8.5-10.1); CARBON DIOXIDE 25 MMOL/L (21-32); CHLORIDE 101 MMOL/L (98-107); CREATININE 0.7 MG/DL (0.55-1.30); POTASSIUM 4.3 MMOL/L (3.5-5.1); SODIUM 133 MMOL/L (136-145)
[2019-04-25] MEDS: Cholestyramine 4gm Pkt ORAL SCH ×2 (08:56→18:08)
[2019-04-25] MEDS: Vancomycin oral 125mg/2.5ml ORAL SCH ×4 (08:56→21:09)
[2019-04-25] MEDS: Lactobacillus-GG tablet ORAL SCH ×2 (08:56→18:08)
[2019-04-25 12:00] VITALS: BP 111/66
--- NOTE | 2019-04-25 12:07 | General Progress Note ---
Assessment/Plan Status: unchanged Assessment/Plan: 69 year old female with schizophrenia presenting after a fall at home and diarrhea. CT head negative for any acute pathology. Seen by PT and advised SNF. Her diarrhea resolved shortly after admission. She had no leukocytosis or TAYLOR. Imodium prn helped. Patient remained int hospital waiting for placement. on , she developed fever, leukocytosis, change in mental status, and bloody diarrhea. Stool sent for c diff and POSITIVE. Urine culture growing E.Coli. 1. Sepsis secondary to C. Diff colitis, and UTI - Resolved #C diff colitis- Improving - Continue oral vancomycin, s/p IV flagyl. Will need 14 days total of PO vancomycin (until 04/29/19) - May extend to 21 days per ID if continues to have diarrhea - s/p IV ceftriaxone for UTI per ID - Repeat BCX negative -ID consult with Dr. Adler, recs appreciated -GI consult: Appreciate recs from Dr. Anderson and BRIDGE ENGINEER Carol. may add cholestyramine for continued diarrhea -CT abdomen pelvis: Moderately severe fecal retention in the colon and rectum with evidence of proctocolitis. - SNF not accepting until patient no longer has diarrhea. Patient continues to have diarrhea. - continue cholestyramine - Repeat Cdiff negative - Started on imodium PRN by GI given negative repeat Cdiff - Can stop trending CBC, leukocytosis since resolved and hgb has been stable 2. Hypokalemia -resolved. Repleted. Monitor BMP 3. Schizophrenia Flat affect -Continue home Clonazepam. Dose decreased by psychiatrist to 1 mg QHS -discontinued home Trazodone. -Risperidone 4mg QHS per psychiatry recommendations -psychiatry consult. Dr. Fernández, appreciated. -Ativan 2mg Q6h PRN 4. Physical deconditioning and cachexia. Monitor oral intake 5. Hypovolemic hyponatremia. -Improving with IV fluids > Urine osmolality 215, urine sodium less than 20, urine creatinine 46.9. FENA calculated at 0.2% -Continue to encourage p.o. intake and fluids -Continue to monitor sodium daily -Na stable 6. Hypokalemia- 2/2 diarrhea. replete PRN. Continue to monitor 7. Lower lip lesion- improving. continue ointment 8. Tinea cruris - Started clotrimazole BID x 2 weeks Dispo: pending placement at [facility] once diarrhea resolves, have SW f/u on Saturday to see if facility will accept now repeat Cdiff negative I spent 37 minutes on this encounter with >50% spent on counselling and care coordination. Discussed with patient and RN. Time of note may not reflect time patient was seen. Subjective Date patient seen: Apr 25, 2019 Constitutional: Reports: no symptoms HEENT: Reports: no symptoms Cardiovascular: Reports: no symptoms Respiratory: Reports: no symptoms Gastrointestinal/Abdominal: Reports: diarrhea Genitourinary: Reports: other - groin burning improving Neurologic/Psychiatric: Reports: no symptoms Endocrine: Reports: no symptoms Hematologic/Lymphatic: Reports: no symptoms Allergies: Coded Allergies: No Known Allergies (Unverified , 03/28/19) Subjective Patient seen and examined. Continues to have diarrhea frequently. States mild abdominal discomfort. States has some burning sensation in groin region from fungal infection but improved from before. Denies nausea or vomiting Objective Last 24 Hour Vital Signs Date Time Temp Pulse Resp B/P (MAP) Pulse Ox O2 Delivery O2 Flow Rate FiO2 04/25/19 04:00 98.0 60 19 123/53 (76) 95 04/25/19 00:00 98.1 78 19 146/79 (101) 96 04/24/19 21:00 Room Air 04/24/19 20:00 98.2 60 19 137/71 (93) 97 04/24/19 16:00 97.7 61 18 136/72 (93) 96 Intake and Output 04/24/19 04/25/19 18:59 06:59 Intake Total 600 ml 1040 ml Balance 600 ml 1040 ml Intake Oral 600 ml 1040 ml # Voids 3 4 # Bowel Movements 1 4 Laboratory Tests 04/24/19 22:52: Urine Color Pale yellow, Urine Appearance Clear, Urine pH 7, Urine Specific [place] 1.005, Urine Protein Negative, Urine Glucose (UA) Negative, Urine Ketones Negative, Urine Blood Negative, Urine Nitrite Negative, Urine Bilirubin Negative, Urine Urobilinogen Normal, Urine Leukocyte Esterase 1+H, Urine RBC 0-2 , Urine WBC 0-2, Urine Squamous Epithelial Cells Occasional, Urine Bacteria Occasional 04/25/19 06:50: White Blood Count 6.4, Red Blood Count 3.67L, Hemoglobin 12.0, Hematocrit 35.2L , Mean Corpuscular Volume 96, Mean Corpuscular Hemoglobin 32.8H, Mean Corpuscular Hemoglobin Concent 34.2, Red Cell Distribution Width 12.9, Platelet Count 409, Mean Platelet Volume 5.2L, Neutrophils (%) (Auto) 70.5, Lymphocytes ( %) (Auto) 14.4L, Monocytes (%) (Auto) 11.6H, Eosinophils (%) (Auto) 2.3, Basophils (%) (Auto) 1.3, Sodium Level 133L, Potassium Level 4.3, Chloride Level 101, Carbon Dioxide Level 25, Anion Gap 7, Blood Urea Nitrogen 8, Creatinine 0.7, Estimat Glomerular Filtration Rate > 60, Glucose Level 98, Calcium Level 9.2 Height (Feet): 5 Height (Inches): 3.00 Weight (Pounds): 106 General Appearance: no apparent distress, alert EENT: PERRL/EOMI Neck: supple Cardiovascular: normal peripheral pulses, normal rate, regular rhythm Respiratory/Chest: lungs clear, normal breath sounds, no respiratory distress Abdomen: normal bowel sounds, non tender, soft Genitourinary/Rectal: other - Vulvar/groin region with erythematous fungal rash Extremities: non-tender, no calf tenderness Edema: no edema noted Arm (L), no edema noted Arm (R), no edema noted Leg (L), no edema noted Leg (R), no edema noted Pedal (L), no edema noted Pedal (R), no edema noted Generalized Neurologic: alert, responsive, other - flat affect but answers questions when prompted Latoya Juan M.D. Apr 25, 2019 12:07
[2019-04-25 16:00] VITALS: BP 116/68
[2019-04-25 20:00] VITALS: BP 115/61
[2019-04-26] VITALS: BP 125/65
[2019-04-26 04:00] VITALS: BP 115/62
--- NOTE | 2019-04-26 06:23 | General Progress Note ---
Assessment/Plan Status: unchanged Assessment/Plan: Assessment/Plan 69 year old female patient with reported episode of lower GI bleed x1 yesterday most likely due to infectious colitis. At time of evaluation, no reported recurrent LGIB, H&H stable. cdiff positive AP CT reviewed noted with moderately severe fecal retention in the colon and rectum with evidence of a proctocolitis. No plans for colonoscopy at this time, can be done as outpatient. abx monitor H&H or recurrent LGIB, prn transfusions zofran prn H2B follow labs add prn imodium given neg C.diff now Subjective ROS Limited/Unobtainable: No Allergies: Coded Allergies: No Known Allergies (Unverified , 03/28/19) Objective Last 24 Hour Vital Signs Date Time Temp Pulse Resp B/P (MAP) Pulse Ox O2 Delivery O2 Flow Rate FiO2 04/26/19 04:00 96.9 62 19 115/62 (79) 95 04/26/19 00:00 98.0 68 18 125/65 (85) 95 04/25/19 21:00 Room Air 04/25/19 20:00 98.1 61 18 115/61 (79) 95 04/25/19 16:00 98.9 100 22 116/68 (84) 98 04/25/19 12:00 99.1 103 26 111/66 (81) 97 04/25/19 10:00 60 67 71 04/25/19 09:00 Room Air 04/25/19 08:00 98.1 93 20 104/66 (79) 96 Intake and Output 04/25/19 04/26/19 19:00 07:00 Intake Total 600 ml 500 ml Balance 600 ml 500 ml Intake Oral 600 ml 500 ml # Bowel Movements 1 2 Laboratory Tests 04/25/19 06:50: White Blood Count 6.4, Red Blood Count 3.67L, Hemoglobin 12.0, Hematocrit 35.2L , Mean Corpuscular Volume 96, Mean Corpuscular Hemoglobin 32.8H, Mean Corpuscular Hemoglobin Concent 34.2, Red Cell Distribution Width 12.9, Platelet Count 409, Mean Platelet Volume 5.2L, Neutrophils (%) (Auto) 70.5, Lymphocytes ( %) (Auto) 14.4L, Monocytes (%) (Auto) 11.6H, Eosinophils (%) (Auto) 2.3, Basophils (%) (Auto) 1.3, Sodium Level 133L, Potassium Level 4.3, Chloride Level 101, Carbon Dioxide Level 25, Anion Gap 7, Blood Urea Nitrogen 8, Creatinine 0.7, Estimat Glomerular Filtration Rate > 60, Glucose Level 98, Calcium Level 9.2 Height (Feet): 5 Height (Inches): 3.00 Weight (Pounds): 106 General Appearance: alert EENT: normal ENT inspection Neck: supple Cardiovascular: normal rate Respiratory/Chest: decreased breath sounds Abdomen: normal bowel sounds, soft Extremities: non-tender Michelet Anderson MD Apr 26, 2019 06:23
[2019-04-26 08:00] VITALS: BP 111/63
[2019-04-26] MEDS: Lactobacillus-GG tablet ORAL SCH ×2 (08:38→18:09)
[2019-04-26] MEDS: Cholestyramine 4gm Pkt ORAL SCH ×2 (08:38→18:09)
[2019-04-26] MEDS: Vancomycin oral 125mg/2.5ml ORAL SCH ×4 (08:38→20:40)
[2019-04-26 10:03] LABS: ANION GAP 6 mmol/L (5-15); BLOOD UREA NITROGEN 11 mg/dL (7-18); CALCIUM 9.4 MG/DL (8.5-10.1); CARBON DIOXIDE 27 MMOL/L (21-32); CHLORIDE 100 MMOL/L (98-107); CREATININE 0.7 MG/DL (0.55-1.30); POTASSIUM 4.4 MMOL/L (3.5-5.1); SODIUM 133 MMOL/L (136-145)
[2019-04-26 12:00] VITALS: BP 108/58
--- NOTE | 2019-04-26 15:29 | Infectious Diseases Prog Note ---
Assessment/Plan Assessment/Plan ASSESSMENT AND PLAN: 1. c.diff. colitis, e.coli uti/pyelonephritis, sepsis, leukocytosis, fevers - po vancomycin x 5 days more, f/u c.diff. negative - s/p ceftriaxone for e.coli uti, f/u urine culture with yeast which is likely colonizer - stool more formed per d/w RN - monitor labs and clinically, stool more formed - leukocytosis and fevers resolved 2. The patient came in with fall. Question ataxia. 3. The patient has sepsis criteria including cirrhosis, fevers, and heart rate as high as 115. Thus has SIRS criteria. 4. The patient has history of schizophrenia. 5. History of head trauma. 6. Lethargy. 7. Physical deconditioning. 8. She also has history of pacemaker. 9. Continue treatment per primary consultants. 10. No known allergies. 11. Social history is negative. 12. Family history is noncontributory. 13. MAR is noted. 14. Case was discussed with RN. 15. Notes and records were noted. Orders were entered. Subjective Constitutional: Denies: fever Respiratory: Denies: shortness of breath Cardiovascular: Denies: chest pain, palpitations Gastrointestinal/Abdominal: Reports: diarrhea; Denies: nausea, vomiting Neurologic: Denies: headache Psychiatric: Denies: depression Skin: Denies: rash Hematologic: Denies: bleeding Musculoskeletal: Denies: pain Allergies: Coded Allergies: No Known Allergies (Unverified , 03/28/19) Objective Vital Signs Last 24 Hour Vital Signs Date Time Temp Pulse Resp B/P (MAP) Pulse Ox O2 Delivery O2 Flow Rate FiO2 04/26/19 12:00 99.3 77 16 108/58 (75) 98 04/26/19 10:00 71 77 102 04/26/19 09:00 Room Air 04/26/19 08:00 98.0 71 20 111/63 (79) 97 04/26/19 04:00 96.9 62 19 115/62 (79) 95 04/26/19 00:00 98.0 68 18 125/65 (85) 95 04/25/19 21:00 Room Air 04/25/19 20:00 98.1 61 18 115/61 (79) 95 04/25/19 16:00 98.9 100 22 116/68 (84) 98 Height (Feet): 5 Height (Inches): 3.00 Weight (Pounds): 106 General Appearance: no acute distress HEENT: normocephalic, atraumatic, anicteric, mucous membranes moist Respiratory/Chest: lungs clear, normal breath sounds, no respiratory distress, no accessory muscle use Cardiovascular: normal rate, regular rhythm, no gallop/murmur, no JVD Abdomen: normal bowel sounds, soft, non tender, no organomegaly, non distended Genitourinary: other - no palacios Extremities: no cyanosis Skin: no rash Neurologic/Psychiatric: chemical test engineer II-XII grossly normal, alert, oriented x 3, responsive Lymphatic: no neck adenopathy Musculoskeletal: no effusion Objective CT abdomen and pelvis: IMPRESSION: Moderately severe fecal retention in the colon and rectum with evidence of a proctocolitis. Chronic calcific pancreatitis Atherosclerotic vascular disease Degenerative changes of the spine. Mild scoliosis. Mild left posterior basal atelectasis. Limited evaluation due to the nonadministration of intravenous contrast Chest x-ray - nad Microbiology Date/Time Source Procedure Growth Status 04/09/19 20:27 Blood Blood Culture - Final NO GROWTH AFTER 5 DAYS Complete 03/29/19 05:20 Nasal Nares Left MRSA Culture - Final NO METHICILLIN RESISTANT STAPH AUREUS... Complete 04/24/19 12:07 Stool Clostridium difficile Toxin Assay - Final Complete 04/13/19 18:50 Urine,Clean Catch Urine Culture - Final Sunita Albicans Complete 03/29/19 05:20 Rectum - Final NO CARBAPENEM-RESISTANT ENTEROBACTERI... Complete Microbiology Date/Time Source Procedure Growth Status 04/24/19 12:07 Stool Clostridium difficile Toxin Assay - Final Complete Labs Test 04/23/19 20:45 04/24/19 06:30 04/24/19 22:52 04/25/19 06:50 Sodium Level 134 MMOL/L (136-145) 134 MMOL/L (136-145) 133 MMOL/L (136-145) Potassium Level 4.4 MMOL/L (3.5-5.1) 4.4 MMOL/L (3.5-5.1) 4.3 MMOL/L (3.5-5.1) Chloride Level 101 MMOL/L (98-107) 102 MMOL/L (98-107) 101 MMOL/L (98-107) Carbon Dioxide Level 29 MMOL/L (21-32) 27 MMOL/L (21-32) 25 MMOL/L (21-32) Anion Gap 4 mmol/L (5-15) 5 mmol/L (5-15) 7 mmol/L (5-15) Blood Urea Nitrogen 9 mg/dL (7-18) 8 mg/dL (7-18) 8 mg/dL (7-18) Creatinine 0.7 MG/DL (0.55-1.30) 0.8 MG/DL (0.55-1.30) 0.7 MG/DL (0.55-1.30) Estimat Glomerular Filtration Rate > 60 mL/min (>60) > 60 mL/min (>60) > 60 mL/min (>60) Glucose Level 135 MG/DL (74-106) 97 MG/DL (74-106) 98 MG/DL (74-106) Calcium Level 9.7 MG/DL (8.5-10.1) 9.5 MG/DL (8.5-10.1) 9.2 MG/DL (8.5-10.1) White Blood Count 7.0 K/UL (4.8-10.8) 6.4 K/UL (4.8-10.8) Red Blood Count 3.65 M/UL (4.20-5.40) 3.67 M/UL (4.20-5.40) Hemoglobin 12.1 G/DL (12.0-16.0) 12.0 G/DL (12.0-16.0) Hematocrit 35.4 % (37.0-47.0) 35.2 % (37.0-47.0) Mean Corpuscular Volume 97 FL (80-99) 96 FL (80-99) Mean Corpuscular Hemoglobin 33.1 PG (27.0-31.0) 32.8 PG (27.0-31.0) Mean Corpuscular Hemoglobin Concent 34.1 G/DL (32.0-36.0) 34.2 G/DL (32.0-36.0) Red Cell Distribution Width 13.3 % (11.6-14.8) 12.9 % (11.6-14.8) Platelet Count 409 K/UL (150-450) 409 K/UL (150-450) Mean Platelet Volume 4.9 FL (6.5-10.1) 5.2 FL (6.5-10.1) Neutrophils (%) (Auto) 70.3 % (45.0-75.0) 70.5 % (45.0-75.0) Lymphocytes (%) (Auto) 15.5 % (20.0-45.0) 14.4 % (20.0-45.0) Monocytes (%) (Auto) 11.1 % (1.0-10.0) 11.6 % (1.0-10.0) Eosinophils (%) (Auto) 1.8 % (0.0-3.0) 2.3 % (0.0-3.0) Basophils (%) (Auto) 1.3 % (0.0-2.0) 1.3 % (0.0-2.0) Phosphorus Level 3.1 MG/DL (2.5-4.9) Magnesium Level 2.1 MG/DL (1.8-2.4) Urine Color Pale yellow Urine Appearance Clear Urine pH 7 (4.5-8.0) Urine Specific [place] 1.005 (1.005-1.035) Urine Protein Negative (NEGATIVE) Urine Glucose (UA) Negative (NEGATIVE) Urine Ketones Negative (NEGATIVE) Urine Blood Negative (NEGATIVE) Urine Nitrite Negative (NEGATIVE) Urine Bilirubin Negative (NEGATIVE) Urine Urobilinogen Normal MG/DL (0.0-1.0) Urine Leukocyte Esterase 1+ (NEGATIVE) Urine RBC 0-2 /HPF (0 - 2) Urine WBC 0-2 /HPF (0 - 2) Urine Squamous Epithelial Cells Occasional /LPF Urine Bacteria Occasional /HPF (NONE) Test 04/26/19 09:20 Sodium Level 133 MMOL/L (136-145) Potassium Level 4.4 MMOL/L (3.5-5.1) Chloride Level 100 MMOL/L (98-107) Carbon Dioxide Level 27 MMOL/L (21-32) Anion Gap 6 mmol/L (5-15) Blood Urea Nitrogen 11 mg/dL (7-18) Creatinine 0.7 MG/DL (0.55-1.30) Estimat Glomerular Filtration Rate > 60 mL/min (>60) Glucose Level 157 MG/DL (74-106) Calcium Level 9.4 MG/DL (8.5-10.1) Magnesium Level 1.9 MG/DL (1.8-2.4) Laboratory Tests Test 04/26/19 09:20 Sodium Le Level 4.4 MMOL/L (3.5-5.1) Chloride Level 100 MMOL/L (98-107) Carbon Dioxide Level 27 MMOL/L (21-32) Anion Gap 6 mmol/L (5-15) Blood Urea Nitrogen 11 mg/dL (7-18) Creatinine 0.7 MG/DL (0.55-1.30) Estimat Glomerular Filtration Rate > 60 mL/min (>60) Glucose Level 157 MG/DL (74-106) H Calcium Level 9.4 MG/DL (8.5-10.1) Magnesium Level 1.9 MG/DL (1.8-2.4) Current Medications Medications (Trade) Dose Ordered Sig/Lindsey Route PRN Reason Start Time Stop Time Status Last Admin Dose Admin Acetaminophen (Tylenol) 650 mg Q6H PRN ORAL Mild Pain/Temp > 100.5 03/29/19 01:45 04/28/19 01:44 04/23/19 22:46 Cholestyramine Resin (Questran) 4 gm BID ORAL 04/21/19 18:00 05/21/19 17:59 04/26/19 08:38 Clotrimazole (Lotrimin) 1 applic BID TOPIC 04/24/19 14:00 05/08/19 13:59 04/26/19 08:38 Diphenhydramine HCl (Benadryl) 25 mg HSPRN PRN ORAL Insomnia 04/07/19 15:16 05/07/19 15:15 04/15/19 21:19 Famotidine (Pepcid) 20 mg DAILY ORAL 04/10/19 09:00 05/10/19 08:59 04/26/19 08:38 Lactobacillus Acidophilus (Culturelle) 1 tab TWICE A DAY ORAL 04/16/19 09:00 05/16/19 08:59 04/26/19 08:38 Loperamide HCl (Imodium) 2 mg Q4H PRN ORAL Diarrhea 04/25/19 06:30 05/25/19 06:29 Ondansetron HCl (Zofran) 4 mg Q6H PRN IVP Nausea & Vomiting 03/29/19 01:45 04/28/19 01:44 Risperidone (RisperDAL) 4 mg BEDTIME ORAL 04/10/19 21:00 05/10/19 20:59 04/25/19 21:09 Vancomycin HCl (Firvanq) 125 mg FOUR TIMES A DAY ORAL 04/15/19 21:00 04/29/19 22:00 04/26/19 13:21 Angel Martinez MD Apr 26, 2019 15:29
[2019-04-26 16:00] VITALS: BP 112/64
--- NOTE | 2019-04-26 19:06 | General Progress Note ---
Assessment/Plan Status: progressing Assessment/Plan: 69 year old female with schizophrenia presenting after a fall at home and diarrhea. CT head negative for any acute pathology. Seen by PT and advised SNF. Her diarrhea resolved shortly after admission. She had no leukocytosis or TAYLOR. Imodium prn helped. Patient remained int hospital waiting for placement. on , she developed fever, leukocytosis, change in mental status, and bloody diarrhea. Stool sent for c diff and POSITIVE. Urine culture growing E.Coli. 1. Sepsis secondary to C. Diff colitis, and UTI - Resolved #C diff colitis- Improving - Continue oral vancomycin, s/p IV flagyl. Per ID, continue PO vancomycin for 5 more days from 04/26/19 - s/p IV ceftriaxone for UTI per ID - Repeat BCX negative -ID consult with Dr. Adler, recs appreciated -GI consult: Appreciate recs from Dr. Anderson and CLINICAL ALLERGIST Carol. may add cholestyramine for continued diarrhea -CT abdomen pelvis: Moderately severe fecal retention in the colon and rectum with evidence of proctocolitis. - SNF not accepting until patient no longer has diarrhea. Patient continues to have diarrhea. - continue cholestyramine - Repeat Cdiff negative - Started on imodium PRN by GI given negative repeat Cdiff - Can stop trending CBC, leukocytosis since resolved and hgb has been stable 2. Hypokalemia -resolved. Repleted. Monitor BMP 3. Schizophrenia Flat affect -Continue home Clonazepam. Dose decreased by psychiatrist to 1 mg QHS -discontinued home Trazodone. -Risperidone 4mg QHS per psychiatry recommendations -psychiatry consult. Dr. Fernández, appreciated. -Ativan 2mg Q6h PRN 4. Physical deconditioning and cachexia. Monitor oral intake 5. Hypovolemic hyponatremia. -Improving with IV fluids > Urine osmolality 215, urine sodium less than 20, urine creatinine 46.9. FENA calculated at 0.2% -Continue to encourage p.o. intake and fluids -Continue to monitor sodium daily -Na stable 6. Hypokalemia- 2/2 diarrhea. replete PRN. Continue to monitor 7. Lower lip lesion- improving. continue ointment 8. Tinea cruris - Started clotrimazole BID x 2 weeks Dispo: pending placement at [facility] once diarrhea resolves, have SW f/u on Saturday to see if facility will accept now repeat Cdiff negative I spent 36 minutes on this encounter with >50% spent on counselling and care coordination. Discussed with patient and RN. Time of note may not reflect time patient was seen. Subjective Date patient seen: Apr 26, 2019 Allergies: Coded Allergies: No Known Allergies (Unverified , 03/28/19) All Systems: reviewed and negative except above Subjective Patient seen and examined. Continues to have diarrhea but improving. States mild abdominal discomfort. States has some burning sensation in groin region from fungal infection but improved from before. Denies nausea or vomiting, tolerating PO. Objective Last 24 Hour Vital Signs Date Time Temp Pulse Resp B/P (MAP) Pulse Ox O2 Delivery O2 Flow Rate FiO2 04/26/19 16:00 98.2 63 19 112/64 (80) 98 04/26/19 12:00 99.3 77 16 108/58 (75) 98 04/26/19 10:00 71 77 102 04/26/19 09:00 Room Air 04/26/19 08:00 98.0 71 20 111/63 (79) 97 04/26/19 04:00 96.9 62 19 115/62 (79) 95 04/26/19 00:00 98.0 68 18 125/65 (85) 95 04/25/19 21:00 Room Air 04/25/19 20:00 98.1 61 18 115/61 (79) 95 Intake and Output 04/25/19 04/26/19 18:59 06:59 Intake Total 600 ml 500 ml Balance 600 ml 500 ml Intake Oral 600 ml 500 ml # Bowel Movements 1 2 Laboratory Tests 04/26/19 09:20: Sodium Level 133L, Potassium Level 4.4, Chloride Level 100, Carbon Dioxide Level 27, Anion Gap 6, Blood Urea Nitrogen 11, Creatinine 0.7, Estimat Glomerular Filtration Rate > 60, Glucose Level 157H, Calcium Level 9.4, Magnesium Level 1.9 Height (Feet): 5 Height (Inches): 3.00 Weight (Pounds): 106 General Appearance: no apparent distress, alert Neck: supple Cardiovascular: normal peripheral pulses, normal rate, regular rhythm Respiratory/Chest: lungs clear, normal breath sounds, no respiratory distress Abdomen: normal bowel sounds, non tender, soft Extremities: non-tender Edema: no edema noted Arm (L), no edema noted Arm (R), no edema noted Leg (L), no edema noted Leg (R), no edema noted Pedal (L), no edema noted Pedal (R), no edema noted Generalized Neurologic: alert, responsive Skin: other - Groin/vulvular rash stable Latoya Juan M.D. Apr 26, 2019 19:06
[2019-04-26 20:00] VITALS: BP 136/73
[2019-04-27] VITALS: BP 119/64
[2019-04-27 04:00] VITALS: BP 124/75
[2019-04-27 06:52] LABS: ANION GAP 7 mmol/L (5-15); BLOOD UREA NITROGEN 9 mg/dL (7-18); CALCIUM 9.4 MG/DL (8.5-10.1); CARBON DIOXIDE 27 MMOL/L (21-32); CHLORIDE 101 MMOL/L (98-107); CREATININE 0.7 MG/DL (0.55-1.30); POTASSIUM 4.2 MMOL/L (3.5-5.1); SODIUM 134 MMOL/L (136-145)
[2019-04-27 07:04] LABS: BASOPHILS % (AUTO) 0.7 % (0.0-2.0); EOSINOPHILS % (AUTO) 1.7 % (0.0-3.0); HEMATOCRIT 32.9 % (37.0-47.0); HEMOGLOBIN 11.3 G/DL (12.0-16.0); LYMPHOCYTES % (AUTO) 18.3 % (20.0-45.0); MEAN CORPUSCULAR VOLUME 96 FL (80-99); MONOCYTES % (AUTO) 12.8 % (1.0-10.0); NEUTROPHILS % (AUTO) 66.5 % (45.0-75.0); PLATELET COUNT 345 K/UL (150-450); RED BLOOD COUNT 3.43 M/UL (4.20-5.40); RED CELL DISTRIBUTION WIDTH 13.2 % (11.6-14.8); WHITE BLOOD COUNT 6.6 K/UL (4.8-10.8)
[2019-04-27 08:00] VITALS: BP 126/80
[2019-04-27] MEDS: Lactobacillus-GG tablet ORAL SCH ×2 (10:05→16:46)
[2019-04-27] MEDS: Vancomycin oral 125mg/2.5ml ORAL SCH ×4 (10:05→20:36)
[2019-04-27] MEDS: Cholestyramine 4gm Pkt ORAL SCH ×2 (10:05→16:45)
--- NOTE | 2019-04-27 11:00 | GI Progress Note ---
Assessment/Plan Problems: (1) C. difficile colitis ICD Codes: A04.72 - Enterocolitis due to Clostridium difficile, not specified as recurrent SNOMED: 503018098 (2) Diarrhea ICD Codes: R19.7 - Diarrhea, unspecified SNOMED: 51788489 (3) LGI bleed ICD Codes: K92.2 - Gastrointestinal hemorrhage, unspecified SNOMED: 88414486 (4) Schizophrenia ICD Codes: F20.9 - Schizophrenia, unspecified SNOMED: 65193318 Qualifiers: Qualified Codes: F20.9 - Schizophrenia, unspecified Status: stable Status Narrative Discussed with Dr. Anderson Assessment/Plan 69 year old female patient with reported episode of lower GI bleed x1 yesterday most likely due to infectious colitis. At time of evaluation, no reported recurrent LGIB, H&H stable. cdiff positive AP CT reviewed noted with moderately severe fecal retention in the colon and rectum with evidence of a proctocolitis. No plans for colonoscopy at this time, can be done as outpatient. abx monitor H&H or recurrent LGIB, prn transfusions zofran prn H2B follow labs add prn imodium given neg C.diff now okay for DC per GI standpoint The patient was seen and examined at bedside and all new and available data was reviewed in the patients chart. I agree with the above findings, impression and plan. (Patient seen earlier today. Signature stamp does not reflect patient encounter time.). - Michelet Anderson MD Subjective Subjective Denies any diarrhea Denies any abdominal pain States that she has a urinary tract infection Objective Last 24 Hour Vital Signs Date Time Temp Pulse Resp B/P (MAP) Pulse Ox O2 Delivery O2 Flow Rate FiO2 04/27/19 09:00 Room Air 04/27/19 08:00 97.7 69 21 126/80 (95) 98 04/27/19 04:00 96.9 60 19 124/75 (91) 96 04/27/19 00:00 97.0 64 19 119/64 (82) 95 04/26/19 21:00 Room Air 04/26/19 20:00 97.0 61 19 136/73 (94) 97 04/26/19 16:00 98.2 63 19 112/64 (80) 98 04/26/19 12:00 99.3 77 16 108/58 (75) 98 Intake and Output 04/26/19 04/27/19 19:00 07:00 Intake Total 1200 ml 600 ml Balance 1200 ml 600 ml Intake Oral 1200 ml 600 ml # Voids 8 # Bowel Movements 1 1 Laboratory Tests Test 04/27/19 05:40 White Blood Count 6.6 K/UL (4.8-10.8) Red Blood Count 3.43 M/UL (4.20-5.40) L Hemoglobin 11.3 G/DL (12.0-16.0) L Hematocrit 32.9 % (37.0-47.0) L Mean Corpuscular Volume 96 FL (80-99) Mean Corpuscular Hemoglobin 33.1 PG (27.0-31.0) H Mean Corpuscular Hemoglobin Concent 34.5 G/DL (32.0-36.0) Red Cell Distribution Width 13.2 % (11.6-14.8) Platelet Count 345 K/UL (150-450) Mean Platelet Volume 4.9 FL (6.5-10.1) L Neutrophils (%) (Auto) 66.5 % (45.0-75.0) Lymphocytes (%) (Auto) 18.3 % (20.0-45.0) L Monocytes (%) (Auto) 12.8 % (1.0-10.0) H Eosinophils (%) (Auto) 1.7 % (0.0-3.0) Basophils (%) (Auto) 0.7 % (0.0-2.0) Sodium Level 134 MMOL/L (136-145) L Potassium Level 4.2 MMOL/L (3.5-5.1) Chloride Level 101 MMOL/L (98-107) Carbon Dioxide Level 27 MMOL/L (21-32) Anion Gap 7 mmol/L (5-15) Blood Urea Nitrogen 9 mg/dL (7-18) Creatinine 0.7 MG/DL (0.55-1.30) Estimat Glomerular Filtration Rate > 60 mL/min (>60) Glucose Level 89 MG/DL (74-106) Calcium Level 9.4 MG/DL (8.5-10.1) Magnesium Level 2.0 MG/DL (1.8-2.4) Height (Feet): 5 Height (Inches): 3.00 Weight (Pounds): 106 General Appearance: WD/WN, no apparent distress, alert Cardiovascular: normal rate Respiratory/Chest: normal breath sounds, no respiratory distress Abdominal Exam: normal bowel sounds, non tender, soft Extremities: normal range of motion, non-tender Mckay Medina NP Apr 27, 2019 11:00
[2019-04-27 12:00] VITALS: BP 131/77
[2019-04-27 16:00] VITALS: BP 117/68
[2019-04-27 20:00] VITALS: BP 135/66
--- NOTE | 2019-04-27 22:19 | General Progress Note ---
Assessment/Plan Problem List: (1) Acute encephalopathy ICD Codes: G93.40 - Encephalopathy, unspecified SNOMED: 56237567, 215199524 (2) Ataxia ICD Codes: R27.0 - Ataxia, unspecified SNOMED: 21136518 (3) Pyuria ICD Codes: N39.0 - Urinary tract infection, site not specified SNOMED: 6767890, 880935657 (4) Lethargy ICD Codes: R53.83 - Other fatigue SNOMED: 486648249 (5) Head trauma ICD Codes: S09.90XA - Unspecified injury of head, initial encounter SNOMED: 70130569 Qualifiers: Qualified Codes: S09.90XA - Unspecified injury of head, initial encounter (6) Benzodiazepine abuse ICD Codes: F13.10 - Sedative, hypnotic or anxiolytic abuse, uncomplicated SNOMED: 596066110, 982643654 (7) Schizophrenia ICD Codes: F20.9 - Schizophrenia, unspecified SNOMED: 69239632 Qualifiers: Qualified Codes: F20.9 - Schizophrenia, unspecified (8) Physical deconditioning ICD Codes: R53.81 - Other malaise SNOMED: 93248518308433 (9) Hyponatremia ICD Codes: E87.1 - Hypo-osmolality and hyponatremia SNOMED: 82742379 (10) Hypovolemia due to dehydration ICD Codes: E86.0 - Dehydration SNOMED: 72556458 (11) Tinea cruris ICD Codes: B35.6 - Tinea cruris SNOMED: 599552809 Status: stable Assessment/Plan: 69 year old female with schizophrenia presenting after a fall at home and diarrhea. CT head negative for any acute pathology. Seen by PT and advised SNF. Her diarrhea resolved shortly after admission. She had no leukocytosis or TAYLOR. Imodium prn helped. Patient remained int hospital waiting for placement. on , she developed fever, leukocytosis, change in mental status, and bloody diarrhea. Stool sent for c diff and POSITIVE. Urine culture growing E.Coli. 1. Sepsis secondary to C. Diff colitis, and UTI - Resolved #C diff colitis- Improving. Repeat C. difficile negative -Continue oral vancomycin, IV flagyl. Will need 14 days total of PO vancomycin ( until 04/29/19) - May extend to 21 days per ID if continues to have diarrhea - s/p IV ceftriaxone for UTI per ID -Repeat BCX negative -ID consult with Dr. Adler, recs appreciated -do not treat most current UA -GI consult: Appreciate recs from Dr. Anderson and TELETYPE CLERK Carol. may add cholestyramine for continued diarrhea -GI consult, recs appreciated- Continue PO Vanc and IV flagyl, outpatient colonoscopy - SNF not accepting until patient no longer has diarrhea. Patient continues to have diarrhea. - continue cholestyramine 2. Hypokalemia. Repleted 3. Schizophrenia Flat affect -Continue home Clonazepam. Dose decreased by psychiatrist to 1 mg QHS -discontinued home Trazodone. -Risperidone 4mg QHS per psychiatry recommendations -psychiatry consult. Dr. Fernández, appreciated. -Ativan 2mg Q6h PRN 4. Physical deconditioning and cachexia. Monitor oral intake 5. Hypovolemic hyponatremia. -Improving with IV fluids > Urine osmolality 215, urine sodium less than 20, urine creatinine 46.9. FENA calculated at 0.2% -Continue to encourage p.o. intake and fluids -Continue to monitor sodium daily 6. Hypokalemia- 2/2 diarrhea. replete PRN. Continue to monitor 7. Lower lip lesion- improving. continue ointment 8. Tinea cruris - Start clotrimazole BID x 2 weeks 9. Suspect Urinary retention -Bladder scans every 6 hours with postvoid residual. If greater than 250 straight cath. Dispo: pending placement at [facility] once diarrhea resolves I spent 28 minutes on this encounter with >50% spent on counselling and care coordination. Discussed with patient and RN Time of note may not reflect time patient was seen. Subjective Date patient seen: Apr 27, 2019 Constitutional: Denies: chills, diaphoresis, fever, malaise, weakness, other HEENT: Denies: eye pain, blurred vision, tearing, double vision, ear pain, ear discharge, nose pain, nose congestion, throat pain, throat swelling, mouth pain , mouth swelling, other Cardiovascular: Denies: chest pain, edema, irregular heart rate, lightheadedness, palpitations, syncope, other Respiratory: Denies: cough, orthopnea, shortness of breath, SOB with excertion , SOB at rest, sputum, stridor, wheezing, other Gastrointestinal/Abdominal: Denies: abdomen distended, abdominal pain, black stools, tarry stools, blood in stool, constipated, diarrhea, difficulty swallowing, nausea, poor appetite, poor fluid intake, rectal bleeding, vomiting , other Genitourinary: Reports: other - Difficulty emptying her bladder. Denies any dysuria; Denies: burning, discharge, frequency, flank pain, hematuria, incontinence, pain, urgency Neurologic/Psychiatric: Denies: anxiety, depressed, emotional problems, headache, numbness, paresthesia, pre-existing deficit, seizure, tingling, tremors, weakness, other Endocrine: Denies: excessive sweating, flushing, intolerance to cold, intolerance to heat, increased hunger, increased thirst, increased urine, unexplained weight gain, unexplained weight loss, other Hematologic/Lymphatic: Denies: anemia, easy bleeding, easy bruising, other Allergies: Coded Allergies: No Known Allergies (Unverified , 03/28/19) Subjective No acute events overnight per nursing. Diarrhea: Continues to have diarrhea. It is a bristol stage type 6. Denies any abdominal pain nausea or vomiting Groin rash: has had for the past few days It is itchy nonbleeding. No rashes anywhere else. It is constant 5 out of 10 in intensity Objective Last 24 Hour Vital Signs Date Time Temp Pulse Resp B/P (MAP) Pulse Ox O2 Delivery O2 Flow Rate FiO2 04/27/19 20:00 98.4 63 18 135/66 (89) 94 04/27/19 16:00 61 69 92 04/27/19 16:00 97.8 60 18 117/68 (84) 98 04/27/19 12:00 98.0 73 20 131/77 (95) 98 04/27/19 09:00 Room Air 04/27/19 08:00 97.7 69 21 126/80 (95) 98 04/27/19 04:00 96.9 60 19 124/75 (91) 96 04/27/19 00:00 97.0 64 19 119/64 (82) 95 Intake and Output 04/26/19 04/27/19 18:59 06:59 Intake Total 1200 ml 600 ml Balance 1200 ml 600 ml Intake Oral 1200 ml 600 ml # Voids 8 # Bowel Movements 1 1 Laboratory Tests 04/27/19 05:40: White Blood Count 6.6, Red Blood Count 3.43L, Hemoglobin 11.3L, Hematocrit 32.9L , Mean Corpuscular Volume 96, Mean Corpuscular Hemoglobin 33.1H, Mean Corpuscular Hemoglobin Concent 34.5, Red Cell Distribution Width 13.2, Platelet Count 345, Mean Platelet Volume 4.9L, Neutrophils (%) (Auto) 66.5, Lymphocytes ( %) (Auto) 18.3L, Monocytes (%) (Auto) 12.8H, Eosinophils (%) (Auto) 1.7, Basophils (%) (Auto) 0.7, Sodium Level 134L, Potassium Level 4.2, Chloride Level 101, Carbon Dioxide Level 27, Anion Gap 7, Blood Urea Nitrogen 9, Creatinine 0.7, Estimat Glomerular Filtration Rate > 60, Glucose Level 89, Calcium Level 9.4, Magnesium Level 2.0 Height (Feet): 5 Height (Inches): 3.00 Weight (Pounds): 106 General Appearance: WD/WN, no apparent distress, alert EENT: PERRL/EOMI, normal ENT inspection Neck: non-tender, normal alignment, supple Cardiovascular: normal peripheral pulses, normal rate, regular rhythm, no JVD Respiratory/Chest: chest wall non-tender, lungs clear, normal breath sounds Abdomen: normal bowel sounds, non tender, soft, no organomegaly, no mass Genitourinary/Rectal: other - Examined with bedside nurse present. Well demarcated erythematous groin rash much improved since treatment Extremities: normal range of motion, non-tender, normal inspection Neurologic: industrial gas servicer II-XII grossly normal, no motor/sensory deficits, alert, oriented x 3, other - Flat affect Skin: normal pigmentation, warm/dry Jonny Colon D.O. Apr 27, 2019 22:19
[2019-04-28] VITALS: BP 133/58
[2019-04-28 04:00] VITALS: BP 114/55
[2019-04-28 08:00] VITALS: BP 121/58
[2019-04-28] MEDS: Vancomycin oral 125mg/2.5ml ORAL SCH ×4 (10:04→20:05)
[2019-04-28] MEDS: Cholestyramine 4gm Pkt ORAL SCH ×2 (10:04→17:39)
[2019-04-28] MEDS: Lactobacillus-GG tablet ORAL SCH ×2 (10:04→17:39)
[2019-04-28 12:00] VITALS: BP 110/61
--- NOTE | 2019-04-28 12:52 | GI Progress Note ---
Assessment/Plan Problems: (1) C. difficile colitis ICD Codes: A04.72 - Enterocolitis due to Clostridium difficile, not specified as recurrent SNOMED: 846790324 (2) Diarrhea ICD Codes: R19.7 - Diarrhea, unspecified SNOMED: 45578933 (3) LGI bleed ICD Codes: K92.2 - Gastrointestinal hemorrhage, unspecified SNOMED: 67167308 (4) Schizophrenia ICD Codes: F20.9 - Schizophrenia, unspecified SNOMED: 69493043 Qualifiers: Qualified Codes: F20.9 - Schizophrenia, unspecified Status: stable Status Narrative Discussed with Dr. Anderson. Assessment/Plan 69 year old female patient with reported episode of lower GI bleed x1 yesterday most likely due to infectious colitis. At time of evaluation, no reported recurrent LGIB, H&H stable. cdiff positive AP CT reviewed noted with moderately severe fecal retention in the colon and rectum with evidence of a proctocolitis. No plans for colonoscopy at this time, can be done as outpatient. abx monitor H&H or recurrent LGIB, prn transfusions zofran prn H2B follow labs add prn imodium given neg C.diff now okay for DC per GI standpoint The patient was seen and examined at bedside and all new and available data was reviewed in the patients chart. I agree with the above findings, impression and plan. (Patient seen earlier today. Signature stamp does not reflect patient encounter time.). - Michelet Anderson MD Subjective Subjective Denies any diarrhea Denies any abdominal pain States that she has a urinary tract infection Objective Last 24 Hour Vital Signs Date Time Temp Pulse Resp B/P (MAP) Pulse Ox O2 Delivery O2 Flow Rate FiO2 04/28/19 08:45 Room Air 04/28/19 08:00 98.7 76 22 121/58 (79) 96 04/28/19 04:00 97.7 60 20 114/55 (74) 94 04/28/19 00:00 98.2 70 20 133/58 (83) 96 04/27/19 21:00 Room Air 04/27/19 20:00 98.4 63 18 135/66 (89) 94 04/27/19 16:00 61 69 92 04/27/19 16:00 97.8 60 18 117/68 (84) 98 Intake and Output 04/27/19 04/28/19 19:00 07:00 Intake Total 1800 ml Output Total 350 ml Balance 1800 ml -350 ml Intake Oral 1800 ml Post Void Residual 350 ml Bladder Scan Volume Amount 556 ml 151-200 ml # Voids 8 4 # Bowel Movements 2 Height (Feet): 5 Height (Inches): 3.00 Weight (Pounds): 106 General Appearance: WD/WN, no apparent distress, alert Cardiovascular: normal rate Respiratory/Chest: normal breath sounds, no respiratory distress Abdominal Exam: normal bowel sounds, non tender, soft Extremities: normal range of motion, non-tender Mckay Medina NP Apr 28, 2019 12:52
--- NOTE | 2019-04-28 14:21 | Infectious Diseases Prog Note ---
Assessment/Plan Assessment/Plan ASSESSMENT AND PLAN: 1. c.diff. colitis, e.coli uti/pyelonephritis, sepsis, leukocytosis, fevers - po vancomycin x 3 days more, f/u c.diff. negative, monitor diarrhea - favor not to treat + urine culture since ua negative and 2 organisms and avoid concomitant antibiotics with c.diff. - diarrhea overall improved - monitor labs and clinically, stool more formed - leukocytosis and fevers resolved 2. The patient came in with fall. Question ataxia. 3. The patient has sepsis criteria including cirrhosis, fevers, and heart rate as high as 115. Thus has SIRS criteria. 4. The patient has history of schizophrenia. 5. History of head trauma. 6. Lethargy. 7. Physical deconditioning. 8. She also has history of pacemaker. 9. Continue treatment per primary consultants. 10. No known allergies. 11. Social history is negative. 12. Family history is noncontributory. 13. MAR is noted. 14. Case was discussed with RN. 15. Notes and records were noted. Orders were entered. Subjective Constitutional: Denies: fever HEENT: Denies: congestion Respiratory: Denies: shortness of breath Cardiovascular: Denies: chest pain Gastrointestinal/Abdominal: Reports: diarrhea - still some ; Denies: nausea, vomiting Neurologic: Denies: headache Psychiatric: Denies: depression Skin: Denies: rash Hematologic: Denies: bleeding Musculoskeletal: Denies: pain Allergies: Coded Allergies: No Known Allergies (Unverified , 03/28/19) Objective Vital Signs Last 24 Hour Vital Signs Date Time Temp Pulse Resp B/P (MAP) Pulse Ox O2 Delivery O2 Flow Rate FiO2 04/28/19 12:00 98.8 60 20 110/61 (77) 98 04/28/19 08:45 Room Air 04/28/19 08:00 98.7 76 22 121/58 (79) 96 04/28/19 04:00 97.7 60 20 114/55 (74) 94 04/28/19 00:00 98.2 70 20 133/58 (83) 96 04/27/19 21:00 Room Air 04/27/19 20:00 98.4 63 18 135/66 (89) 94 04/27/19 16:00 61 69 92 04/27/19 16:00 97.8 60 18 117/68 (84) 98 Height (Feet): 5 Height (Inches): 3.00 Weight (Pounds): 106 General Appearance: no acute distress HEENT: normocephalic, atraumatic, anicteric, mucous membranes moist Respiratory/Chest: lungs clear, normal breath sounds, no respiratory distress, no accessory muscle use Cardiovascular: normal rate, regular rhythm, no gallop/murmur, no JVD Abdomen: normal bowel sounds, soft, non tender, no organomegaly, non distended Genitourinary: other - no palacios Extremities: no cyanosis Skin: no rash Neurologic/Psychiatric: structurer II-XII grossly normal, alert, oriented x 3, responsive Lymphatic: no neck adenopathy Musculoskeletal: no effusion Objective CT abdomen and pelvis: IMPRESSION: Moderately severe fecal retention in the colon and rectum with evidence of a proctocolitis. Chronic calcific pancreatitis Atherosclerotic vascular disease Degenerative changes of the spine. Mild scoliosis. Mild left posterior basal atelectasis. Limited evaluation due to the nonadministration of intravenous contrast Chest x-ray - nad Microbiology Date/Time Source Procedure Growth Status 04/09/19 20:27 Blood Blood Culture - Final NO GROWTH AFTER 5 DAYS Complete 03/29/19 05:20 Nasal Nares Left MRSA Culture - Final NO METHICILLIN RESISTANT STAPH AUREUS... Complete 04/24/19 12:07 Stool Clostridium difficile Toxin Assay - Final Complete 04/24/19 22:52 Urine,Clean Catch Urine Culture - Final Pseudomonas Aeruginosa Escherichia Coli Complete 03/29/19 05:20 Rectum - Final NO CARBAPENEM-RESISTANT ENTEROBACTERI... Complete Labs Test 04/26/19 09:20 04/27/19 05:40 Sodium Level 133 MMOL/L (136-145) 134 MMOL/L (136-145) Potassium Level 4.4 MMOL/L (3.5-5.1) 4.2 MMOL/L (3.5-5.1) Chloride Level 100 MMOL/L (98-107) 101 MMOL/L (98-107) Carbon Dioxide Level 27 MMOL/L (21-32) 27 MMOL/L (21-32) Anion Gap 6 mmol/L (5-15) 7 mmol/L (5-15) Blood Urea Nitrogen 11 mg/dL (7-18) 9 mg/dL (7-18) Creatinine 0.7 MG/DL (0.55-1.30) 0.7 MG/DL (0.55-1.30) Estimat Glomerular Filtration Rate > 60 mL/min (>60) > 60 mL/min (>60) Glucose Level 157 MG/DL (74-106) 89 MG/DL (74-106) Calcium Level 9.4 MG/DL (8.5-10.1) 9.4 MG/DL (8.5-10.1) Magnesium Level 1.9 MG/DL (1.8-2.4) 2.0 MG/DL (1.8-2.4) White Blood Count 6.6 K/UL (4.8-10.8) Red Blood Count 3.43 M/UL (4.20-5.40) Hemoglobin 11.3 G/DL (12.0-16.0) Hematocrit 32.9 % (37.0-47.0) Mean Corpuscular Volume 96 FL (80-99) Mean Corpuscular Hemoglobin 33.1 PG (27.0-31.0) Mean Corpuscular Hemoglobin Concent 34.5 G/DL (32.0-36.0) Red Cell Distribution Width 13.2 % (11.6-14.8) Platelet Count 345 K/UL (150-450) Mean Platelet Volume 4.9 FL (6.5-10.1) Neutrophils (%) (Auto) 66.5 % (45.0-75.0) Lymphocytes (%) (Auto) 18.3 % (20.0-45.0) Monocytes (%) (Auto) 12.8 % (1.0-10.0) Eosinophils (%) (Auto) 1.7 % (0.0-3.0) Basophils (%) (Auto) 0.7 % (0.0-2.0) Current Medications Medications (Trade) Dose Ordered Sig/Lindsey Route PRN Reason Start Time Stop Time Status Last Admin Dose Admin Cholestyramine Resin (Questran) 4 gm BID ORAL 04/21/19 18:00 05/21/19 17:59 04/28/19 10:04 Clotrimazole (Lotrimin) 1 applic BID TOPIC 04/24/19 14:00 05/08/19 13:59 04/28/19 10:04 Famotidine (Pepcid) 20 mg DAILY ORAL 04/10/19 09:00 05/10/19 08:59 04/28/19 10:04 Lactobacillus Acidophilus (Culturelle) 1 tab TWICE A DAY ORAL 04/16/19 09:00 05/16/19 08:59 04/28/19 10:04 Loperamide HCl (Imodium) 2 mg Q4H PRN ORAL Diarrhea 04/25/19 06:30 05/25/19 06:29 Risperidone (RisperDAL) 4 mg BEDTIME ORAL 04/10/19 21:00 05/10/19 20:59 04/26/19 20:40 Vancomycin HCl (Firvanq) 125 mg FOUR TIMES A DAY ORAL 04/15/19 21:00 05/01/19 23:59 04/28/19 12:29 Angel Martinez MD Apr 28, 2019 14:21
--- NOTE | 2019-04-28 14:37 | General Progress Note ---
Assessment/Plan Problem List: (1) Acute encephalopathy ICD Codes: G93.40 - Encephalopathy, unspecified SNOMED: 25364302, 781056421 (2) Ataxia ICD Codes: R27.0 - Ataxia, unspecified SNOMED: 63803728 (3) Pyuria ICD Codes: N39.0 - Urinary tract infection, site not specified SNOMED: 9745105, 198238410 (4) Lethargy ICD Codes: R53.83 - Other fatigue SNOMED: 091713407 (5) Head trauma ICD Codes: S09.90XA - Unspecified injury of head, initial encounter SNOMED: 88497733 Qualifiers: Qualified Codes: S09.90XA - Unspecified injury of head, initial encounter (6) Benzodiazepine abuse ICD Codes: F13.10 - Sedative, hypnotic or anxiolytic abuse, uncomplicated SNOMED: 697080531, 304860604 (7) Schizophrenia ICD Codes: F20.9 - Schizophrenia, unspecified SNOMED: 33745381 Qualifiers: Qualified Codes: F20.9 - Schizophrenia, unspecified (8) Physical deconditioning ICD Codes: R53.81 - Other malaise SNOMED: 75869551188690 (9) Hyponatremia ICD Codes: E87.1 - Hypo-osmolality and hyponatremia SNOMED: 67735429 (10) Hypovolemia due to dehydration ICD Codes: E86.0 - Dehydration SNOMED: 90316966 (11) Tinea cruris ICD Codes: B35.6 - Tinea cruris SNOMED: 216160976 Status: stable Assessment/Plan: 69 year old female with schizophrenia presenting after a fall at home and diarrhea. CT head negative for any acute pathology. Seen by PT and advised SNF. Her diarrhea resolved shortly after admission. She had no leukocytosis or TAYLOR. Imodium prn helped. Patient remained int hospital waiting for placement. on , she developed fever, leukocytosis, change in mental status, and bloody diarrhea. Stool sent for c diff and POSITIVE. Urine culture growing E.Coli. 1. Sepsis secondary to C. Diff colitis, and UTI - Resolved #C diff colitis- Improving. Repeat C. difficile negative -Continue oral vancomycin, IV flagyl. Will need 14 days total of PO vancomycin ( until 04/29/19) - May extend to 21 days per ID if continues to have diarrhea (until 05/06/19) - s/p IV ceftriaxone for UTI per ID -Repeat BCX negative -ID consult with Dr. Adler, recs appreciated -do not treat most current UA -GI consult: Appreciate recs from Dr. Anderson and PRIZE COORDINATOR Carol. may add cholestyramine for continued diarrhea -GI consult, recs appreciated- Continue PO Vanc and IV flagyl, outpatient colonoscopy - SNF not accepting until patient no longer has diarrhea. Patient continues to have diarrhea. - continue cholestyramine 2. Hypokalemia. Repleted 3. Schizophrenia Flat affect -Continue home Clonazepam. Dose decreased by psychiatrist to 1 mg QHS -discontinued home Trazodone. -Risperidone 4mg QHS per psychiatry recommendations -psychiatry consult. Dr. Fernández, appreciated. -Ativan 2mg Q6h PRN 4. Physical deconditioning and cachexia. Monitor oral intake 5. Hypovolemic hyponatremia. -Improved with IV fluids > Urine osmolality 215, urine sodium less than 20, urine creatinine 46.9. FENA calculated at 0.2% -Continue to encourage p.o. intake and fluids -Continue to monitor sodium daily 6. Hypokalemia- 2/2 diarrhea. replete PRN. Continue to monitor 7. Lower lip lesion- improving. continue ointment 8. Tinea cruris - Continue clotrimazole BID x 2 weeks (until 05/08/19) 9. Urinary retention -Bladder scans every 6 hours with postvoid residual. If greater than 250 straight cath. - discontinue benadryl 10. Insomnia - replace benadryl with Klonipin PRN Dispo: pending placement at [facility] once diarrhea resolves I spent 27 minutes on this encounter with >50% spent on counselling and care coordination. Discussed with patient and RN Time of note may not reflect time patient was seen. Subjective Date patient seen: Apr 28, 2019 Constitutional: Denies: chills, diaphoresis, fever, malaise, weakness, other HEENT: Denies: eye pain, blurred vision, tearing, double vision, ear pain, ear discharge, nose pain, nose congestion, throat pain, throat swelling, mouth pain , mouth swelling, other Cardiovascular: Denies: chest pain, edema, irregular heart rate, lightheadedness, palpitations, syncope, other Respiratory: Denies: cough, orthopnea, shortness of breath, SOB with excertion , SOB at rest, sputum, stridor, wheezing, other Gastrointestinal/Abdominal: Denies: abdomen distended, abdominal pain, black stools, tarry stools, blood in stool, constipated, diarrhea, difficulty swallowing, nausea, poor appetite, poor fluid intake, rectal bleeding, vomiting , other Genitourinary: Denies: burning, discharge, frequency, flank pain, hematuria, incontinence, pain, urgency, other Neurologic/Psychiatric: Denies: anxiety, depressed, emotional problems, headache, numbness, paresthesia, pre-existing deficit, seizure, tingling, tremors, weakness, other Endocrine: Denies: excessive sweating, flushing, intolerance to cold, intolerance to heat, increased hunger, increased thirst, increased urine, unexplained weight gain, unexplained weight loss, other Hematologic/Lymphatic: Denies: anemia, easy bleeding, easy bruising, other Allergies: Coded Allergies: No Known Allergies (Unverified , 03/28/19) Subjective No acute events overnight per nursing. Diarrhea: Resolved. Denies any abdominal pain fever or chills. Urinary retention: Overnight patient was complaining of urinary retention. Postvoid residual was 600 cc. Straight cath performed one time at which resulted in 350 cc urine output. Next post void residual was 183. Groin rash: Improving with antifungal cream Objective Last 24 Hour Vital Signs Date Time Temp Pulse Resp B/P (MAP) Pulse Ox O2 Delivery O2 Flow Rate FiO2 04/28/19 12:00 98.8 60 20 110/61 (77) 98 04/28/19 08:45 Room Air 04/28/19 08:00 98.7 76 22 121/58 (79) 96 04/28/19 04:00 97.7 60 20 114/55 (74) 94 04/28/19 00:00 98.2 70 20 133/58 (83) 96 04/27/19 21:00 Room Air 04/27/19 20:00 98.4 63 18 135/66 (89) 94 04/27/19 16:00 61 69 92 04/27/19 16:00 97.8 60 18 117/68 (84) 98 Intake and Output 04/27/19 04/28/19 19:00 07:00 Intake Total 1800 ml Output Total 350 ml Balance 1800 ml -350 ml Intake Oral 1800 ml Post Void Residual 350 ml Bladder Scan Volume Amount 556 ml 151-200 ml # Voids 8 4 # Bowel Movements 2 Height (Feet): 5 Height (Inches): 3.00 Weight (Pounds): 106 General Appearance: WD/WN, no apparent distress, alert EENT: PERRL/EOMI, normal ENT inspection Neck: non-tender, normal alignment, supple Cardiovascular: normal peripheral pulses, normal rate, regular rhythm Respiratory/Chest: chest wall non-tender, lungs clear, normal breath sounds Abdomen: normal bowel sounds, non tender, soft, no organomegaly, no mass Extremities: normal range of motion, non-tender Edema: other - No lower extremity edema bilaterally Neurologic: sql server architect II-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 Apr 28, 2019 14:37
[2019-04-28 16:00] VITALS: BP 114/65
[2019-04-28 20:00] VITALS: BP 110/57
[2019-04-28] MEDS: clonazePAM 0.5mg tab ORAL PRN (20:32)
[2019-04-29] VITALS: BP 110/57
[2019-04-29 04:00] VITALS: BP 107/64
[2019-04-29 07:17] LABS: BASOPHILS % (AUTO) 0.7 % (0.0-2.0); EOSINOPHILS % (AUTO) 2.1 % (0.0-3.0); HEMOGLOBIN 11.2 G/DL (12.0-16.0); LYMPHOCYTES % (AUTO) 17.8 % (20.0-45.0); MEAN CORPUSCULAR VOLUME 95 FL (80-99); MONOCYTES % (AUTO) 14.1 % (1.0-10.0); NEUTROPHILS % (AUTO) 65.4 % (45.0-75.0); PLATELET COUNT 324 K/UL (150-450); RED BLOOD COUNT 3.36 M/UL (4.20-5.40); RED CELL DISTRIBUTION WIDTH 13.3 % (11.6-14.8); WHITE BLOOD COUNT 6.7 K/UL (4.8-10.8)
[2019-04-29 07:19] LABS: ANION GAP 5 mmol/L (5-15); BLOOD UREA NITROGEN 10 mg/dL (7-18); CALCIUM 9.6 MG/DL (8.5-10.1); CARBON DIOXIDE 27 MMOL/L (21-32); CHLORIDE 101 MMOL/L (98-107); CREATININE 0.7 MG/DL (0.55-1.30); POTASSIUM 4.2 MMOL/L (3.5-5.1); SODIUM 133 MMOL/L (136-145)
[2019-04-29 08:00] VITALS: BP 117/60
[2019-04-29] MEDS: Lactobacillus-GG tablet ORAL SCH ×2 (10:46→18:28)
[2019-04-29] MEDS: Vancomycin oral 125mg/2.5ml ORAL SCH ×4 (10:46→21:17)
[2019-04-29] MEDS: Cholestyramine 4gm Pkt ORAL SCH ×2 (10:46→18:28)
[2019-04-29 12:00] VITALS: BP 119/65
--- NOTE | 2019-04-29 14:03 | GI Progress Note ---
Assessment/Plan Problems: (1) C. difficile colitis ICD Codes: A04.72 - Enterocolitis due to Clostridium difficile, not specified as recurrent SNOMED: 679522442 (2) Diarrhea ICD Codes: R19.7 - Diarrhea, unspecified SNOMED: 53196815 (3) LGI bleed ICD Codes: K92.2 - Gastrointestinal hemorrhage, unspecified SNOMED: 28632499 (4) Schizophrenia ICD Codes: F20.9 - Schizophrenia, unspecified SNOMED: 34409504 Qualifiers: Qualified Codes: F20.9 - Schizophrenia, unspecified Status: unchanged Status Narrative Discussed with Dr. Anderson. Assessment/Plan 69 year old female patient with reported episode of lower GI bleed x1 yesterday most likely due to infectious colitis. At time of evaluation, no reported recurrent LGIB, H&H stable. cdiff positive AP CT reviewed noted with moderately severe fecal retention in the colon and rectum with evidence of a proctocolitis. patient denies having diarrhea, but RN reports multiple episodes No plans for colonoscopy at this time, can be done as outpatient. abx monitor H&H or recurrent LGIB, prn transfusions zofran prn H2B follow labs dc imodium, add lomotil okay for DC per GI standpoint The patient was seen and examined at bedside and all new and available data was reviewed in the patients chart. I agree with the above findings, impression and plan. (Patient seen earlier today. Signature stamp does not reflect patient encounter time.). - Michelet Anderson MD Subjective Subjective Denies any diarrhea Denies any abdominal pain States that she has a urinary tract infection Objective Last 24 Hour Vital Signs Date Time Temp Pulse Resp B/P (MAP) Pulse Ox O2 Delivery O2 Flow Rate FiO2 04/29/19 12:00 98.2 68 20 119/65 (83) 96 04/29/19 08:00 98.6 65 18 117/60 (79) 95 04/29/19 04:00 98.3 62 19 107/64 (78) 96 04/29/19 00:34 98.2 04/29/19 00:00 98.2 61 19 110/57 (74) 96 04/28/19 23:26 Room Air 04/28/19 20:00 98.2 61 19 110/57 (74) 96 04/28/19 16:00 98.4 68 19 114/65 (81) 96 Intake and Output 04/28/19 04/29/19 19:00 07:00 Intake Total 900 ml Output Total 550 ml Balance 350 ml Intake Oral 900 ml Output Urine Total 275 ml Post Void Residual 275 ml Bladder Scan Volume Amount 51-75 ml 453 151-200 ml 281 # Voids 3 # Bowel Movements 3 Laboratory Tests Test 04/29/19 05:25 White Blood Count 6.7 K/UL (4.8-10.8) Red Blood Count 3.36 M/UL (4.20-5.40) L Hemoglobin 11.2 G/DL (12.0-16.0) L Hematocrit 32.0 % (37.0-47.0) L Mean Corpuscular Volume 95 FL (80-99) Mean Corpuscular Hemoglobin 33.3 PG (27.0-31.0) H Mean Corpuscular Hemoglobin Concent 34.9 G/DL (32.0-36.0) Red Cell Distribution Width 13.3 % (11.6-14.8) Platelet Count 324 K/UL (150-450) Mean Platelet Volume 4.8 FL (6.5-10.1) L Neutrophils (%) (Auto) 65.4 % (45.0-75.0) Lymphocytes (%) (Auto) 17.8 % (20.0-45.0) L Monocytes (%) (Auto) 14.1 % (1.0-10.0) H Eosinophils (%) (Auto) 2.1 % (0.0-3.0) Basophils (%) (Auto) 0.7 % (0.0-2.0) Sodium Level 133 MMOL/L (136-145) L Potassium Level 4.2 MMOL/L (3.5-5.1) Chloride Level 101 MMOL/L (98-107) Carbon Dioxide Level 27 MMOL/L (21-32) Anion Gap 5 mmol/L (5-15) Blood Urea Nitrogen 10 mg/dL (7-18) Creatinine 0.7 MG/DL (0.55-1.30) Estimat Glomerular Filtration Rate > 60 mL/min (>60) Glucose Level 94 MG/DL (74-106) Calcium Level 9.6 MG/DL (8.5-10.1) Height (Feet): 5 Height (Inches): 3.00 Weight (Pounds): 110 General Appearance: WD/WN, no apparent distress, alert Cardiovascular: normal rate Respiratory/Chest: normal breath sounds, no respiratory distress Abdominal Exam: normal bowel sounds, non tender, soft Extremities: normal range of motion, non-tender Mckay Medina NP Apr 29, 2019 14:03
[2019-04-29] MEDS ORDERED: Lomotil 2.5mg tab ORAL PRN (14:05)
[2019-04-29 16:00] VITALS: BP 110/61
--- NOTE | 2019-04-29 18:05 | General Progress Note ---
Assessment/Plan Problem List: (1) Acute encephalopathy ICD Codes: G93.40 - Encephalopathy, unspecified SNOMED: 90385647, 359108598 (2) Ataxia ICD Codes: R27.0 - Ataxia, unspecified SNOMED: 13283893 (3) Pyuria ICD Codes: N39.0 - Urinary tract infection, site not specified SNOMED: 6654649, 859368606 (4) Lethargy ICD Codes: R53.83 - Other fatigue SNOMED: 231639792 (5) Head trauma ICD Codes: S09.90XA - Unspecified injury of head, initial encounter SNOMED: 29439812 Qualifiers: Qualified Codes: S09.90XA - Unspecified injury of head, initial encounter (6) Benzodiazepine abuse ICD Codes: F13.10 - Sedative, hypnotic or anxiolytic abuse, uncomplicated SNOMED: 896690908, 203848297 (7) Schizophrenia ICD Codes: F20.9 - Schizophrenia, unspecified SNOMED: 83949920 Qualifiers: Qualified Codes: F20.9 - Schizophrenia, unspecified (8) Physical deconditioning ICD Codes: R53.81 - Other malaise SNOMED: 39377310929943 (9) Hyponatremia ICD Codes: E87.1 - Hypo-osmolality and hyponatremia SNOMED: 59908645 (10) Hypovolemia due to dehydration ICD Codes: E86.0 - Dehydration SNOMED: 50926094 (11) Tinea cruris ICD Codes: B35.6 - Tinea cruris SNOMED: 872312989 Status: unchanged Assessment/Plan: 69 year old female with schizophrenia presenting after a fall at home and diarrhea. CT head negative for any acute pathology. Seen by PT and advised SNF. Her diarrhea resolved shortly after admission. She had no leukocytosis or TAYLOR. Imodium prn helped. Patient remained int hospital waiting for placement. on , she developed fever, leukocytosis, change in mental status, and bloody diarrhea. Stool sent for c diff and POSITIVE. Urine culture growing E.Coli. 1. Sepsis secondary to C. Diff colitis, and UTI - Resolved #C diff colitis- Improving. Repeat C. difficile negative -Continue oral vancomycin, IV flagyl. Will need 14 days total of PO vancomycin ( until 04/29/19) - May extend to 21 days per ID if continues to have diarrhea (until 05/06/19) - s/p IV ceftriaxone for UTI per ID -Repeat BCX negative -ID consult with Dr. Adler, recs appreciated -do not treat most current UA -GI consult: Appreciate recs from Dr. Anderson and CANOE BUILDER Carol. may add cholestyramine for continued diarrhea -GI consult, recs appreciated- Continue PO Vanc and IV flagyl, outpatient colonoscopy - continue cholestyramine 2. Hypokalemia. Repleted 3. Schizophrenia Flat affect -Continue home Clonazepam. Dose decreased by psychiatrist to 1 mg QHS -discontinued home Trazodone. -Risperidone 4mg QHS per psychiatry recommendations -psychiatry consult. Dr. Fernández, appreciated. -Ativan 2mg Q6h PRN 4. Physical deconditioning and cachexia. Monitor oral intake 5. Hypovolemic hyponatremia. -Improved with IV fluids > Urine osmolality 215, urine sodium less than 20, urine creatinine 46.9. FENA calculated at 0.2% -Continue to encourage p.o. intake and fluids -Continue to monitor sodium daily 6. Hypokalemia- 2/2 diarrhea. replete PRN. Continue to monitor 7. Lower lip lesion- improving. continue ointment 8. Tinea cruris - Continue clotrimazole BID x 2 weeks (until 05/08/19) 9. Urinary retention, resolved -Bladder scans every 6 hours with postvoid residual. If greater than 250 straight cath. - discontinue benadryl 10. Insomnia - replace benadryl with Klonipin PRN Dispo: pending placement at [facility] I spent 26 minutes on this encounter with >50% spent on counselling and care coordination. Discussed with patient and RN Time of note may not reflect time patient was seen. Subjective Date patient seen: Apr 29, 2019 Constitutional: Denies: chills, diaphoresis, fever, malaise, weakness, other HEENT: Denies: eye pain, blurred vision, tearing, double vision, ear pain, ear discharge, nose pain, nose congestion, throat pain, throat swelling, mouth pain , mouth swelling, other Cardiovascular: Denies: chest pain, edema, irregular heart rate, lightheadedness, palpitations, syncope, other Respiratory: Denies: cough, orthopnea, shortness of breath, SOB with excertion , SOB at rest, sputum, stridor, wheezing, other Gastrointestinal/Abdominal: Denies: abdomen distended, abdominal pain, black stools, tarry stools, blood in stool, constipated, diarrhea, difficulty swallowing, nausea, poor appetite, poor fluid intake, rectal bleeding, vomiting , other Genitourinary: Denies: burning, discharge, frequency, flank pain, hematuria, incontinence, pain, urgency, other Neurologic/Psychiatric: Denies: anxiety, depressed, emotional problems, headache, numbness, paresthesia, pre-existing deficit, seizure, tingling, tremors, weakness, other Endocrine: Denies: excessive sweating, flushing, intolerance to cold, intolerance to heat, increased hunger, increased thirst, increased urine, unexplained weight gain, unexplained weight loss, other Hematologic/Lymphatic: Denies: anemia, easy bleeding, easy bruising, other Allergies: Coded Allergies: No Known Allergies (Unverified , 03/28/19) Subjective No acute events overnight per nursing. Diarrhea: Resolved. Formed stool. Denies any abdominal pain fever or chills. Urinary retention: Resolved with discontinuation of Benadryl Groin rash: Improving with antifungal cream. Continues to complain of itching. But overall improving Objective Last 24 Hour Vital Signs Date Time Temp Pulse Resp B/P (MAP) Pulse Ox O2 Delivery O2 Flow Rate FiO2 04/29/19 12:00 98.2 68 20 119/65 (83) 96 04/29/19 08:00 98.6 65 18 117/60 (79) 95 04/29/19 04:00 98.3 62 19 107/64 (78) 96 04/29/19 00:34 98.2 04/29/19 00:00 98.2 61 19 110/57 (74) 96 04/28/19 23:26 Room Air 04/28/19 20:00 98.2 61 19 110/57 (74) 96 Intake and Output 04/28/19 04/29/19 19:00 07:00 Intake Total 900 ml Output Total 550 ml Balance 350 ml Intake Oral 900 ml Output Urine Total 275 ml Post Void Residual 275 ml Bladder Scan Volume Amount 51-75 ml 453 151-200 ml 281 # Voids 3 # Bowel Movements 3 Laboratory Tests 04/29/19 05:25: White Blood Count 6.7, Red Blood Count 3.36L, Hemoglobin 11.2L, Hematocrit 32.0L , Mean Corpuscular Volume 95, Mean Corpuscular Hemoglobin 33.3H, Mean Corpuscular Hemoglobin Concent 34.9, Red Cell Distribution Width 13.3, Platelet Count 324, Mean Platelet Volume 4.8L, Neutrophils (%) (Auto) 65.4, Lymphocytes ( %) (Auto) 17.8L, Monocytes (%) (Auto) 14.1H, Eosinophils (%) (Auto) 2.1, Basophils (%) (Auto) 0.7, Sodium Level 133L, Potassium Level 4.2, Chloride Level 101, Carbon Dioxide Level 27, Anion Gap 5, Blood Urea Nitrogen 10, Creatinine 0.7, Estimat Glomerular Filtration Rate > 60, Glucose Level 94, Calcium Level 9.6 Height (Feet): 5 Height (Inches): 3.00 Weight (Pounds): 110 General Appearance: WD/WN, no apparent distress, alert EENT: PERRL/EOMI, normal ENT inspection Neck: non-tender, normal alignment, supple Cardiovascular: normal peripheral pulses, normal rate, regular rhythm, no JVD Respiratory/Chest: chest wall non-tender, lungs clear, normal breath sounds Abdomen: normal bowel sounds, non tender, soft, no organomegaly, no mass Extremities: normal range of motion, non-tender, normal inspection Neurologic: drilling manager II-XII grossly normal, no motor/sensory deficits, alert, oriented x 3, responsive Skin: normal pigmentation, warm/dry Jonny Colon D.O. Apr 29, 2019 18:05
[2019-04-29 20:00] VITALS: BP 120/63
[2019-04-29] MEDS: clonazePAM 0.5mg tab ORAL PRN (21:20)
[2019-04-30] VITALS: BP 115/59
[2019-04-30 04:00] VITALS: BP 109/64
[2019-04-30 06:45] LABS: BASOPHILS % (AUTO) 0.5 % (0.0-2.0); EOSINOPHILS % (AUTO) 1.1 % (0.0-3.0); HEMATOCRIT 34.4 % (37.0-47.0); HEMOGLOBIN 11.7 G/DL (12.0-16.0); LYMPHOCYTES % (AUTO) 11.6 % (20.0-45.0); MEAN CORPUSCULAR VOLUME 96 FL (80-99); MONOCYTES % (AUTO) 10.4 % (1.0-10.0); NEUTROPHILS % (AUTO) 76.4 % (45.0-75.0); PLATELET COUNT 325 K/UL (150-450); RED BLOOD COUNT 3.57 M/UL (4.20-5.40); RED CELL DISTRIBUTION WIDTH 13.7 % (11.6-14.8); WHITE BLOOD COUNT 10.9 K/UL (4.8-10.8)
[2019-04-30 07:10] LABS: ANION GAP 8 mmol/L (5-15); BLOOD UREA NITROGEN 12 mg/dL (7-18); CALCIUM 9.8 MG/DL (8.5-10.1); CARBON DIOXIDE 26 MMOL/L (21-32); CHLORIDE 100 MMOL/L (98-107); CREATININE 0.7 MG/DL (0.55-1.30); POTASSIUM 4.5 MMOL/L (3.5-5.1); SODIUM 134 MMOL/L (136-145)
[2019-04-30 08:00] VITALS: BP 99/59
[2019-04-30] MEDS: Vancomycin oral 125mg/2.5ml ORAL SCH ×4 (08:45→20:24)
[2019-04-30] MEDS: Lactobacillus-GG tablet ORAL SCH ×2 (08:45→18:38)
[2019-04-30] MEDS: Cholestyramine 4gm Pkt ORAL SCH ×2 (08:45→18:38)
[2019-04-30 12:00] VITALS: BP 105/59
--- NOTE | 2019-04-30 13:10 | GI Progress Note ---
Assessment/Plan Problems: (1) C. difficile colitis ICD Codes: A04.72 - Enterocolitis due to Clostridium difficile, not specified as recurrent SNOMED: 116547482 (2) Diarrhea ICD Codes: R19.7 - Diarrhea, unspecified SNOMED: 04341092 (3) LGI bleed ICD Codes: K92.2 - Gastrointestinal hemorrhage, unspecified SNOMED: 08689568 (4) Schizophrenia ICD Codes: F20.9 - Schizophrenia, unspecified SNOMED: 75729132 Qualifiers: Qualified Codes: F20.9 - Schizophrenia, unspecified Status: stable Status Narrative Discussed with Dr. Anderson. Assessment/Plan 69 year old female patient with reported episode of lower GI bleed x1 yesterday most likely due to infectious colitis. At time of evaluation, no reported recurrent LGIB, H&H stable. cdiff positive AP CT reviewed noted with moderately severe fecal retention in the colon and rectum with evidence of a proctocolitis. patient denies having diarrhea, but RN reports multiple episodes No plans for colonoscopy at this time, can be done as outpatient. abx monitor H&H or recurrent LGIB, prn transfusions zofran prn H2B follow labs dc imodium, add lomotil okay for DC per GI standpoint The patient was seen and examined at bedside and all new and available data was reviewed in the patients chart. I agree with the above findings, impression and plan. (Patient seen earlier today. Signature stamp does not reflect patient encounter time.). - Michelet Anderson MD Subjective Subjective Denies any diarrhea Denies any abdominal pain States that she has a urinary tract infection Objective Last 24 Hour Vital Signs Date Time Temp Pulse Resp B/P (MAP) Pulse Ox O2 Delivery O2 Flow Rate FiO2 04/30/19 08:00 98.2 109 18 99/59 (72) 94 04/30/19 04:00 97.8 77 16 109/64 (79) 95 04/30/19 00:00 97.9 58 18 115/59 (77) 94 04/29/19 21:00 Room Air 04/29/19 20:00 97.7 61 17 120/63 (82) 95 04/29/19 16:00 98.4 61 18 110/61 (77) 97 Intake and Output 04/29/19 04/30/19 18:59 06:59 Intake Total 300 ml 600 ml Output Total 173 ml Balance 300 ml 427 ml Intake Oral 300 ml 600 ml Post Void Residual 173 ml Bladder Scan Volume Amount not taken 51-75 ml 76-100 ml 151-200 ml # Voids 2 2 # Bowel Movements 1 Laboratory Tests Test 04/30/19 05:55 White Blood Count 10.9 K/UL (4.8-10.8) #H Red Blood Count 3.57 M/UL (4.20-5.40) L Hemoglobin 11.7 G/DL (12.0-16.0) L Hematocrit 34.4 % (37.0-47.0) L Mean Corpuscular Volume 96 FL (80-99) Mean Corpuscular Hemoglobin 32.8 PG (27.0-31.0) H Mean Corpuscular Hemoglobin Concent 34.1 G/DL (32.0-36.0) Red Cell Distribution Width 13.7 % (11.6-14.8) Platelet Count 325 K/UL (150-450) Mean Platelet Volume 5.0 FL (6.5-10.1) L Neutrophils (%) (Auto) 76.4 % (45.0-75.0) H Lymphocytes (%) (Auto) 11.6 % (20.0-45.0) L Monocytes (%) (Auto) 10.4 % (1.0-10.0) H Eosinophils (%) (Auto) 1.1 % (0.0-3.0) Basophils (%) (Auto) 0.5 % (0.0-2.0) Sodium Level 134 MMOL/L (136-145) L Potassium Level 4.5 MMOL/L (3.5-5.1) Chloride Level 100 MMOL/L (98-107) Carbon Dioxide Level 26 MMOL/L (21-32) Anion Gap 8 mmol/L (5-15) Blood Urea Nitrogen 12 mg/dL (7-18) Creatinine 0.7 MG/DL (0.55-1.30) Estimat Glomerular Filtration Rate > 60 mL/min (>60) Glucose Level 91 MG/DL (74-106) Calcium Level 9.8 MG/DL (8.5-10.1) Height (Feet): 5 Height (Inches): 3.00 Weight (Pounds): 110 General Appearance: WD/WN, no apparent distress, alert Cardiovascular: normal rate Respiratory/Chest: normal breath sounds, no respiratory distress Abdominal Exam: normal bowel sounds, non tender, soft Extremities: normal range of motion, non-tender Mckay Medina NP Apr 30, 2019 13:10
[2019-04-30 16:00] VITALS: BP 123/68
[2019-04-30] MEDS ORDERED: LOMOTIL TABLET1 EACH ORAL (16:59)
[2019-04-30] MEDS ORDERED: VANCOMYCIN250 MG/5 M ORAL (16:59)
[2019-04-30] MEDS ORDERED: QUESTRAN POWDER4 GM ORAL (16:59)
[2019-04-30] MEDS ORDERED: CULTURELLE1 EACH ORAL (16:59)
[2019-04-30] MEDS ORDERED: CLOTRIMAZOLE15 GM TOPIC (16:59)
--- NOTE | 2019-04-30 17:05 | General Progress Note ---
Assessment/Plan Problem List: (1) Acute encephalopathy ICD Codes: G93.40 - Encephalopathy, unspecified SNOMED: 08844394, 055852009 (2) Ataxia ICD Codes: R27.0 - Ataxia, unspecified SNOMED: 95712839 (3) Pyuria ICD Codes: N39.0 - Urinary tract infection, site not specified SNOMED: 0599944, 371525334 (4) Lethargy ICD Codes: R53.83 - Other fatigue SNOMED: 273015927 (5) Head trauma ICD Codes: S09.90XA - Unspecified injury of head, initial encounter SNOMED: 27418578 Qualifiers: Qualified Codes: S09.90XA - Unspecified injury of head, initial encounter (6) Benzodiazepine abuse ICD Codes: F13.10 - Sedative, hypnotic or anxiolytic abuse, uncomplicated SNOMED: 441516721, 147431908 (7) Schizophrenia ICD Codes: F20.9 - Schizophrenia, unspecified SNOMED: 17711940 Qualifiers: Qualified Codes: F20.9 - Schizophrenia, unspecified (8) Physical deconditioning ICD Codes: R53.81 - Other malaise SNOMED: 33054402985380 (9) Hyponatremia ICD Codes: E87.1 - Hypo-osmolality and hyponatremia SNOMED: 58235240 (10) Hypovolemia due to dehydration ICD Codes: E86.0 - Dehydration SNOMED: 93373455 (11) Tinea cruris ICD Codes: B35.6 - Tinea cruris SNOMED: 358427814 Status: stable Assessment/Plan: 69 year old female with schizophrenia presenting after a fall at home and diarrhea. CT head negative for any acute pathology. Seen by PT and advised SNF. Her diarrhea resolved shortly after admission. She had no leukocytosis or TAYLOR. Imodium prn helped. Patient remained int hospital waiting for placement. on , she developed fever, leukocytosis, change in mental status, and bloody diarrhea. Stool sent for c diff and POSITIVE. Urine culture growing E.Coli. 1. Sepsis secondary to C. Diff colitis, and UTI - Resolved #C diff colitis- Improving. Repeat C. difficile negative -Continue oral vancomycin, IV flagyl. Will need 14 days total of PO vancomycin ( until 04/29/19) - May extend to 21 days per ID if continues to have diarrhea (until 05/06/19) - s/p IV ceftriaxone for UTI per ID -Repeat BCX negative -ID consult with Dr. Adler, recs appreciated -do not treat most current UA -GI consult: Appreciate recs from Dr. Anderson and [employer] Carol. may add cholestyramine for continued diarrhea. Continue for rest of C Diff treatment -GI consult, recs appreciated- Continue PO Vanc and IV flagyl, outpatient colonoscopy - continue cholestyramine 2. Hypokalemia. Repleted 3. Schizophrenia Flat affect -Continue home Clonazepam. Dose decreased by psychiatrist to 1 mg QHS -discontinued home Trazodone. -Risperidone 4mg QHS per psychiatry recommendations -psychiatry consult. Dr. Fernández, appreciated. -Ativan 2mg Q6h PRN 4. Physical deconditioning and cachexia. Monitor oral intake 5. Hypovolemic hyponatremia. -Improved with IV fluids > Urine osmolality 215, urine sodium less than 20, urine creatinine 46.9. FENA calculated at 0.2% -Continue to encourage p.o. intake and fluids -Continue to monitor sodium daily 6. Hypokalemia- 2/2 diarrhea. replete PRN. Continue to monitor 7. Lower lip lesion- improving. continue ointment 8. Tinea cruris - Continue clotrimazole BID x 2 weeks (until 05/08/19) 9. Urinary retention, resolved -Bladder scans every 6 hours with postvoid residual. If greater than 250 straight cath. - discontinue benadryl 10. Insomnia - replace benadryl with Klonipin PRN Dispo: pending placement at [facility] I spent 27 minutes on this encounter with >50% spent on counselling and care coordination. Discussed with patient and RN Time of note may not reflect time patient was seen. Subjective Date patient seen: Apr 30, 2019 Constitutional: Denies: chills, diaphoresis, fever, malaise, weakness, other HEENT: Denies: eye pain, blurred vision, tearing, double vision, ear pain, ear discharge, nose pain, nose congestion, throat pain, throat swelling, mouth pain , mouth swelling, other Cardiovascular: Denies: chest pain, edema, irregular heart rate, lightheadedness, palpitations, syncope, other Respiratory: Denies: cough, orthopnea, shortness of breath, SOB with excertion , SOB at rest, sputum, stridor, wheezing, other Gastrointestinal/Abdominal: Denies: abdomen distended, abdominal pain, black stools, tarry stools, blood in stool, constipated, diarrhea, difficulty swallowing, nausea, poor appetite, poor fluid intake, rectal bleeding, vomiting , other Genitourinary: Denies: burning, discharge, frequency, flank pain, hematuria, incontinence, pain, urgency, other Neurologic/Psychiatric: Denies: anxiety, depressed, emotional problems, headache, numbness, paresthesia, pre-existing deficit, seizure, tingling, tremors, weakness, other Endocrine: Denies: no symptoms, excessive sweating, flushing, intolerance to cold, intolerance to heat, increased hunger, increased thirst, increased urine, unexplained weight gain, unexplained weight loss, other Hematologic/Lymphatic: Denies: anemia, easy bleeding, easy bruising, other Allergies: Coded Allergies: No Known Allergies (Unverified , 03/28/19) Subjective No acute events overnight per nursing. Diarrhea: Resolved. Formed stool. Denies any abdominal pain fever or chills. Urinary retention: Resolved with discontinuation of Benadryl. Continues to be resolved Groin rash: Improving with antifungal cream. Itching much improved today. But overall improving Objective Last 24 Hour Vital Signs Date Time Temp Pulse Resp B/P (MAP) Pulse Ox O2 Delivery O2 Flow Rate FiO2 04/30/19 12:00 98.6 75 18 105/59 (74) 98 04/30/19 09:00 Room Air 04/30/19 08:00 98.2 109 18 99/59 (72) 94 04/30/19 04:00 97.8 77 16 109/64 (79) 95 04/30/19 00:00 97.9 58 18 115/59 (77) 94 04/29/19 21:00 Room Air 04/29/19 20:00 97.7 61 17 120/63 (82) 95 Intake and Output 04/29/19 04/30/19 19:00 07:00 Intake Total 300 ml 600 ml Output Total 173 ml Balance 300 ml 427 ml Intake Oral 300 ml 600 ml Post Void Residual 173 ml Bladder Scan Volume Amount not taken 51-75 ml 76-100 ml 151-200 ml # Voids 2 2 # Bowel Movements 1 Laboratory Tests 04/30/19 05:55: White Blood Count 10.9#H, Red Blood Count 3.57L, Hemoglobin 11.7L, Hematocrit 34.4L, Mean Corpuscular Volume 96, Mean Corpuscular Hemoglobin 32.8H, Mean Corpuscular Hemoglobin Concent 34.1, Red Cell Distribution Width 13.7, Platelet Count 325, Mean Platelet Volume 5.0L, Neutrophils (%) (Auto) 76.4H, Lymphocytes (%) (Auto) 11.6L, Monocytes (%) (Auto) 10.4H, Eosinophils (%) (Auto) 1.1, Basophils (%) (Auto) 0.5, Sodium Level 134L, Potassium Level 4.5, Chloride Level 100, Carbon Dioxide Level 26, Anion Gap 8, Blood Urea Nitrogen 12, Creatinine 0.7, Estimat Glomerular Filtration Rate > 60, Glucose Level 91, Calcium Level 9.8 Height (Feet): 5 Height (Inches): 3.00 Weight (Pounds): 110 General Appearance: WD/WN, no apparent distress, alert EENT: PERRL/EOMI, normal ENT inspection Neck: non-tender, normal alignment, supple Cardiovascular: normal peripheral pulses, normal rate, regular rhythm, no JVD Respiratory/Chest: chest wall non-tender, lungs clear Abdomen: normal bowel sounds, non tender, soft, no organomegaly, no mass Extremities: normal range of motion, non-tender, normal inspection Edema: other - no LE edema bilaterally 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 Apr 30, 2019 17:05
--- NOTE | 2019-04-30 18:10 | Infectious Diseases Prog Note ---
Assessment/Plan Assessment/Plan ASSESSMENT AND PLAN: 1. c.diff. colitis, e.coli uti/pyelonephritis, sepsis, leukocytosis, fevers - po vancomycin x 1 day more, f/u c.diff. negative - f/u urinalysis and culture with dysuria/frequency and mild increase in wbc - diarrhea overall improved - monitor labs and clinically, stool more formed - fevers resolved 2. The patient came in with fall. Question ataxia. 3. The patient has sepsis criteria including cirrhosis, fevers, and heart rate as high as 115. Thus has SIRS criteria. 4. The patient has history of schizophrenia. 5. History of head trauma. 6. Lethargy. 7. Physical deconditioning. 8. She also has history of pacemaker. 9. Continue treatment per primary consultants. 10. No known allergies. 11. Social history is negative. 12. Family history is noncontributory. 13. MAR is noted. 14. Case was discussed with RN. 15. Notes and records were noted. Orders were entered. Subjective Constitutional: Denies: fever HEENT: Denies: congestion Respiratory: Denies: shortness of breath Cardiovascular: Denies: chest pain Gastrointestinal/Abdominal: Reports: diarrhea - less, none today per RN and patient ; Denies: nausea, vomiting Genitourinary: Reports: dysuria; Denies: hematuria Psychiatric: Denies: depression Skin: Denies: rash Hematologic: Denies: bleeding Musculoskeletal: Denies: pain Allergies: Coded Allergies: No Known Allergies (Unverified , 03/28/19) Objective Vital Signs Last 24 Hour Vital Signs Date Time Temp Pulse Resp B/P (MAP) Pulse Ox O2 Delivery O2 Flow Rate FiO2 04/30/19 12:00 98.6 75 18 105/59 (74) 98 04/30/19 09:00 Room Air 04/30/19 08:00 98.2 109 18 99/59 (72) 94 04/30/19 04:00 97.8 77 16 109/64 (79) 95 04/30/19 00:00 97.9 58 18 115/59 (77) 94 04/29/19 21:00 Room Air 04/29/19 20:00 97.7 61 17 120/63 (82) 95 Height (Feet): 5 Height (Inches): 3.00 Weight (Pounds): 110 General Appearance: no acute distress HEENT: normocephalic, atraumatic, anicteric, mucous membranes moist Respiratory/Chest: lungs clear, normal breath sounds, no respiratory distress, no accessory muscle use Cardiovascular: normal rate, regular rhythm, no gallop/murmur, no JVD Abdomen: normal bowel sounds, soft, non tender, no organomegaly, non distended Genitourinary: other - no cva pain Extremities: no cyanosis Skin: no rash 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 Chronic calcific pancreatitis Atherosclerotic vascular disease Degenerative changes of the spine. Mild scoliosis. Mild left posterior basal atelectasis. Limited evaluation due to the nonadministration of intravenous contrast Chest x-ray - nad Microbiology Date/Time Source Procedure Growth Status 04/09/19 20:27 Blood Blood Culture - Final NO GROWTH AFTER 5 DAYS Complete 03/29/19 05:20 Nasal Nares Left MRSA Culture - Final NO METHICILLIN RESISTANT STAPH AUREUS... Complete 04/24/19 12:07 Stool Clostridium difficile Toxin Assay - Final Complete 04/24/19 22:52 Urine,Clean Catch Urine Culture - Final Pseudomonas Aeruginosa Escherichia Coli Complete 03/29/19 05:20 Rectum - Final NO CARBAPENEM-RESISTANT ENTEROBACTERI... Complete Laboratory Tests Test 04/30/19 05:55 White Blood Count 10.9 K/UL (4.8-10.8) #H Red Blood Count 3.57 M/UL (4.20-5.40) L Hemoglobin 11.7 G/DL (12.0-16.0) L Hematocrit 34.4 % (37.0-47.0) L Mean Corpuscular Volume 96 FL (80-99) Mean Corpuscular Hemoglobin 32.8 PG (27.0-31.0) H Mean Corpuscular Hemoglobin Concent 34.1 G/DL (32.0-36.0) Red Cell Distribution Width 13.7 % (11.6-14.8) Platelet Count 325 K/UL (150-450) Mean Platelet Volume 5.0 FL (6.5-10.1) L Neutrophils (%) (Auto) 76.4 % (45.0-75.0) H Lymphocytes (%) (Auto) 11.6 % (20.0-45.0) L Monocytes (%) (Auto) 10.4 % (1.0-10.0) H Eosinophils (%) (Auto) 1.1 % (0.0-3.0) Basophils (%) (Auto) 0.5 % (0.0-2.0) Sodium Level 134 MMOL/L (136-145) L Potassium Level 4.5 MMOL/L (3.5-5.1) Chloride Level 100 MMOL/L (98-107) Carbon Dioxide Level 26 MMOL/L (21-32) Anion Gap 8 mmol/L (5-15) Blood Urea Nitrogen 12 mg/dL (7-18) Creatinine 0.7 MG/DL (0.55-1.30) Estimat Glomerular Filtration Rate > 60 mL/min (>60) Glucose Level 91 MG/DL (74-106) Calcium Level 9.8 MG/DL (8.5-10.1) Current Medications Medications (Trade) Dose Ordered Sig/Lindsey Route PRN Reason Start Time Stop Time Status Last Admin Dose Admin Acetaminophen (Tylenol) 650 mg Q4H PRN ORAL Mild Pain/Temp > 100.5 04/29/19 00:00 05/29/19 00:00 04/29/19 00:04 Cholestyramine Resin (Questran) 4 gm BID ORAL 04/21/19 18:00 05/21/19 17:59 04/30/19 08:45 Clonazepam (KlonoPIN) 0.5 mg BEDTIME PRN ORAL insomnia 04/28/19 14:45 05/05/19 14:44 04/29/19 21:20 Clotrimazole (Lotrimin) 1 applic BID TOPIC 04/24/19 14:00 05/08/19 13:59 04/30/19 10:18 Diphenhydramine HCl (Benadryl) 25 mg HSPRN PRN ORAL Insomnia 04/29/19 00:00 05/29/19 00:00 04/29/19 00:04 Diphenoxylate HCl/ Atropine (Lomotil) 2.5 mg Q4H PRN ORAL Diarrhea 04/29/19 14:05 05/29/19 14:04 Famotidine (Pepcid) 20 mg DAILY ORAL 04/10/19 09:00 05/10/19 08:59 04/30/19 08:45 Lactobacillus Acidophilus (Culturelle) 1 tab TWICE A DAY ORAL 04/16/19 09:00 05/16/19 08:59 04/30/19 08:45 Risperidone (RisperDAL) 4 mg BEDTIME ORAL 04/10/19 21:00 05/10/19 20:59 04/26/19 20:40 Vancomycin HCl (Firvanq) 125 mg FOUR TIMES A DAY ORAL 04/15/19 21:00 05/01/19 23:59 04/30/19 14:38 Angel Martinez MD Apr 30, 2019 18:10
[2019-04-30 20:00] VITALS: BP 120/68
[2019-04-30] MEDS: clonazePAM 0.5mg tab ORAL PRN (20:29)
[2019-04-30 21:06] LABS: APPEARANCE,URINE SLIGHTLY CLOUDY; BILIRUBIN, URINE NEGATIVE (NEGATIVE); COLOR,URINE PALE YELLOW; GLUCOSE, URINE (UA) NEGATIVE (NEGATIVE); KETONES,URINE NEGATIVE (NEGATIVE); LEUKOCYTE ESTERASE ,URINE 3+ (NEGATIVE); NITRITE,URINE NEGATIVE (NEGATIVE); PH,URINE 7 (4.5-8.0); PROTEIN,URINE NEGATIVE (NEGATIVE); UROBILINOGEN,URINE NORMAL MG/DL (0.0-1.0)
[2019-05-01] VITALS: BP 108/53
[2019-05-01 04:00] VITALS: BP 110/59
[2019-05-01 06:36] LABS: BASOPHILS % (AUTO) 0.8 % (0.0-2.0); EOSINOPHILS % (AUTO) 1.4 % (0.0-3.0); HEMATOCRIT 34.1 % (37.0-47.0); HEMOGLOBIN 11.7 G/DL (12.0-16.0); LYMPHOCYTES % (AUTO) 11.1 % (20.0-45.0); MEAN CORPUSCULAR VOLUME 96 FL (80-99); MONOCYTES % (AUTO) 10.7 % (1.0-10.0); NEUTROPHILS % (AUTO) 76.1 % (45.0-75.0); PLATELET COUNT 298 K/UL (150-450); RED BLOOD COUNT 3.56 M/UL (4.20-5.40); RED CELL DISTRIBUTION WIDTH 13.3 % (11.6-14.8)
[2019-05-01 07:04] LABS: ANION GAP 7 mmol/L (5-15); BLOOD UREA NITROGEN 10 mg/dL (7-18); CALCIUM 9.6 MG/DL (8.5-10.1); CARBON DIOXIDE 26 MMOL/L (21-32); CHLORIDE 100 MMOL/L (98-107); CREATININE 0.7 MG/DL (0.55-1.30); POTASSIUM 4.5 MMOL/L (3.5-5.1); SODIUM 133 MMOL/L (136-145)
[2019-05-01] MEDS: Lactobacillus-GG tablet ORAL SCH ×2 (09:10→17:45)
[2019-05-01] MEDS: Vancomycin oral 125mg/2.5ml ORAL SCH ×4 (09:10→20:25)
[2019-05-01] MEDS: Cholestyramine 4gm Pkt ORAL SCH ×2 (09:10→17:45)
[2019-05-01 12:00] VITALS: BP 110/51
--- NOTE | 2019-05-01 13:22 | GI Progress Note ---
Assessment/Plan Problems: (1) C. difficile colitis ICD Codes: A04.72 - Enterocolitis due to Clostridium difficile, not specified as recurrent SNOMED: 267921916 (2) Diarrhea ICD Codes: R19.7 - Diarrhea, unspecified SNOMED: 76264660 (3) LGI bleed ICD Codes: K92.2 - Gastrointestinal hemorrhage, unspecified SNOMED: 32721791 (4) Schizophrenia ICD Codes: F20.9 - Schizophrenia, unspecified SNOMED: 66860992 Qualifiers: Qualified Codes: F20.9 - Schizophrenia, unspecified Status: stable Status Narrative Discussed with Dr. Anderson Assessment/Plan 69 year old female patient with reported episode of lower GI bleed x1 yesterday most likely due to infectious colitis. At time of evaluation, no reported recurrent LGIB, H&H stable. cdiff positive AP CT reviewed noted with moderately severe fecal retention in the colon and rectum with evidence of a proctocolitis. RN reports patient having a normal bowel movement okay for DC per GI standpoint No plans for colonoscopy at this time, can be done as outpatient. abx monitor H&H or recurrent LGIB, prn transfusions zofran prn H2B follow labs Continue Lomotil The patient was seen and examined at bedside and all new and available data was reviewed in the patients chart. I agree with the above findings, impression and plan. (Patient seen earlier today. Signature stamp does not reflect patient encounter time.). - Michelet Anderson MD Subjective Gastrointestinal/Abdominal: Reports: no symptoms Subjective Denies any diarrhea Denies any abdominal pain States that she has a urinary tract infection Objective Last 24 Hour Vital Signs Date Time Temp Pulse Resp B/P (MAP) Pulse Ox O2 Delivery O2 Flow Rate FiO2 05/01/19 12:00 97.9 62 17 110/51 (70) 97 05/01/19 09:00 Room Air 05/01/19 04:00 98.1 61 20 110/59 (76) 98 05/01/19 00:00 97.7 60 17 108/53 (71) 95 04/30/19 21:00 Room Air 04/30/19 20:00 97.9 63 18 120/68 (85) 98 04/30/19 16:00 98.2 67 18 123/68 (86) 97 Intake and Output 04/30/19 05/01/19 18:59 06:59 Intake Total 600 ml Output Total 202 ml Balance 398 ml Intake Oral 600 ml Post Void Residual 202 ml Bladder Scan Volume Amount 151-200 ml 151-200 ml 51-75 ml 51-75 ml # Voids 3 2 # Bowel Movements 1 Laboratory Tests Test 04/30/19 20:31 05/01/19 05:53 Urine Color Pale yellow Urine Appearance Slightly cloudy Urine pH 7 (4.5-8.0) Urine Specific [place] 1.005 (1.005-1.035) Urine Protein Negative (NEGATIVE) Urine Glucose (UA) Negative (NEGATIVE) Urine Ketones Negative (NEGATIVE) Urine Blood 1+ (NEGATIVE) H Urine Nitrite Negative (NEGATIVE) Urine Bilirubin Negative (NEGATIVE) Urine Urobilinogen Normal MG/DL (0.0-1.0) Urine Leukocyte Esterase 3+ (NEGATIVE) H Urine RBC 0-2 /HPF (0 - 2) Urine WBC 20-30 /HPF (0 - 2) H Urine Squamous Epithelial Cells Few /LPF (NONE/OCC) Urine Bacteria Many /HPF (NONE) H White Blood Count 11.0 K/UL (4.8-10.8) H Red Blood Count 3.56 M/UL (4.20-5.40) L Hemoglobin 11.7 G/DL (12.0-16.0) L Hematocrit 34.1 % (37.0-47.0) L Mean Corpuscular Volume 96 FL (80-99) Mean Corpuscular Hemoglobin 32.8 PG (27.0-31.0) H Mean Corpuscular Hemoglobin Concent 34.2 G/DL (32.0-36.0) Red Cell Distribution Width 13.3 % (11.6-14.8) Platelet Count 298 K/UL (150-450) Mean Platelet Volume 5.6 FL (6.5-10.1) L Neutrophils (%) (Auto) 76.1 % (45.0-75.0) H Lymphocytes (%) (Auto) 11.1 % (20.0-45.0) L Monocytes (%) (Auto) 10.7 % (1.0-10.0) H Eosinophils (%) (Auto) 1.4 % (0.0-3.0) Basophils (%) (Auto) 0.8 % (0.0-2.0) Sodium Level 133 MMOL/L (136-145) L Potassium Level 4.5 MMOL/L (3.5-5.1) Chloride Level 100 MMOL/L (98-107) Carbon Dioxide Level 26 MMOL/L (21-32) Anion Gap 7 mmol/L (5-15) Blood Urea Nitrogen 10 mg/dL (7-18) Creatinine 0.7 MG/DL (0.55-1.30) Estimat Glomerular Filtration Rate > 60 mL/min (>60) Glucose Level 87 MG/DL (74-106) Calcium Level 9.6 MG/DL (8.5-10.1) Microbiology Date/Time Source Procedure Growth Status 04/30/19 20:31 Urine,Clean Catch Urine Culture - Preliminary Gram Negative Bacillus 1 Resulted Height (Feet): 5 Height (Inches): 3.00 Weight (Pounds): 110 General Appearance: WD/WN, no apparent distress, alert Cardiovascular: normal rate Respiratory/Chest: normal breath sounds, no respiratory distress Abdominal Exam: normal bowel sounds, non tender, soft Extremities: normal range of motion, non-tender Mckay Medina NP May 01, 2019 13:22
[2019-05-01 16:00] VITALS: BP 126/64
--- NOTE | 2019-05-01 16:27 | Infectious Diseases Prog Note ---
Assessment/Plan Assessment/Plan ASSESSMENT AND PLAN: 1. c.diff. colitis, gram neg uti, + uc with pseudomonas and e.coli, hx sepsis, leukocytosis, hx fevers - ciprofloxacin po x 3 days, f/u on urine culture final - continue po vancomycin while on concomitant ciprofloxacin - diarrhea overall improved, stool more formed - monitor labs - fevers resolved - communicated with Dr. Colon 2. The patient came in with fall. Question ataxia. 3. The patient has sepsis criteria including cirrhosis, fevers, and heart rate as high as 115. Thus has SIRS criteria. 4. The patient has history of schizophrenia. 5. History of head trauma. 6. Lethargy. 7. Physical deconditioning. 8. She also has history of pacemaker. 9. Continue treatment per primary consultants. 10. No known allergies. 11. Social history is negative. 12. Family history is noncontributory. 13. MAR is noted. 14. Case was discussed with RN. 15. Notes and records were noted. Orders were entered. Subjective Constitutional: Reports: fatigue; Denies: fever HEENT: Denies: congestion Respiratory: Denies: shortness of breath Cardiovascular: Denies: chest pain Gastrointestinal/Abdominal: Denies: nausea, vomiting, diarrhea Genitourinary: Reports: dysuria, frequency, other - no palacios Neurologic: Denies: headache Psychiatric: Denies: depression Skin: Denies: rash Hematologic: Denies: bleeding Musculoskeletal: Denies: pain Allergies: Coded Allergies: No Known Allergies (Unverified , 03/28/19) Objective Vital Signs Last 24 Hour Vital Signs Date Time Temp Pulse Resp B/P (MAP) Pulse Ox O2 Delivery O2 Flow Rate FiO2 05/01/19 12:00 97.9 62 17 110/51 (70) 97 05/01/19 09:00 Room Air 05/01/19 04:00 98.1 61 20 110/59 (76) 98 05/01/19 00:00 97.7 60 17 108/53 (71) 95 04/30/19 21:00 Room Air 04/30/19 20:00 97.9 63 18 120/68 (85) 98 Height (Feet): 5 Height (Inches): 3.00 Weight (Pounds): 110 General Appearance: no acute distress HEENT: normocephalic, atraumatic, anicteric, mucous membranes moist Respiratory/Chest: lungs clear, normal breath sounds, no respiratory distress Cardiovascular: normal rate, regular rhythm, regularly irregular, no gallop/ murmur, no JVD Abdomen: normal bowel sounds, soft, non tender, no organomegaly, non distended Genitourinary: other - no palacios, no cva pain Extremities: no cyanosis Skin: no rash 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 Chronic calcific pancreatitis Atherosclerotic vascular disease Degenerative changes of the spine. Mild scoliosis. Mild left posterior basal atelectasis. Limited evaluation due to the nonadministration of intravenous contrast Chest x-ray - nad Microbiology Date/Time Source Procedure Growth Status 04/09/19 20:27 Blood Blood Culture - Final NO GROWTH AFTER 5 DAYS Complete 03/29/19 05:20 Nasal Nares Left MRSA Culture - Final NO METHICILLIN RESISTANT STAPH AUREUS... Complete 04/24/19 12:07 Stool Clostridium difficile Toxin Assay - Final Complete 04/30/19 20:31 Urine,Clean Catch Urine Culture - Preliminary Gram Negative Bacillus 1 Resulted 03/29/19 05:20 Rectum - Final NO CARBAPENEM-RESISTANT ENTEROBACTERI... Complete Microbiology Date/Time Source Procedure Growth Status 04/30/19 20:31 Urine,Clean Catch Urine Culture - Preliminary Gram Negative Bacillus 1 Resulted Laboratory Tests Test 04/30/19 20:31 05/01/19 05:53 Urine Color Pale yellow Urine Appearance Slightly cloudy Urine pH 7 (4.5-8.0) Urine Specific [place] 1.005 (1.005-1.035) Urine Protein Negative (NEGATIVE) Urine Glucose (UA) Negative (NEGATIVE) Urine Ketones Negative (NEGATIVE) Urine Blood 1+ (NEGATIVE) H Urine Nitrite Negative (NEGATIVE) Urine Bilirubin Negative (NEGATIVE) Urine Urobilinogen Normal MG/DL (0.0-1.0) Urine Leukocyte Esterase 3+ (NEGATIVE) H Urine RBC 0-2 /HPF (0 - 2) Urine WBC 20-30 /HPF (0 - 2) H Urine Squamous Epithelial Cells Few /LPF (NONE/OCC) Urine Bacteria Many /HPF (NONE) H White Blood Count 11.0 K/UL (4.8-10.8) H Red Blood Count 3.56 M/UL (4.20-5.40) L Hemoglobin 11.7 G/DL (12.0-16.0) L Hematocrit 34.1 % (37.0-47.0) L Mean Corpuscular Volume 96 FL (80-99) Mean Corpuscular Hemoglobin 32.8 PG (27.0-31.0) H Mean Corpuscular Hemoglobin Concent 34.2 G/DL (32.0-36.0) Red Cell Distribution Width 13.3 % (11.6-14.8) Platelet Count 298 K/UL (150-450) Mean Platelet Volume 5.6 FL (6.5-10.1) L Neutrophils (%) (Auto) 76.1 % (45.0-75.0) H Lymphocytes (%) (Auto) 11.1 % (20.0-45.0) L Monocytes (%) (Auto) 10.7 % (1.0-10.0) H Eosinophils (%) (Auto) 1.4 % (0.0-3.0) Basophils (%) (Auto) 0.8 % (0.0-2.0) Sodium Level 133 MMOL/L (136-145) L Potassium Level 4.5 MMOL/L (3.5-5.1) Chloride Level 100 MMOL/L (98-107) Carbon Dioxide Level 26 MMOL/L (21-32) Anion Gap 7 mmol/L (5-15) Blood Urea Nitrogen 10 mg/dL (7-18) Creatinine 0.7 MG/DL (0.55-1.30) Estimat Glomerular Filtration Rate > 60 mL/min (>60) Glucose Level 87 MG/DL (74-106) Calcium Level 9.6 MG/DL (8.5-10.1) Current Medications Medications (Trade) Dose Ordered Sig/Lindsey Route PRN Reason Start Time Stop Time Status Last Admin Dose Admin Acetaminophen (Tylenol) 650 mg Q4H PRN ORAL Mild Pain/Temp > 100.5 04/29/19 00:00 05/29/19 00:00 05/01/19 11:47 Cholestyramine Resin (Questran) 4 gm BID ORAL 04/21/19 18:00 05/21/19 17:59 05/01/19 09:10 Ciprofloxacin (Cipro 500mg tab) 500 mg EVERY 12 HOURS ORAL 05/01/19 21:00 05/08/19 20:59 Clonazepam (KlonoPIN) 0.5 mg BEDTIME PRN ORAL insomnia 04/28/19 14:45 05/05/19 14:44 04/30/19 20:29 Clotrimazole (Lotrimin) 1 applic BID TOPIC 04/24/19 14:00 05/08/19 13:59 05/01/19 09:10 Diphenhydramine HCl (Benadryl) 25 mg HSPRN PRN ORAL Insomnia 04/29/19 00:00 05/29/19 00:00 04/30/19 20:29 Diphenoxylate HCl/ Atropine (Lomotil) 2.5 mg Q4H PRN ORAL Diarrhea 04/29/19 14:05 05/29/19 14:04 Famotidine (Pepcid) 20 mg DAILY ORAL 04/10/19 09:00 05/10/19 08:59 05/01/19 09:10 Lactobacillus Acidophilus (Culturelle) 1 tab TWICE A DAY ORAL 04/16/19 09:00 05/16/19 08:59 05/01/19 09:10 Risperidone (RisperDAL) 4 mg BEDTIME ORAL 04/10/19 21:00 05/10/19 20:59 04/26/19 20:40 Vancomycin HCl (Firvanq) 125 mg FOUR TIMES A DAY ORAL 05/01/19 18:00 05/17/19 20:59 Angel Martinez MD May 01, 2019 16:27
[2019-05-01 18:29] LABS: ALANINE AMINOTRANSFERASE 35 U/L (12-78); ANION GAP 9 mmol/L (5-15); ASPARTATE AMINO TRANSFERASE 22 U/L (15-37); BILIRUBIN,TOTAL 0.3 MG/DL (0.2-1.0); BLOOD UREA NITROGEN 13 mg/dL (7-18); CALCIUM 9.5 MG/DL (8.5-10.1); CARBON DIOXIDE 26 MMOL/L (21-32); CHLORIDE 99 MMOL/L (98-107); CREATININE 0.7 MG/DL (0.55-1.30); SODIUM 134 MMOL/L (136-145)
[2019-05-01 18:30] LABS: ALBUMIN 2.8 G/DL (3.4-5.0); ALBUMIN/GLOBULIN RATIO 0.7 (1.0-2.7); ALKALINE PHOSPHATASE 77 U/L (46-116)
--- NOTE | 2019-05-01 18:34 | General Progress Note ---
Assessment/Plan Problem List: (1) Acute encephalopathy ICD Codes: G93.40 - Encephalopathy, unspecified SNOMED: 08889413, 818591811 (2) Ataxia ICD Codes: R27.0 - Ataxia, unspecified SNOMED: 32762274 (3) Pyuria ICD Codes: N39.0 - Urinary tract infection, site not specified SNOMED: 5114603, 970702482 (4) Lethargy ICD Codes: R53.83 - Other fatigue SNOMED: 901242953 (5) Head trauma ICD Codes: S09.90XA - Unspecified injury of head, initial encounter SNOMED: 62446853 Qualifiers: Qualified Codes: S09.90XA - Unspecified injury of head, initial encounter (6) Benzodiazepine abuse ICD Codes: F13.10 - Sedative, hypnotic or anxiolytic abuse, uncomplicated SNOMED: 006292816, 952294876 (7) Schizophrenia ICD Codes: F20.9 - Schizophrenia, unspecified SNOMED: 92998458 Qualifiers: Qualified Codes: F20.9 - Schizophrenia, unspecified (8) Physical deconditioning ICD Codes: R53.81 - Other malaise SNOMED: 11199069816203 (9) Hyponatremia ICD Codes: E87.1 - Hypo-osmolality and hyponatremia SNOMED: 75809239 (10) Hypovolemia due to dehydration ICD Codes: E86.0 - Dehydration SNOMED: 62641399 (11) Tinea cruris ICD Codes: B35.6 - Tinea cruris SNOMED: 673087183 Status: stable Assessment/Plan: 69 year old female with schizophrenia presenting after a fall at home and diarrhea. CT head negative for any acute pathology. Seen by PT and advised SNF. Her diarrhea resolved shortly after admission. She had no leukocytosis or TAYLOR. Imodium prn helped. Patient remained int hospital waiting for placement. on , she developed fever, leukocytosis, change in mental status, and bloody diarrhea. Stool sent for c diff and POSITIVE. Urine culture growing E.Coli. 1. Sepsis secondary to C. Diff colitis, and UTI - Resolved #C diff colitis- Improving. Repeat C. difficile negative -Continue oral vancomycin, IV flagyl. Will need 14 days total of PO vancomycin ( until 04/29/19) - May extend to 21 days per ID if continues to have diarrhea (until 05/06/19) - s/p IV ceftriaxone for UTI per ID -Repeat BCX negative -ID consult with Dr. Adler, recs appreciated -do not treat most current UA -GI consult: Appreciate recs from Dr. Anderson and JOB PRINTER APPRENTICE Carol. may add cholestyramine for continued diarrhea. Continue for rest of C Diff treatment -GI consult, recs appreciated- Continue PO Vanc and IV flagyl, outpatient colonoscopy - continue cholestyramine 2. Urinary tract infection, new problem 05/01/19 -Follow-up urine culture -Appreciate infectious disease recommendations: Dr. Adler -Ciprofloxacin for 3 days -Concomitant vancomycin p.o. 4 times daily given history of C. difficile 2. Hypokalemia. Repleted 3. Schizophrenia Flat affect -Continue home Clonazepam. Dose decreased by psychiatrist to 1 mg QHS -discontinued home Trazodone. -Risperidone 4mg QHS per psychiatry recommendations -psychiatry consult. Dr. Fernández, appreciated. -Ativan 2mg Q6h PRN 4. Physical deconditioning and cachexia. Monitor oral intake 5. Hypovolemic hyponatremia. -Improved with IV fluids > Urine osmolality 215, urine sodium less than 20, urine creatinine 46.9. FENA calculated at 0.2% -Continue to encourage p.o. intake and fluids -Continue to monitor sodium daily 6. Hypokalemia- 2/2 diarrhea. replete PRN. Continue to monitor 7. Lower lip lesion- improving. continue ointment 8. Tinea cruris - Continue clotrimazole BID x 2 weeks (until 05/08/19) 9. Urinary retention, resolved -Bladder scans every 6 hours with postvoid residual. If greater than 250 straight cath. - discontinue benadryl 10. Insomnia - replace benadryl with Klonipin PRN Dispo: pending placement at [facility] I spent 37 minutes on this encounter with >50% spent on counselling and care coordination. Discussed with patient and RN and infectious disease Time of note may not reflect time patient was seen. Subjective Date patient seen: May 01, 2019 Constitutional: Denies: chills, diaphoresis, fever, malaise, weakness, other HEENT: Denies: eye pain, blurred vision, tearing, double vision, ear pain, ear discharge, nose pain, nose congestion, throat pain, throat swelling, mouth pain , mouth swelling, other Cardiovascular: Denies: chest pain, edema, irregular heart rate, lightheadedness, palpitations, syncope, other Respiratory: Denies: cough, orthopnea, shortness of breath, SOB with excertion , SOB at rest, sputum, stridor, wheezing, other Gastrointestinal/Abdominal: Denies: abdomen distended, abdominal pain, black stools, tarry stools, blood in stool, constipated, diarrhea, difficulty swallowing, nausea, poor appetite, poor fluid intake, rectal bleeding, vomiting , other Genitourinary: Denies: burning, discharge, frequency, flank pain, hematuria, incontinence, pain, urgency, other Neurologic/Psychiatric: Denies: anxiety, depressed, emotional problems, headache, numbness, paresthesia, pre-existing deficit, seizure, tingling, tremors, weakness, other Endocrine: Denies: excessive sweating, flushing, intolerance to cold, intolerance to heat, increased hunger, increased thirst, increased urine, unexplained weight gain, unexplained weight loss, other Hematologic/Lymphatic: Denies: anemia, easy bleeding, easy bruising, other Allergies: Coded Allergies: No Known Allergies (Unverified , 03/28/19) Subjective No acute events overnight per nursing. Diarrhea: Resolved. Formed stool. Denies any abdominal pain fever or chills. Urinary retention: Resolved with discontinuation of Benadryl. Continues to be resolved Patient endorses dysuria frequency and urgency. Denies any fevers chills nausea or vomiting. Denies any back pain. Groin rash: Improving with antifungal cream. Itching much improved today. But overall improving Objective Last 24 Hour Vital Signs Date Time Temp Pulse Resp B/P (MAP) Pulse Ox O2 Delivery O2 Flow Rate FiO2 05/01/19 16:00 98.8 62 16 126/64 (84) 98 05/01/19 12:00 97.9 62 17 110/51 (70) 97 05/01/19 09:00 Room Air 05/01/19 04:00 98.1 61 20 110/59 (76) 98 05/01/19 00:00 97.7 60 17 108/53 (71) 95 04/30/19 21:00 Room Air 04/30/19 20:00 97.9 63 18 120/68 (85) 98 Intake and Output 04/30/19 05/01/19 18:59 06:59 Intake Total 600 ml Output Total 202 ml Balance 398 ml Intake Oral 600 ml Post Void Residual 202 ml Bladder Scan Volume Amount 151-200 ml 151-200 ml 51-75 ml 51-75 ml # Voids 3 2 # Bowel Movements 1 Laboratory Tests 04/30/19 20:31: Urine Color Pale yellow, Urine Appearance Slightly cloudy, Urine pH 7, Urine Specific [place] 1.005, Urine Protein Negative, Urine Glucose (UA) Negative, Urine Ketones Negative, Urine Blood 1+H, Urine Nitrite Negative, Urine Bilirubin Negative, Urine Urobilinogen Normal, Urine Leukocyte Esterase 3+H, Urine RBC 0-2, Urine WBC 20-30H, Urine Squamous Epithelial Cells Few, Urine Bacteria ManyH 05/01/19 05:53: White Blood Count 11.0H, Red Blood Count 3.56L, Hemoglobin 11.7L, Hematocrit 34.1L, Mean Corpuscular Volume 96, Mean Corpuscular Hemoglobin 32.8H, Mean Corpuscular Hemoglobin Concent 34.2, Red Cell Distribution Width 13.3, Platelet Count 298, Mean Platelet Volume 5.6L, Neutrophils (%) (Auto) 76.1H, Lymphocytes (%) (Auto) 11.1L, Monocytes (%) (Auto) 10.7H, Eosinophils (%) (Auto) 1.4, Basophils (%) (Auto) 0.8, Sodium Level 133L, Potassium Level 4.5, Chloride Level 100, Carbon Dioxide Level 26, Anion Gap 7, Blood Urea Nitrogen 10, Creatinine 0.7, Estimat Glomerular Filtration Rate > 60, Glucose Level 87, Calcium Level 9.6 05/01/19 18:00: Sodium Level [Pending], Potassium Level [Pending], Chloride Level [Pending], Carbon Dioxide Level [Pending], Blood Urea Nitrogen [Pending], Creatinine [ Pending], Estimat Glomerular Filtration Rate [Pending], Glucose Level [Pending] , Calcium Level [Pending], Total Bilirubin [Pending], Aspartate Amino Transf ( AST/SGOT) [Pending], Alanine Aminotransferase (ALT/SGPT) [Pending], Alkaline Phosphatase [Pending], Total Protein [Pending], Albumin [Pending], Globulin [ Pending] Height (Feet): 5 Height (Inches): 3.00 Weight (Pounds): 110 General Appearance: WD/WN, no apparent distress, alert EENT: PERRL/EOMI, normal ENT inspection Neck: non-tender, normal alignment Cardiovascular: normal peripheral pulses, normal rate, regular rhythm Respiratory/Chest: chest wall non-tender, lungs clear, normal breath sounds Abdomen: normal bowel sounds, non tender, soft Extremities: normal range of motion, non-tender, normal inspection Edema: other - No lower extremity edema bilaterally Neurologic: box sealing machine feeder II-XII grossly normal, no motor/sensory deficits, alert, oriented x 3 Skin: normal pigmentation, warm/dry Jonny Colon D.O. May 01, 2019 18:34
[2019-05-01 20:00] VITALS: BP 113/59
[2019-05-01] MEDS: Ciprofloxacin 500mg tab ORAL SCH (20:23)
[2019-05-01] MEDS: clonazePAM 0.5mg tab ORAL PRN (20:23)
[2019-05-02] VITALS: BP 109/56
[2019-05-02 04:00] VITALS: BP 123/64
[2019-05-02 06:17] LABS: BASOPHILS % (AUTO) 0.6 % (0.0-2.0); EOSINOPHILS % (AUTO) 2.4 % (0.0-3.0); HEMATOCRIT 34.5 % (37.0-47.0); HEMOGLOBIN 11.9 G/DL (12.0-16.0); MEAN CORPUSCULAR VOLUME 96 FL (80-99); MONOCYTES % (AUTO) 11.2 % (1.0-10.0); NEUTROPHILS % (AUTO) 69.8 % (45.0-75.0); PLATELET COUNT 298 K/UL (150-450); RED CELL DISTRIBUTION WIDTH 13.2 % (11.6-14.8)
[2019-05-02 06:34] LABS: ANION GAP 9 mmol/L (5-15); BLOOD UREA NITROGEN 11 mg/dL (7-18); CALCIUM 9.9 MG/DL (8.5-10.1); CARBON DIOXIDE 26 MMOL/L (21-32); CHLORIDE 102 MMOL/L (98-107); CREATININE 0.7 MG/DL (0.55-1.30); POTASSIUM 4.5 MMOL/L (3.5-5.1); SODIUM 137 MMOL/L (136-145)
[2019-05-02 08:00] VITALS: BP 121/75
[2019-05-02] MEDS: Ciprofloxacin 500mg tab ORAL SCH ×2 (10:15→20:26)
[2019-05-02] MEDS: Lactobacillus-GG tablet ORAL SCH ×2 (10:15→18:09)
[2019-05-02] MEDS: Cholestyramine 4gm Pkt ORAL SCH ×2 (10:16→18:09)
[2019-05-02] MEDS: Vancomycin oral 125mg/2.5ml ORAL SCH ×4 (10:16→20:26)
[2019-05-02 12:00] VITALS: BP 129/69
[2019-05-02 16:00] VITALS: BP 121/75
--- NOTE | 2019-05-02 18:49 | General Progress Note ---
Assessment/Plan Status: stable Assessment/Plan: 69 year old female with schizophrenia presenting after a fall at home and diarrhea. CT head negative for any acute pathology. Seen by PT and advised SNF. Her diarrhea resolved shortly after admission. She had no leukocytosis or TAYLOR. Imodium prn helped. Patient remained int hospital waiting for placement. on , she developed fever, leukocytosis, change in mental status, and bloody diarrhea. Stool sent for c diff and POSITIVE. Urine culture growing E.Coli. 1. Sepsis secondary to C. Diff colitis, and UTI - Resolved #C diff colitis- Improving. Repeat C. difficile negative -Continue oral vancomycin, IV flagyl. Will need 14 days total of PO vancomycin ( until 04/29/19) - May extend to 21 days per ID if continues to have diarrhea (until 05/06/19) - s/p IV ceftriaxone for UTI per ID -Repeat BCX negative -ID consult with Dr. Adler, recs appreciated -do not treat most current UA -GI consult: Appreciate recs from Dr. Anderson and OFFICE COORDINATOR Carol. may add cholestyramine for continued diarrhea. Continue for rest of C Diff treatment -GI consult, recs appreciated- Continue PO Vanc and IV flagyl, outpatient colonoscopy - continue cholestyramine 2. Urinary tract infection, new problem 05/01/19 -Follow-up urine culture -Appreciate infectious disease recommendations: Dr. Adler -Ciprofloxacin for 3 days -Concomitant vancomycin p.o. 4 times daily given history of C. difficile 2. Hypokalemia. Repleted 3. Schizophrenia Flat affect -Continue home Clonazepam. Dose decreased by psychiatrist to 1 mg QHS -discontinued home Trazodone. -Risperidone 4mg QHS per psychiatry recommendations -psychiatry consult. Dr. Fernández, appreciated. -Ativan 2mg Q6h PRN 4. Physical deconditioning and cachexia. Monitor oral intake 5. Hypovolemic hyponatremia. -Improved with IV fluids > Urine osmolality 215, urine sodium less than 20, urine creatinine 46.9. FENA calculated at 0.2% -Continue to encourage p.o. intake and fluids -Continue to monitor sodium daily 6. Hypokalemia- 2/2 diarrhea. replete PRN. Continue to monitor 7. Lower lip lesion- improving. continue ointment 8. Tinea cruris - Continue clotrimazole BID x 2 weeks (until 05/08/19) 9. Urinary retention, resolved -Bladder scans every 6 hours with postvoid residual. Resolved and voding well now. 10. Insomnia - replace benadryl with Klonipin PRN Dispo: pending placement at [facility] in the next 1-2 days I spent 37 minutes on this encounter with >50% spent on counselling and care coordination. Discussed with patient and RN and infectious disease Time of note may not reflect time patient was seen. Subjective ROS Limited/Unobtainable: Yes Genitourinary: Reports: burning Allergies: Coded Allergies: No Known Allergies (Unverified , 03/28/19) Objective Last 24 Hour Vital Signs Date Time Temp Pulse Resp B/P (MAP) Pulse Ox O2 Delivery O2 Flow Rate FiO2 05/02/19 16:00 97.7 102 18 121/75 (90) 97 05/02/19 12:00 98.1 60 18 129/69 (89) 97 05/02/19 10:00 60 63 78 05/02/19 09:00 Room Air 05/02/19 08:00 97.7 102 18 121/75 (90) 97 05/02/19 04:00 97.9 64 18 123/64 (83) 98 05/02/19 00:00 97.7 61 18 109/56 (73) 96 05/01/19 21:00 Room Air 05/01/19 20:00 98.1 63 18 113/59 (77) 97 Intake and Output 05/01/19 05/02/19 18:59 06:59 Intake Total 800 ml Balance 800 ml Intake Oral 800 ml Bladder Scan Volume Amount 101-150 ml 51-75 ml 126 101-150 ml # Voids 6 2 # Bowel Movements 2 Laboratory Tests 05/02/19 05:52: White Blood Count 8.0, Red Blood Count 3.60L, Hemoglobin 11.9L, Hematocrit 34.5L , Mean Corpuscular Volume 96, Mean Corpuscular Hemoglobin 33.0H, Mean Corpuscular Hemoglobin Concent 34.3, Red Cell Distribution Width 13.2, Platelet Count 298, Mean Platelet Volume 4.8L, Neutrophils (%) (Auto) 69.8, Lymphocytes ( %) (Auto) 16.0L, Monocytes (%) (Auto) 11.2H, Eosinophils (%) (Auto) 2.4, Basophils (%) (Auto) 0.6, Sodium Level 137, Potassium Level 4.5, Chloride Level 102, Carbon Dioxide Level 26, Anion Gap 9, Blood Urea Nitrogen 11, Creatinine 0.7, Estimat Glomerular Filtration Rate > 60, Glucose Level 98, Calcium Level 9.9 Height (Feet): 5 Height (Inches): 3.00 Weight (Pounds): 110 General Appearance: WD/WN EENT: PERRL/EOMI Neck: non-tender Respiratory/Chest: lungs clear Abdomen: non tender Extremities: normal range of motion Carlos Diallo MD May 02, 2019 18:49
[2019-05-02 20:00] VITALS: BP 108/63
[2019-05-02] MEDS: clonazePAM 0.5mg tab ORAL PRN (20:59)
[2019-05-03] VITALS: BP 100/60
[2019-05-03 04:00] VITALS: BP 110/56
[2019-05-03 08:00] VITALS: BP 125/71
[2019-05-03] MEDS: Cholestyramine 4gm Pkt ORAL SCH ×2 (08:50→17:12)
[2019-05-03] MEDS: Ciprofloxacin 500mg tab ORAL SCH ×2 (08:51→21:40)
[2019-05-03] MEDS: Lactobacillus-GG tablet ORAL SCH ×2 (08:52→17:13)
[2019-05-03] MEDS: Vancomycin oral 125mg/2.5ml ORAL SCH ×4 (08:52→21:40)
[2019-05-03 12:00] VITALS: BP 135/83
--- NOTE | 2019-05-03 13:28 | General Progress Note ---
Assessment/Plan Status: stable Assessment/Plan: 69 year old female with schizophrenia presenting after a fall at home and diarrhea. CT head negative for any acute pathology. Seen by PT and advised SNF. Her diarrhea resolved shortly after admission. She had no leukocytosis or TAYLOR. Imodium prn helped. Patient remained int hospital waiting for placement. on , she developed fever, leukocytosis, change in mental status, and bloody diarrhea. Stool sent for c diff and POSITIVE. Urine culture growing E.Coli. 1. Sepsis secondary to C. Diff colitis, and UTI - Resolved #C diff colitis- Improving. Repeat C. difficile negative -Continue oral vancomycin, IV flagyl. Will need 14 days total of PO vancomycin ( until 04/29/19) - May extend to 21 days per ID if continues to have diarrhea (until 05/06/19) - s/p IV ceftriaxone for UTI per ID -Repeat BCX negative -ID consult with Dr. Adler, recs appreciated -do not treat most current UA -GI consult: Appreciate recs from Dr. Anderson and CRAPS DEALER Carol. may add cholestyramine for continued diarrhea. Continue for rest of C Diff treatment -GI consult, recs appreciated- Continue PO Vanc and IV flagyl, outpatient colonoscopy - continue cholestyramine 2. Urinary tract infection, new problem 05/01/19 -Follow-up urine culture -Appreciate infectious disease recommendations: Dr. Adler -Ciprofloxacin for 3 days -Concomitant vancomycin p.o. 4 times daily given history of C. difficile 2. Hypokalemia. Repleted Labs tomorrow. If stable dc or do labs less frequently. 3. Schizophrenia Flat affect -Continue home Clonazepam. Dose decreased by psychiatrist to 1 mg QHS -discontinued home Trazodone. -Risperidone 4mg QHS per psychiatry recommendations -psychiatry consult. Dr. Fernández, appreciated. -Ativan 2mg Q6h PRN 4. Physical deconditioning and cachexia. Monitor oral intake 5. Hypovolemic hyponatremia. -Improved with IV fluids > Urine osmolality 215, urine sodium less than 20, urine creatinine 46.9. FENA calculated at 0.2% -Continue to encourage p.o. intake and fluids -Continue to monitor sodium daily 6. Hypokalemia- 2/2 diarrhea. replete PRN. Continue to monitor 7. Lower lip lesion- improving. continue ointment 8. Tinea cruris - Continue clotrimazole BID x 2 weeks (until 05/08/19) 9. Urinary retention, resolved -Bladder scans every 6 hours with postvoid residual. Resolved and voding well now. 10. Insomnia - replace benadryl with Klonipin PRN Dispo: pending placement at [facility] in the next 1-2 days I spent 37 minutes on this encounter with >50% spent on counselling and care coordination. Discussed with patient and RN and infectious disease Time of note may not reflect time patient was seen. Subjective Date patient seen: May 03, 2019 Time patient seen: 12:00 ROS Limited/Unobtainable: Yes Constitutional: Reports: no symptoms HEENT: Reports: no symptoms Cardiovascular: Reports: no symptoms Respiratory: Reports: no symptoms Gastrointestinal/Abdominal: Reports: no symptoms Genitourinary: Reports: no symptoms Neurologic/Psychiatric: Reports: no symptoms Endocrine: Reports: no symptoms Hematologic/Lymphatic: Reports: no symptoms Allergies: Coded Allergies: No Known Allergies (Unverified , 03/28/19) Objective Last 24 Hour Vital Signs Date Time Temp Pulse Resp B/P (MAP) Pulse Ox O2 Delivery O2 Flow Rate FiO2 05/03/19 09:00 73 84 103 05/03/19 09:00 Room Air Room Air 05/03/19 08:00 97.7 108 20 125/71 (89) 97 05/03/19 04:00 97.8 56 18 110/56 (74) 97 05/03/19 00:00 97.8 58 18 100/60 (73) 98 05/02/19 21:00 Room Air 05/02/19 20:00 98.1 60 18 108/63 (78) 97 05/02/19 16:00 97.7 102 18 121/75 (90) 97 Intake and Output 05/02/19 05/03/19 19:00 07:00 Intake Total 960 ml Balance 960 ml Intake Oral 960 ml # Voids 6 2 Height (Feet): 5 Height (Inches): 3.00 Weight (Pounds): 110 General Appearance: WD/WN, thin EENT: PERRL/EOMI Neck: non-tender Cardiovascular: normal rate, regular rhythm Respiratory/Chest: lungs clear, normal breath sounds Abdomen: non tender, soft Extremities: normal range of motion Neurologic: human resources project coordinator II-XII grossly normal Carlos Diallo MD May 03, 2019 13:28
--- NOTE | 2019-05-03 14:05 | Infectious Diseases Prog Note ---
Assessment/Plan Assessment/Plan ASSESSMENT AND PLAN: 1. c.diff. colitis, e.coli uti, hx sepsis, leukocytosis, hx fevers - ciprofloxacin po x 1 day more, symptoms better, check f/u urinalysis - continue po vancomycin while on concomitant ciprofloxacin - no diarrhea currently - monitor labs - fevers resolved 2. The patient came in with fall. Question ataxia. 3. The patient has sepsis criteria including cirrhosis, fevers, and heart rate as high as 115. Thus has SIRS criteria. 4. The patient has history of schizophrenia. 5. History of head trauma. 6. Lethargy. 7. Physical deconditioning. 8. She also has history of pacemaker. 9. Continue treatment per primary consultants. 10. No known allergies. 11. Social history is negative. 12. Family history is noncontributory. 13. MAR is noted. 14. Case was discussed with RN. 15. Notes and records were noted. Orders were entered. Subjective Constitutional: Denies: fever HEENT: Denies: congestion Respiratory: Denies: shortness of breath Gastrointestinal/Abdominal: Denies: nausea, vomiting, diarrhea Genitourinary: Reports: dysuria - less, frequency - less Neurologic: Denies: headache Psychiatric: Denies: depression Skin: Denies: rash Hematologic: Denies: bleeding Musculoskeletal: Denies: pain Allergies: Coded Allergies: No Known Allergies (Unverified , 03/28/19) Objective Vital Signs Last 24 Hour Vital Signs Date Time Temp Pulse Resp B/P (MAP) Pulse Ox O2 Delivery O2 Flow Rate FiO2 05/03/19 12:00 97.7 67 20 135/83 (100) 97 05/03/19 09:00 73 84 103 05/03/19 09:00 Room Air Room Air 05/03/19 08:00 97.7 108 20 125/71 (89) 97 05/03/19 04:00 97.8 56 18 110/56 (74) 97 05/03/19 00:00 97.8 58 18 100/60 (73) 98 05/02/19 21:00 Room Air 05/02/19 20:00 98.1 60 18 108/63 (78) 97 05/02/19 16:00 97.7 102 18 121/75 (90) 97 Height (Feet): 5 Height (Inches): 3.00 Weight (Pounds): 110 General Appearance: no acute distress HEENT: normocephalic, atraumatic, anicteric, mucous membranes moist Respiratory/Chest: lungs clear, normal breath sounds, no respiratory distress, no accessory muscle use Cardiovascular: normal rate, regular rhythm Abdomen: normal bowel sounds, soft, non tender, no organomegaly, non distended Genitourinary: other - no cva pain Extremities: no cyanosis Skin: no rash Neurologic/Psychiatric: storage receipt poster II-XII 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 Chronic calcific pancreatitis Atherosclerotic vascular disease Degenerative changes of the spine. Mild scoliosis. Mild left posterior basal atelectasis. Limited evaluation due to the nonadministration of intravenous contrast Chest x-ray - nad Microbiology Date/Time Source Procedure Growth Status 04/30/19 20:31 Urine,Clean Catch Urine Culture - Final Escherichia Coli Complete Labs Test 04/30/19 20:31 05/01/19 05:53 05/01/19 18:00 05/02/19 05:52 Urine Color Pale yellow Urine Appearance Slightly cloudy Urine pH 7 (4.5-8.0) Urine Specific [place] 1.005 (1.005-1.035) Urine Protein Negative (NEGATIVE) Urine Glucose (UA) Negative (NEGATIVE) Urine Ketones Negative (NEGATIVE) Urine Blood 1+ (NEGATIVE) Urine Nitrite Negative (NEGATIVE) Urine Bilirubin Negative (NEGATIVE) Urine Urobilinogen Normal MG/DL (0.0-1.0) Urine Leukocyte Esterase 3+ (NEGATIVE) Urine RBC 0-2 /HPF (0 - 2) Urine WBC 20-30 /HPF (0 - 2) Urine Squamous Epithelial Cells Few /LPF (NONE/OCC) Urine Bacteria Many /HPF (NONE) White Blood Count 11.0 K/UL (4.8-10.8) 8.0 K/UL (4.8-10.8) Red Blood Count 3.56 M/UL (4.20-5.40) 3.60 M/UL (4.20-5.40) Hemoglobin 11.7 G/DL (12.0-16.0) 11.9 G/DL (12.0-16.0) Hematocrit 34.1 % (37.0-47.0) 34.5 % (37.0-47.0) Mean Corpuscular Volume 96 FL (80-99) 96 FL (80-99) Mean Corpuscular Hemoglobin 32.8 PG (27.0-31.0) 33.0 PG (27.0-31.0) Mean Corpuscular Hemoglobin Concent 34.2 G/DL (32.0-36.0) 34.3 G/DL (32.0-36.0) Red Cell Distribution Width 13.3 % (11.6-14.8) 13.2 % (11.6-14.8) Platelet Count 298 K/UL (150-450) 298 K/UL (150-450) Mean Platelet Volume 5.6 FL (6.5-10.1) 4.8 FL (6.5-10.1) Neutrophils (%) (Auto) 76.1 % (45.0-75.0) 69.8 % (45.0-75.0) Lymphocytes (%) (Auto) 11.1 % (20.0-45.0) 16.0 % (20.0-45.0) Monocytes (%) (Auto) 10.7 % (1.0-10.0) 11.2 % (1.0-10.0) Eosinophils (%) (Auto) 1.4 % (0.0-3.0) 2.4 % (0.0-3.0) Basophils (%) (Auto) 0.8 % (0.0-2.0) 0.6 % (0.0-2.0) Sodium Level 133 MMOL/L (136-145) 134 MMOL/L (136-145) 137 MMOL/L (136-145) Potassium Level 4.5 MMOL/L (3.5-5.1) 4.0 MMOL/L (3.5-5.1) 4.5 MMOL/L (3.5-5.1) Chloride Level 100 MMOL/L (98-107) 99 MMOL/L (98-107) 102 MMOL/L (98-107) Carbon Dioxide Level 26 MMOL/L (21-32) 26 MMOL/L (21-32) 26 MMOL/L (21-32) Anion Gap 7 mmol/L (5-15) 9 mmol/L (5-15) 9 mmol/L (5-15) Blood Urea Nitrogen 10 mg/dL (7-18) 13 mg/dL (7-18) 11 mg/dL (7-18) Creatinine 0.7 MG/DL (0.55-1.30) 0.7 MG/DL (0.55-1.30) 0.7 MG/DL (0.55-1.30) Estimat Glomerular Filtration Rate > 60 mL/min (>60) > 60 mL/min (>60) > 60 mL/min (>60) Glucose Level 87 MG/DL (74-106) 149 MG/DL (74-106) 98 MG/DL (74-106) Calcium Level 9.6 MG/DL (8.5-10.1) 9.5 MG/DL (8.5-10.1) 9.9 MG/DL (8.5-10.1) Total Bilirubin 0.3 MG/DL (0.2-1.0) Aspartate Amino Transf (AST/SGOT) 22 U/L (15-37) Alanine Aminotransferase (ALT/SGPT) 35 U/L (12-78) Alkaline Phosphatase 77 U/L (46-116) Total Protein 6.7 G/DL (6.4-8.2) Albumin 2.8 G/DL (3.4-5.0) Globulin 3.9 g/dL Albumin/Globulin Ratio 0.7 (1.0-2.7) Current Medications Medications (Trade) Dose Ordered Sig/Lindsey Route PRN Reason Start Time Stop Time Status Last Admin Dose Admin Acetaminophen (Tylenol) 650 mg Q4H PRN ORAL Mild Pain/Temp > 100.5 04/29/19 00:00 05/29/19 00:00 05/02/19 21:43 Cholestyramine Resin (Questran) 4 gm BID ORAL 04/21/19 18:00 05/21/19 17:59 05/03/19 08:50 Ciprofloxacin (Cipro 500mg tab) 500 mg EVERY 12 HOURS ORAL 05/01/19 21:00 05/08/19 20:59 05/03/19 08:51 Clonazepam (KlonoPIN) 0.5 mg BEDTIME PRN ORAL insomnia 04/28/19 14:45 05/05/19 14:44 05/02/19 20:59 Clotrimazole (Lotrimin) 1 applic BID TOPIC 04/24/19 14:00 05/08/19 13:59 05/03/19 09:28 Diphenhydramine HCl (Benadryl) 25 mg HSPRN PRN ORAL Insomnia 04/29/19 00:00 05/29/19 00:00 05/02/19 20:59 Diphenoxylate HCl/ Atropine (Lomotil) 2.5 mg Q4H PRN ORAL Diarrhea 04/29/19 14:05 05/29/19 14:04 Famotidine (Pepcid) 20 mg DAILY ORAL 04/10/19 09:00 05/10/19 08:59 05/03/19 08:52 Lactobacillus Acidophilus (Culturelle) 1 tab TWICE A DAY ORAL 04/16/19 09:00 05/16/19 08:59 05/03/19 08:52 Risperidone (RisperDAL) 4 mg BEDTIME ORAL 04/10/19 21:00 05/10/19 20:59 04/26/19 20:40 Vancomycin HCl (Firvanq) 125 mg FOUR TIMES A DAY ORAL 05/01/19 18:00 05/17/19 20:59 05/03/19 08:52 Angel Martinez MD May 03, 2019 14:05
[2019-05-03 16:00] VITALS: BP 129/75
[2019-05-03 20:00] VITALS: BP 138/76
[2019-05-03] MEDS: clonazePAM 0.5mg tab ORAL PRN (21:47)
[2019-05-04] VITALS: BP 118/59
[2019-05-04 04:00] VITALS: BP 104/54
[2019-05-04 07:12] LABS: BASOPHILS % (AUTO) 1.3 % (0.0-2.0); EOSINOPHILS % (AUTO) 3.2 % (0.0-3.0); HEMATOCRIT 34.7 % (37.0-47.0); HEMOGLOBIN 12.1 G/DL (12.0-16.0); MEAN CORPUSCULAR VOLUME 94 FL (80-99); MONOCYTES % (AUTO) 11.8 % (1.0-10.0); NEUTROPHILS % (AUTO) 63.7 % (45.0-75.0); PLATELET COUNT 263 K/UL (150-450); RED BLOOD COUNT 3.68 M/UL (4.20-5.40); RED CELL DISTRIBUTION WIDTH 12.4 % (11.6-14.8); WHITE BLOOD COUNT 6.5 K/UL (4.8-10.8)
[2019-05-04 07:41] LABS: ANION GAP 6 mmol/L (5-15); CALCIUM 9.3 MG/DL (8.5-10.1); CARBON DIOXIDE 26 MMOL/L (21-32); CHLORIDE 100 MMOL/L (98-107); CREATININE 0.7 MG/DL (0.55-1.30); POTASSIUM 4.3 MMOL/L (3.5-5.1); SODIUM 132 MMOL/L (136-145)
[2019-05-04 07:53] LABS: BLOOD UREA NITROGEN 12 mg/dL (7-18)
[2019-05-04 08:00] VITALS: BP 110/66
[2019-05-04] MEDS: Cholestyramine 4gm Pkt ORAL SCH ×2 (09:45→17:27)
[2019-05-04] MEDS: Lactobacillus-GG tablet ORAL SCH ×2 (09:45→17:27)
[2019-05-04] MEDS: Vancomycin oral 125mg/2.5ml ORAL SCH ×4 (09:45→20:36)
[2019-05-04] MEDS: Ciprofloxacin 500mg tab ORAL SCH ×2 (09:46→20:35)
[2019-05-04 12:00] VITALS: BP 131/78
--- NOTE | 2019-05-04 13:42 | GI Progress Note ---
Assessment/Plan Problems: (1) C. difficile colitis ICD Codes: A04.72 - Enterocolitis due to Clostridium difficile, not specified as recurrent SNOMED: 273460880 (2) Diarrhea ICD Codes: R19.7 - Diarrhea, unspecified SNOMED: 07776093 (3) LGI bleed ICD Codes: K92.2 - Gastrointestinal hemorrhage, unspecified SNOMED: 93988251 (4) Schizophrenia ICD Codes: F20.9 - Schizophrenia, unspecified SNOMED: 34216575 Qualifiers: Qualified Codes: F20.9 - Schizophrenia, unspecified Status: stable, unchanged Status Narrative Discussed with Dr. Anderson. Assessment/Plan 69 year old female patient with reported episode of lower GI bleed x1 yesterday most likely due to infectious colitis. At time of evaluation, no reported recurrent LGIB, H&H stable. cdiff positive AP CT reviewed noted with moderately severe fecal retention in the colon and rectum with evidence of a proctocolitis. RN reports patient having a normal bowel movement okay for DC per GI standpoint No plans for colonoscopy at this time, can be done as outpatient. abx monitor H&H or recurrent LGIB, prn transfusions zofran prn H2B follow labs Continue Lomotil The patient was seen and examined at bedside and all new and available data was reviewed in the patients chart. I agree with the above findings, impression and plan. (Patient seen earlier today. Signature stamp does not reflect patient encounter time.). - Michelet Anderson MD Subjective Subjective Denies any diarrhea Denies any abdominal pain Objective Last 24 Hour Vital Signs Date Time Temp Pulse Resp B/P (MAP) Pulse Ox O2 Delivery O2 Flow Rate FiO2 05/04/19 12:00 98.2 80 17 131/78 (95) 97 05/04/19 10:00 80 80 98 05/04/19 09:00 Room Air Room Air 05/04/19 08:00 98.1 80 18 110/66 (81) 94 05/04/19 04:00 98.5 74 16 104/54 (71) 96 05/04/19 00:00 97.8 63 17 118/59 (78) 96 05/03/19 21:00 Room Air Room Air 05/03/19 20:00 98.0 61 18 138/76 (96) 96 05/03/19 16:00 99.0 62 19 129/75 (93) 96 Intake and Output 05/03/19 05/04/19 19:00 07:00 Intake Total 1200 ml Balance 1200 ml Intake Oral 1200 ml # Voids 6 1 # Bowel Movements 4 Laboratory Tests Test 05/04/19 06:20 White Blood Count 6.5 K/UL (4.8-10.8) Red Blood Count 3.68 M/UL (4.20-5.40) L Hemoglobin 12.1 G/DL (12.0-16.0) Hematocrit 34.7 % (37.0-47.0) L Mean Corpuscular Volume 94 FL (80-99) Mean Corpuscular Hemoglobin 33.0 PG (27.0-31.0) H Mean Corpuscular Hemoglobin Concent 35.0 G/DL (32.0-36.0) Red Cell Distribution Width 12.4 % (11.6-14.8) Platelet Count 263 K/UL (150-450) Mean Platelet Volume 5.5 FL (6.5-10.1) L Neutrophils (%) (Auto) 63.7 % (45.0-75.0) Lymphocytes (%) (Auto) 20.0 % (20.0-45.0) Monocytes (%) (Auto) 11.8 % (1.0-10.0) H Eosinophils (%) (Auto) 3.2 % (0.0-3.0) H Basophils (%) (Auto) 1.3 % (0.0-2.0) Sodium Level 132 MMOL/L (136-145) L Potassium Level 4.3 MMOL/L (3.5-5.1) Chloride Level 100 MMOL/L (98-107) Carbon Dioxide Level 26 MMOL/L (21-32) Anion Gap 6 mmol/L (5-15) Blood Urea Nitrogen 12 mg/dL (7-18) Creatinine 0.7 MG/DL (0.55-1.30) Estimat Glomerular Filtration Rate > 60 mL/min (>60) Glucose Level 83 MG/DL (74-106) Calcium Level 9.3 MG/DL (8.5-10.1) Height (Feet): 5 Height (Inches): 3.00 Weight (Pounds): 110 General Appearance: WD/WN, no apparent distress, alert, thin Cardiovascular: normal rate Respiratory/Chest: normal breath sounds, no respiratory distress Abdominal Exam: normal bowel sounds, non tender, soft Extremities: normal range of motion, non-tender Mckay Medina NP May 04, 2019 13:42
[2019-05-04 16:00] VITALS: BP 123/70
[2019-05-04 20:00] VITALS: BP 124/67
[2019-05-04] MEDS: clonazePAM 0.5mg tab ORAL PRN (20:35)
[2019-05-05] VITALS: BP 123/60
[2019-05-05 04:00] VITALS: BP 101/50
[2019-05-05 08:00] VITALS: BP 114/77
[2019-05-05] MEDS: Vancomycin oral 125mg/2.5ml ORAL SCH ×4 (08:30→20:37)
[2019-05-05] MEDS: Lactobacillus-GG tablet ORAL SCH ×2 (08:30→17:05)
[2019-05-05] MEDS: Ciprofloxacin 500mg tab ORAL SCH (08:30)
[2019-05-05] MEDS: Cholestyramine 4gm Pkt ORAL SCH ×2 (08:30→17:06)
--- NOTE | 2019-05-05 08:31 | General Progress Note ---
Assessment/Plan Status: stable, unchanged Assessment/Plan: Assessment/Plan 69 year old female patient with reported episode of lower GI bleed x1 yesterday most likely due to infectious colitis. At time of evaluation, no reported recurrent LGIB, H&H stable. 69 year old female patient with reported episode of lower GI bleed x1 yesterday most likely due to infectious colitis. At time of evaluation, no reported recurrent LGIB, H&H stable. cdiff positive AP CT reviewed noted with moderately severe fecal retention in the colon and rectum with evidence of a proctocolitis. RN reports patient having a normal bowel movement okay for DC per GI standpoint No plans for colonoscopy at this time, can be done as outpatient. abx monitor H&H or recurrent LGIB, prn transfusions zofran prn H2B follow labs Continue Lomoti Subjective ROS Limited/Unobtainable: Yes Allergies: Coded Allergies: No Known Allergies (Unverified , 03/28/19) Objective Last 24 Hour Vital Signs Date Time Temp Pulse Resp B/P (MAP) Pulse Ox O2 Delivery O2 Flow Rate FiO2 05/05/19 04:00 98.6 62 18 101/50 (67) 96 05/05/19 00:00 98.9 65 18 123/60 (81) 95 05/04/19 20:21 Room Air Room Air 05/04/19 20:00 98.1 62 18 124/67 (86) 96 05/04/19 16:00 97.9 70 18 123/70 (87) 98 05/04/19 12:00 98.2 80 17 131/78 (95) 97 05/04/19 10:00 80 80 98 05/04/19 09:00 Room Air Room Air Intake and Output 05/04/19 05/05/19 19:00 07:00 Intake Total 480 ml Balance 480 ml Intake Oral 480 ml # Voids 2 4 Height (Feet): 5 Height (Inches): 3.00 Weight (Pounds): 110 General Appearance: alert EENT: normal ENT inspection Neck: supple Cardiovascular: normal rate Respiratory/Chest: decreased breath sounds Abdomen: normal bowel sounds, non tender, soft Extremities: non-tender Michelet Anderson MD May 05, 2019 08:31
[2019-05-05 12:00] VITALS: BP 132/65
--- NOTE | 2019-05-05 12:52 | General Progress Note ---
Assessment/Plan Problem List: (1) Acute encephalopathy ICD Codes: G93.40 - Encephalopathy, unspecified SNOMED: 69695994, 971288465 (2) Ataxia ICD Codes: R27.0 - Ataxia, unspecified SNOMED: 88810765 (3) Pyuria ICD Codes: N39.0 - Urinary tract infection, site not specified SNOMED: 4495152, 937410939 (4) Lethargy ICD Codes: R53.83 - Other fatigue SNOMED: 040112708 (5) Head trauma ICD Codes: S09.90XA - Unspecified injury of head, initial encounter SNOMED: 07858255 Qualifiers: Qualified Codes: S09.90XA - Unspecified injury of head, initial encounter (6) Benzodiazepine abuse ICD Codes: F13.10 - Sedative, hypnotic or anxiolytic abuse, uncomplicated SNOMED: 553342761, 112915761 (7) Schizophrenia ICD Codes: F20.9 - Schizophrenia, unspecified SNOMED: 96148858 Qualifiers: Qualified Codes: F20.9 - Schizophrenia, unspecified (8) Physical deconditioning ICD Codes: R53.81 - Other malaise SNOMED: 40009762607372 (9) Hyponatremia ICD Codes: E87.1 - Hypo-osmolality and hyponatremia SNOMED: 07061429 (10) Hypovolemia due to dehydration ICD Codes: E86.0 - Dehydration SNOMED: 01368969 (11) Tinea cruris ICD Codes: B35.6 - Tinea cruris SNOMED: 327154130 Status: stable, unchanged Assessment/Plan: 69 year old female with schizophrenia presenting after a fall at home and diarrhea. CT head negative for any acute pathology. Seen by PT and advised SNF. Her diarrhea resolved shortly after admission. She had no leukocytosis or TAYLOR. Imodium prn helped. Patient remained int hospital waiting for placement. on , she developed fever, leukocytosis, change in mental status, and bloody diarrhea. Stool sent for c diff and POSITIVE. Urine culture growing E.Coli. 1. Sepsis secondary to C. Diff colitis, and UTI - Resolved #C diff colitis- Improving. Repeat C. difficile negative -Continue oral vancomycin, IV flagyl. Will need 14 days total of PO vancomycin ( until 04/29/19) - May extend to 21 days per ID if continues to have diarrhea (until 05/06/19) - s/p IV ceftriaxone for UTI per ID -Repeat BCX negative -ID consult with Dr. Adler, recs appreciated -do not treat most current UA -GI consult: Appreciate recs from Dr. 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 may add cholestyramine for continued diarrhea. Continue for rest of C Diff treatment -GI consult, recs appreciated- Continue PO Vanc and IV flagyl, outpatient colonoscopy - continue cholestyramine for length of Vanc 2. E. Coli Urinary tract infection, new problem 05/01/19 -Appreciate infectious disease recommendations: Dr. Adler -Ciprofloxacin for 4 days - discontinue today 05/05/19 -Concomitant vancomycin p.o. 4 times daily as above 2. Hypokalemia. Repleted 3. Schizophrenia Flat affect -Continue home Clonazepam. Dose decreased by psychiatrist to 1 mg QHS -discontinued home Trazodone. -Risperidone 4mg QHS per psychiatry recommendations. Crushed in appelsauce as patient does not take otherwise -psychiatry consult. Dr. Fernández, appreciated. -Ativan 2mg Q6h PRN 4. Physical deconditioning and cachexia. Monitor oral intake 5. Hypovolemic hyponatremia. -Improved with IV fluids > Urine osmolality 215, urine sodium less than 20, urine creatinine 46.9. FENA calculated at 0.2% -Continue to encourage p.o. intake and fluids -Continue to monitor sodium 6. Hypokalemia- 2/2 diarrhea. replete PRN. Continue to monitor 7. Lower lip lesion- improving. continue ointment 8. Tinea cruris, resolving - Continue clotrimazole BID x 2 weeks (until 05/08/19) 9. Urinary retention, resolved - discontinued benadryl 10. Insomnia - replace benadryl with Klonipin PRN Dispo: pending placement at [facility] I spent 28 minutes on this encounter with >50% spent on counselling and care coordination. Discussed with patient and RN and patient. Time of note may not reflect time patient was seen. Subjective Date patient seen: May 05, 2019 Constitutional: Denies: chills, diaphoresis, fever, malaise, weakness, other HEENT: Denies: eye pain, blurred vision, tearing, double vision, ear pain, ear discharge, nose pain, nose congestion, throat pain, throat swelling, mouth pain , mouth swelling, other Cardiovascular: Denies: chest pain, edema, irregular heart rate, lightheadedness, palpitations, syncope, other Respiratory: Denies: cough, orthopnea, shortness of breath, SOB with excertion , SOB at rest, sputum, stridor, wheezing, other Gastrointestinal/Abdominal: Denies: abdomen distended, abdominal pain, black stools, tarry stools, blood in stool, constipated, diarrhea, difficulty swallowing, nausea, poor appetite, poor fluid intake, rectal bleeding, vomiting , other Genitourinary: Denies: burning, discharge, frequency, flank pain, hematuria, incontinence, pain, urgency, other Neurologic/Psychiatric: Denies: anxiety, depressed, emotional problems, headache, numbness, paresthesia, pre-existing deficit, seizure, tingling, tremors, weakness, other Endocrine: Denies: excessive sweating, flushing, intolerance to cold, intolerance to heat, increased hunger, increased thirst, increased urine, unexplained weight gain, unexplained weight loss, other Hematologic/Lymphatic: Denies: anemia, easy bleeding, easy bruising, other Allergies: Coded Allergies: No Known Allergies (Unverified , 03/28/19) Subjective No acute events overnight per nursing. Diarrhea: 2 loose stools yesterday. Formed stools today. Denies any abdominal pain fever or chills. Urinary retention: Resolved with discontinuation of Benadryl. Continues to be resolved Groin rash: Improving with antifungal cream. Itching much improved today. But overall improving Objective Last 24 Hour Vital Signs Date Time Temp Pulse Resp B/P (MAP) Pulse Ox O2 Delivery O2 Flow Rate FiO2 05/05/19 10:00 62 76 85 05/05/19 09:00 Room Air Room Air 05/05/19 08:00 97.9 106 18 114/77 (89) 98 05/05/19 04:00 98.6 62 18 101/50 (67) 96 05/05/19 00:00 98.9 65 18 123/60 (81) 95 05/04/19 20:21 Room Air Room Air 05/04/19 20:00 98.1 62 18 124/67 (86) 96 05/04/19 16:00 97.9 70 18 123/70 (87) 98 Intake and Output 05/04/19 05/05/19 19:00 07:00 Intake Total 480 ml Balance 480 ml Intake Oral 480 ml # Voids 2 4 Height (Feet): 5 Height (Inches): 3.00 Weight (Pounds): 110 General Appearance: WD/WN, no apparent distress, alert EENT: PERRL/EOMI, normal ENT inspection Neck: non-tender, normal alignment, supple Cardiovascular: normal peripheral pulses, normal rate, regular rhythm, no JVD Respiratory/Chest: chest wall non-tender, lungs clear, normal breath sounds, no respiratory distress Abdomen: normal bowel sounds, non tender, soft Pelvis: other - Examined with bedside RN present. Groin rash appears to have resolved. 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 May 05, 2019 12:52
[2019-05-05 16:00] VITALS: BP 108/73
--- NOTE | 2019-05-05 17:22 | Infectious Diseases Prog Note ---
Assessment/Plan Assessment/Plan ASSESSMENT AND PLAN: 1. c.diff. colitis, e.coli uti, hx sepsis, leukocytosis, hx fevers - s/p ciprofloxacin - discontinued - continue po vancomycin, still some diarrhea when was on ciprofloxacin concomitantly - some diarrhea today - monitor labs - fevers and leukocytosis resolved 2. The patient came in with fall. Question ataxia. 3. The patient has sepsis criteria including cirrhosis, fevers, and heart rate as high as 115. Thus has SIRS criteria. 4. The patient has history of schizophrenia. 5. History of head trauma. 6. Lethargy. 7. Physical deconditioning. 8. She also has history of pacemaker. 9. Continue treatment per primary consultants. 10. No known allergies. 11. Social history is negative. 12. Family history is noncontributory. 13. MAR is noted. 14. Case was discussed with RN. 15. Notes and records were noted. Orders were entered. Subjective Constitutional: Denies: fever HEENT: Denies: congestion Respiratory: Denies: shortness of breath Cardiovascular: Denies: chest pain Gastrointestinal/Abdominal: Reports: diarrhea; Denies: nausea, vomiting Genitourinary: Reports: dysuria Neurologic: Denies: headache Psychiatric: Denies: depression Skin: Denies: rash Hematologic: Denies: bleeding Musculoskeletal: Denies: pain Allergies: Coded Allergies: No Known Allergies (Unverified , 03/28/19) Objective Vital Signs Last 24 Hour Vital Signs Date Time Temp Pulse Resp B/P (MAP) Pulse Ox O2 Delivery O2 Flow Rate FiO2 05/05/19 16:00 98.1 77 18 108/73 (85) 95 05/05/19 12:00 97.8 76 18 132/65 (87) 96 05/05/19 10:00 62 76 85 05/05/19 09:00 Room Air Room Air 05/05/19 08:00 97.9 106 18 114/77 (89) 98 05/05/19 04:00 98.6 62 18 101/50 (67) 96 05/05/19 00:00 98.9 65 18 123/60 (81) 95 05/04/19 20:21 Room Air Room Air 05/04/19 20:00 98.1 62 18 124/67 (86) 96 Height (Feet): 5 Height (Inches): 3.00 Weight (Pounds): 110 General Appearance: no acute distress HEENT: normocephalic, atraumatic, anicteric, mucous membranes moist Respiratory/Chest: lungs clear, normal breath sounds, no respiratory distress, no accessory muscle use Cardiovascular: normal rate, regular rhythm, no gallop/murmur, no JVD Abdomen: normal bowel sounds, soft, non tender, no organomegaly, non distended Genitourinary: other - no palacios Extremities: no cyanosis Skin: no rash Neurologic/Psychiatric: rad tech II-XII grossly normal, alert, oriented x 3, responsive Lymphatic: no neck adenopathy Musculoskeletal: no effusion Objective CT abdomen and pelvis: IMPRESSION: Moderately severe fecal retention in the colon and rectum with evidence of a proctocolitis. Chronic calcific pancreatitis Atherosclerotic vascular disease Degenerative changes of the spine. Mild scoliosis. Mild left posterior basal atelectasis. Limited evaluation due to the nonadministration of intravenous contrast Chest x-ray - nad Microbiology Date/Time Source Procedure Growth Status 04/09/19 20:27 Blood Blood Culture - Final NO GROWTH AFTER 5 DAYS Complete 03/29/19 05:20 Nasal Nares Left MRSA Culture - Final NO METHICILLIN RESISTANT STAPH AUREUS... Complete 04/24/19 12:07 Stool Clostridium difficile Toxin Assay - Final Complete 04/30/19 20:31 Urine,Clean Catch Urine Culture - Final Escherichia Coli Complete 03/29/19 05:20 Rectum - Final NO CARBAPENEM-RESISTANT ENTEROBACTERI... Complete Labs Test 05/04/19 06:20 White Blood Count 6.5 K/UL (4.8-10.8) Red Blood Count 3.68 M/UL (4.20-5.40) Hemoglobin 12.1 G/DL (12.0-16.0) Hematocrit 34.7 % (37.0-47.0) Mean Corpuscular Volume 94 FL (80-99) Mean Corpuscular Hemoglobin 33.0 PG (27.0-31.0) Mean Corpuscular Hemoglobin Concent 35.0 G/DL (32.0-36.0) Red Cell Distribution Width 12.4 % (11.6-14.8) Platelet Count 263 K/UL (150-450) Mean Platelet Volume 5.5 FL (6.5-10.1) Neutrophils (%) (Auto) 63.7 % (45.0-75.0) Lymphocytes (%) (Auto) 20.0 % (20.0-45.0) Monocytes (%) (Auto) 11.8 % (1.0-10.0) Eosinophils (%) (Auto) 3.2 % (0.0-3.0) Basophils (%) (Auto) 1.3 % (0.0-2.0) Sodium Level 132 MMOL/L (136-145) Potassium Level 4.3 MMOL/L (3.5-5.1) Chloride Level 100 MMOL/L (98-107) Carbon Dioxide Level 26 MMOL/L (21-32) Anion Gap 6 mmol/L (5-15) Blood Urea Nitrogen 12 mg/dL (7-18) Creatinine 0.7 MG/DL (0.55-1.30) Estimat Glomerular Filtration Rate > 60 mL/min (>60) Glucose Level 83 MG/DL (74-106) Calcium Level 9.3 MG/DL (8.5-10.1) Current Medications Medications (Trade) Dose Ordered Sig/Lindsey Route PRN Reason Start Time Stop Time Status Last Admin Dose Admin Acetaminophen (Tylenol) 650 mg Q4H PRN ORAL Mild Pain/Temp > 100.5 04/29/19 00:00 05/29/19 00:00 05/02/19 21:43 Cholestyramine Resin (Questran) 4 gm BID ORAL 04/21/19 18:00 05/21/19 17:59 05/05/19 17:06 Clonazepam (KlonoPIN) 0.5 mg HSPRN PRN ORAL insomnia 05/04/19 11:45 05/11/19 11:44 05/04/19 20:35 Clotrimazole (Lotrimin) 1 applic BID TOPIC 04/24/19 14:00 05/08/19 13:59 05/05/19 17:06 Diphenoxylate HCl/ Atropine (Lomotil) 2.5 mg Q4H PRN ORAL Diarrhea 04/29/19 14:05 05/29/19 14:04 Famotidine (Pepcid) 20 mg DAILY ORAL 04/10/19 09:00 05/10/19 08:59 05/05/19 08:30 Lactobacillus Acidophilus (Culturelle) 1 tab TWICE A DAY ORAL 04/16/19 09:00 05/16/19 08:59 05/05/19 17:05 Risperidone (RisperDAL) 4 mg BEDTIME ORAL 05/05/19 21:00 06/04/19 20:59 Vancomycin HCl (Firvanq) 125 mg FOUR TIMES A DAY ORAL 05/01/19 18:00 05/17/19 20:59 05/05/19 17:05 Angel Martinez MD May 05, 2019 17:22
[2019-05-05 20:00] VITALS: BP 102/60
[2019-05-05] MEDS: clonazePAM 0.5mg tab ORAL PRN (20:37)
[2019-05-06] VITALS: BP 98/61
[2019-05-06 04:00] VITALS: BP 122/63
[2019-05-06 07:57] LABS: BASOPHILS % (AUTO) 0.8 % (0.0-2.0); EOSINOPHILS % (AUTO) 3.1 % (0.0-3.0); HEMATOCRIT 37.6 % (37.0-47.0); LYMPHOCYTES % (AUTO) 24.8 % (20.0-45.0); MEAN CORPUSCULAR VOLUME 96 FL (80-99); MONOCYTES % (AUTO) 12.2 % (1.0-10.0); NEUTROPHILS % (AUTO) 59.2 % (45.0-75.0); PLATELET COUNT 306 K/UL (150-450); RED BLOOD COUNT 3.92 M/UL (4.20-5.40); RED CELL DISTRIBUTION WIDTH 13.3 % (11.6-14.8); WHITE BLOOD COUNT 7.6 K/UL (4.8-10.8)
[2019-05-06 08:00] VITALS: BP 114/71
[2019-05-06 08:26] LABS: ANION GAP 9 mmol/L (5-15); BLOOD UREA NITROGEN 17 mg/dL (7-18); CARBON DIOXIDE 26 MMOL/L (21-32); CHLORIDE 102 MMOL/L (98-107); CREATININE 0.7 MG/DL (0.55-1.30); POTASSIUM 4.5 MMOL/L (3.5-5.1); SODIUM 137 MMOL/L (136-145)
--- NOTE | 2019-05-06 08:49 | General Progress Note ---
Assessment/Plan Status: stable, unchanged Assessment/Plan: Assessment/Plan 69 year old female patient with reported episode of lower GI bleed x1 yesterday most likely due to infectious colitis. At time of evaluation, no reported recurrent LGIB, H&H stable. 69 year old female patient with reported episode of lower GI bleed x1 yesterday most likely due to infectious colitis. At time of evaluation, no reported recurrent LGIB, H&H stable. cdiff positive AP CT reviewed noted with moderately severe fecal retention in the colon and rectum with evidence of a proctocolitis. RN reports patient having a normal bowel movement okay for DC per GI standpoint No plans for colonoscopy at this time, can be done as outpatient. abx monitor H&H or recurrent LGIB, prn transfusions Zofran prn H2B follow labs Continue Lomotil prn Subjective ROS Limited/Unobtainable: No Allergies: Coded Allergies: No Known Allergies (Unverified , 03/28/19) Objective Last 24 Hour Vital Signs Date Time Temp Pulse Resp B/P (MAP) Pulse Ox O2 Delivery O2 Flow Rate FiO2 05/06/19 04:00 97.2 61 18 122/63 (82) 96 05/06/19 00:00 97.6 62 18 98/61 (73) 97 05/05/19 21:00 Room Air Room Air 05/05/19 20:00 98.1 60 18 102/60 (74) 96 05/05/19 16:00 98.1 77 18 108/73 (85) 95 05/05/19 12:00 97.8 76 18 132/65 (87) 96 05/05/19 10:00 62 76 85 05/05/19 09:00 Room Air Room Air Intake and Output 05/05/19 05/06/19 19:00 07:00 Intake Total 600 ml 360 ml Balance 600 ml 360 ml Intake Oral 600 ml 360 ml # Voids 4 2 # Bowel Movements 4 Laboratory Tests 05/06/19 07:30: White Blood Count 7.6, Red Blood Count 3.92L, Hemoglobin 13.0, Hematocrit 37.6, Mean Corpuscular Volume 96, Mean Corpuscular Hemoglobin 33.0H, Mean Corpuscular Hemoglobin Concent 34.4, Red Cell Distribution Width 13.3, Platelet Count 306, Mean Platelet Volume 5.2L, Neutrophils (%) (Auto) 59.2, Lymphocytes (%) (Auto) 24.8, Monocytes (%) (Auto) 12.2H, Eosinophils (%) (Auto) 3.1H, Basophils (%) ( Auto) 0.8, Sodium Level 137, Potassium Level 4.5, Chloride Level 102, Carbon Dioxide Level 26, Anion Gap 9, Blood Urea Nitrogen 17, Creatinine 0.7, Estimat Glomerular Filtration Rate > 60, Glucose Level 96, Calcium Level 10.0 Height (Feet): 5 Height (Inches): 3.00 Weight (Pounds): 112 General Appearance: no apparent distress EENT: normal ENT inspection Neck: supple Cardiovascular: normal peripheral pulses Respiratory/Chest: decreased breath sounds Abdomen: normal bowel sounds, non tender, soft Extremities: non-tender Michelet Anderson MD May 06, 2019 08:49
[2019-05-06] MEDS: Cholestyramine 4gm Pkt ORAL SCH ×2 (09:18→18:21)
[2019-05-06] MEDS: Lactobacillus-GG tablet ORAL SCH ×2 (09:27→18:20)
[2019-05-06] MEDS: Vancomycin oral 125mg/2.5ml ORAL SCH ×3 (09:28→18:20)
[2019-05-06] MEDS ORDERED: VANCOMYCIN250 MG/5 M ORAL (11:35)
[2019-05-06] MEDS ORDERED: RISPERDAL2 MG ORAL (11:35)
[2019-05-06] MEDS ORDERED: QUESTRAN POWDER4 GM ORAL (11:38)
[2019-05-06] MEDS ORDERED: FAMOTIDINE20 MG ORAL (11:38)
[2019-05-06] MEDS ORDERED: CLOTRIMAZOLE15 GM TOPIC (11:38)
[2019-05-06 12:00] VITALS: BP 115/68
[2019-05-06 16:00] VITALS: BP 125/76
--- NOTE | 2019-05-06 17:48 | Discharge Summary ---
Discharge Summary Hospital Course Date of Admission Mar 29, 2019 at 00:40 Date of Discharge 05/06/19 Admitting Diagnosis ataxia KAREEM Pedroza is a 69 year old female who was admitted on Mar 29, 2019 at 00: 40 for Ataxia Consultations Infectious disease, gastroenterology, psychiatry Hospital Course 69 year old female with schizophrenia presenting after a fall at home and diarrhea. CT head negative for any acute pathology. Seen by PT and advised SNF. Her diarrhea resolved shortly after admission. She had no leukocytosis or TAYLOR. Imodium prn helped. Patient remained in the hospital waiting for placement. on , she developed fever, leukocytosis, change in mental status, and bloody diarrhea. Stool sent for c diff and POSITIVE. Urine culture growing E.Coli. Patient was treated with p.o. vancomycin 125 mg p.o. 4 times daily and concomitant IV ceftriaxone. Patient continued to have persistent diarrhea after completion of ceftriaxone therapy. Gastroenterology recommended the addition of cholestyramine while being treated for C. Diff. The patient's diarrhea eventually resolved. The patient then developed another urinary infection. She was treated with ciprofloxacin for 4 days. The patient will continue another 3 days of vancomycin therapy given this use of ciprofloxacin. The patient did not have any diarrhea on discharge. The patient was seen by psychiatry who is continue the patient's outpatient Invega shot Q 3 months. The patient was started on risperidone. The patient was titrated up to 4 mg p.o. daily. She refuses the medication intermittently. Explained to patient the necessity of being on this medication. She complied and will take the medication crushed in applesauce. She had no further psychiatric problems after being on this medication. She was also discharged on Ativan as needed. The patient also had an intermittent difficulty with hyponatremia. Likely hypovolemic. The patient was encouraged to drink water and given IV fluids and sodium was normal on discharge. Will need to check BMP periodically. Patient had difficulty with urinary retention. Benadryl was discontinued and this was resolved The patient also developed tinea cruris. The patient was started on clotrimazole and will complete a 2-week course on 05/08/2019. The patient's condition improved on discharge. The patient was hemodynamically stable on discharge. The patient was [facility]hab. 1. Sepsis secondary to C. Diff colitis, and UTI - Resolved #C diff colitis- Improving. Repeat C. difficile negative -Continue oral vancomycin, IV flagyl. Will need 14 days total of PO vancomycin ( until 04/29/19) - Extend to 05/09/19 - s/p IV ceftriaxone for UTI per ID -Repeat BCX negative -ID consult with Dr. Adler, recs appreciated -do not treat most current UA -GI consult: Appreciate recs from Dr. Anderson and [employer] Carol. may add cholestyramine for continued diarrhea. Continue for rest of C Diff treatment -GI consult, recs appreciated- Continue PO Vanc and IV flagyl, outpatient colonoscopy - continue cholestyramine for length of Vanc 2. E. Coli Urinary tract infection, new problem 05/01/19 -Appreciate infectious disease recommendations: Dr. Adler -Ciprofloxacin for 4 days - discontinued 05/05/19 -Concomitant vancomycin p.o. 4 times daily as above 2. Hypokalemia. Repleted 3. Schizophrenia Flat affect -Continue home Clonazepam. Dose decreased by psychiatrist to 1 mg QHS -discontinued home Trazodone. -Risperidone 4mg Daily per psychiatry recommendations. Crushed in appelsauce as patient does not take otherwise -psychiatry consult. Dr. Fernández, appreciated. -Ativan 2mg Q6h PRN 4. Physical deconditioning and cachexia. Monitor oral intake 5. Hypovolemic hyponatremia. -Improved with IV fluids > Urine osmolality 215, urine sodium less than 20, urine creatinine 46.9. FENA calculated at 0.2% -Continue to encourage p.o. intake and fluids -Continue to monitor sodium 6. Hypokalemia- 2/2 diarrhea. replete PRN. Continue to monitor 7. Lower lip lesion- improving. continue ointment 8. Tinea cruris, resolving - Continue clotrimazole BID x 2 weeks (until 05/08/19) 9. Urinary retention, resolved - discontinued benadryl 10. Insomnia - replace benadryl with Klonipin PRN Physical Exam Vital signs: Temperature 97.9 pulse 94 respirations 20 blood pressure 115/68 pulse ox 97% on room air. General: WDWN female in NAD, A&O x 4 HEENT: Normocephalic cephalic atraumatic, pupils equal round reactive to light and accommodation, nares patent and no symmetrical, no tonsillar exudates, mucous membranes moist CV: Regular rate regular rhythm, no murmurs, rubs, or gallops Pulm: Lungs clear to auscultation bilaterally. No wheezes, rhonchi, or rales GI: Soft, nontender, nondistended, bowel sounds present Neuro: CN 2-12 intact bilaterally, no focal signs. Ext: No lower extremity edema bilaterally Skin: no rashes lesions or ulcers Msk: Joints symmetrical in upper extremity and lower extremity bilaterally, no joint swelling. Lymph: No lymphadenopathy in upper extremity and lower extremity I spent >30 minutes on this encounter with >50% spent on counselling and care coordination. Discussed with patient, RN, and infectious disease. Time of note may not reflect time patient was seen. Discharge Condition Upon Discharge: improving Discharge Disposition Patient was discharged to discharged to nursing Discharge Diagnoses: (1) C. difficile colitis (2) Sepsis (3) Acute encephalopathy (4) Diarrhea (5) Physical deconditioning (6) Schizophrenia (7) Benzodiazepine abuse Jonny Colon D.O. May 06, 2019 17:48
[2019-05-06] MEDS ORDERED: Flu Vac High-Dose for Pts 65 Years and Older IM ONE (18:00)
== END 2019-05-06 19:28 | DRG 115 ==
LOC: EMR 21:21 → EDBEDREQ 03-29 00:25 → INTOOBSV 03-29 00:40 → 3E 03-29 00:40 → OBSVTOIN 03-29 00:40 → 3E 03-29 12:06 → 4E 04-09 06:56
DX: S09.90XA Unspecified injury of head, initial encounter (principal); A04.72 Enterocolitis due to Clostridium difficile, not specified as recurrent; A41.89 Other specified sepsis; G93.40 Encephalopathy, unspecified; F20.9 Schizophrenia, unspecified; W18.30XA Fall on same level, unspecified, initial encounter; Y92.9 Unspecified place or not applicable; F13.10 Sedative, hypnotic or anxiolytic abuse, uncomplicated; E87.6 Hypokalemia; E87.1 Hypo-osmolality and hyponatremia; E86.0 Dehydration; K59.00 Constipation, unspecified; K92.2 Gastrointestinal hemorrhage, unspecified; B35.6 Tinea cruris; R33.9 Retention of urine, unspecified; G47.00 Insomnia, unspecified; R27.0 Ataxia, unspecified; N39.0 Urinary tract infection, site not specified
CPT/HCPCS: 36415; 70450; 71045; 71046; 74176; 80048; 80053; 80307; 80329; 81001; 81003; 82550; 82570; 83605; 83735; 83935; 84100; 84300; 84443; 84484; 85007; 85025; 87040; 87081; 87086; 87181; 87324; 93005; 96360; 96361; 99285; J8499